=== PATIENT | female | born 1945 | race Caucasian/White ===

== ENCOUNTER 2016-08-20 13:39 | Outpatient (RCR) | payer OTHER, MEDICARE ==
[~2016-08-20 13:39] MED LIST: AMIO200T2 PO; CHOL500049 PO; DIPH1TAB PO; EXEM25TA4; LISI-552 PO; METR500T21 PO
--- OUTSIDE RECORDS SUMMARY | 2016-08-20 13:43 | XMS REPORT | Continuity of Care Document ---
Author Author [facility] Organization [facility] Address Unknown Phone Unavailable Care Team Providers Care Reproduction Machine Loader Name Role Phone Juan DanielTrae edwardsEvangelina PCP [phone] Source Comments Some departments are not documenting in the electronic medical record. If you do not see the information that you expected, contact Release of Information in the Health Information Management department at [phone] for further assistance in locating additional records.[facility] Active Allergies and Adverse Reactions No Known Allergies Current Medications Prescription Sig. Disp. Refills Start End Date Status Date lisinopril (PRINIVIL; Take 20 mg by mouth Active ZESTRIL) 20 mg tablet daily. amiodarone (CORDARONE) Take 200 mg by mouth Active 200 mg tablet daily. potassium chloride SR Take 10 mEq by mouth Active (K-DUR) 10 mEq tablet daily. HYDROcodone/acetaminophen Take 1-2 Tabs by mouth 40 Tab 0 01/12/20 Active (NORCO; VICODIN) 5-325 mg every 4 hours as needed 16 tablet for Pain acetaminophen/codeine Take 1-2 Tabs by mouth 40 Tab 0 01/12/20 Active (TYLENOL #3) 300/30 mg every 4 hours as needed 16 tablet for Pain. meloxicam (MOBIC) 15 mg Take 1 Tab by mouth 90 Tab 3 01/12/20 Active tablet daily. 16 Active Problems Problem Noted Date Malignant neoplasm of upper-outer quadrant of left female breast (HCC) 12/25 Overview: DIAGNOSIS: Left grade 1 IDC (ER60%, PR0%, HER2 0+, Ki-67 10%) at 3:00, dx 11/2015 HISTORY: Ms. Muñoz is a female who presented to [facility] on 12/28/2015 at age 70 for evaluation of left breast cancer. Ms. Muñoz felt a lump in the left breast and tingling at the beginning of November 2015. She saw her PCP who sent her for imaging. Left breast sono-guided biopsy 12/01/15 ([place], [place]) revealed grade 1 invasive ductal carcinoma. PET scan 12/13/15 ([place], [place]) revealed no evidence of metastasis. In the liver there was a 3.2 cm central hepatic hypodense mass with no hypermetabolism that was felt to be a hemangioma. Ms. Muñoz underwent left RSL lumpectomy/SLNB on 01/12/16. Final pathology revealed 1 cm grade 1 IDC; DCIS present; 2mm focus of DCIS was 0.5 mm from posterior margin and 1 mm focus was less than 1 mm from the inferior-posterior margin (took tissue all the way to implant); LVI absent; 2 negative SLNs. She finished radiation with Dr. Jacobs in March 2016. She started on exemestane in April 2016, but started having diarrhea and after extensive work up it was found to be caused by the drug and she stopped it. BREAST IMAGING: Mammogram: -- Bilateral diagnostic mammogram 11/23/15 ([place], [place]) revealed a 6 mm nodule in the left breast upper outer quadrant. The right breast showed no mammographic evidence of malignancy. Bilateral implants appeared symmetrical. -- Left diagnostic mammogram 12/28/15 () revealed a saline subpectoral implant present. A clip was seen on the upper posterior aspect of the known cancer, with the area post biopsy change measuring about 12 mm mammographically. No additional areas of concern were demonstrated. Ultrasound: -- Left breast ultrasound 11/23/15 ([place], [place]) revealed an 8 mm hypoechoic mass at 3:00. -- Left targeted breast ultrasound 12/28/15 () revealed a hematoma measuring 1.6 cm, with the known cancer present on one margin. Though difficult to measure precisely, it was thought to measure approximately 6 mm, similar to that on the outside examination. Nearby, small cyst was seen measuring 3 to 4 mm. Axilla showed no adenopathy. REPRODUCTIVE HEALTH: Age at first Menarche: 15 Age at First Live : 26 Age at Menopause: BRENDA/BSO at 37, was on HRT for many years, on estrace cream now : 3 Para: 3 : PROCEDURE: 1. Bilateral breast reconstruction, 2005 2. Implant exchange, 2009 3. Left RSL lumpectomy/SLNB, 01/12/16 PERTINENT PMH: HTN, atrial fibrillation FAMILY HISTORY: Maternal aunt with breast cancer at 80. Mother and maternal grandmother with colon cancer. No family history of ovarian or pancreatic cancer. PHYSICAL EXAM on PRESENTATION: Right - Subpectoral saline implant. No palpable masses. Left - Subpectoral saline implant. Subcentimeter nodule at 3:00 with bruising. No supraclavicular or axillary adenopathy. MEDICAL ONCOLOGY: Dr. Dodie Hand PRESENT THERAPY: Started exemestane in 04/2016, stopped 05/2016 due to diarrhea REFERRED BY: Dr. Dodie Hand Most Recent Encounters Date Type Specialty Providers Description 07/25/2016 Office Visit Oncology Dioni Ryan DO Malignant neoplasm of Dalia Glasgow PA-C upper-outer quadrant of left female breast (HCC) (Primary Dx) 07/25/2016 [facility] Radiology Dioni Ryan DO Encounter 07/25/2016 [facility] Radiology Dioni Ryan DO Encounter 07/25/2016 [facility] / Breast Dalia Glasgow PA-C Malignant neoplasm of [facility] upper-outer quadrant of left female breast (HCC) (Primary Dx) Social History Tobacco Use Types Packs/Day Years Used Date Never Smoker Smokeless Tobacco: Never Used Alcohol Use Drinks/Week oz/Week Comments No Last Filed Vital Signs Vital Sign Reading Time Taken Blood Pressure 161/82 07/25/2016 3:08 PM CDT Pulse 67 07/25/2016 3:08 PM CDT Temperature 36.8 C (98.3 F) 07/25/2016 3:08 PM CDT Respiratory Rate 17 07/25/2016 3:08 PM CDT Height 1.74 m (5' 8.5") 07/25/2016 3:08 PM CDT Weight 73.029 kg (161 lb) 07/25/2016 3:08 PM CDT Body Mass Index 24.12 07/25/2016 3:08 PM CDT Oxygen Saturation 100% 07/25/2016 3:08 PM CDT Plan of Care Date Type Specialty Providers Description 01/24/2017 Appointment Oncology Adri Montano, LYNN [address] [facility] [address] [place] [address] [phone] (Fax) Health Maintenance Due Date Last Done Comments Hepatitis C Screening 1945 Physical (Comprehensive) 1954 Exam Pertussis Vaccine 1958 Tetanus Vaccine 1964 Colorectal Cancer 1997 Screening Shingles Vaccine 2007 Osteoporosis Screening 2012 Prevnar/Pneumovax (#1) 2012 Influenza Vaccine 06/14/2016 Breast Cancer Screening 07/25/2018 07/25/2016 Results from Last 3 Months US BREAST TARGET LT (07/25/2016 2:22 PM) Impressions ACR BI-RADS Assessments: BIRAD 2-Benign (Overall) DIAG MAMMO BL/T: BIRAD 0-incomplete: need additional imaging evaluation of both breasts. Left breast US TARGET LEFT: BIRAD 2-benign finding in the left breast. RECOMMENDATION: Routine screening mammogram of both breasts in 1 year. Narrative Last mammogram was performed 2 years and 5 months ago. Reason for exam: history of breast cancer, conservation therapy hx of Lt Breast CA 12/2015, Lt Lumpectomy 12/2015 Performed by: Javi Pang [id number] MAMMO DIAGNOSTIC LEELA/MARTHA: JULY 25, 2016 - 2D/3D Procedure 3D Routine views. 2D Routine views. Radiologists: Sudhakar Urbina M.D.; MENG EUBANKS Technologist: Javi Pang Prior study comparison: December 28, 2015, left breast [id number] MAMMO DIAGNOSTIC LT/MARTHA performed at [facility] Breast I.November 23, 2015, left breast mammogram. March 03, 2014, bilateral mammogram. There are scattered areas of fibroglandular density.71-year-old female with history of left breast cancer status post lumpectomy in December 2015. Patient notes left periareolar breast lump, approximately 3:00. There are postsurgical changes in the left breast. Bilateral saline implant are in place. There are no abnormal asymmetries, masses or suspicious microcalcifications present to suggest malignancy.No changes from prior exam. Targeted ultrasound of the left breast will be performed. [id number] US BREAST TARGET LT: LEFT BREAST - JULY 25, 2016 - Radiologist: Sudhakar Urbina M.D. Technologist: Madie Barth, Nut Process Helper Targeted ultrasound of the left breast was performed. There are postsurgical changes at the area of palpable abnormality at 3:00, 1 cm from the nipple. There are normal-appearing left axillary lymph nodes. There are no suspicious findings to suggest malignancy. Approved by Nolberto Eubanks MD on 07/25/2016 2:54 PM By my electronic signature, I attest that I have personally reviewed the images for this examination and formulated the interpretations and opinions expressed in this report Finalized by Sudhakar Urbina M.D. on 07/25/2016 2:58 PM. Dictated by Nolberto Eubanks MD on 07/25/2016 1:53 PM. Electronically signed and approved by: Sudhakar Urbina M.D. [id number] Procedure Note Interface, Radiant Results - SatJul 25, 2016 2:59 PM CDT Last mammogram was performed 2 years and 5 months ago. Reason for exam: history of breast cancer, conservation therapy hx of Lt Breast CA 12/2015, Lt Lumpectomy 12/2015 Performed by: Javi Pang [id number] MAMMO DIAGNOSTIC LEELA/MARTHA: JULY 25, 2016 - 2D/3D Procedure 3D Routine views. 2D Routine views. Radiologists: Sudhakar Urbina M.D.; MENG EUBANKS Technologist: Javi Pang Prior study comparison: December 28, 2015, left breast [id number] MAMMO DIAGNOSTIC LT/MARTHA performed at [facility] Breast I. November 23, 2015, left breast mammogram. March 03, 2014, bilateral mammogram. There are scattered areas of fibroglandular density. 71-year-old female with history of left breast cancer status post lumpectomy in December 2015. Patient notes left periareolar breast lump, approximately 3:00. There are postsurgical changes in the left breast. Bilateral saline implant are in place. There are no abnormal asymmetries, masses or suspicious microcalcifications present to suggest malignancy. No changes from prior exam. Targeted ultrasound of the left breast will be performed. [id number] US BREAST TARGET LT: LEFT BREAST - JULY 25, 2016 - Radiologist: Sudhakar Urbina M.D. Technologist: Madie Barth, Nut Process Helper Targeted ultrasound of the left breast was performed. There are postsurgical changes at the area of palpable abnormality at 3:00, 1 cm from the nipple. There are normal-appearing left axillary lymph nodes. There are no suspicious findings to suggest malignancy. Approved by Nolberto Eubanks MD on 07/25/2016 2:54 PM By my electronic signature, I attest that I have personally reviewed the images for this examination and formulated the interpretations and opinions expressed in this report Finalized by Sudhakar Urbina M.D. on 07/25/2016 2:58 PM. Dictated by Nolberto Eubanks MD on 07/25/2016 1:53 PM. Electronically signed and approved by: Sudhakar Urbina M.D. [id number] IMPRESSION ACR BI-RADS Assessments: BIRAD 2-Benign (Overall) DIAG MAMMO BL/T: BIRAD 0-incomplete: need additional imaging evaluation of both breasts. Left breast US TARGET LEFT: BIRAD 2-benign finding in the left breast. RECOMMENDATION: Routine screening mammogram of both breasts in 1 year. MAMMO DIAGNOSTIC LEELA/MARTHA (07/25/2016 1:51 PM) Impressions ACR BI-RADS Assessments: BIRAD 2-Benign (Overall) DIAG MAMMO BL/T: BIRAD 0-incomplete: need additional imaging evaluation of both breasts. Left breast US TARGET LEFT: BIRAD 2-benign finding in the left breast. RECOMMENDATION: Routine screening mammogram of both breasts in 1 year. Narrative Last mammogram was performed 2 years and 5 months ago. Reason for exam: history of breast cancer, conservation therapy hx of Lt Breast CA 12/2015, Lt Lumpectomy 12/2015 Performed by: Javi Pang [id number] MAMMO DIAGNOSTIC LEELA/MARTHA: JULY 25, 2016 - 2D/3D Procedure 3D Routine views. 2D Routine views. Radiologists: Sudhakar Urbina M.D.; MENG EUBANKS Technologist: Javi Pang Prior study comparison: December 28, 2015, left breast [id number] MAMMO DIAGNOSTIC LT/MARTHA performed at [facility] Breast I.November 23, 2015, left breast mammogram. March 03, 2014, bilateral mammogram. There are scattered areas of fibroglandular density.71-year-old female with history of left breast cancer status post lumpectomy in December 2015. Patient notes left periareolar breast lump, approximately 3:00. There are postsurgical changes in the left breast. Bilateral saline implant are in place. There are no abnormal asymmetries, masses or suspicious microcalcifications present to suggest malignancy.No changes from prior exam. Targeted ultrasound of the left breast will be performed. [id number] US BREAST TARGET LT: LEFT BREAST - JULY 25, 2016 - Radiologist: Sudhakar Urbina M.D. Technologist: Madie Barth, Nut Process Helper Targeted ultrasound of the left breast was performed. There are postsurgical changes at the area of palpable abnormality at 3:00, 1 cm from the nipple. There are normal-appearing left axillary lymph nodes. There are no suspicious findings to suggest malignancy. Approved by Nolberto Eubanks MD on 07/25/2016 2:54 PM By my electronic signature, I attest that I have personally reviewed the images for this examination and formulated the interpretations and opinions expressed in this report Finalized by Sudhakar Urbina M.D. on 07/25/2016 2:58 PM. Dictated by Nolberto Eubanks MD on 07/25/2016 1:53 PM. Electronically signed and approved by: Sudhakar Urbina M.D. [id number] Procedure Note Interface, Radiant Results - SatJul 25, 2016 2:59 PM CDT Last mammogram was performed 2 years and 5 months ago. Reason for exam: history of breast cancer, conservation therapy hx of Lt Breast CA 12/2015, Lt Lumpectomy 12/2015 Performed by: Javi Pang [id number] MAMMO DIAGNOSTIC LEELA/MARTHA: JULY 25, 2016 - 2D/3D Procedure 3D Routine views. 2D Routine views. Radiologists: Sudhakar Urbina M.D.; MENG EUBANKS Technologist: Javi Pang Prior study comparison: December 28, 2015, left breast [id number] MAMMO DIAGNOSTIC LT/MARTHA performed at [facility] Breast I. November 23, 2015, left breast mammogram. March 03, 2014, bilateral mammogram. There are scattered areas of fibroglandular density. 71-year-old female with history of left breast cancer status post lumpectomy in December 2015. Patient notes left periareolar breast lump, approximately 3:00. There are postsurgical changes in the left breast. Bilateral saline implant are in place. There are no abnormal asymmetries, masses or suspicious microcalcifications present to suggest malignancy. No changes from prior exam. Targeted ultrasound of the left breast will be performed. [id number] US BREAST TARGET LT: LEFT BREAST - JULY 25, 2016 - Radiologist: Sudhakar Urbina M.D. Technologist: Madie Barth, Nut Process Helper Targeted ultrasound of the left breast was performed. There are postsurgical changes at the area of palpable abnormality at 3:00, 1 cm from the nipple. There are normal-appearing left axillary lymph nodes. There are no suspicious findings to suggest malignancy. Approved by Nolberto Eubanks MD on 07/25/2016 2:54 PM By my electronic signature, I attest that I have personally reviewed the images for this examination and formulated the interpretations and opinions expressed in this report Finalized by Sudhakar Urbina M.D. on 07/25/2016 2:58 PM. Dictated by Nolberto Eubanks MD on 07/25/2016 1:53 PM. Electronically signed and approved by: Sudhakar Urbina M.D. [id number] IMPRESSION ACR BI-RADS Assessments: BIRAD 2-Benign (Overall) DIAG MAMMO BL/T: BIRAD 0-incomplete: need additional imaging evaluation of both breasts. Left breast US TARGET LEFT: BIRAD 2-benign finding in the left breast. RECOMMENDATION: Routine screening mammogram of both breasts in 1 year.
== END 2016-11-18 | disposition home or self-care (01) ==
LOC: ONC 13:39
PROVIDERS: ATTEND Internal Medicine Hematology & Oncology
DX: C50.412 Malignant neoplasm of upper-outer quadrant of left female breast (principal); I10 Essential (primary) hypertension; I48.91 Unspecified atrial fibrillation; Z90.710 Acquired absence of both cervix and uterus; Z79.899 Other long term (current) drug therapy
CPT/HCPCS: 99213

== ENCOUNTER 2016-12-20 13:42 | Outpatient (RCR) | payer OTHER ==
--- OUTSIDE RECORDS SUMMARY | 2016-12-20 13:46 | XMS REPORT | Continuity of Care Document ---
Author Author [facility] Organization [facility] Address Unknown Phone Unavailable Care Team Providers Care Watch And Clock Repair Clerk Name Role Phone Juan DanielTrae edwardsEvangelina PCP [phone] Source Comments Some departments are not documenting in the electronic medical record. If you do not see the information that you expected, contact Release of Information in the Health Information Management department at [phone] for further assistance in locating additional records.[facility] Active Allergies and Adverse Reactions No Known [...] for imaging. Left breast sono-guided biopsy 12/01/15 ([place], [place]) revealed grade 1 invasive ductal carcinoma. PET scan 12/13/15 ([place], [place]) revealed no evidence of metastasis. In [...] IMAGING: Mammogram: -- Bilateral diagnostic mammogram 11/23/15 ([place], [place]) revealed a 6 mm nodule in [...] demonstrated. Ultrasound: -- Left breast ultrasound 11/23/15 ([place], [place]) revealed an 8 mm hypoechoic mass [...] Recent Encounters Date Type Specialty Providers Description 11/27/2016 Telephone Oncology Dioni Ryan DO Appointment Social History Tobacco Use Types Packs/Day Years [...] 01/24/2017 Appointment Oncology Adri Montano, LYNN [address] [place] [address] [phone] (Fax) Health Maintenance Due Date Last Done Comments Hepatitis C Screening 1945 Physical (Comprehensive) 1954 Exam Pertussis Vaccine 1958 Tetanus Vaccine 1964 Colorectal Cancer 1997 Screening Shingles Vaccine 2007 Osteoporosis Screening 2012 Prevnar/Pneumovax (#1) 2012 Influenza Vaccine 06/14/2016 Breast Cancer Screening 07/25/2017 07/25/2016 Results from Last 3 Months Not on file
== END 2017-03-20 | disposition home or self-care (01) ==
LOC: ONC 13:42
PROVIDERS: ATTEND Internal Medicine Hematology & Oncology
DX: C50.412 Malignant neoplasm of upper-outer quadrant of left female breast (principal); I10 Essential (primary) hypertension; I48.91 Unspecified atrial fibrillation; Z90.710 Acquired absence of both cervix and uterus; Z79.899 Other long term (current) drug therapy
CPT/HCPCS: 99213

== ENCOUNTER 2017-03-21 13:47 | Outpatient (RCR) | payer OTHER ==
[2017-07-30] MEDS ORDERED: METO-395 PO (08:00)
== END 2017-06-19 | disposition home or self-care (01) ==
LOC: ONC 13:47
PROVIDERS: ATTEND Internal Medicine Hematology & Oncology
DX: C50.412 Malignant neoplasm of upper-outer quadrant of left female breast (principal); I10 Essential (primary) hypertension; I48.91 Unspecified atrial fibrillation; Z90.710 Acquired absence of both cervix and uterus; Z79.899 Other long term (current) drug therapy
CPT/HCPCS: 99213

== ENCOUNTER 2017-06-23 02:50 | Emergency (ER) | payer OTHER ==
[~2017-06-23] VITALS: Ht 172.7 cm; Wt 77.1 kg
[2017-06-23] MEDS ORDERED: DILTIAZEM 100 MG/VIAL (CARDIZEM) ADD-VANTAGE IV ONE (02:51)
[2017-06-23] MEDS ORDERED: DILTIAZEM 25 MG/5 ML INJ (CARDIZEM) VIAL ONE (02:52)
[2017-06-23] MEDS ORDERED: SODIUM CHLORIDE (ADD-VANTAGE) 100 ML IV ONE (02:52)
--- OUTSIDE RECORDS SUMMARY | 2017-06-23 02:55 | XMS REPORT | Clinical Summary ---
Author Author [facility] Organization [facility] Address Unknown Phone Unavailable Care Team Providers Care Small Animal Veterinarian Name Role Phone PCP Unavailable Source Comments Some departments are not documenting in the electronic medical record. If you do not see the information that you expected, contact Release of Information in the Health Information Management department at [phone] for further assistance in locating additional records.[facility] Allergies No Known Allergies Current Medications Prescription Sig. [...] Tab 3 01/12/20 Active tablet daily. 16 amLODIPine (NORVASC) 5 mg Take 5 mg by mouth daily. Active tablet letrozole (FEMARA) 2.5 mg Take 2.5 mg by mouth Active tablet daily. CALCIUM CARBONATE/VITAMIN Take by mouth daily. Active D3 (CALCIUM + D PO) cyclosporine (RESTASIS) Place 1 Drop into or Active 0.05 % ophthalmic around eye(s) twice emulsion daily. Active Problems Problem Noted Date Malignant neoplasm [...] for imaging. Left breast sono-guided biopsy 12/01/15 ([place], [place]) revealed grade 1 invasive ductal carcinoma. PET scan 12/13/15 ([place], [place]) revealed no evidence of metastasis. In [...] IMAGING: Mammogram: -- Bilateral diagnostic mammogram 11/23/15 ([place], [place]) revealed a 6 mm nodule in [...] demonstrated. Ultrasound: -- Left breast ultrasound 11/23/15 ([place], [place]) revealed an 8 mm hypoechoic mass [...] to diarrhea REFERRED BY: Dr. Dodie Hand Family History Medical History Relation Name Comments Cancer Father bladder in 70s Cancer-Breast Maternal Aunt Cancer-Colon Maternal 70s Grandmother Cancer-Colon Mother Relation Name Status Comments Father Maternal Aunt Maternal Grandmother Mother Social History Tobacco Use Types Packs/Day Years Used Date Never Smoker Smokeless Tobacco: Never Used Alcohol Use Drinks/Week oz/Week Comments No Sex Assigned at Date Recorded Not on file Last Filed Vital Signs Vital Sign Reading Time Taken Blood Pressure 137/70 02/12/2017 2:21 PM CDT Pulse 66 02/12/2017 2:21 PM CDT Temperature 36.7 C (98.1 F) 02/12/2017 2:21 PM CDT Respiratory Rate 18 02/12/2017 2:21 PM CDT Oxygen Saturation 100% 02/12/2017 2:21 PM CDT Inhaled Oxygen - - Concentration Weight 76.8 kg (169 lb 6.4 oz) 02/12/2017 2:21 PM CDT Height 174 cm (5' 8.5") 02/12/2017 2:21 PM CDT Body Mass Index 25.38 02/12/2017 2:21 PM CDT Plan of Treatment Health Maintenance Due Date Last Done Comments HEPATITIS C SCREENING 1945 PHYSICAL (COMPREHENSIVE) 1954 EXAM PERTUSSIS VACCINE 1958 TETANUS VACCINE 1964 COLORECTAL CANCER 1997 SCREENING SHINGLES VACCINE 2007 OSTEOPOROSIS SCREENING 2012 PREVNAR/PNEUMOVAX (#1) 2012 INFLUENZA VACCINE 06/14/2017 BREAST CANCER SCREENING 07/25/2017 07/25/2016 Implants Implanted Type Area Semiautomatic Stitcher Operator Device Expiration Model / Identifier Date Serial / Lot Breast Implants Results Not on filefrom Last 3 Months
--- OUTSIDE RECORDS SUMMARY | 2017-06-23 02:56 | XMS REPORT | Clinical Summary ---
Author Author Admin, JAK Organization [facility] Address Unknown Phone Unavailable Allergies, Adverse Reactions, Alerts Allergy Name Reaction Description Start Date Severity Status Provider No Known Allergies [place] Conditions or Problems Problem Name Problem Code Onset Date Status Entry Date Provider Comment Standard Description Annotate HEMORRHOIDS, INTERNAL 455.0 Active Darlene Cummins APRN Internal hemorrhoids without mention of complication FH COLON CANCER V16.0 Active Darlene Cummins APRN Family history of malignant neoplasm of gastrointestinal tract URINARY TRACT INFECTION, HX OF V13.00 Resolved Darcie Yepez APRN Personal history of unspecified urinary disorder HYPERTENSION 401.9 Active Yoshi Read MD Unspecified essential hypertension FAMILY HISTORY COLON CANCER-MOTHER V16.0 Active Yoshi Read MD Family history of malignant neoplasm of gastrointestinal tract RECTAL BLEEDING/HEMORRHAGE 569.3 Active Yoshi Read MD Hemorrhage of rectum and anus ANAL OR RECTAL PAIN 569.42 Active Yoshi Read MD Anal or rectal pain VAGINITIS, ATROPHIC, MILD 627.3 Active Dedra Mendiola MD Postmenopausal atrophic vaginitis CANDIDIASIS OF VULVA AND VAGINA 112.1 Resolved Darcie Yepez APRN Candidiasis of vulva and vagina HEALTH SCREENING V70.0 Resolved Darcie Yepez APRN Routine general medical examination at a health care facility FATIGUE 780.79 Resolved Darcie Yepez APRN Other malaise and fatigue SINUSITIS, ACUTE 461.9 Resolved Dilan Bowen MD Acute sinusitis, unspecified PALPITATIONS 785.1 Resolved Darcie Yokum [employer] Palpitations ANXIETY DISORDER 300.00 Resolved Darcie Yokishan [employer] Anxiety state, unspecified URINARY TRACT INFECTION (UTI) 599.0 Resolved Darcie Yokum [employer] Urinary tract infection, site not specified DIARRHEA 787.91 Resolved Dilan Bowen MD Diarrhea 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 Keira Casarez MD Rectocele Sinusitis, acute 461.9 Resolved Darcie Yepez APRN Acute sinusitis, unspecified Routine gynecological examination V72.31 Active Annette Gonzalez APRN Routine gynecological examination Fecal incontinence 787.60 Active Keira Casarez MD Full incontinence of feces Hematochezia 578.1 Active Dilan Bowen MD Blood in stool Anal pruritus 698.0 Active Dilan Bowen MD Pruritus ani Menopause, surgical 627.4 Active Dilan Bowen MD Symptomatic states associated with artificial menopause Chest wall pain 786.52 Active Darciebreezy Cardosoum [employer] Painful respiration Hypertension 401.9 Active Darcie Marleni BAILEY Unspecified essential hypertension Foreign body, nose 932 Inactive Darcie Yokum [employer] Foreign body in nose Pharyngitis 462 Active Darcie Yokum [employer] Acute pharyngitis Pharyngitis 462 Active Darcie Yokum [employer] Acute pharyngitis URINARY TRACT INFECTION, HX OF ICD-V13.00 Inactive Darcie Yokum [employer] CANDIDIASIS OF VULVA AND VAGINA ICD-112.1 Inactive Darcie Yokum [employer] HEALTH SCREENING ICD-V70.0 Inactive Darcie Yokum [employer] FATIGUE ICD-780.79 Inactive Darcie Yokum [employer] 10/25 SINUSITIS, ACUTE ICD-461.9 Inactive Dilan Bowen MD PALPITATIONS ICD-785.1 Inactive Darcie Yokum [employer] ANXIETY DISORDER ICD-300.00 Inactive Darcie Yokum [employer] 10/25 URINARY TRACT INFECTION (UTI) ICD-599.0 Inactive Darcie Yokum [employer] DIARRHEA ICD-787.91 Inactive Dilan Bowen MD Sinusitis, acute ICD-461.9 Inactive Darcie Yokum [employer] Foreign body, nose ICD-932 Inactive Darcie Yokum [employer] Medication List Medication Instructions Start Date Stop Date Generic Name NDC Status Provider Patient Instruction GUAIFENESIN-CODEINE 100-10 MG/5ML SYRP 1 tsp PO q6h PRN cough GUAIFENESIN-CODEINE 74531422241 Active Darcie Yokum [employer] Active AMOXICILLIN 500 MG CAP 1 tab by mouth 3 times daily x 10 days AMOXICILLIN 50588153375 Active Darcie Yokum [employer] Active ZITHROMAX 250 MG TAB 2 po today, then 1 po q days 2-5 AZITHROMYCIN 90357096763 No Longer Active Darcie Yokum [employer] Active VAGIFEM 10 MCG TABS one tab per vagina twice per week ESTRADIOL 36545541317 Active Keira Casarez MD Active PREMARIN 0.3 MG TABS one tab PO weekly ESTROGENS CONJUGATED 50895406501 No Longer Active Keira Casarez MD Active FELODIPINE ER 5 MG [id number] 1 daily for blood pressure FELODIPINE 24461955260 Active Darcie Yepez [employer] Active LISINOPRIL 10 MG TABS 1 tablet by mouth daily LISINOPRIL 87479979160 Active Darcie Yepez [employer] Active PREMARIN 0.3 MG TABS 1 by mouth once a week ESTROGENS CONJUGATED 19957818129 No Longer Active Jilllaz Englishcharbell [employer] Active HYDROCHLOROTHIAZIDE 25 MG TABS 1 tablet by mouth daily for blood pressure and swelling HYDROCHLOROTHIAZIDE 48518535018 Active Darcie Yepez [employer] Active METOPROLOL-HYDROCHLOROTHIAZIDE 50-25 MG TABS 1 daily METOPROLOL-HYDROCHLOROTHIAZIDE 64590150721 No Longer Active Dilan Bowen MD Active METOPROLOL-HYDROCHLOROTHIAZIDE 50-25 MG TABS one tablet daily METOPROLOL-HYDROCHLOROTHIAZIDE 14235468746 No Longer Active Dilan Bowen MD Active DIFLUCAN 150 MG TABS Take 1 tablet X 1 FLUCONAZOLE 69647699812 No Longer Active Dilan Bowen MD Active MACROBID 100 MG CAP 1 cap by mouth twice daily for one week - then qd NITROFURANTOIN MONOHYD MACRO 92538316496 No Longer Active Dilan Bowen MD Active DIBUCAINE 1 % RECTAL OINT apply every 4 hr prn DIBUCAINE 47718910409 No Longer Active Dilan Bowen MD Active DIFLUCAN 150 MG TAB 1 po q 72hrs x 2 FLUCONAZOLE 45388211943 No Longer Active Dilan Bowen MD Active CIPRO 250 MG TABS 1 tab po bid CIPROFLOXACIN HCL 92718591052 No Longer Active Darlene Cummins APRN Active ANUSOL-HC 2.5 % CREAM insert twice daily HYDROCORTISONE (RECTAL) 56280754340 No Longer Active Darlene Cummins APRN Active BACTRIM DS 800-160 MG TAB 1 tab by mouth twice daily TRIMETHOPRIM-SULFAMETHOXAZOLE 43174359474 No Longer Active Sharon Farley LPN Active ESTRACE CREA ESTRADIOL CREA 53316581103 No Longer Active Sharonlinda Farley LPN Active LISINOPRIL-HYDROCHLOROTHIAZIDE 20-12.5 MG TABS one daily LISINOPRIL-HYDROCHLOROTHIAZIDE 67066250580 No Longer Active Darleneantonino Cummins [employer] Active HYDROCHLOROTHIAZIDE 12.5 MG CAPS 1 pill by mouth daily HYDROCHLOROTHIAZIDE 40482890778 No Longer Active Darlene S Cummins [employer] Active FELODIPINE 5 MG [id number] one by mouth daily FELODIPINE 76819722331 No Longer Active Darlene Cummins [employer] Active FELODIPINE 10 MG [id number] FELODIPINE 91974729970 No Longer Active Darlene Cummins [employer] Active DIFLUCAN 150 MG TAB 1 po now and one in 3 days FLUCONAZOLE 52164777122 No Longer Active Darleneantonino Cummins [employer] Active ANUSOL-HC 25 MG SUPP 1 rectally 2-3 times a day for 2 weeks 07/10 HYDROCORTISONE ACETATE 47569984484 No Longer Active Jitendra Melo DO Active DIFLUCAN 100 MG TABS take 1 tablet daily FLUCONAZOLE 15686492333 No Longer Active Jitendra Melo DO Active FELODIPINE 5 MG [id number] Take one by mouth daily FELODIPINE 36934044571 No Longer Active Darleneantonino Cummins APRN Active ANUSOL-HC 25 MG SUPP insert twice daily per rectum HYDROCORTISONE ACETATE 47326519953 No Longer Active Yoshi Read MD Active ANUSOL-HC 25 MG SUPP insert twice daily per rectum ANUSOL-HC 25 MG SUPP 5997544 HYDROCORTISONE ACETATE Inactive FELODIPINE 5 MG [id number] Take one by mouth daily FELODIPINE 5 MG [id number] FELODIPINE Inactive DIFLUCAN 100 MG TABS take 1 tablet daily DIFLUCAN 100 MG TABS 19760621 FLUCONAZOLE Inactive ANUSOL-HC 25 MG SUPP 1 rectally 2-3 times a day for 2 weeks 07/10 ANUSOL-HC 25 MG SUPP 3106683 HYDROCORTISONE ACETATE Inactive FELODIPINE 10 MG [id number] FELODIPINE 10 MG XR24H- TAB FELODIPINE Inactive FELODIPINE 5 MG [id number]-MIC one by mouth daily FELODIPINE 5 MG [id number] FELODIPINE Inactive HYDROCHLOROTHIAZIDE 12.5 MG CAPS 1 pill by mouth daily HYDROCHLOROTHIAZIDE 12.5 MG CAPS HYDROCHLOROTHIAZIDE Inactive LISINOPRIL-HYDROCHLOROTHIAZIDE 20-12.5 MG TABS one daily LISINOPRIL-HYDROCHLOROTHIAZIDE 20-12.5 MG TABS 19780519 LISINOPRIL- HYDROCHLOROTHIAZIDE Inactive ESTRACE CREA ESTRACE CREA ESTRADIOL CREA Inactive BACTRIM DS 800-160 MG TAB 1 tab by mouth twice daily BACTRIM DS 800-160 MG TAB TRIMETHOPRIM-SULFAMETHOXAZOLE Inactive ANUSOL-HC 2.5 % CREAM insert twice daily ANUSOL-HC 2.5 % CREAM 600729 HYDROCORTISONE (RECTAL) Inactive CIPRO 250 MG TABS 1 tab po bid CIPRO 250 MG TABS 848379 CIPROFLOXACIN HCL Inactive DIFLUCAN 150 MG TAB 1 po q 72hrs x 2 DIFLUCAN 150 MG TAB 259430 FLUCONAZOLE Inactive DIBUCAINE 1 % RECTAL OINT apply every 4 hr prn DIBUCAINE 1 % RECTAL OINT 199810 DIBUCAINE Inactive MACROBID 100 MG CAP 1 cap by mouth twice daily for one week - then qd MACROBID 100 MG CAP 437328 NITROFURANTOIN MONOHYD MACRO Inactive DIFLUCAN 150 MG TABS Take 1 tablet X 1 DIFLUCAN 150 MG TABS 771294 FLUCONAZOLE Inactive METOPROLOL-HYDROCHLOROTHIAZIDE 50-25 MG TABS one tablet daily METOPROLOL-HYDROCHLOROTHIAZIDE 50-25 MG TABS 821216 METOPROLOL- HYDROCHLOROTHIAZIDE Inactive PREMARIN 0.3 MG TABS 1 by mouth once a week PREMARIN 0.3 MG TABS ESTROGENS CONJUGATED Inactive DIFLUCAN 150 MG TAB 1 po now and one in 3 days DIFLUCAN 150 MG TAB 638839 FLUCONAZOLE Inactive PREMARIN 0.3 MG TABS one tab PO weekly PREMARIN 0.3 MG TABS ESTROGENS CONJUGATED Inactive ZITHROMAX 250 MG TAB 2 po today, then 1 po q days 2-5 ZITHROMAX 250 MG TAB 2566175 AZITHROMYCIN Inactive Immunizations Vaccine Administration Date Value Standard Description Adacel (Tetanus, reduced Diphtheria, and acellular Pertussis Immunization) Adacel [TLH775] tetanus toxoid, reduced diphtheria toxoid, and acellular pertussis vaccine, adsorbed Seasonal influenza vaccine, injectable, containing preservative, for > 3 years old (Afluria, FluLaval, Fluzone, Fluvirin, Fluarix, Agriflu(>=18 yo)) Fluzone (>3 yrs.) [[id number]] Influenza, seasonal, injectable Seasonal influenza vaccine, injectable, containing preservative, for > 3 years old (Afluria, FluLaval, Fluzone, Fluvirin, Fluarix, Agriflu(>=18 yo)) Fluzone (>3 yrs.) [SSK632] Influenza, seasonal, injectable Vital Signs Date Name Value Unit Range Description blood pressure, diastolic - 8462-4 101 mm[Hg] BP [place] blood pressure, systolic - 8480-6 174 mm[Hg] BP sys pulse rate E&M - 8867-4 68 /min Heart rate temperature E&M 98.5 [degF] Body temperature weight E&M - 3141-9 173.8 [lb_av] Weight Measured blood pressure, diastolic - 8462-4 81 mm[Hg] BP [place] blood pressure, systolic - 8480-6 113 mm[Hg] BP sys pulse rate E&M - 8867-4 77 /min Heart rate temperature E&M 98.4 [degF] Body temperature weight E&M - 3141-9 174 [lb_av] Weight Measured blood pressure, diastolic - 8462-4 80 mm[Hg] BP [place] blood pressure, systolic - 8480-6 136 mm[Hg] BP sys pulse rate E&M - 8867-4 73 /min Heart rate temperature E&M 96.4 [degF] Body temperature weight E&M - 3141-9 174 [lb_av] Weight Measured blood pressure, diastolic - 8462-4 79 mm[Hg] BP [place] blood pressure, systolic - 8480-6 126 mm[Hg] BP sys height E&M - 8302-2 68 [in_us] Bdy height pulse rate E&M - 8867-4 72 /min Heart rate temperature E&M 97.5 [degF] Body temperature weight E&M - 3141-9 174 [lb_av] Weight Measured blood pressure, diastolic - 8462-4 72 mm[Hg] BP [place] blood pressure, systolic - 8480-6 115 mm[Hg] BP sys pulse rate E&M - 8867-4 80 /min Heart rate temperature E&M 98.6 [degF] Body temperature weight E&M - 3141-9 180 [lb_av] Weight Measured Diagnostic Results Date Name Value Unit Range Description Lab Report: CBC W/DIFF, MonoSpot, Myco Pneumo - Hematology leukocyte count, blood 9.1 10^3/MM^3 10*3/mm3 4.6-10.2 neutrophils as percent of blood leukocytes 60.0 % 42.2-75.2 monocytes as percent of blood leukocytes 4.9 % 1.7-9.3 lymphocytes as percent of blood leukocytes 32.8 % 20.5-51.1 erythrocyte (RBC) count 4.29 10^6/MM^3 10*6/mm3 4.04-5.48 hemoglobin, blood 12.9 g/dL 12.0-16.0 hematocrit, blood 38.7 % 36.0-46.0 mean corpuscular volume, RBC 90 fL 80-97 mean corpuscular hemoglobin, RBC 30.1 pg 27.0-31.2 mean corpuscular hemoglobin concentration, RBC 33.4 G/DL % 31.8- 35.4 red blood cell distribution width 14.0 % 11.6-14.8 platelet count 397 10^3/MM^3 10*3/mm3 142-424 Lab Report: CBC, Comp. Metabolic Panel - Chemistry sodium, serum 138 mmol/L 913-709 8945/07/14 potassium, serum 3.6 mmol/L 3.5-5.2 chloride, serum 100 mmol/L 98-107 carbon dioxide, venous blood 30.3 mmol/L 21.0-32.0 blood glucose 93 mg/dL 65-110 urea nitrogen, blood 17 mg/dL 7-18 creatinine, serum 0.80 mg/dL 0.60-1.30 alanine aminotransferase (SGPT), serum 15 U/L 12-78 aspartate aminotransferase (SGOT), serum 13 U/L 15-37 alkaline phosphatase, serum 74 U/L 50-136 calcium, serum 9.3 mg/dL 8.5-10.1 bilirubin, serum, total 0.30 mg/dL 0.00-1.00 Lab Report: CBC, Comp. Metabolic Panel - Hematology leukocyte count, blood 7.7 10^3/MM^3 10*3/mm3 4.6-10.2 erythrocyte (RBC) count 4.06 10^6/MM^3 10*6/mm3 4.04-5.48 hemoglobin, blood 12.3 g/dL 12.0-16.0 hematocrit, blood 37.2 % 36.0-46.0 mean corpuscular volume, RBC 91 fL 80-97 mean corpuscular hemoglobin, RBC 30.3 pg 27.0-31.2 mean corpuscular hemoglobin concentration, RBC 33.1 G/DL % 31.8- 35.4 red blood cell distribution width 14.6 % 11.6-14.8 platelet count 337 10^3/MM^3 10*3/mm3 142-424 Lab Report: RapidStrep Rflx/Cx - Lab Microbial identification kit, rapid strep method Negative-Throat Culture to Follow Negative Encounters Code Encounter Date Provider Facility CPT-30556 Level 3 Est. Patient 09:23:52 DECK MOLDER Darcie Yepez [facility] CPT-74130 Level 2 Est. Patient 16:54:57 [facility] [place] [facility] Level 2 Est. Patient 16:48:18 DECK MOLDER Darcie Yepez [facility] CPT-49652 Level 3 Est. Patient 09:04:42 DECK MOLDER Darcie eYpez [facility] CPT-77842 Level 3 Est. Patient 09:04:02 DECK MOLDER Darcie Yepez [facility] CPT-16410 Level 4 Est. Patient 15:07:09 CDT Dilan Bowen MD [facility] CPT-68229 Level 3 Est. Patient 16:38:49 CDT Dilan Bowen MD [facility] CPT-15360 Level 3 Est. Patient 16:42:54 DECK MOLDER Yudelka Lieberman [facility] CPT-05503 Level 3 Est. Patient 16:25:16 DECK MOLDER Yudelka Lieberman [facility] CPT-86813 Level 3 Est. Patient 16:52:04 CDT Dilan Bowen MD [facility] CPT-40671 Level 3 Est. Patient 16:31:27 CDT Dilan Bowen MD [facility] CPT-04400 Level 3 Est. Patient 11:43:14 CDT Dilan Bowen MD [facility] [place]-14845 Level 3 Est. Patient 17:02:59 CDT Darlene Cummins [facility] CPT-13844 Level 2 Est. Patient 16:05:35 DECK MOLDER Yoshi Read MD [facility] CPT-25008 Level 3 Est. Patient 16:40:06 DECK MOLDER Darlene Cummins [facility] CPT-65537 Level 3 Est. Patient 16:40:35 DECK MOLDER Darlene Cummins [facility] CPT-72544 Level 3 Est. Patient 16:31:20 DECK MOLDER Darlene Cummins [facility] CPT-57803 Level 3 Est. Patient 16:52:24 DECK MOLDER Darlene Cummins [facility] CPT-08629 Level 3 Est. Patient 17:49:08 CDT Darlene Cummins [facility] CPT-40922 Level 3 Est. Patient 22:09:06 CDT Jitendra Melo DO [facility] CPT-29955 Level 3 Est. Patient 17:25:58 CDT Darlene Cummins [facility] CPT-25275 Level 3 New Patient 17:19:41 DECK MOLDER Dedra Mendiola MD [facility] CPT-84486 Level 3 Est. Patient 17:00:56 DECK MOLDER Darlene Cummins [facility] CPT-76951 Level 2 Est. Patient 13:35:27 DECK MOLDER Yoshi Read MD [facility] CPT-44711 Level 3 Est. Patient 16:41:39 CDT Darlene Cummins [facility] Procedures Code Procedure Name Date Entry Date Standard Description CPT-OV Office Visit 17:11:38 CDT CPT-62720 Administration single or combination vaccine inc oral 15 :11:40 CDT CPT-78842 Adacel 15:11:40 CDT CPT-72236 Bone Density 10:16:21 CDT CPT-OV Office Visit 16:26:51 CDT CPT-OV Office Visit 17:58:35 CDT CPT-96938 Administration single or combination vaccine inc oral 17 :05:14 CDT CPT-55050 Influenza High Dose age 65+ 17:05:14 CDT CPT-20240 Venipuncture Draw Fee 16:06:14 CDT CPT-48393 Venipuncture Draw Fee 17:17:44 CDT CPT-83164 Administration single or combination vaccine inc oral 17 :00:42 CDT CPT-87233 Influenza split virus > age 3 17:00:42 CDT CPT-OV Office Visit 11:27:48 DECK MOLDER CPT-93996 Administration single or combination vaccine inc oral 16 :06:40 CDT CPT-72866 Influenza split virus > age 3 16:06:40 CDT
--- OUTSIDE RECORDS SUMMARY | 2017-06-23 02:57 | XMS REPORT | Referral Summary ---
Author Author [facility] Organization [facility] Address Unknown Phone Unavailable Care Team Providers Care Milliner Helper Name Role Phone Renetta Mitchell PCP Encounter VC Date(s): 05/30/15 - 06/01/[address] 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 Final: UNSPECIFIED ESSENTIAL HYPERTENSION Final: Microscopic hematuria Discharge Diagnosis: Renal mass Discharge Disposition: 01-Home or Self Care Attending Physician: Teodoro Keller MD Admitting Physician: Teodoro Keller MD Vital Signs Most recent to 1 oldest [Reference Range]: Temperature Oral 37.1 degC [35.8-37.3 degC] (06/01/15 11:46 AM) Temperature Temporal 36.7 degC Artery [36.3-37.8 (05/30/15 5:16 PM) degC] Peripheral Pulse 70 bpm Rate [60-100 bpm] (06/01/15 11:46 AM) Heart Rate Monitored 64 bpm [60-100 bpm] (05/31/15 4:22 AM) Respiratory Rate 16 br/min [14-20 br/min] (06/01/15 11:46 AM) Blood Pressure 112/58 mmHg [90-140/60-90 mmHg] (06/01/15 11:46 AM) Mean Arterial 77 mmHg Pressure, Cuff (05/30/15 7:25 PM) SpO2 96 % (06/01/15 11:46 AM) Problem List Condition Effective Dates Status Health Status Informant Acute Active pain(Confirmed) Hypertension(Confirm Active patient ed) Impaired skin Active integrity(Confirmed) 1 UTI (lower urinary Active patient tract infection)(Confirmed ) Renal Active patient mass(Confirmed) 1Problem added automatically by system based on initiation of Impaired Skin Integrity Plan of Care Allergies, Adverse Reactions, Alerts Substance Reaction Severity Status Keflex HIVES Active Medications felodipine 5 mg oral tablet, extended release 5 mg 1 tabs, Oral, Daily, 0 Refill(s) Start Date: 05/27/15 Status: Ordered hydrochlorothiazide 25 mg, Oral, Daily, 0 Refill(s) Start Date: 05/27/15 Status: Ordered HYDROcodone-acetaminophen 7.5 mg-325 mg oral tablet 1-2 tabs, Oral, q6hr, Pain Moderate (4-6), # 30 tabs, 0 Refill(s), other reason (Rx) Start Date: 05/30/15 Status: Ordered lisinopril 10 mg oral tablet 10 mg 1 tabs, Oral, Daily, 0 Refill(s) Start Date: 05/27/15 Status: Ordered Senokot S 50 mg-8.6 mg oral tablet 1 tabs, Oral, BID, Constipation, # 30 tabs, 0 Refill(s), other reason (Rx) Start Date: 05/30/15 Status: Ordered Results Hematology Most recent to 1 oldest [Reference Range]: WBC [4.8-10.8 8.8 10*3/uL 10*3/uL] (05/30/15 11:58 AM) RBC [4.00-5.20 4.58 10*6/uL 10*6/uL] (05/30/15 11:58 AM) Hgb [12.0-16.0 10.8 gm/dL gm/dL] *LOW* (05/31/15 4:05 AM) Hct [37.0-47.0 %] 32.1 % *LOW* (05/31/15 4:05 AM) MCV [82.0-99.0 fL] 85.4 fL (05/30/15 11:58 AM) MCH [27.0-32.0 pg] 30.1 pg (05/30/15 11:58 AM) MCHC [32.0-36.0 35.3 gm/dL gm/dL] (05/30/15 11:58 AM) RDW [11.5-14.5 %] 13.6 % (05/30/15 11:58 AM) Platelet [150-400 390 10*3/uL 10*3/uL] (05/30/15 11:58 AM) MPV [9.4-12.4 fL] 9.0 fL *LOW* (05/30/15 11:58 AM) Chemistry Most recent to 1 oldest [Reference Range]: Sodium Lvl [136-144 129 mEq/L mEq/L] *LOW* (05/31/15 4:05 AM) Potassium Lvl 3.4 mEq/L [3.6-5.1 mEq/L] *LOW* (05/31/15 4:05 AM) Chloride [99-109 96 mEq/L mEq/L] *LOW* (05/31/15 4:05 AM) CO2 [22-32 mEq/L] 28 mEq/L (05/31/15 4:05 AM) AGAP [3-20] 5 (05/31/15 4:05 AM) BUN [4-20 mg/dL] 5 mg/dL (05/31/15 4:05 AM) Glucose Lvl [70-100 140 mg/dL mg/dL] *HI* (05/31/15 4:05 AM) Creatinine Lvl 0.75 mg/dL [0.44-1.03 mg/dL] (05/31/15 4:05 AM) eGFR [>60] >60 1 (05/31/15 4:05 AM) Calcium Lvl 8.3 mg/dL [8.6-10.0 mg/dL] *LOW* (05/31/15 4:05 AM) Blood Glucose, 103 mg/dL Capillary [70-100 *HI* mg/dL] (05/30/15 12:05 PM) 1Result Comment: Multiply eGFR results by 1.21 for race. Blood Bank Results Most recent to 1 oldest [Reference Range]: ABO/Rh A POS (05/30/15 11:58 AM) Antibody Screen Tube NEG (05/30/15 11:58 AM) Immunizations No data available for this section Procedures Procedure Date Related Diagnosis Body Site Nephrectomy Robotic (Right, Partial)1 05/30/15 History of tonsillectomy 1977 History of total hysterectomy 1auto-populated from documented surgical case Social History Social History Type Response Smoking Status Never smoker Assessment and Plan No data available for this section
[2017-06-23 03:11] LABS: BASOPHILS # (AUTO) 0.1 10^3/uL (0.0-0.1); BASOPHILS % (AUTO) 1 % (0-10); EOSINOPHILS # (AUTO) 0.2 10^3/uL (0.0-0.3); EOSINOPHILS % (AUTO) 2 % (0-10); LYMPHOCYTES # (AUTO) 3.7 X 10^3 (1.0-4.0); LYMPHOCYTES % (AUTO) 36 % (12-44); MEAN CORPUSCULAR HEMOGLOBIN 29 PG (25-34); MEAN CORPUSCULAR HGB CONC 33 G/DL (32-36); MEAN CORPUSCULAR VOLUME 89 FL (80-99); MEAN PLATELET VOLUME 9.5 FL (7.4-10.4); MONOCYTES # (AUTO) 0.6 X 10^3 (0.0-1.0); MONOCYTES % (AUTO) 6 % (0-12); NEUTROPHILS # (AUTO) 5.9 X 10^3 (1.8-7.8); NEUTROPHILS % (AUTO) 56 % (42-75); PLATELET COUNT 358 10^3/uL (130-400); RED BLOOD COUNT 4.85 10^6/uL (4.35-5.85); WHITE BLOOD COUNT 10.5 10^3/uL (4.3-11.0)
[2017-06-23] MEDS ORDERED: DILTIAZEM 25 MG/5 ML INJ (CARDIZEM) VIAL IVP ONE (03:15)
[2017-06-23] MEDS ORDERED: DILTIAZEM DRIP 100 MG in SODIUM CHLORIDE (ADD-VANTAGE) 100 ML IV SCH (03:15)
[2017-06-23 03:24] LABS: ALANINE AMINOTRANSFERASE 9 U/L (0-55); ALBUMIN 4.6 GM/DL (3.2-4.5); ANION GAP 16 MMOL/L (5-14); ASPARTATE AMINO TRANSFERASE 18 U/L (5-34); BILIRUBIN,TOTAL 0.4 MG/DL (0.1-1.0); BLOOD UREA NITROGEN 18 MG/DL (7-18); BUN/CREATININE RATIO 21; CALCIUM 9.7 MG/DL (8.5-10.1); CARBON DIOXIDE 19 MMOL/L (21-32); CHLORIDE 104 MMOL/L (98-107); CREATININE SERUM 0.86 MG/DL (0.60-1.30); GFR ESTIMATED > 60; GLUCOSE 148 MG/DL (70-105); MAGNESIUM 2.4 MG/DL (1.8-2.4); POTASSIUM 3.7 MMOL/L (3.6-5.0); SODIUM 139 MMOL/L (135-145); TOTAL PROTEIN 7.9 GM/DL (6.4-8.2)
--- NOTE | 2017-06-23 03:39 | ED Cardiac General ---
History of Present Illness General Chief Complaint: Cardiac/General Problems Stated Complaint: HEART PALPITATIONS Nursing Triage Note: PT TO ED 5 W/ C/O PALPITATIONS ONSET 2200 LAST EVENING WHILE AT REST. PT DENIES CP, SOB, N/V, DIAPHORESIS. DOES REPORT A "FUNNY" FEELING IN HER LT SHOULDER BUT DENIES PAIN. NO OTHER C/O VOICED Source: patient Exam Limitations: no limitations History of Present Illness Time seen by provider: 02:54 Initial Comments This 72-year-old woman presents to the emergency room with complaints of palpitations that started around 22:00. She denies any chest pain. She does have a history of atrial fibrillation for which she used to take amiodarone. She discontinued amiodarone about one year ago and has not had any episodes since then. She reports recently seeing Dr. Zee who she states felt it was acceptable to stay off anti-arrhythmics for the time being. On assessment heart rate is running in the 140-160 range. She appears to be alternating between atrial flutter and atrial fibrillation. Allergies and Home Medications Allergies Coded Allergies: No Known Drug Allergies (Verified , 07/13/16) Home Medications Amiodarone HCl 200 Mg Tablet, 200 MG PO DAILY, (Reported) Cholecalciferol (Vitamin D3) 50,000 Unit Capsule, 5,000 UNITS PO We, (Reported) Diltiazem HCl 240 Mg Cap.er.24h, 240 MG PO DAILY, #30 Prescribed by: INDERJIT RUTLEDGE on 06/23/17 0531 Lisinopril 20 Mg Tablet, 20 MG PO DAILY@1500, (Reported) Metronidazole 500 Mg Tablet, 500 MG PO TID, (Reported) FILLED 07/04/16 #30 FOR A 10 DAY THERAPY Review of Systems Constitutional: no symptoms reported EENTM: No Symptoms Reported Respiratory: No Symptoms Reported Cardiovascular: See HPI Gastrointestinal: No Symptoms Reported Genitourinary: No Symptoms Reported Musculoskeletal: no symptoms reported Skin: no symptoms reported Psychiatric/Neurological: No Symptoms Reported Endocrine: No Symptoms Reported Hematologic/Lymphatic: No Symptoms Reported Past Dxyizwg-Xmpmqe-Qtyqaq Hx Patient Social History Alcohol Use: Occasionally Uses Recreational Drug Use: No Smoking Status: Never a Smoker Recent Foreign Travel: No Contact w/Someone Who Travel: No Recent Infectious Disease Expo: No Recent Hopitalizations: No Physical Abuse: No Sexual Abuse: No Mistreated: No Fear: No Immunizations Up To Date Tetanus Booster (TDap): Less than 5yrs Date of Pneumonia Vaccine: Jul 12, 2014 Seasonal Allergies Seasonal Allergies: Yes Surgeries History of Surgeries: Yes (LUMPECTOMY, KIDNEY SURGERY) Surgeries: Breast, Tonsillectomy Respiratory History of Respiratory Disorde: Yes Respiratory Disorders: Chronic Bronchitis Currently Using CPAP: No Currently Using BIPAP: No Cardiovascular History of Cardiac Disorders: Yes Cardiac Disorders: Atrial Fibrillation, Hypertension Neurological History of Neurological Disord: No Reproductive System HIV/AIDS: No Genitourinary History of Genitourinary Disor: No Genitourinary Disorders: UTI-Chronic Gastrointestinal History of Gastrointestinal Di: Yes Gastrointestinal Disorders: Chronic Diarrhea Musculoskeletal History of Musculoskeletal Dis: No Endocrine History of Endocrine Disorders: No HEENT History of HEENT Disorders: No Loss of Vision: Denies Hearing Impairment: Denies Cancer History of Cancer: Yes Cancer: Breast Psychosocial History of Psychiatric Problem: No Suicide Risk Score: 0 Integumentary History of Skin or Integumenta: No Blood Transfusions History of Blood Disorders: No Adverse Reaction to a Blood Tr: No Family Medical History Significant Family History: Hypertension Family Medial History: Colon cancer 19 MOTHER Hypertension 19 FATHER Neoplasm 19 FATHER Physical Exam Vital Signs Vital Sign - Last 12Hours 06/23/17 02:51 Temp 97.2 Pulse 142 Resp 20 B/P (MAP) 201/114 Pulse Ox 97 O2 Delivery Room Air Capillary Refill : Less Than 3 Seconds General Appearance: No Apparent Distress, WD/WN HEENT: PERRL/EOMI, Normal ENT Inspection Neck: Normal Inspection Respiratory: Lungs Clear, Normal Breath Sounds, No Accessory Muscle Use, No Respiratory Distress Cardiovascular: No Edema, No Murmur, Irregularly Irregular, Tachycardia Gastrointestinal: Non Tender, Soft Extremity: Normal Inspection Neurologic/Psychiatric: Alert, Oriented x3, No Motor/Sensory Deficits, Normal Mood/Affect, landscape foreman II-XII Norm as Tested Skin: Normal Color, Warm/Dry Progress/Results/Core Measures Results/Orders Lab Results Laboratory Tests Test 06/23/17 02:55 Range/Units White Blood Count 10.5 4.3-11.0 10^3/uL Red Blood Count 4.85 4.35-5.85 10^6/uL Hemoglobin 14.2 11.5-16.0 G/DL Hematocrit 43 35-52 % Mean Corpuscular Volume 89 80-99 FL Mean Corpuscular Hemoglobin 29 25-34 PG Mean Corpuscular Hemoglobin Concent 33 32-36 G/DL Red Cell Distribution Width 14.0 10.0-14.5 % Platelet Count 358 130-400 10^3/uL Mean Platelet Volume 9.5 7.4-10.4 FL Neutrophils (%) (Auto) 56 42-75 % Lymphocytes (%) (Auto) 36 12-44 % Monocytes (%) (Auto) 6 0-12 % Eosinophils (%) (Auto) 2 0-10 % Basophils (%) (Auto) 1 0-10 % Neutrophils # (Auto) 5.9 1.8-7.8 X 10^3 Lymphocytes # (Auto) 3.7 1.0-4.0 X 10^3 Monocytes # (Auto) 0.6 0.0-1.0 X 10^3 Eosinophils # (Auto) 0.2 0.0-0.3 10^3/uL Basophils # (Auto) 0.1 0.0-0.1 10^3/uL Sodium Level 139 135-145 MMOL/L Potassium Level 3.7 3.6-5.0 MMOL/L Chloride Level 104 98-107 MMOL/L Carbon Dioxide Level 19 L 21-32 MMOL/L Anion Gap 16 H 5-14 MMOL/L Blood Urea Nitrogen 18 7-18 MG/DL Creatinine 0.86 0.60-1.30 MG/DL Estimat Glomerular Filtration Rate > 60 BUN/Creatinine Ratio 21 Glucose Level 148 H 70-105 MG/DL Calcium Level 9.7 8.5-10.1 MG/DL Magnesium Level 2.4 1.8-2.4 MG/DL Total Bilirubin 0.4 0.1-1.0 MG/DL Aspartate Amino Transf (AST/SGOT) 18 5-34 U/L Alanine Aminotransferase (ALT/SGPT) 9 0-55 U/L Alkaline Phosphatase 102 40-136 U/L Troponin I < 0.30 <0.30 NG/ML Total Protein 7.9 6.4-8.2 GM/DL Albumin 4.6 H 3.2-4.5 GM/DL TSH [place] Testing 2.72 0.35-4.94 UIU/ML My Orders Orders - INDERJIT MEADE MD Diltiazem Drip (Cardizem Drip) (06/23/17 02:51) Diltiazem Injection (Cardizem Injection) (06/23/17 02:52) Sodium Chloride (Add-Dunlap) (Ns (Add-V (06/23/17 02:52) Cbc With Automated Diff (06/23/17 03:01) Comprehensive Metabolic Panel (06/23/17 03:01) Magnesium (06/23/17 03:01) Thyroid Analyzer (06/23/17 03:01) Troponin I (06/23/17 03:01) Saline Lock/Iv-Start (06/23/17 03:01) Ekg Tracing (06/23/17 03:01) Monitor-Rhythm Ecg Trace Only (06/23/17 03:01) Sodium Chloride (Ad... W/Diltiazem Drip (06/23/17 03:15) Diltiazem Injection (Cardizem Injection) (06/23/17 03:15) Chest 1 View, Ap/Pa Only (06/23/17 03:06) Ekg Tracing (06/23/17 03:31) Diltiazem Cd 24 Hr Capsule (Cardizem Cd (06/23/17 04:28) Diltiazem Cd 24 Hr Capsule (Cardizem Cd (06/23/17 04:45) Aspirin Tablet (Aspirin Tablet) (06/23/17 05:45) Medications Given in ED Current Medications Medications Dose Ordered Sig/Rickey Route Start Time Stop Time Status Last Admin Dose Admin Aspirin 325 mg ONCE ONCE PO 06/23/17 05:45 06/23/17 05:46 DC 06/23/17 05:45 325 MG Diltiazem HCl 10 mg ONCE ONCE IVP 06/23/17 03:15 06/23/17 03:16 DC 06/23/17 03:01 10 MG Diltiazem HCl 240 mg ONCE ONCE PO 06/23/17 04:45 06/23/17 04:46 DC 06/23/17 05:02 240 MG Vital Signs/I&O Vital Sign - Last 12Hours 06/23/17 06/23/17 06/23/17 02:51 03:01 05:48 Temp 97.2 97.2 Pulse 142 142 52 Resp 20 20 18 B/P (MAP) 201/114 201/114 Pulse Ox 97 97 98 O2 Delivery Room Air Room Air Blood Pressure Mean: 143 Progress Note #1: Time: 03:38 Progress Note Patient was started on a Cardizem drip at 10 mg per hour with a 10 mg bolus. Rate was increased to 15 mg per hour. Conversion to sinus rhythm was confirmed with EKG at 03:32. Patient feels much better. Progress Note #2: Time: 05:28 Progress Note Patient has received long-acting Cardizem 240 mg orally. Cardizem drip will be turned off shortly. We will monitor her for at least 15 minutes after Cardizem drip is discontinued to ensure rhythm stays sinus. I did attempt to discuss the case with Dr. Zee who was not immediately accessible by phone due to a widespread mobile phone outage. Progress Note #3: Progress Note Patient remained in sinus rhythm 15 minutes after Cardizem drip was stopped. She was provided a prescription for oral Cardizem cd 240 mg daily. She was given aspirin 325 mg while in the ER and instructed to take 81 mg daily. Her chads 2 score was one. It was not felt appropriate to start anticoagulation on this patient at this time. She was advised to seek parliamentary counsel from Dr. Zee tomorrow. ECG Initial ECG Impression Date: Jun 23, 2017 Initial ECG Impression Time: 02:54 Initial ECG Rate: 144 Initial ECG Rhythm: A Fib/Flutter Comment EKG appears to be atrial flutter with a 2-1 conduction. Repolarization suggests strain. No overt ST elevation. EKG : EKG Time: 03:32 Rate: 68 Rhythm: Normal Sinus Intervals: Normal ECG Comparisson: Changed ECG Impression: Normal Comment EKG after Cardizem drip now shows normal sinus rhythm with a normal rate. No ST elevation or depression. No abnormal intervals or axis deviation. Diagnostic Imaging Diagonstic Imaging: Xray Plain Films/CT/US/NM/MRI: chest Comments Chest x-ray viewed by me. Report not yet available. Link recorder noted in the left chest. No acute abnormalities appreciated. Departure Impression Impression: Primary Impression: Atrial fibrillation Qualified Codes: I48.0 - Paroxysmal atrial fibrillation Disposition: 01 HOME, SELF-CARE Condition: Improved Departure-Patient Inst. Referrals: STANLEY BARRY DO (PCP/Family) Primary Care Physician Patient Instructions: Atrial Fibrillation (DC) Add. Discharge Instructions: Continue taking Cardizem as prescribed until otherwise instructed. Please follow-up with Dr. Zee as soon as possible. Call his office in the morning for an appointment. Return to the emergency room if symptoms return. All discharge instructions reviewed with patient and/or family. Voiced understanding. Scripts Diltiazem HCl (Cardizem Cd) 240 Mg Cap.er.24h 240 MG PO DAILY, #30 CAP Prov: INDERJIT MEADE MD 06/23/17 Copy Copies To 1: ELIANA ZEE MD Copies To 2: STANLEY BARRY JOSHUA T MD Jun 23, 2017 03:39
[2017-06-23 03:44] LABS: TROPONIN I < 0.30 NG/ML (<0.30)
[2017-06-23] MEDS ORDERED: DILTIAZEM 240 MG (CARDIZEM CD) CAP PO ONE ×2 (04:28→04:45)
[2017-06-23] MEDS ORDERED: DILT240C86 PO (05:31)
[2017-06-23] MEDS ORDERED: ASPIRIN 325 MG (5 GR) TABLET PO ONE (05:45)
[2017-06-23 05:48] VITALS: BP 138/64
--- NOTE | 2017-06-23 07:48 | Diagnostic Imaging Report ---
EXAM: CHEST 1 VIEW, AP/PA ONLY INDICATION: Palpitations. COMPARISON: Chest radiograph 06/12/2016. FINDINGS: Stable 6 mm nodule in the right lower lobe. Cardiac loop recorder. Normal heart size and pulmonary vascularity. Calcified aorta. No new focal pulmonary opacity, pleural effusion or pneumothorax. Postoperative changes in the left breast. No acute osseous findings. IMPRESSION: No acute cardiopulmonary findings. Dictated by: Dictated on workstation # [id number]
== END 2017-06-23 05:48 | disposition home or self-care (01) ==
LOC: EDUNIT# 02:50 → ER 02:51
DX: I48.91 Unspecified atrial fibrillation (principal); I10 Essential (primary) hypertension; K52.9 Noninfective gastroenteritis and colitis, unspecified; J42 Unspecified chronic bronchitis; Z87.11 Personal history of peptic ulcer disease; Z90.89 Acquired absence of other organs; Z91.14 Patient's other noncompliance with medication regimen
CPT/HCPCS: 36415; 71010; 80053; 83735; 84443; 84484; 85025; 93005; 93041

== ENCOUNTER 2017-07-01 13:23 | Outpatient (RCR) | payer OTHER ==
[~2017-07-01 13:23] MED LIST changes: +DILT240C86 PO
== END 2017-07-10 09:09 | disposition home or self-care (01) ==
LOC: ONC 13:23
PROVIDERS: ATTEND Internal Medicine Hematology & Oncology
DX: C50.412 Malignant neoplasm of upper-outer quadrant of left female breast (principal); I10 Essential (primary) hypertension; I48.91 Unspecified atrial fibrillation; Z90.710 Acquired absence of both cervix and uterus; Z79.899 Other long term (current) drug therapy
CPT/HCPCS: 99213

== ENCOUNTER 2017-07-24 18:44 | Inpatient (IN) | payer MEDICARE, OTHER ==
[~2017-07-24] VITALS: Ht 172.7 cm; Wt 74.8 kg
[2017-07-24] VITALS (9 sets, daily range): BP systolic 101–171; BP diastolic 73–114
--- OUTSIDE RECORDS SUMMARY | 2017-07-24 18:49 | XMS REPORT | Clinical Summary ---
Author Author [facility] Organization [facility] Address Unknown Phone Unavailable Care Team Providers Care Electrostatic Paint Operator Name Role Phone PCP Unavailable Source Comments Some departments are not documenting in the electronic medical record. If you do not see the information that you expected, contact Release of Information in the Health Information Management department at [phone] for further assistance in locating additional records.[facility] Allergies No Known Allergies Current Medications Prescription [...] for imaging. Left breast sono-guided biopsy 12/01/15 ([place], [place]) revealed grade 1 invasive ductal carcinoma. PET scan 12/13/15 ([place], [place]) revealed no evidence of metastasis. In [...] IMAGING: Mammogram: -- Bilateral diagnostic mammogram 11/23/15 ([place], [place]) revealed a 6 mm nodule in [...] demonstrated. Ultrasound: -- Left breast ultrasound 11/23/15 ([place], [place]) revealed an 8 mm hypoechoic mass [...] SCREENING 2012 PREVNAR/PNEUMOVAX (#1) 2012 INFLUENZA VACCINE 05/14/2017 BREAST CANCER SCREENING 07/25/2017 07/25/2016 Implants Implanted Type Area Studio Technician Video Operator Device Expiration Model / Identifier Date Serial / Lot Breast Implants Results Not on filefrom Last 3 Months
--- OUTSIDE RECORDS SUMMARY | 2017-07-24 18:49 | XMS REPORT | Continuity of Care Document ---
Author Author [employer] Organization [facility] Address Unknown Phone Unavailable Care Team Providers Care Bezel Cutter Name Role Phone [employer] Unavailable Unavailable Problems Medications Allergies, Adverse Reactions, Alerts Immunizations Results Vital Signs Encounters Location Location Details Encounter Type Encounter Number Reason For Visit Attending Provider ADM Date DC Date Status Source [place] SERIES [id number] JAYLEEN STAFFORD 07/25/2016 07/25/2016 Active [facility] [place] CÁRDENAS 08/21/2017 Active [facility] Procedures Plan of Care Social History Assessment and Plan Family History Value Date Source Advance Directives Order Name Results Value Date Source
[2017-07-24 19:10] LABS: BASOPHILS # (AUTO) 0.1 10^3/uL (0.0-0.1); BASOPHILS % (AUTO) 1 % (0-10); EOSINOPHILS # (AUTO) 0.3 10^3/uL (0.0-0.3); EOSINOPHILS % (AUTO) 3 % (0-10); LYMPHOCYTES # (AUTO) 2.7 X 10^3 (1.0-4.0); LYMPHOCYTES % (AUTO) 29 % (12-44); MEAN CORPUSCULAR HEMOGLOBIN 30 PG (25-34); MEAN CORPUSCULAR HGB CONC 33 G/DL (32-36); MEAN CORPUSCULAR VOLUME 90 FL (80-99); MEAN PLATELET VOLUME 9.4 FL (7.4-10.4); MONOCYTES # (AUTO) 0.7 X 10^3 (0.0-1.0); MONOCYTES % (AUTO) 8 % (0-12); NEUTROPHILS # (AUTO) 5.8 X 10^3 (1.8-7.8); NEUTROPHILS % (AUTO) 61 % (42-75); PLATELET COUNT 353 10^3/uL (130-400); RED BLOOD COUNT 4.72 10^6/uL (4.35-5.85); RED CELL DISTRIBUTION WIDTH 14.1 % (10.0-14.5); WHITE BLOOD COUNT 9.5 10^3/uL (4.3-11.0)
[2017-07-24 19:19] LABS: INR 1.2 (0.8-1.4); PROTHROMBIN TIME PATIENT 15.1 SEC (12.2-14.7)
[2017-07-24 19:28] LABS: ALANINE AMINOTRANSFERASE 8 U/L (0-55); ALBUMIN 4.4 GM/DL (3.2-4.5); ANION GAP 8 MMOL/L (5-14); ASPARTATE AMINO TRANSFERASE 18 U/L (5-34); BILIRUBIN,TOTAL 0.3 MG/DL (0.1-1.0); BLOOD UREA NITROGEN 12 MG/DL (7-18); BUN/CREATININE RATIO 13; CALCIUM 9.7 MG/DL (8.5-10.1); CARBON DIOXIDE 27 MMOL/L (21-32); CHLORIDE 104 MMOL/L (98-107); CREATININE SERUM 0.89 MG/DL (0.60-1.30); GFR ESTIMATED > 60; GLUCOSE 96 MG/DL (70-105); MAGNESIUM 2.4 MG/DL (1.8-2.4); SODIUM 139 MMOL/L (135-145); TOTAL PROTEIN 7.7 GM/DL (6.4-8.2)
--- NOTE | 2017-07-24 19:33 | ED Cardiac General ---
History of Present Illness General Chief Complaint: Cardiac/General Problems Stated Complaint: AFIB Nursing Triage Note: PT HERE WITH C/O AFIB AND FEELING LIKE SHE IS GOING TO PASS OUT. Source: patient, old records Exam Limitations: no limitations History of Present Illness Time seen by provider: 19:00 Initial Comments This 72-year-old woman with known atrial fibrillation presents to the emergency room with A. fib or flutter and rapid ventricular response. She has had episodes of lightheadedness associated with the arrhythmia. Symptoms started around 13:00. She presently takes multicounty schedule and diltiazem as needed for episodes of arrhythmia. She took her diltiazem at 15:00 with no improvement. She has noted on the monitor to have episodes of bradyarrhythmia also as low as 30 bpm.. Allergies and Home Medications Allergies Coded Allergies: No Known Drug Allergies (Verified , 07/13/16) Home Medications Amiodarone HCl 200 Mg Tablet, 200 MG PO DAILY, (Reported) Cholecalciferol (Vitamin D3) 50,000 Unit Capsule, 5,000 UNITS PO We, (Reported) Diltiazem HCl 240 Mg Cap.er.24h, 240 MG PO DAILY, #30 Prescribed by: INDERJIT RUTLEDGE on 06/23/17 0531 Lisinopril 20 Mg Tablet, 20 MG PO DAILY@1500, (Reported) Metronidazole 500 Mg Tablet, 500 MG PO TID, (Reported) FILLED 07/04/16 #30 FOR A 10 DAY THERAPY Review of Systems Constitutional: no symptoms reported EENTM: No Symptoms Reported Respiratory: No Symptoms Reported Cardiovascular: See HPI Gastrointestinal: No Symptoms Reported Genitourinary: No Symptoms Reported Musculoskeletal: no symptoms reported Skin: no symptoms reported Psychiatric/Neurological: No Symptoms Reported Endocrine: No Symptoms Reported Past Bnhfqao-Dzksip-Shamxh Hx Patient Social History Recent Foreign Travel: No Contact w/Someone Who Travel: No Recent Infectious Disease Expo: No Recent Hopitalizations: No Immunizations Up To Date Tetanus Booster (TDap): Less than 5yrs Date of Pneumonia Vaccine: Jul 12, 2014 Seasonal Allergies Seasonal Allergies: Yes Surgeries History of Surgeries: Yes (LUMPECTOMY, KIDNEY SURGERY) Surgeries: Breast, Tonsillectomy Respiratory History of Respiratory Disorde: Yes Respiratory Disorders: Chronic Bronchitis Currently Using CPAP: No Currently Using BIPAP: No Cardiovascular History of Cardiac Disorders: Yes Cardiac Disorders: Atrial Fibrillation, Hypertension Neurological History of Neurological Disord: No Reproductive System HIV/AIDS: No Genitourinary History of Genitourinary Disor: No Genitourinary Disorders: UTI-Chronic Gastrointestinal History of Gastrointestinal Di: Yes Gastrointestinal Disorders: Chronic Diarrhea Musculoskeletal History of Musculoskeletal Dis: No Endocrine History of Endocrine Disorders: No HEENT History of HEENT Disorders: No Loss of Vision: Denies Hearing Impairment: Denies Cancer History of Cancer: Yes Cancer: Breast Psychosocial History of Psychiatric Problem: No Integumentary History of Skin or Integumenta: No Blood Transfusions History of Blood Disorders: No Adverse Reaction to a Blood Tr: No Family Medical History Significant Family History: Hypertension Family Medial History: Colon cancer 19 MOTHER Hypertension 19 FATHER Neoplasm 19 FATHER Physical Exam Vital Signs Vital Sign - Last 12Hours 07/24/17 18:47 Temp 97.6 Pulse 154 Resp 16 B/P (MAP) 122/91 Pulse Ox 96 O2 Delivery Nasal Cannula O2 Flow Rate 2.00 Capillary Refill : Less Than 3 Seconds General Appearance: WD/WN, Mild Distress HEENT: PERRL/EOMI, Normal ENT Inspection Neck: Normal Inspection Respiratory: Lungs Clear, Normal Breath Sounds, No Accessory Muscle Use, No Respiratory Distress Cardiovascular: No Edema, No Murmur, Irregularly Irregular, Tachycardia Gastrointestinal: Normal Bowel Sounds, Non Tender, Soft Extremity: Normal Inspection, No Pedal Edema Neurologic/Psychiatric: Alert, Oriented x3, No Motor/Sensory Deficits, Normal Mood/Affect, obstetrical nurse II-XII Norm as Tested Skin: Normal Color, Warm/Dry Progress/Results/Core Measures Results/Orders Lab Results Laboratory Tests Test 07/24/17 19:00 Range/Units White Blood Count 9.5 4.3-11.0 10^3/uL Red Blood Count 4.72 4.35-5.85 10^6/uL Hemoglobin 14.1 11.5-16.0 G/DL Hematocrit 43 35-52 % Mean Corpuscular Volume 90 80-99 FL Mean Corpuscular Hemoglobin 30 25-34 PG Mean Corpuscular Hemoglobin Concent 33 32-36 G/DL Red Cell Distribution Width 14.1 10.0-14.5 % Platelet Count 353 130-400 10^3/uL Mean Platelet Volume 9.4 7.4-10.4 FL Neutrophils (%) (Auto) 61 42-75 % Lymphocytes (%) (Auto) 29 12-44 % Monocytes (%) (Auto) 8 0-12 % Eosinophils (%) (Auto) 3 0-10 % Basophils (%) (Auto) 1 0-10 % Neutrophils # (Auto) 5.8 1.8-7.8 X 10^3 Lymphocytes # (Auto) 2.7 1.0-4.0 X 10^3 Monocytes # (Auto) 0.7 0.0-1.0 X 10^3 Eosinophils # (Auto) 0.3 0.0-0.3 10^3/uL Basophils # (Auto) 0.1 0.0-0.1 10^3/uL Prothrombin Time 15.1 H 12.2-14.7 SEC INR Comment 1.2 0.8-1.4 Activated Partial Thromboplast Time 28 24-35 SEC Sodium Level 139 135-145 MMOL/L Potassium Level 4.0 3.6-5.0 MMOL/L Chloride Level 104 98-107 MMOL/L Carbon Dioxide Level 27 21-32 MMOL/L Anion Gap 8 5-14 MMOL/L Blood Urea Nitrogen 12 7-18 MG/DL Creatinine 0.89 0.60-1.30 MG/DL Estimat Glomerular Filtration Rate > 60 BUN/Creatinine Ratio 13 Glucose Level 96 70-105 MG/DL Calcium Level 9.7 8.5-10.1 MG/DL Magnesium Level 2.4 1.8-2.4 MG/DL Total Bilirubin 0.3 0.1-1.0 MG/DL Aspartate Amino Transf (AST/SGOT) 18 5-34 U/L Alanine Aminotransferase (ALT/SGPT) 8 0-55 U/L Alkaline Phosphatase 85 40-136 U/L Myoglobin 49.7 10.0-92.0 NG/ML Troponin I < 0.30 <0.30 NG/ML Total Protein 7.7 6.4-8.2 GM/DL Albumin 4.4 3.2-4.5 GM/DL TSH [facility] Testing 1.37 0.35-4.94 UIU/ML My Orders Orders - INDERJIT MEADE MD Cbc With Automated Diff (07/24/17 19:04) Magnesium (07/24/17 19:04) Chest 1 View, Ap/Pa Only (07/24/17 19:04) Ekg Tracing (07/24/17 19:04) Cardiac Profile 1 (07/24/17 19:04) Comprehensive Metabolic Panel (07/24/17:) Myoglobin Serum (07/24/17:) Protime With Inr (07/24/17:) Partial Thromboplastin Time (07/24/17:) O2 (07/24/17:) Monitor-Rhythm Ecg Trace Only (07/24/17:) Saline Lock/Iv-Start (07/24/17:) Thyroid Analyzer (07/24/17:) Vital Signs/I&O Vital Sign - Last 12Hours 07/24/17 07/24/17 18:47 19:00 Temp 97.6 Pulse 154 Resp 16 B/P (MAP) 122/91 Pulse Ox 96 100 O2 Delivery Nasal Cannula Nasal Cannula O2 Flow Rate 2.00 2.00 Blood Pressure Mean: 101 Progress Note : Time: 19:31 Progress Note Patient has had a few intermittent episodes of bradyarrhythmia down to the 30s. She has also had some brief episodes of sinus rhythm. The majority of her rhythm has been atrial fibrillation or atrial flutter in the 140-160 range. Case was reviewed with Dr. Meyers. He requested no medications be given at this time. She should be admitted to the ICU with atropine at the bedside and external pacer pads left on at all times. He recommended strict bedrest as well. He anticipates need for pacemaker in the morning. Patient will be kept nothing by mouth. Since patient had episodes of bradyarrhythmia and took her Cardizem at 15:00, he recommends no further antiarrhythmics at this time. He also recommended no further anticoagulation in anticipation that she may need surgery in the morning. Verbal report was also given to the eICU physician with an eICU consult. ECG Initial ECG Impression Date: Jul 24, 2017 Initial ECG Impression Time: 18:50 Initial ECG Rate: 154 Initial ECG Rhythm: A Fib/Flutter Comment Atrial fibrillation/flutter with rapid ventricular response. No acute ST changes. Diagnostic Imaging Diagonstic Imaging: Xray Plain Films/CT/US/NM/MRI: chest Comments NAME: OZZY GHOTRA [facility] REC#: [id number] PT STATUS: ADM IN : 1945 PHYSICIAN: INDERJIT MEADE MD ADMIT DATE: 07/24/17/ICU Signed Date of Exam: 07/24/17 CHEST 1 VIEW, AP/PA ONLY INDICATION: Atrial fibrillation. COMPARISON STUDY: Chest from June 23, 2017. FINDINGS: ear pull machine operator is in place. Heart size and vascularity are normal. Mild calcifications are seen within the aorta. Calcified granuloma is present. Lungs are otherwise clear. There are no pleural effusions. IMPRESSION: There are no acute findings. Dictated by: Dictated on workstation # [id number] Dict: 07/24/171937 Trans: 07/24/171947 Interpreted by: MARIO CASTRO MD Electronically signed by: MARIO CASTRO MD 07/24/171947 Departure Communication (Admissions) Time/Spoke to Admitting Phy: 19:[address] Elmore Time/Spoke to Consulting Phy: 19:10 Communication/Consulting Dr. Meyers Impression Impression: Primary Impression: Atrial flutter with rapid ventricular response Additional Impression: Bradyarrhythmia Disposition: ADMITTED INPATIENT Condition: Improved Admissions Decision to Admit Reason: Admit from ER (General) Decision to Admit/Date: Jul 24, 2017 Time/Decision to Admit Time: 19:00 Departure-Patient Inst. Referrals: STANLEY ELMORE DO (PCP/Family) Primary Care Physician INDERJIT MEADE MD Jul 24, 2017 19:33
--- OUTSIDE RECORDS SUMMARY | 2017-07-24 19:37 | XMS REPORT | Clinical Summary ---
Author Author [facility] Organization [facility] Address Unknown Phone Unavailable Care Team Providers Care High School English Teacher Name Role Phone PCP Unavailable Source Comments Some departments are not documenting in the electronic medical record. If you do not see the information that you expected, contact Release of Information in the Health Information Management department at [phone] for further assistance in locating additional records.[facility] Allergies No Known Allergies Current Medications [...] for imaging. Left breast sono-guided biopsy 12/01/15 ([place], [place]) revealed grade 1 invasive ductal carcinoma. PET scan 12/13/15 ([place], [place]) revealed no evidence of metastasis. In [...] IMAGING: Mammogram: -- Bilateral diagnostic mammogram 11/23/15 ([place], [place]) revealed a 6 mm nodule in [...] demonstrated. Ultrasound: -- Left breast ultrasound 11/23/15 ([place], [place]) revealed an 8 mm hypoechoic mass [...] SCREENING 07/25/2017 07/25/2016 Implants Implanted Type Area Tank Stave Assembler Device Expiration Model / Identifier Date Serial / Lot Breast Implants Results Not on filefrom Last 3 Months
--- OUTSIDE RECORDS SUMMARY | 2017-07-24 19:37 | XMS REPORT | Continuity of Care Document ---
Author Author [employer] Organization [facility] Address Unknown Phone Unavailable Care Team Providers Care Acid Loader Name Role Phone [employer] Unavailable Unavailable Problems Medications Allergies, Adverse Reactions, Alerts Immunizations Results Vital Signs Encounters Location Location Details Encounter Type Encounter Number Reason For Visit Attending Provider ADM Date DC Date Status Source [place] SERIES [id number] JAYLEEN STAFFORD 07/25/2016 07/25/2016 Active [facility] [place] CÁRDENAS 08/21/2017 Active [facility] Procedures Plan of Care Social History Assessment and Plan Family History Value Date Source Advance Directives Order Name Results Value Date Source
[2017-07-24 19:38] LABS: MYOGLOBIN SERUM 49.7 NG/ML (10.0-92.0)
--- NOTE | 2017-07-24 19:43 | Diagnostic Imaging Report ---
INDICATION: Atrial fibrillation. COMPARISON STUDY: Chest from June 23, 2017. FINDINGS: lunchroom monitor is in place. Heart size and vascularity are normal. Mild calcifications are seen within the aorta. Calcified granuloma is present. Lungs are otherwise clear. There are no pleural effusions. IMPRESSION: There are no acute findings. Dictated by: Dictated on workstation # [id number]
[2017-07-24] MEDS: NS IV 1000 ML 1,000 ML IV SCH (21:13)
[2017-07-24] MEDS: ATROPINE INJ 0.4 MG/ML SDV IV PRN (21:25)
[2017-07-24] MEDS ORDERED: ATROPINE INJ 0.4 MG/ML SDV IV PRN (21:45)
[2017-07-24] MEDS ORDERED: NS IV 1000 ML 1,000 ML IV SCH (22:00)
[2017-07-24] MEDS ORDERED: ONDANSETRON 4 MG/2 ML (SDV) Z0FRAN IV PRN (22:00)
[2017-07-25] VITALS (24 sets, daily range): BP systolic 112–162; BP diastolic 63–94
[2017-07-25] MEDS: NS IV 1000 ML 1,000 ML IV SCH ×3 (05:08→16:18)
[2017-07-25 05:15] LABS: BASOPHILS # (AUTO) 0.1 10^3/uL (0.0-0.1); BASOPHILS % (AUTO) 1 % (0-10); EOSINOPHILS # (AUTO) 0.3 10^3/uL (0.0-0.3); EOSINOPHILS % (AUTO) 4 % (0-10); LYMPHOCYTES # (AUTO) 1.9 X 10^3 (1.0-4.0); LYMPHOCYTES % (AUTO) 28 % (12-44); MEAN CORPUSCULAR HEMOGLOBIN 30 PG (25-34); MEAN CORPUSCULAR HGB CONC 33 G/DL (32-36); MEAN CORPUSCULAR VOLUME 91 FL (80-99); MEAN PLATELET VOLUME 9.5 FL (7.4-10.4); MONOCYTES # (AUTO) 0.7 X 10^3 (0.0-1.0); MONOCYTES % (AUTO) 11 % (0-12); NEUTROPHILS # (AUTO) 3.8 X 10^3 (1.8-7.8); NEUTROPHILS % (AUTO) 57 % (42-75); PLATELET COUNT 335 10^3/uL (130-400); RED BLOOD COUNT 4.26 10^6/uL (4.35-5.85); RED CELL DISTRIBUTION WIDTH 14.3 % (10.0-14.5); WHITE BLOOD COUNT 6.8 10^3/uL (4.3-11.0)
[2017-07-25 05:34] LABS: ANION GAP 9 MMOL/L (5-14); BLOOD UREA NITROGEN 10 MG/DL (7-18); BUN/CREATININE RATIO 14; CARBON DIOXIDE 24 MMOL/L (21-32); CHLORIDE 109 MMOL/L (98-107); CHOLESTEROL 168 MG/DL (< 200); CREATININE SERUM 0.74 MG/DL (0.60-1.30); DIRECT LDL 97 MG/DL (1-129); GFR ESTIMATED > 60; GLUCOSE 93 MG/DL (70-105); MAGNESIUM 2.3 MG/DL (1.8-2.4); PHOSPHORUS 3.4 MG/DL (2.3-4.7); SODIUM 142 MMOL/L (135-145); TRIGLYCERIDES 71 MG/DL (<150); VLDL CHOLESTEROL 14 MG/DL (5-40)
[2017-07-25] MEDS ORDERED: APIX5TAB PO (08:03)
[2017-07-25] MEDS ORDERED: AMLO5TAB2 PO (08:03)
[2017-07-25] MEDS ORDERED: ALPR0.254 PO (08:03)
[2017-07-25] MEDS ORDERED: DRON400T2 PO (08:03)
[2017-07-25] MEDS ORDERED: LETR2.5T5 PO (08:11)
[2017-07-25] MEDS ORDERED: DILT120C53 PO (08:11)
[2017-07-25] MEDS ORDERED: CALC1TAB94 PO (08:11)
[2017-07-25] MEDS ORDERED: CHOL20003 PO (08:11)
--- NOTE | 2017-07-25 08:44 | Consultation-Cardiology ---
HPI-Cardiology Cardiology Consultation Date of Consultation 07/25/17 Date of Admission Time Seen by Provider: 08:36 Indication: palpitation, near syncope HPI 72 years old lady known to my practice with history of paroxysmal atrial fibrillation, sick sinus syndrome, was struggling with controlling her atrial fibrillation, was on amiodarone and she was very concerned about the side effects of the medication, I started her last visit on Mutaq and she was feeling better but yesterday started having palpitation and episode of dizziness every time she return to sinus rhythm, she took additional low dose Cardizem and came to the emergency room and she was in atrial fibrillation with rapid ventricular response, while she is in the emergency room she converted to sinus rhythm and she had few pauses prior to the conversion to sinus rhythm, had near syncope and lightheadedness. Denied any chest pain. Home Medications & Allergies Allergies: Coded Allergies: No Known Drug Allergies (Verified , 07/13/16) Home Medication List Reviewed: Yes EGU-[id number]-Fgmame Hx Patient Social History Marital Status: Alcohol Use: Denies Use Recreational Drug Use: No Smoking Status: Never a Smoker 2nd Hand Smoke Exposure: No Recent Foreign Travel: No Recent Infectious Disease Expo: No Recent Hopitalizations: No Physical Abuse Screen: No Sexual Abuse: No Immunizations Up To Date Tetanus Booster (TDap): Less than 5yrs Date of Pneumonia Vaccine: Jul 12, 2014 Date of Influenza Vaccine: Jul 17, 2017 Past Medical History past medical history as discussed below Family Medical History Significant Family History: Hypertension Family History: Colon cancer 19 MOTHER Hypertension 19 FATHER Neoplasm 19 FATHER Constitutional: see HPI, dizziness, malaise, weakness EENTM: see HPI Respiratory: see HPI, No cough, No dyspnea on exertion, No hemoptysis, No orthopnea, No phlegm, No short of breath, No stridor, No wheezing, No other Cardiovascular: see HPI, No chest pain, No edema, No Hx of Intervention, palpitations, No syncope, No vascular heart diseas, other (dizziness and near- syncope) Gastrointestinal: no symptoms reported, see HPI Genitourinary: no symptoms reported, see HPI Musculoskeletal: no symptoms reported, see HPI Skin: no symptoms reported, see HPI Psychiatric/Neurological: No Symptoms Reported, See HPI Reviewed Test Results Reviewed Test Results Lab Laboratory Tests Test 07/24/17 19:00 07/25/17 05:00 Range/Units White Blood Count 9.5 6.8 4.3-11.0 10^3/uL Red Blood Count 4.72 4.26 L 4.35-5.85 10^6/uL Hemoglobin 14.1 12.9 11.5-16.0 G/DL Hematocrit 43 39 35-52 % Mean Corpuscular Volume 90 91 80-99 FL Mean Corpuscular Hemoglobin 30 30 25-34 PG Mean Corpuscular Hemoglobin Concent 33 33 32-36 G/DL Red Cell Distribution Width 14.1 14.3 10.0-14.5 % Platelet Count 353 335 130-400 10^3/uL Mean Platelet Volume 9.4 9.5 7.4-10.4 FL Neutrophils (%) (Auto) 61 57 42-75 % Lymphocytes (%) (Auto) 29 28 12-44 % Monocytes (%) (Auto) 8 11 0-12 % Eosinophils (%) (Auto) 3 4 0-10 % Basophils (%) (Auto) 1 1 0-10 % Neutrophils # (Auto) 5.8 3.8 1.8-7.8 X 10^3 Lymphocytes # (Auto) 2.7 1.9 1.0-4.0 X 10^3 Monocytes # (Auto) 0.7 0.7 0.0-1.0 X 10^3 Eosinophils # (Auto) 0.3 0.3 0.0-0.3 10^3/uL Basophils # (Auto) 0.1 0.1 0.0-0.1 10^3/uL Prothrombin Time 15.1 H 12.2-14.7 SEC INR Comment 1.2 0.8-1.4 Activated Partial Thromboplast Time 28 24-35 SEC Sodium Level 139 142 135-145 MMOL/L Potassium Level 4.0 4.0 3.6-5.0 MMOL/L Chloride Level 104 109 H 98-107 MMOL/L Carbon Dioxide Level 27 24 21-32 MMOL/L Anion Gap 8 9 5-14 MMOL/L Blood Urea Nitrogen 12 10 7-18 MG/DL Creatinine 0.89 0.74 0.60-1.30 MG/DL Estimat Glomerular Filtration Rate > 60 > 60 BUN/Creatinine Ratio 13 14 Glucose Level 96 93 70-105 MG/DL Calcium Level 9.7 9.0 8.5-10.1 MG/DL Magnesium Level 2.4 2.3 1.8-2.4 MG/DL Total Bilirubin 0.3 0.1-1.0 MG/DL Aspartate Amino Transf (AST/SGOT) 18 5-34 U/L Alanine Aminotransferase (ALT/SGPT) 8 0-55 U/L Alkaline Phosphatase 85 40-136 U/L Myoglobin 49.7 10.0-92.0 NG/ML Troponin I < 0.30 <0.30 NG/ML Total Protein 7.7 6.4-8.2 GM/DL Albumin 4.4 3.2-4.5 GM/DL TSH [place] Testing 1.37 0.35-4.94 UIU/ML Phosphorus Level 3.4 2.3-4.7 MG/DL Triglycerides Level 71 <150 MG/DL Cholesterol Level 168 < 200 MG/DL LDL Cholesterol Direct 97 1-129 MG/DL VLDL Cholesterol 14 5-40 MG/DL HDL Cholesterol 54 40-60 MG/DL Physical Exam Vital Signs Vital Sign - Last 12Hours 07/24/17 18:47 Temp 97.6 Pulse 154 Resp 16 B/P (MAP) 122/91 Pulse Ox 96 O2 Delivery Nasal Cannula O2 Flow Rate 2.00 Capillary Refill : Less Than 3 Seconds General Appearance: No Apparent Distress, WD/WN Eyes: Bilateral Eye Normal Inspection, Bilateral Eye PERRL, Bilateral Eye EOMI HEENT: PERRL/EOMI, TMs Normal, Normal ENT Inspection, Pharynx Normal Neck: Full Range of Motion, Normal Inspection, Non Tender, Supple, Carotid Bruit Respiratory: Chest Non Tender, Lungs Clear, Normal Breath Sounds, No Accessory Muscle Use, No Respiratory Distress Cardiovascular: Regular Rate, Rhythm, No Edema, No Gallop, No JVD, No Murmur, Normal Peripheral Pulses Gastrointestinal: Normal Bowel Sounds, No Organomegaly, No Pulsatile Mass, Non Tender, Soft Back: Normal Inspection, No CVA Tenderness, No Vertebral Tenderness Extremity: Normal Capillary Refill, Normal Inspection, Normal Range of Motion, Non Tender, No Calf Tenderness, No Pedal Edema Neurologic/Psychiatric: Alert, Oriented x3, No Motor/Sensory Deficits, Normal Mood/Affect Skin: Normal Color, Warm/Dry Lymphatic: No Adenopathy A/P-Cardiology Admission Diagnosis Near syncope Sick sinus syndrome Paroxysmal atrial fibrillation Hypertension Palpitation Assessment/Plan Near syncope. Sick sinus syndrome with tachybradycardia, paroxysmal atrial fibrillation with pauses prior to conversion to sinus rhythm with lightheadedness and near syncope. No full syncope was reported. Recurrent palpitation, secondary to paroxysmal atrial fibrillation,had a reveal device implanted on August 15, 2016 with no complication. Linq interrogation revealed several episodes of atrial fibrillation, atrial tachycardia, multiple episodes today. Has been maintained on diltiazem. Unable to tolerate higher dose of diltiazem secondary to underlying sick sinus syndrome, bradycardia. Has been on amiodarone in the past, reports it controlled her atrial fibrillation well, however she was concerned over the potential side effects, on the last visit she was started on Multaq and I instructed her to use the Cardizem only as needed. Came in today with atrial fibrillation with rapid ventricular response and had a long as prior to conversion to sinus rhythm. She was symptomatic and she had multiple episodes. We discussed again the management plan discussed the possibility of ablation. I am planning to start class IC antiarrhythmic medication, last echo and stress test were done in 2014. I will reevaluate 2-D echo and Lexiscan stress test prior to initiating the medication. Paroxysmal atrial fibrillation, management as discussed above. [id number] score is 3, yearly risk of stroke without oral anticoagulation is 3.2 percent. Had refused oral anticoagulation the past. I will continue on Eliquis for now and continue to monitor Sick sinus syndrome, bradycardia, asymptomatic, exacerbated by amiodarone, higher doses of diltiazem, management as described above, if patient continued to be significantly symptomatic I will consider pacemaker implantation Hypertension, controlled. Continue to monitor blood pressure/heart rate. Hyperlipidemia, last lipid profile was done in January 2017 showing total cholesterol 219, HDL 62, triglyceride 97, LDL 138. Does not want to start statin, started on fish oil on the last office visit. 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 Doing well. Patient reporting to me that no further active malignancy. Clinical Quality Measures DVT/VTE Risk/Contraindication: Risk Factor Score Per Nursin RFS Level Per Nursing on Admit: 3=High ELIANA VALENZUELA MD Jul 25, 2017 08:44
[2017-07-25] MEDS: APIXABAN 5 MG (ELIQUIS) TABLET PO SCH ×2 (09:59→20:50)
[2017-07-25] MEDS ORDERED: CATHETER FLUSH 10 ML SYR IV PRN (11:45)
[2017-07-25] MEDS ORDERED: REGADENOSON 0.4 MG/5 ML SYR (LEXISCAN) IV ONE ×2 (11:49→12:15)
[2017-07-25] MEDS: lisINopril 20 MG (ZESTRIL) TAB PO SCH (16:56)
--- NOTE | 2017-07-25 17:43 | History & Physicial ---
History of Present Illness History of Present Illness Reason for visit/HPI This is a 72 year old female who has been following with cardiology for atrial fibrillation and having her medications adjusted. She presented to the emergency room with complaints of palpitations and light-headedness. She was found to be in atrial flutter/atrial fibrillation with a rate in the 140s to 160s. Cardiology wanted her admitted to monitor her and adjust medications. Date of Admission Jul 24, 2017 at 7:33 pm Date Seen by Provider: Jul 25, 2017 Time Seen by Provider: 12:30 I consulted on this patient on 07/25/17 17:37 Attending Physician Evangelina Elmore DO Admitting Physician Evangelina Elmore DO Consult Allergies and Home Medications Allergies Coded Allergies: No Known Drug Allergies (Verified , 07/13/16) Home Medications Alprazolam 0.25 Mg Tablet, 0.25 MG PO DAILY PRN for ANXIETY, (Reported) Apixaban 5 Mg Tablet, 5 MG PO BID, (Reported) Calcium Carbonate/Vitamin D3 1 Each Tablet, 1 TAB PO DAILY, (Reported) Cholecalciferol (Vitamin D3) 2,000 Unit Capsule, 2,000 UNIT PO DAILY, (Reported) Diltiazem HCl 120 Mg Cap.er.24h, 120 MG PO DAILY PRN for INCREASED HEART RATE, ( Reported) Letrozole 2.5 Mg Tablet, 2.5 MG PO DAILY, (Reported) Lisinopril 20 Mg Tablet, 20 MG PO 1700, (Reported) Past Bnuwbto-Fjqwkh-Cyrwkw Hx Patient Social History Marrital Status: Alcohol Use: Denies Use Recreational Drug Use: No Smoking Status: Never a Smoker 2nd Hand Smoke Exposure: No Physical Abuse Screen: No Sexual Abuse: No Recent Foreign Travel: No Contact w/other who traveled: No Recent Hopitalizations: No Recent Infectious Disease Expo: No Immunizations Up To Date Tetanus Booster (TDap): Less than 5yrs Date of Pneumonia Vaccine: Jul 12, 2014 Date of Influenza Vaccine: Jul 17, 2017 Seasonal Allergies Seasonal Allergies: Yes Surgeries Yes (LUMPECTOMY, KIDNEY SURGERY) Breast, Tonsillectomy Respiratory Yes Currently Using CPAP: No Currently Using BIPAP: No Cardiovascular Yes Atrial Fibrillation, Hypertension Neurological No Reproductive System : No HIV/AIDS: No Genitourinary No UTI-Chronic Gastrointestinal Yes Chronic Diarrhea Musculoskeletal No Endocrine History of Endocrine Disorders: No HEENT History of HEENT Disorders: No Loss of Vision: Denies Hearing Impairment: Denies Cancer Yes Breast Psychosocial History of Psychiatric Problem: No Integumentary History of Skin or Integumenta: No Blood Transfusions History of Blood Disorders: No Adverse Reaction to a Blood Tr: No Family Medical History Significant Family History: Hypertension Family Hx: Colon cancer 19 MOTHER Hypertension 19 FATHER Neoplasm 19 FATHER Constitutional: No no symptoms reported, No see HPI, No chills, No diaphoresis , No dizziness, No fever, No malaise, No weakness, No weight gain, No weight loss, No other EENTM: No see HPI, No no symptoms reported, No ear discharge, No hearing loss, No ear pain, No blurred vision, No double vision, No eye pain, No tearing, No vision loss, No dental problems, No hoarseness, No mouth pain, No mouth swelling , No epistaxis, No nose congestion, No nose pain, No throat pain, No throat swelling, No other Respiratory: No no symptoms reported, No see HPI, No cough, No dyspnea on exertion, No hemoptysis, No orthopnea, No phlegm, No short of breath, No stridor , No wheezing, No other Cardiovascular: palpitations Gastrointestinal: No RUQ, No LUQ, No RLQ, No LLQ, No no symptoms reported, No see HPI, No abdominal pain, No constipation, No diarrhea, No dysphagia, No hematemesis, No heartburn, No jaundice, No loss of appetite, No melena, No nausea, No vomiting, No other Genitourinary: No no symptoms reported, No see HPI, No decreased output, No discharge, No dysuria, No frequency, No hematuria, No hesitancy, No incontinence , No nocturia, No pain, No other Musculoskeletal: No no symptoms reported, No see HPI, No back pain, No gout, No joint pain, No joint swelling, No muscle pain, No muscle stiffness, No muscle cramps, No muscle twitching, No muscle weakness, No neck pain, No other Skin: No no symptoms reported, No see HPI, No change in color, No change in hair/nails, No dryness, No hx of skin cancer, No lesions, No lumps, No pruritus , No rash, No other Psychiatric/Neurological: Weakness (light headed) Physical Exam Vital Signs Vital Sign - Last 12Hours 07/24/17 18:47 Temp 97.6 Pulse 154 Resp 16 B/P (MAP) 122/91 Pulse Ox 96 O2 Delivery Nasal Cannula O2 Flow Rate 2.00 Capillary Refill : Less Than 3 Seconds General Appearance: No Apparent Distress HEENT: Pharynx Normal Neck: Supple Respiratory: Lungs Clear Cardiovascular: Regular Rate, Rhythm, No Edema, No Gallop, Normal Peripheral Pulses, Other (occasional skipped beat) Gastrointestinal: Soft Rectal: Deferred Back: No CVA Tenderness Extremity: Non Tender, No Calf Tenderness, No Pedal Edema Neurologic/Psychiatric: Alert, Oriented x3 Skin: Normal Color Comments Laboratory Tests 07/24/17 19:00: White Blood Count 9.5, Red Blood Count 4.72, Hemoglobin 14.1, Hematocrit 43, Mean Corpuscular Volume 90, Mean Corpuscular Hemoglobin 30, Mean Corpuscular Hemoglobin Concent 33, Red Cell Distribution Width 14.1, Platelet Count 353, Mean Platelet Volume 9.4, Neutrophils (%) (Auto) 61, Lymphocytes (%) (Auto) 29, Monocytes (%) (Auto) 8, Eosinophils (%) (Auto) 3, Basophils (%) (Auto) 1, Neutrophils # (Auto) 5.8, Lymphocytes # (Auto) 2.7, Monocytes # (Auto) 0.7, Eosinophils # (Auto) 0.3, Basophils # (Auto) 0.1, Prothrombin Time 15.1H, INR Comment 1.2, Activated Partial Thromboplast Time 28, Sodium Level 139, Potassium Level 4.0, Chloride Level 104, Carbon Dioxide Level 27, Anion Gap 8, Blood Urea Nitrogen 12, Creatinine 0.89, Estimat Glomerular Filtration Rate > 60 , BUN/Creatinine Ratio 13, Glucose Level 96, Calcium Level 9.7, Magnesium Level 2.4, Total Bilirubin 0.3, Aspartate Amino Transf (AST/SGOT) 18, Alanine Aminotransferase (ALT/SGPT) 8, Alkaline Phosphatase 85, Myoglobin 49.7, Troponin I < 0.30, Total Protein 7.7, Albumin 4.4, TSH [facility] Testing 1.37 07/25/17 05:00: White Blood Count 6.8, Red Blood Count 4.26L, Hemoglobin 12.9, Hematocrit 39, Mean Corpuscular Volume 91, Mean Corpuscular Hemoglobin 30, Mean Corpuscular Hemoglobin Concent 33, Red Cell Distribution Width 14.3, Platelet Count 335, Mean Platelet Volume 9.5, Neutrophils (%) (Auto) 57, Lymphocytes (%) (Auto) 28, Monocytes (%) (Auto) 11, Eosinophils (%) (Auto) 4, Basophils (%) (Auto) 1, Neutrophils # (Auto) 3.8, Lymphocytes # (Auto) 1.9, Monocytes # (Auto) 0.7, Eosinophils # (Auto) 0.3, Basophils # (Auto) 0.1, Sodium Level 142, Potassium Level 4.0, Chloride Level 109H, Carbon Dioxide Level 24, Anion Gap 9, Blood Urea Nitrogen 10, Creatinine 0.74, Estimat Glomerular Filtration Rate > 60, BUN/ Creatinine Ratio 14, Glucose Level 93, Calcium Level 9.0, Magnesium Level 2.3, Phosphorus Level 3.4, Triglycerides Level 71, Cholesterol Level 168, LDL Cholesterol Direct 97, VLDL Cholesterol 14, HDL Cholesterol 54 Assessment/Plan Assessment and Plan 1. Atrial Flutter/Fibrillation with RVR--admit to ICU and cardiology to adjust medications, patient has pending EP evaluation next month at 2. Sick Sinus Syndrome--holding on pacemaker per cardiology Problems: Clinical Quality Measures DVT/VTE Risk/Contraindication: Risk Factor Score Per Nursin RFS Level Per Nursing on Admit: 3=High EVANGELINA ELMORE DO Jul 25, 2017 5:43 pm
[2017-07-25] MEDS: FLECAINIDE 100 MG (TAMBOCOR) TAB PO SCH (20:50)
[2017-07-26] VITALS (13 sets, daily range): BP systolic 128–177; BP diastolic 77–114
[2017-07-26] MEDS: NS IV 1000 ML 1,000 ML IV SCH ×3 (00:17→09:56)
--- NOTE | 2017-07-26 01:25 | STRESS TEST ---
DATE OF SERVICE: 07/25/2017 LEXISCAN MYOVIEW STRESS TEST REPORT Baseline heart rate is 59, baseline blood pressure is 149/91. Baseline EKG is sinus rhythm with no ischemic changes. SUMMARY: The patient was injected with 10.95 mCi of technetium-99 Myoview and the resting images were obtained. Then, the patient received 0.4 mg of Lexiscan followed by 33.0 mCi of technetium-99 Myoview. Throughout the test, there were no EKG changes. The resting and stress images were reviewed and compared in the short axis, horizontal long axis, and vertical long axis views. Review of the images showed good radiotracer uptake with no significant ischemia or infarction. SSS is 0. TID value 1.01. On the gated images, the left ventricle appeared to be in normal size with normal contractility. Calculated ejection fraction is 79%. CONCLUSION: 1. The patient tolerated Lexiscan well. 2. No ischemia or infarction on SPECT images. 3. Normal left ventricular size with normal contractility. Calculated ejection fraction 79%. Job ID: [id number] DocumentID: [id number] Dictated Date: 07/25/2017 14:54:27 Assistant Teaching Professor Date: 07/25/2017 22:34:38 Dictated By: ELIANA VALENZUELA MD
[2017-07-26 05:15] LABS: ANION GAP 9 MMOL/L (5-14); BLOOD UREA NITROGEN 9 MG/DL (7-18); BUN/CREATININE RATIO 13; CALCIUM 8.5 MG/DL (8.5-10.1); CARBON DIOXIDE 21 MMOL/L (21-32); CHLORIDE 111 MMOL/L (98-107); CREATININE SERUM 0.69 MG/DL (0.60-1.30); GFR ESTIMATED > 60; GLUCOSE 86 MG/DL (70-105); MAGNESIUM 2.1 MG/DL (1.8-2.4); PHOSPHORUS 3.2 MG/DL (2.3-4.7); POTASSIUM 4.1 MMOL/L (3.6-5.0); SODIUM 141 MMOL/L (135-145)
[2017-07-26 05:19] LABS: BASOPHILS # (AUTO) 0.1 10^3/uL (0.0-0.1); BASOPHILS % (AUTO) 1 % (0-10); EOSINOPHILS # (AUTO) 0.4 10^3/uL (0.0-0.3); EOSINOPHILS % (AUTO) 6 % (0-10); LYMPHOCYTES % (AUTO) 31 % (12-44); MEAN CORPUSCULAR HEMOGLOBIN 30 PG (25-34); MEAN CORPUSCULAR HGB CONC 32 G/DL (32-36); MEAN CORPUSCULAR VOLUME 92 FL (80-99); MONOCYTES # (AUTO) 0.6 X 10^3 (0.0-1.0); MONOCYTES % (AUTO) 10 % (0-12); NEUTROPHILS # (AUTO) 3.4 X 10^3 (1.8-7.8); NEUTROPHILS % (AUTO) 52 % (42-75); PLATELET COUNT 296 10^3/uL (130-400); RED BLOOD COUNT 4.01 10^6/uL (4.35-5.85); RED CELL DISTRIBUTION WIDTH 14.2 % (10.0-14.5); WHITE BLOOD COUNT 6.5 10^3/uL (4.3-11.0)
--- NOTE | 2017-07-26 06:16 | Diagnostic Imaging Report ---
EXAM: CHEST 1 VIEW, AP/PA ONLY INDICATION: Bradycardia. COMPARISON: Chest radiograph 07/24/2017. FINDINGS: Normal heart size and pulmonary vascularity. Calcified aorta. electronic device monitor. Calcified granuloma in the right lung base. No new focal pulmonary opacity, pleural effusion or pneumothorax. Postoperative changes in the left breast. No acute osseous findings. No significant change. IMPRESSION: No acute cardiopulmonary findings. Dictated by: Dictated on workstation # [id number]
--- NOTE | 2017-07-26 08:14 | Cardiology Progress Note ---
Subjective Date Seen by Provider: Jul 26, 2017 Time Seen by Provider: 08:11 Subjective/Events-last exam patient is feeling better, asking to go home, denied any chest pain or shortness of breath. No palpitation. Has been in sinus rhythm. Review of Systems General: No Chills, No Night Sweats, No Fatigue, No Malaise, No Appetite, No Other HEENT: No Head Aches, No Visual Changes, No Eye Pain, No Ear Pain, No Dysphasia , No Sinus Congestion, No Post Nasal Drip, No Sore Throat, No Other Pulmonary: No Dyspnea, No Cough, No Pleuritic Chest Pain, No Other Cardiovascular: No: Chest Pain, Palpitations, Orthopnea, Paroxysmal Noc. Dyspnea, Edema, Lt Headedness, Other Objective-Cardiology Exam Last Set of Vital Signs Vital Signs 07/25/17 07/26/17 11:00 06:00 Pulse 54 Resp 13 B/P (MAP) 157/88 Pulse Ox 93 O2 Delivery Room Air O2 Flow Rate 2.00 Capillary Refill : Less Than 3 Seconds I&O Intake and Output 07/26/17 23:59 Intake Total 100 ml Output Total 2400 ml Balance -2300 ml Intake Oral 100 ml Output Urine Total 2400 ml General: Alert, Oriented X3, Cooperative HEENT: Atraumatic, PERRLA Neck: Supple, No JVD, No Thyromegaly Lungs: Clear to Auscultation, Normal Air Movement Heart: Regular Rate, Normal S1, Normal S2, No Murmurs Abdomen: Normal Bowel Sounds, Soft, No Tenderness, No Hepatosplenomegaly, No Masses Extremities: No Clubbing, No Cyanosis, No Edema, Normal Pulses, No Tenderness/ Swelling Skin: No Rashes, No Breakdown, No Significant Lesion Neuro: Normal Gait, Normal Speech, Strength at 5/5 X4 Ext, Normal Tone, Sensation Intact Psych/Mental Status: Mental Status NL, Mood NL Results Lab Laboratory Tests 07/26/17 04:25 A/P-Cardiology Admission Diagnosis Near syncope Sick sinus syndrome Paroxysmal atrial fibrillation Hypertension Palpitation Assessment/Plan Near syncope. Sick sinus syndrome with tachybradycardia, paroxysmal atrial fibrillation with pauses prior to conversion back to sinus rhythm with lightheadedness and near syncope. No full syncope was reported. Better at this time, started on flecainide last night and tolerating it well. I will discharge home and arrange for follow-up next week. Recurrent palpitation, secondary to paroxysmal atrial fibrillation,had a reveal device implanted on August 15, 2016 with no complication. Linq interrogation revealed several episodes of atrial fibrillation, atrial tachycardia, multiple episodes today. Has been maintained on diltiazem. Unable to tolerate higher dose of diltiazem secondary to underlying sick sinus syndrome, bradycardia. Has been on amiodarone in the past, reports it controlled her atrial fibrillation well, however she was concerned over the potential side effects, on the last visit she was started on Multaq and I instructed her to use the Cardizem only as needed. Came in today with atrial fibrillation with rapid ventricular response and had a long as prior to conversion to sinus rhythm. She was symptomatic and she had multiple episodes. We discussed again the management plan discussed the possibility of ablation. I started her on flecainide 50 mg twice daily. I will evaluate her tolerance and response, possibly increasing the dose if needed. Scheduled for EP evaluation and possible ablation at on August [address] Parker Paroxysmal atrial fibrillation, management as discussed above. [id number] score is 3, yearly risk of stroke without oral anticoagulation is 3.2 percent. Had refused oral anticoagulation the past. I will continue on Eliquis for now and continue to monitor Sick sinus syndrome, bradycardia, asymptomatic, exacerbated by amiodarone, higher doses of diltiazem, management as described above, if patient continued to be significantly symptomatic I will consider pacemaker implantation Hypertension, controlled. Continue to monitor blood pressure/heart rate. Hyperlipidemia, last lipid profile was done in January 2017 showing total cholesterol 219, HDL 62, triglyceride 97, LDL 138. Does not want to start statin, started on fish oil on the last office visit. 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 Doing well. Patient reporting to me that no further active malignancy. Clinical Quality Measures DVT/VTE Risk/Contraindication: Risk Factor Score Per Nursin RFS Level Per Nursing on Admit: 3=High ELIANA VALENZUELA MD Jul 26, 2017 08:14
[2017-07-26] MEDS ORDERED: FLEC100T PO (08:17)
[2017-07-26] MEDS: APIXABAN 5 MG (ELIQUIS) TABLET PO SCH ×2 (08:21→20:38)
[2017-07-26] MEDS: FLECAINIDE 100 MG (TAMBOCOR) TAB PO SCH ×2 (08:21→20:38)
--- NOTE | 2017-07-26 09:54 | Progress Note (SOAP) ---
Subjective Date Seen by Provider: Jul 26, 2017 Time Seen by Provider: 09:50 Subjective/Events-last exam Fwup Atrial fibrillation with RVR, sick sinus syndrome. Stress ECHO was normal and was back in NSR and going to be discharged but then went back into atrial fibrillation with RVR followed by an episode of bradycardia with near-syncope. Objective Exam Vital Signs Date Time Temp Pulse Resp B/P (MAP) Pulse Ox O2 Delivery O2 Flow Rate FiO2 07/26/17 08:20 97.8 07/26/17 07:00 53 07/26/17 06:00 54 13 157/88 93 Room Air 07/26/17 05:00 55 14 177/94 98 Room Air 07/26/17 04:00 52 15 149/82 94 Room Air 07/26/17 04:00 97.9 07/26/17 04:00 Room Air 07/26/17 03:00 53 13 138/77 93 Room Air 07/26/17 02:00 64 16 144/95 95 Room Air 07/26/17 01:00 55 12 137/80 92 Room Air 07/26/17 01:00 55 07/26/17 00:00 Room Air 07/26/17 00:00 55 13 145/79 94 Room Air 07/26/17 00:00 97.3 07/25/17 23:00 55 16 148/74 94 Room Air 07/25/17 22:00 59 22 120/69 95 Room Air 07/25/17 21:00 58 24 162/82 97 Room Air 07/25/17 20:00 Room Air 07/25/17 20:00 62 19 124/72 99 Room Air 07/25/17 20:00 97.8 Room Air 07/25/17 19:00 65 25 115/64 97 Room Air 07/25/17 19:00 65 07/25/17 18:00 60 14 113/67 99 Room Air 07/25/17 17:00 61 14 117/67 99 Room Air 07/25/17 16:00 98.2 Room Air 07/25/17 16:00 Room Air 07/25/17 16:00 60 17 119/63 98 Room Air 07/25/17 16:00 60 17 119/63 98 Room Air 07/25/17 15:00 68 15 112/74 99 Room Air 07/25/17 14:00 63 10 119/76 98 Room Air 07/25/17 13:00 66 18 144/82 99 Room Air 07/25/17 13:00 70 07/25/17 12:00 54 16 149/91 99 Room Air 07/25/17 11:00 54 14 121/94 100 Nasal Cannula 2.00 07/25/17 10:00 55 14 142/85 100 Nasal Cannula 2.00 I & O 07/27/17 07:00 Intake Total 1000 ml Balance 1000 ml Capillary Refill : Less Than 3 Seconds General Appearance: No Apparent Distress Neck: Supple Respiratory: Lungs Clear Cardiovascular: Irregularly Irregular Gastrointestinal: normal bowel sounds, non tender, soft Extremity: Non Tender, No Calf Tenderness, No Pedal Edema Neurologic/Psychiatric: Alert, Oriented x3 Results Lab Laboratory Tests 07/26/17 04:25: White Blood Count 6.5, Red Blood Count 4.01L, Hemoglobin 11.9, Hematocrit 37, Mean Corpuscular Volume 92, Mean Corpuscular Hemoglobin 30, Mean Corpuscular Hemoglobin Concent 32, Red Cell Distribution Width 14.2, Platelet Count 296, Mean Platelet Volume 10.0, Neutrophils (%) (Auto) 52, Lymphocytes (%) (Auto) 31 , Monocytes (%) (Auto) 10, Eosinophils (%) (Auto) 6, Basophils (%) (Auto) 1, Neutrophils # (Auto) 3.4, Lymphocytes # (Auto) 2.0, Monocytes # (Auto) 0.6, Eosinophils # (Auto) 0.4H, Basophils # (Auto) 0.1, Sodium Level 141, Potassium Level 4.1, Chloride Level 111H, Carbon Dioxide Level 21, Anion Gap 9, Blood Urea Nitrogen 9, Creatinine 0.69, Estimat Glomerular Filtration Rate > 60, BUN/ Creatinine Ratio 13, Glucose Level 86, Calcium Level 8.5, Phosphorus Level 3.2, Magnesium Level 2.1 Microbiology 07/24/17 MRSA Screen - Final, Complete MRSA not isolated Assessment/Plan Assessment/Plan Assess & Plan/Chief Complaint 1. Atrial Fibrillation with RVR--switched to flecainide, DC cancelled and will need to stay through weekend while medications are adjusted 2. Sick Sinus Syndrome--Dr. Zee recommending pacemaker which will allow more aggressive medication management as well, Dr. Meyers will discuss with patient as well Clinical Quality Measures DVT/VTE Risk/Contraindication: Risk Factor Score Per Nursin RFS Level Per Nursing on Admit: 3=High STANLEY BARRY DO Jul 26, 2017 9:54 am
[2017-07-26] MEDS: lisINopril 20 MG (ZESTRIL) TAB PO SCH (16:00)
[2017-07-26] MEDS: LETROZOLE 2.5 MG (FEMARA) TAB PO SCH (21:16)
--- NOTE | 2017-07-26 22:28 | Electrophysiology Consultation ---
HPI-Cardiology Cardiology Consultation: Date of Consultation 07/26/17 Date of Admission Attending Physician Evangelina Elmore DO Admitting Physician Evangelina Elmore DO Consulting Physician Tyler MEYERS MD HPI: Time Seen by Provider: 13:00 Chief Complaint: near syncope This is a 72-year-old lady with history of paroxysmal atrial fibrillation. She is a patient of Dr. 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 I've been requested for an EP consultation. She presents with near syncope and was found to be in atrial fibrillation and significant bradycardia with heart rate in the 20s and significant pauses. She was previously on amiodarone but did not tolerate, therefore was changed to multaq. She continues to be on Cardizem. Dr. Zee discontinued multaq and started her on flecainide. Nuclear stress test was negative for ischemia. Review of Systems-Cardiology Review of Systems Constitutional: No As described under HPI, No no symptoms reported, No chills, No fever, No lightheadedness, No malaise, No tiredness, No weight loss, No weight gain, No other Eyes: No As described under HPI, No no symptoms reported, No blindness, No blurred vision, No contact lenses, No drainage, No decreased acuity, No foreign body sensation, No glasses, No inflammation, No pain, No photophobia, No previous injury, No shadows, No tunnel vision, No other, No vision change Ears/Nose/Throat: No As described under HPI, No no symptoms reported, No chronic hearing loss, No epistaxis, No ear discharge, No ear pain, No loose teeth, No mouth pain, No mouth swelling, No nasal drainage, No nose pain, No recent hearing loss, No throat pain, No throat swelling, No ulcerations, No other Respiratory: No no symptoms reported, No As described under HPI, No cough, No orthopnea, No shortness of breath, No SOB with excertion, No SOB at rest, No stridor, No wheezing, No other Cardiovascular: irregular heart rate, palpitations, syncope Gastrointestinal: No no symptoms reported, No As described under HPI, No abdomen distended, No abdominal pain, No blood streaked bowels, No constipation , No diarrhea, No difficulty swallowing, No nausea, No poor appetite, No poor fluid intake, No rectal bleeding, No vomiting, No other, No nausea/vomiting/ diarrhea, No stool coloration changes Genitourinary: No no symptoms reported, No As described under HPI, No burning, No dysuria, No discharge, No frequency, No flank pain, No hematuria, No incontinence, No pain, No urgency, No other, No urine frequency changes, No urine coloration changes Musculoskeletal: No no symptoms reported, No As describe under HPI, No back pain, No gout, No joint pain, No joint swelling, No muscle pain, No muscle stiffness, No neck pain, No other Skin: No no symptoms reported, No As described under HPI, No change in color, No change in hair/nails, No dryness, No lesions, No lumps, No rash, No other, No skin related problems, No ulcerations, No rash on exposed areas, No ulcerations on exposed areas Psychiatric/Neurological: As described under HPI [id number] Hx Patient Social History Marrital Status: Alcohol Use: Denies Use Recreational Drug Use: No Smoking Status: Never a Smoker 2nd Hand Smoke Exposure: No Recent Foreign Travel: No Recent Infectious Disease Expo: No Hospitalization with Isolation: Denies Physical Abuse Screen: No Sexual Abuse: No Immunizations Up To Date Tetanus Booster (TDap): Less than 5yrs Date of Pneumonia Vaccine: Jul 12, 2014 Date of Influenza Vaccine: Jul 17, 2017 Past Medical History PMH As described under Assessment. Family Medical History Family History: Colon cancer 19 MOTHER Hypertension 19 FATHER Neoplasm 19 FATHER Allergies and Home Medications Allergies Coded Allergies: No Known Drug Allergies (Verified , 07/13/16) Home Medications Alprazolam 0.25 Mg Tablet, 0.25 MG PO DAILY PRN for ANXIETY, (Reported) Apixaban 5 Mg Tablet, 5 MG PO BID, (Reported) Calcium Carbonate/Vitamin D3 1 Each Tablet, 1 TAB PO DAILY, (Reported) Cholecalciferol (Vitamin D3) 2,000 Unit Capsule, 2,000 UNIT PO DAILY, (Reported) Diltiazem HCl 120 Mg Cap.er.24h, 120 MG PO DAILY PRN for INCREASED HEART RATE, ( Reported) Flecainide Acetate 100 Mg Tablet, 50 MG PO BID, #60 Ref 3 Prescribed by: ELIANA ZEE on 07/26/17 0817 Letrozole 2.5 Mg Tablet, 2.5 MG PO DAILY, (Reported) Lisinopril 20 Mg Tablet, 20 MG PO 1700, (Reported) Physical Exam-Cardiology Physical Exam Vital Signs/I&O Vital Sign - Last 12Hours 07/26/17 07/26/17 07/26/17 07/26/17 11:00 11:31 12:15 13:00 Temp 97.5 Pulse 70 67 53 Resp 14 B/P (MAP) 164/91 Pulse Ox 99 O2 Delivery Room Air Room Air 07/26/17 07/26/17 07/26/17 07/26/17 13:00 15:00 16:05 16:15 Temp 97.3 Pulse 66 78 62 Resp 16 B/P (MAP) 163/95 Pulse Ox 98 O2 Delivery Room Air Room Air 07/26/17 07/26/17 20:00 20:00 Temp 98.3 Pulse 63 Resp 16 B/P (MAP) 146/93 Pulse Ox 98 O2 Delivery Room Air Room Air Intake and Output 07/27/17 00:00 Intake Total 750 ml Balance 750 ml Capillary Refill : Less Than 3 Seconds Constitutional: No appears stated age, No AAO x 3, No apparent distress, No PERRL, No well-developed, No well-nourished, No other HEENT: No PERRL, No normal ENT inspection, No TMs normal, No pharynx normal, No scleral icterus (R), No scleral icterus (L), No pale conjunctivae (R), No pale conjunctivae (L), No photophobia, No TM abnormal (R), No TM abnormal (L), No pharyngeal erythema, No tonsillar exudate, No other, No discharge, No EOMI, No hearing is well preserved, No hard of hearing, No oral hygience is good, No ulceration, No xanthelasmas are seen Neck: No non-tender, No full range of motion, No supple, No normal inspection, No carotid bruit, No limited range of motion, No lymphadenopathy (R), No lymphadenopathy (L), No tender lateral, No tender midline, No thyromegaly, No other, No carotid pulses are 2 + bilaterally, No with good upstrokes Respiratory: No accessory muscle use, No respiratory distress, No chest tender , No chest expansion is symmetric, No chest is bilaterally symmetric, No lungs clear to percussion, No lungs clear to auscultation, No crackles, No rhonchi, No rales, No stridor, No wheezing, No pleural rub, No other Cardiovascular: irregularly irregular, S1 and S2 Gastrointestinal: No tender, No soft, No round, No distended, No pulsatile mass , No organomegaly, No guarding, No rebound, No tenderness, No hernia, No mass, No audible bowel sounds, No abnormal bowel sounds, No abdominal bruits, No spleenomegaly, No other Rectal: deferred Extremities: No normal range of motion, No non-tender, No normal inspection, No pedal edema, No calf tenderness, No normal capillary refill, No pelvis stable , No calf tenderness, No inflammation, No pedal edema, No slow capillary refill , No swelling, No other, No abrasion, No clubbing, No cyanosis, No ecchymosis, No laceration, No no lower extremity edema bilateral, No significant edema, No tenderness, No wound Neurologic/Psychiatric: No sales analyst II-XII nml as tested, No no motor/sensory deficits, No alert, No normal mood/affect, No oriented x 3, No abnormal cerebellar tests, No abnormal sales analyst II-XII, No abnormal gait, No aphasia, No EOM palsy, No facial droop, No motor weakness, No sensory deficit, No depressed affect, No disoriented x 3, No other, No grossly intact, No power is 5/5 both on sides Skin: No normal color, No warm/dry, No cyanosis, No cool, No diaphoresis, No damp, No ecchymosis, No jaundice, No mottled, No pallor, No rash, No tattoos/ piercings, No ulcerations, No rash on exposed areas, No ulcerations on exposed areas, No other Data Review Labs Laboratory Tests 07/26/17 04:25: White Blood Count 6.5, Red Blood Count 4.01L, Hemoglobin 11.9, Hematocrit 37, Mean Corpuscular Volume 92, Mean Corpuscular Hemoglobin 30, Mean Corpuscular Hemoglobin Concent 32, Red Cell Distribution Width 14.2, Platelet Count 296, Mean Platelet Volume 10.0, Neutrophils (%) (Auto) 52, Lymphocytes (%) (Auto) 31 , Monocytes (%) (Auto) 10, Eosinophils (%) (Auto) 6, Basophils (%) (Auto) 1, Neutrophils # (Auto) 3.4, Lymphocytes # (Auto) 2.0, Monocytes # (Auto) 0.6, Eosinophils # (Auto) 0.4H, Basophils # (Auto) 0.1, Sodium Level 141, Potassium Level 4.1, Chloride Level 111H, Carbon Dioxide Level 21, Anion Gap 9, Blood Urea Nitrogen 9, Creatinine 0.69, Estimat Glomerular Filtration Rate > 60, BUN/ Creatinine Ratio 13, Glucose Level 86, Calcium Level 8.5, Phosphorus Level 3.2, Magnesium Level 2.1 Microbiology 07/24/17 MRSA Screen - Final, Complete MRSA not isolated ECG Impression ECG Initial ECG Impression: Atrial Fibrillation w/RVR A/P-Cardiology Assessment/Admission Diagnosis 1. Atrial fibrillation with rapid ventricular rate, 2. Severe sinus node dysfunction Plan Continue flecainide and Cardizem for rhythm control of atrial fibrillation. However the patient has severe symptomatic sinus node dysfunction with bradycardic episodes into the 20s with near syncope and requiring IV atropine. She also develops significant tachycardia which is atrial fibrillation with rapid ventricular response, however we are limited by how much rate controlling agents we can give due to profound bradycardia. Therefore, I have discussed at length with the patient and her and recommended that we place a dual- chamber permanent pacemaker and then continue flecainide and Cardizem. She continues to be on Eliquis. We will hold Eliquis and perform dual-chamber permanent pacemaker on Saturday. Thank you for your consultation. Please call me if you have any questions. Kg Meyers MD, RS, CCDS Cardiac Electrophysiology Clinical Quality Measures DVT/VTE Risk/Contraindication: Risk Factor Score Per Nursin RFS Level Per Nursing on Admit: 3=High Tyler MEYERS MD Jul 26, 2017 10:28 pm
[2017-07-27] VITALS (10 sets, daily range): BP systolic 145–187; BP diastolic 79–98
[2017-07-27] MEDS: NS IV 1000 ML 1,000 ML IV SCH ×2 (01:02→16:07)
[2017-07-27 04:26] LABS: BASOPHILS # (AUTO) 0.1 10^3/uL (0.0-0.1); BASOPHILS % (AUTO) 1 % (0-10); EOSINOPHILS # (AUTO) 0.5 10^3/uL (0.0-0.3); EOSINOPHILS % (AUTO) 8 % (0-10); LYMPHOCYTES # (AUTO) 1.6 X 10^3 (1.0-4.0); LYMPHOCYTES % (AUTO) 27 % (12-44); MEAN CORPUSCULAR HEMOGLOBIN 30 PG (25-34); MEAN CORPUSCULAR HGB CONC 33 G/DL (32-36); MEAN CORPUSCULAR VOLUME 91 FL (80-99); MEAN PLATELET VOLUME 9.5 FL (7.4-10.4); MONOCYTES # (AUTO) 0.5 X 10^3 (0.0-1.0); MONOCYTES % (AUTO) 9 % (0-12); NEUTROPHILS # (AUTO) 3.3 X 10^3 (1.8-7.8); NEUTROPHILS % (AUTO) 55 % (42-75); PLATELET COUNT 293 10^3/uL (130-400); RED BLOOD COUNT 3.92 10^6/uL (4.35-5.85); RED CELL DISTRIBUTION WIDTH 13.9 % (10.0-14.5)
[2017-07-27 04:47] LABS: ANION GAP 9 MMOL/L (5-14); BLOOD UREA NITROGEN 8 MG/DL (7-18); BUN/CREATININE RATIO 12; CALCIUM 8.8 MG/DL (8.5-10.1); CARBON DIOXIDE 24 MMOL/L (21-32); CHLORIDE 108 MMOL/L (98-107); CREATININE SERUM 0.65 MG/DL (0.60-1.30); GFR ESTIMATED > 60; GLUCOSE 97 MG/DL (70-105); PHOSPHORUS 3.4 MG/DL (2.3-4.7); POTASSIUM 3.6 MMOL/L (3.6-5.0); SODIUM 141 MMOL/L (135-145)
--- NOTE | 2017-07-27 08:20 | Progress Note-Hospitalist ---
Progress Note Progress Notes/Assess & Plan Date Seen 07/27/17 Time Seen by Provider: 08:00 Diagonsis/Assessment & Plan Patient will have pacemaker placed tomorrow Atrial fibrillation with rapid ventricular response has not recurred last night or today yet Denies any pain Bowels are moving No urination problems Checked meds and labs Afebrile, vital signs stable, pleasant, flat affect, lying on right side in bed Irregular irregular rhythm Clear to auscultation bilaterally No edema Assessment: Atrial fibrillation with rapid ventricular response with sick sinus syndrome requiring pacemaker placement tomorrow Plan: Monitor vitals Pacemaker tomorrow JESSICA GIL DO Jul 27, 2017 08:20
[2017-07-27] MEDS: FLECAINIDE 100 MG (TAMBOCOR) TAB PO SCH ×2 (09:04→20:01)
[2017-07-27] MEDS: LETROZOLE 2.5 MG (FEMARA) TAB PO SCH (09:04)
[2017-07-27] MEDS ORDERED: lisINopril 20 MG (ZESTRIL) TAB PO ONE ×2 (10:00→12:00)
[2017-07-27] MEDS: ALPRAZolam 0.25 MG (XANAX) TAB PO PRN (12:07)
--- NOTE | 2017-07-27 13:06 | Cardiology Progress Note ---
Cardiology SOAP Progress Note Subjective: No Significant cardiac symptoms Objective: I&O/Vital Signs Vital Sign - Last 12Hours 07/27/17 07/27/17 07/27/17 04:00 04:00 07:00 Temp 98.0 Pulse 59 53 Resp 16 B/P (MAP) 171/87 Pulse Ox 98 O2 Delivery Room Air Room Air Weight (Pounds): 166 Weight (Ounces): 0.0 Weight (Calculated Kilograms): 75.968493 Constitutional: No appears stated age, No AAO x 3, No apparent distress, No PERRL, No well-developed, No well-nourished, No other Respiratory: No accessory muscle use, No respiratory distress, No chest tender , No chest expansion is symmetric, No chest is bilaterally symmetric, No lungs clear to percussion, No lungs clear to auscultation, No crackles, No rhonchi, No rales, No stridor, No wheezing, No pleural rub, No other Cardiovascular: irregularly irregular, S1 and S2 Gastrointestional: No tender, No soft, No round, No distended, No pulsatile mass, No organomegaly, No guarding, No rebound, No tenderness, No hernia, No mass, No audible bowel sounds, No abnormal bowel sounds, No abdominal bruits, No spleenomegaly, No other Extremities: No normal range of motion, No non-tender, No normal inspection, No pedal edema, No calf tenderness, No normal capillary refill, No pelvis stable , No calf tenderness, No inflammation, No pedal edema, No slow capillary refill , No swelling, No other, No abrasion, No clubbing, No cyanosis, No ecchymosis, No laceration, No no lower extremity edema bilateral, No significant edema, No tenderness, No wound Neurologic/Psychiatric: No alarm operator II-XII nml as tested, No no motor/sensory deficits, No alert, No normal mood/affect, No oriented x 3, No abnormal cerebellar tests, No abnormal alarm operator II-XII, No abnormal gait, No aphasia, No EOM palsy, No facial droop, No motor weakness, No sensory deficit, No depressed affect, No disoriented x 3, No other, No grossly intact, No power is 5/5 both on sides Skin: No normal color, No warm/dry, No cyanosis, No cool, No diaphoresis, No damp, No ecchymosis, No jaundice, No mottled, No pallor, No rash, No tattoos/ piercings, No ulcerations, No rash on exposed areas, No ulcerations on exposed areas, No other Results/Procedures: Labs Laboratory Tests 07/27/17 04:17: White Blood Count 6.0, Red Blood Count 3.92L, Hemoglobin 11.7, Hematocrit 36, Mean Corpuscular Volume 91, Mean Corpuscular Hemoglobin 30, Mean Corpuscular Hemoglobin Concent 33, Red Cell Distribution Width 13.9, Platelet Count 293, Mean Platelet Volume 9.5, Neutrophils (%) (Auto) 55, Lymphocytes (%) (Auto) 27, Monocytes (%) (Auto) 9, Eosinophils (%) (Auto) 8, Basophils (%) (Auto) 1, Neutrophils # (Auto) 3.3, Lymphocytes # (Auto) 1.6, Monocytes # (Auto) 0.5, Eosinophils # (Auto) 0.5H, Basophils # (Auto) 0.1, Sodium Level 141, Potassium Level 3.6, Chloride Level 108H, Carbon Dioxide Level 24, Anion Gap 9, Blood Urea Nitrogen 8, Creatinine 0.65, Estimat Glomerular Filtration Rate > 60, BUN/ Creatinine Ratio 12, Glucose Level 97, Calcium Level 8.8, Phosphorus Level 3.4, Magnesium Level 2.0 Microbiology 07/24/17 MRSA Screen - Final, Complete MRSA not isolated A/P: Assessment/Dx: 1. Atrial fibrillation with rapid ventricular rate, 2. Severe sinus node dysfunction 3. Hypertension Plan: Continue flecainide and Cardizem for rhythm control of atrial fibrillation, dual -chamber permanent pacemaker is recommended tomorrow. Eliquis is held for now. All the risks and complications of a dual-chamber permanent pacemaker were discussed with the patient. She gave informed consent. Risks that were discussed including bleeding, vascular damage, cardiac perforation, pneumothorax and even . Hypertension: Give lisinopril 40 mg. Anxiety: There is an element of anxiety. I've recommended anxiolytic therapy with Xanax. Thank you for your consultation. Please call me if you have any questions. Kg Meyers MD, FACP, FACC, FSCAI, FHRS, CCDS Interventional Cardiology Cardiac Electrophysiology Vascular Medicine and Endovascular Interventions Tyler MEYERS MD Jul 27, 2017 1:06 pm
[2017-07-27] MEDS ORDERED: amLODIPine 5 MG (NORVASC) TAB PO ONE ×3 (14:15→20:30)
[2017-07-27] MEDS ORDERED: ENALAPRIL 5 MG (VASOTEC) TAB ONE (17:17)
[2017-07-28] VITALS (33 sets, daily range): BP systolic 100–180; BP diastolic 56–117
[2017-07-28] MEDS: NITROGLYCERIN DRIP 25 MG/D5W 250 ML IV SCH (00:05)
[2017-07-28] MEDS: ATROPINE INJ 0.4 MG/ML SDV IV PRN (03:41)
[2017-07-28 05:30] LABS: BASOPHILS # (AUTO) 0.1 10^3/uL (0.0-0.1); BASOPHILS % (AUTO) 1 % (0-10); EOSINOPHILS # (AUTO) 0.3 10^3/uL (0.0-0.3); EOSINOPHILS % (AUTO) 4 % (0-10); LYMPHOCYTES # (AUTO) 1.9 X 10^3 (1.0-4.0); LYMPHOCYTES % (AUTO) 27 % (12-44); MEAN CORPUSCULAR HEMOGLOBIN 30 PG (25-34); MEAN CORPUSCULAR HGB CONC 33 G/DL (32-36); MEAN CORPUSCULAR VOLUME 91 FL (80-99); MEAN PLATELET VOLUME 9.8 FL (7.4-10.4); MONOCYTES # (AUTO) 0.5 X 10^3 (0.0-1.0); MONOCYTES % (AUTO) 7 % (0-12); NEUTROPHILS # (AUTO) 4.4 X 10^3 (1.8-7.8); NEUTROPHILS % (AUTO) 61 % (42-75); PLATELET COUNT 330 10^3/uL (130-400); RED BLOOD COUNT 4.41 10^6/uL (4.35-5.85); RED CELL DISTRIBUTION WIDTH 13.9 % (10.0-14.5); WHITE BLOOD COUNT 7.3 10^3/uL (4.3-11.0)
[2017-07-28 05:43] LABS: ANION GAP 12 MMOL/L (5-14); BLOOD UREA NITROGEN 12 MG/DL (7-18); BUN/CREATININE RATIO 17; CALCIUM 9.3 MG/DL (8.5-10.1); CARBON DIOXIDE 21 MMOL/L (21-32); CHLORIDE 108 MMOL/L (98-107); CREATININE SERUM 0.72 MG/DL (0.60-1.30); GFR ESTIMATED > 60; GLUCOSE 95 MG/DL (70-105); MAGNESIUM 2.2 MG/DL (1.8-2.4); PHOSPHORUS 3.7 MG/DL (2.3-4.7); POTASSIUM 3.9 MMOL/L (3.6-5.0); SODIUM 141 MMOL/L (135-145)
[2017-07-28] MEDS ORDERED: BACITRACIN 50000 UNITS/500 ML NS IR ONE ×2 (08:00)
[2017-07-28] MEDS ORDERED: BACITRACIN INJECTION 50,000 UNIT, SODIUM CHLORIDE 0.9% IRRIGATIO 500 ML IR ONE ×2 (08:00)
[2017-07-28] MEDS ORDERED: HEParin (CATH LAB) 1,000 ML IV ONE (08:11)
[2017-07-28] MEDS ORDERED: MIDAZOLAM 5 MG/5 ML (VERSED) VIAL ONE (08:14)
[2017-07-28] MEDS ORDERED: diphenhydrAMINE 50 MG/ML INJ (BENADRYL) ONE (08:14)
[2017-07-28] MEDS ORDERED: fentaNYL INJECTION 100 MCG/2 ML AMP ONE ×2 (08:14→10:16)
[2017-07-28] MEDS ORDERED: ATROPINE INJECTION 1 MG/10 ML SYR (ABBOTT) ONE (08:17)
--- NOTE | 2017-07-28 08:17 | Cardiology Progress Note ---
Cardiology SOAP Progress Note Subjective: palpitations Objective: I&O/Vital Signs Vital Sign - Last 12Hours 07/27/17 07/28/17 07/28/17 07/28/17 21:00 00:00 00:00 00:05 Pulse 95 Resp 18 B/P (MAP) 180/98 180/98 Pulse Ox 99 O2 Delivery Room Air Room Air Room Air 07/28/17 07/28/17 07/28/17 07/28/17 00:15 00:30 00:45 01:00 Pulse 70 131 146 72 B/P (MAP) 156/76 157/101 144/117 132/86 O2 Delivery Room Air Room Air Room Air Room Air 07/28/17 07/28/17 07/28/17 07/28/17 01:00 01:15 01:30 01:45 Pulse 71 71 63 75 B/P (MAP) 130/78 136/82 127/86 O2 Delivery Room Air Room Air Room Air 07/28/17 07/28/17 07/28/17 07/28/17 02:00 02:30 03:00 03:30 Pulse 59 61 55 124 B/P (MAP) 115/72 108/66 100/56 101/80 O2 Delivery Room Air Room Air Room Air Room Air 07/28/17 07/28/17 07/28/17 07/28/17 04:00 04:00 04:30 05:00 Pulse 69 68 117 B/P (MAP) 111/67 119/81 115/99 O2 Delivery Room Air Room Air Room Air Room Air 07/28/17 07/28/17 07/28/17 05:30 06:00 06:30 Pulse 63 61 120 B/P (MAP) 125/78 122/75 119/96 O2 Delivery Room Air Room Air Room Air Weight (Pounds): 165 Weight (Ounces): 0.0 Weight (Calculated Kilograms): 74.617827 Constitutional: No appears stated age, No AAO x 3, No apparent distress, No PERRL, No well-developed, No well-nourished, No other Respiratory: No accessory muscle use, No respiratory distress, No chest tender , No chest expansion is symmetric, No chest is bilaterally symmetric, No lungs clear to percussion, No lungs clear to auscultation, No crackles, No rhonchi, No rales, No stridor, No wheezing, No pleural rub, No other Cardiovascular: irregularly irregular, S1 and S2 Gastrointestional: No tender, No soft, No round, No distended, No pulsatile mass, No organomegaly, No guarding, No rebound, No tenderness, No hernia, No mass, No audible bowel sounds, No abnormal bowel sounds, No abdominal bruits, No spleenomegaly, No other Extremities: No normal range of motion, No non-tender, No normal inspection, No pedal edema, No calf tenderness, No normal capillary refill, No pelvis stable , No calf tenderness, No inflammation, No pedal edema, No slow capillary refill , No swelling, No other, No abrasion, No clubbing, No cyanosis, No ecchymosis, No laceration, No no lower extremity edema bilateral, No significant edema, No tenderness, No wound Neurologic/Psychiatric: No prosthetics lab technician II-XII nml as tested, No no motor/sensory deficits, No alert, No normal mood/affect, No oriented x 3, No abnormal cerebellar tests, No abnormal prosthetics lab technician II-XII, No abnormal gait, No aphasia, No EOM palsy, No facial droop, No motor weakness, No sensory deficit, No depressed affect, No disoriented x 3, No other, No grossly intact, No power is 5/5 both on sides Skin: No normal color, No warm/dry, No cyanosis, No cool, No diaphoresis, No damp, No ecchymosis, No jaundice, No mottled, No pallor, No rash, No tattoos/ piercings, No ulcerations, No rash on exposed areas, No ulcerations on exposed areas, No other Results/Procedures: Labs Laboratory Tests 07/28/17 04:50: White Blood Count 7.3, Red Blood Count 4.41, Hemoglobin 13.1, Hematocrit 40, Mean Corpuscular Volume 91, Mean Corpuscular Hemoglobin 30, Mean Corpuscular Hemoglobin Concent 33, Red Cell Distribution Width 13.9, Platelet Count 330, Mean Platelet Volume 9.8, Neutrophils (%) (Auto) 61, Lymphocytes (%) (Auto) 27, Monocytes (%) (Auto) 7, Eosinophils (%) (Auto) 4, Basophils (%) (Auto) 1, Neutrophils # (Auto) 4.4, Lymphocytes # (Auto) 1.9, Monocytes # (Auto) 0.5, Eosinophils # (Auto) 0.3, Basophils # (Auto) 0.1, Sodium Level 141, Potassium Level 3.9, Chloride Level 108H, Carbon Dioxide Level 21, Anion Gap 12, Blood Urea Nitrogen 12, Creatinine 0.72, Estimat Glomerular Filtration Rate > 60, BUN/ Creatinine Ratio 17, Glucose Level 95, Calcium Level 9.3, Phosphorus Level 3.7, Magnesium Level 2.2 Microbiology 07/24/17 MRSA Screen - Final, Complete MRSA not isolated A/P: Assessment/Dx: 1. Atrial fibrillation with rapid ventricular rate, 2. Severe sinus node dysfunction 3. Hypertension Plan: Continue flecainide and Cardizem for rhythm control of atrial fibrillation, dual -chamber permanent pacemaker today. Eliquis is held for now. All the risks and complications of a dual-chamber permanent pacemaker were discussed with the patient. She gave informed consent. Risks that were discussed including bleeding, vascular damage, cardiac perforation, pneumothorax and even . Hypertension: Give lisinopril 40 mg. amlodipine added yesterday. Anxiety: There is an element of anxiety. I've recommended anxiolytic therapy with Xanax. Thank you for your consultation. Please call me if you have any questions. Kg Meyers MD, FACP, FACC, FSCAI, FHRS, CCDS Interventional Cardiology Cardiac Electrophysiology Vascular Medicine and Endovascular Interventions Tyler MEYERS MD Jul 28, 2017 8:17 am
--- NOTE | 2017-07-28 08:17 | Cardiac Procedure Note-CS/ASA ---
Pre-Procedure Note Pre-Op Procedure Note H&P Reviewed The H&P was reviewed, patient examined and no changes noted. Date H&P Reviewed: Jul 28, 2017 Time H&P Reviewed: 08:17 Conscious Sedation Pre-Proced Time Reviewed: 08:17 ASA Class: 3 Airway Mallampati Classification: (ely shoshone appropriate class) I. II. III, IV Lungs Heart ASA score ASA 1: a normal healthy patient ASA 2: a patient with a mild systemic disease (mid diabetes, controlled hypertension, obesity ASA 3: a patient with a severe systemic disease that limits activity (angina , COPD, prior Myocardial infarction) ASA 4: a patient with an incapacitating disease that is a constant threat to life (CHF, renal failure) ASA 5: a moribund patient not expected to survive 24 hrs. (ruptured aneurysm) ASA 6: a declared brain patient whose organs are being harvested. For emergent operations, add the letter E after the classification Grade 1 Sedation Plan: Analgesia, Amnesia, Plan communicated to team members, Discussed options with patient/fam, Discussed risks with patient/fam Note The patient is an appropriate candidate to undergo the planned procedure, sedation, and anesthesia. The patient immediately re-assessed prior to indication. Tyler GOODE MD Jul 28, 2017 8:17 am
[2017-07-28] MEDS ORDERED: ceFAZolin INJECTION 1,000 MG in NS (IVPB) 50 ML IV ONE (09:00)
[2017-07-28] MEDS ORDERED: MIDAZOLAM 2 MG/2 ML (VERSED) VIAL ONE (10:04)
[2017-07-28] MEDS: NS IV 1000 ML 1,000 ML IV SCH ×2 (10:20→20:05)
[2017-07-28] MEDS ORDERED: NEO/POLY/BAC (NEOSPORIN) OINT 15 GM TUBE ONE (10:22)
--- NOTE | 2017-07-28 10:55 | Cardiology Post Procedure Note ---
Post-Procedure Note Physician (s)/Rock Worker (s) Physician Tyler GOODE MD Pre-Procedure Diagnosis Pre-Procedure Diagnosis: Severe symptomatic sinus node dysfunction, AF Post-Procedure Note Procedure Start Date: Jul 28, 2017 Procedure Start Time: 09:00 Name of Procedure: Dual chamber permanent pacemaker implantation, Loop recorder explantation. Findings/Procedure Note severe symptomatic sinus node dysfunction, Atrial Fibrillation. severe pauses > 7 seconds requiring atropine. ILR explantation. Anesthesia Type: Conscious Sedation Estimated blood loss (mL): 20 Contrast Amount: 0 Post-Procedure Diagnosis Post-operative diagnosis: Successful dual chamber PPM, ILR explantation Tyler GOODE MD Jul 28, 2017 10:55 am
[2017-07-28] MEDS ORDERED: NS IV 1000 ML 1,000 ML IV SCH (11:05)
[2017-07-28] MEDS ORDERED: PATIENT MAY USE OWN MEDS, ALL PO SCH (11:15)
--- NOTE | 2017-07-28 11:49 | Diagnostic Imaging Report ---
INDICATION: Post pacemaker placement. COMPARISON: 07/26/17. FINDINGS: Status post left pectoral transvenous dual-chamber pacemaker placement with leads overlying the right atrium and right ventricle. No pneumothorax. Left basilar subsegmental atelectasis and/or trace pleural effusion. Stable cardiomegaly. IMPRESSION: 1. Status post left pectoral pacemaker placement without pneumothorax. Dictated by: Dictated on workstation # [id number]
--- NOTE | 2017-07-28 13:26 | Progress Note-Hospitalist ---
Progress Note Progress Notes/Assess & Plan Date Seen 07/28/17 Time Seen by Provider: 13:00 Diagonsis/Assessment & Plan Patient had pacemaker placement today by Dr Dooley and it was uneventful and she has no pain currently Afebrile, vital signs stable, pleasant, flat affect, lying on back RRR 57 bpm Clear to auscultation bilaterally No edema Assessment: Atrial fibrillation with rapid ventricular response with sick sinus syndrome requiring pacemaker placement today POD # 0 Plan: Monitor vitals DC tomorrow JESSICA GIL DO Jul 28, 2017 13:26
[2017-07-28] MEDS: lisINopril 20 MG (ZESTRIL) TAB PO SCH (13:41)
[2017-07-28] MEDS: FLECAINIDE 100 MG (TAMBOCOR) TAB PO SCH ×2 (13:41→21:17)
[2017-07-28] MEDS: ceFAZolin INJECTION 1,000 MG in NS (IVPB) 50 ML IV SCH ×2 (13:42→21:59)
[2017-07-28] MEDS: LETROZOLE 2.5 MG (FEMARA) TAB PO SCH (13:51)
[2017-07-28] MEDS ORDERED: HYDROcodone/APAP 5 MG/325 MG (LORTAB) TAB PO PRN (14:30)
[2017-07-29] VITALS (30 sets, daily range): BP systolic 90–172; BP diastolic 53–143
[2017-07-29] MEDS: NITROGLYCERIN DRIP 25 MG/D5W 250 ML IV SCH
[2017-07-29 04:54] LABS: BASOPHILS # (AUTO) 0.1 10^3/uL (0.0-0.1); BASOPHILS % (AUTO) 1 % (0-10); EOSINOPHILS # (AUTO) 0.4 10^3/uL (0.0-0.3); EOSINOPHILS % (AUTO) 5 % (0-10); LYMPHOCYTES # (AUTO) 2.2 X 10^3 (1.0-4.0); LYMPHOCYTES % (AUTO) 29 % (12-44); MEAN CORPUSCULAR HEMOGLOBIN 30 PG (25-34); MEAN CORPUSCULAR HGB CONC 33 G/DL (32-36); MEAN CORPUSCULAR VOLUME 92 FL (80-99); MEAN PLATELET VOLUME 9.6 FL (7.4-10.4); MONOCYTES # (AUTO) 0.6 X 10^3 (0.0-1.0); MONOCYTES % (AUTO) 8 % (0-12); NEUTROPHILS # (AUTO) 4.4 X 10^3 (1.8-7.8); NEUTROPHILS % (AUTO) 57 % (42-75); PLATELET COUNT 262 10^3/uL (130-400); RED BLOOD COUNT 4.37 10^6/uL (4.35-5.85); RED CELL DISTRIBUTION WIDTH 14.2 % (10.0-14.5); WHITE BLOOD COUNT 7.6 10^3/uL (4.3-11.0)
[2017-07-29] MEDS ORDERED: DILTIAZEM 100 MG/VIAL (CARDIZEM) ADD-VANTAGE IV ONE (05:18)
[2017-07-29] MEDS ORDERED: SODIUM CHLORIDE (ADD-VANTAGE) 100 ML IV ONE (05:19)
[2017-07-29 05:25] LABS: ALANINE AMINOTRANSFERASE < 6 U/L (0-55); ALBUMIN 3.4 GM/DL (3.2-4.5); ANION GAP 9 MMOL/L (5-14); ASPARTATE AMINO TRANSFERASE 11 U/L (5-34); BILIRUBIN,TOTAL 0.4 MG/DL (0.1-1.0); BLOOD UREA NITROGEN 17 MG/DL (7-18); BUN/CREATININE RATIO 23; CALCIUM 8.9 MG/DL (8.5-10.1); CARBON DIOXIDE 23 MMOL/L (21-32); CHLORIDE 107 MMOL/L (98-107); CREATININE SERUM 0.75 MG/DL (0.60-1.30); GFR ESTIMATED > 60; GLUCOSE 89 MG/DL (70-105); PHOSPHORUS 3.7 MG/DL (2.3-4.7); POTASSIUM 3.8 MMOL/L (3.6-5.0); SODIUM 139 MMOL/L (135-145)
[2017-07-29] MEDS ORDERED: DILTIAZEM 25 MG/5 ML INJ (CARDIZEM) VIAL IVP ONE (05:30)
[2017-07-29] MEDS: DILTIAZEM DRIP 100 MG in SODIUM CHLORIDE (ADD-VANTAGE) 100 ML IV SCH ×2 (05:39→11:12)
[2017-07-29] MEDS: ceFAZolin INJECTION 1,000 MG in NS (IVPB) 50 ML IV SCH (06:02)
[2017-07-29] MEDS: FLECAINIDE 100 MG (TAMBOCOR) TAB PO SCH ×2 (08:44→21:12)
[2017-07-29] MEDS: lisINopril 20 MG (ZESTRIL) TAB PO SCH (08:45)
[2017-07-29] MEDS: ALPRAZolam 0.25 MG (XANAX) TAB PO PRN (08:45)
[2017-07-29] MEDS: LETROZOLE 2.5 MG (FEMARA) TAB PO SCH (08:45)
[2017-07-29] MEDS ORDERED: FLECAINIDE 100 MG (TAMBOCOR) TAB PO ONE (09:30)
[2017-07-29] MEDS: meTOprolol SUCCINATE 100 MG (TOPROL XL) TAB PO SCH ×2 (09:41→21:12)
[2017-07-29] MEDS ORDERED: FLECAINIDE 100 MG (TAMBOCOR) TAB PO SCH (09:45)
[2017-07-29] MEDS: NS IV 1000 ML 1,000 ML IV SCH ×2 (10:02→11:12)
--- NOTE | 2017-07-29 10:10 | Cardiology Progress Note ---
Subjective Date Seen by Provider: Jul 29, 2017 Time Seen by Provider: 08:50 Subjective/Events-last exam Patient is sitting up in bed. Complaining of palpitation. Noted to be in AFib with RVR with HR in the 140s Objective-Cardiology Exam Last Set of Vital Signs Vital Signs 07/29/17 07/29/17 06:45 07:00 Pulse 122 Resp 16 B/P (MAP) 117/77 Pulse Ox 98 O2 Delivery Nasal Cannula O2 Flow Rate 2.00 Capillary Refill : Less Than 3 Seconds I&O Intake and Output 07/30/17 00:00 Intake Total 145 ml Output Total 1000 ml Balance -855 ml Intake Oral 100 ml IV Total 45 ml Output Urine Total 1000 ml General: Alert, Oriented X3, Cooperative HEENT: Atraumatic, PERRLA Neck: Supple, No JVD, No Thyromegaly Lungs: Clear to Auscultation, Normal Air Movement Heart: Normal S1, Normal S2, No Murmurs, Other (irregularly irregular, tachycardic) Abdomen: Normal Bowel Sounds, Soft, No Tenderness, No Hepatosplenomegaly, No Masses Extremities: No Clubbing, No Cyanosis, No Edema, Normal Pulses, No Tenderness/ Swelling Skin: No Rashes, No Breakdown, No Significant Lesion Neuro: Normal Gait, Normal Speech, Strength at 5/5 X4 Ext, Normal Tone, Sensation Intact Psych/Mental Status: Mental Status NL, Mood NL Results Lab Laboratory Tests 07/29/17 04:45 A/P-Cardiology Admission Diagnosis Near syncope Sick sinus syndrome Paroxysmal atrial fibrillation Hypertension Palpitation Assessment/Plan Near syncope. Sick sinus syndrome with tachybradycardia, paroxysmal atrial fibrillation with pauses prior to conversion back to sinus rhythm with lightheadedness and near syncope. No full syncope was reported. s/p dual chamber PPM implantation done yesterday, [employer]. Continue to monitor. Paroxysmal atrial fibrillation- Has been on amiodarone in the past, reports it controlled her atrial fibrillation well, however she was concerned over the potential side effects. Was on Multaq without any improvement. Currently on Flecainide 50mg BID, Cardizem. Currently in Afib with RVR. Will increase Flecainide, increase Cardizem, start on Toprol XL. Continue to monitor. . [id number] score is 3, yearly risk of stroke without oral anticoagulation is 3.2 percent. Had refused oral anticoagulation the past. I will continue on Eliquis for now and continue to monitor Sick sinus syndrome, bradycardia, asymptomatic, exacerbated by amiodarone, higher doses of diltiazem, management as described above Hypertension, controlled. Currently borderline hypotensive. Continue to monitor blood pressure/heart rate. Hyperlipidemia, last lipid profile was done in January 2017 showing total cholesterol 219, HDL 62, triglyceride 97, LDL 138. Does not want to start statin, started on fish oil on the last office visit. 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 Doing well. Patient reporting to me that no further active malignancy. Clinical Quality Measures DVT/VTE Risk/Contraindication: Risk Factor Score Per Nursin RFS Level Per Nursing on Admit: 3=High ANTONI SAMUEL Jul 29, 2017 10:10
[2017-07-29] MEDS: APIXABAN 5 MG (ELIQUIS) TABLET PO SCH ×2 (10:12→21:12)
[2017-07-29] MEDS ORDERED: FLECAINIDE 100 MG (TAMBOCOR) TAB PO NR (10:15)
--- NOTE | 2017-07-29 12:06 | Cardiology Progress Note ---
Subjective Date Seen by Provider: Jul 29, 2017 Time Seen by Provider: 08:00 Subjective/Events-last exam Patient is laying down in bed, fairly upset, back to atrial flutter ablation with rapid ventricular response, had a dual-chamber pacemaker implanted without any complications. Review of Systems General: No Chills, No Night Sweats, No Fatigue, No Malaise, No Appetite, No Other HEENT: No Head Aches, No Visual Changes, No Eye Pain, No Ear Pain, No Dysphasia , No Sinus Congestion, No Post Nasal Drip, No Sore Throat, No Other Pulmonary: No Dyspnea, No Cough, No Pleuritic Chest Pain, No Other Cardiovascular: No: Chest Pain, Palpitations, Orthopnea, Paroxysmal Noc. Dyspnea, Edema, Lt Headedness, Other Objective-Cardiology Exam Last Set of Vital Signs Vital Signs 07/29/17 11:12 Temp 97.4 Pulse 122 Resp 16 B/P (MAP) 117/77 Pulse Ox 98 O2 Flow Rate 2.00 Capillary Refill : Less Than 3 Seconds I&O Intake and Output 07/30/17 00:00 Intake Total 145 ml Output Total 1000 ml Balance -855 ml Intake Oral 100 ml IV Total 45 ml Output Urine Total 1000 ml General: Alert, Oriented X3, Cooperative HEENT: Atraumatic, PERRLA Neck: Supple, No JVD, No Thyromegaly Lungs: Clear to Auscultation, Normal Air Movement Heart: Regular Rate, Normal S1, Normal S2, No Murmurs Abdomen: Normal Bowel Sounds, Soft, No Tenderness, No Hepatosplenomegaly, No Masses Extremities: No Clubbing, No Cyanosis, No Edema, Normal Pulses, No Tenderness/ Swelling Skin: No Rashes, No Breakdown, No Significant Lesion Neuro: Normal Gait, Normal Speech, Strength at 5/5 X4 Ext, Normal Tone, Sensation Intact Psych/Mental Status: Mental Status NL, Mood NL Results Lab Laboratory Tests 07/29/17 04:45 A/P-Cardiology Admission Diagnosis Near syncope Sick sinus syndrome Paroxysmal atrial fibrillation Hypertension Palpitation Assessment/Plan Near syncope. Sick sinus syndrome with tachybradycardia, paroxysmal atrial fibrillation with pauses prior to conversion back to sinus rhythm with lightheadedness and near syncope. No full syncope was reported. s/p dual chamber PPM implantation done yesterday, [employer]. Continue to monitor. Paroxysmal atrial fibrillation- Has been on amiodarone in the past, reports it controlled her atrial fibrillation well, however she was concerned over the potential side effects. Was on Multaq without any improvement. Currently on Flecainide 50mg BID, Cardizem. Currently in Afib with RVR. Will increase Flecainide, increase Cardizem, start on Toprol XL. Continue to monitor. . [id number] score is 3, yearly risk of stroke without oral anticoagulation is 3.2 percent. Had refused oral anticoagulation the past. I will continue on Eliquis for now and continue to monitor Sick sinus syndrome, bradycardia, asymptomatic, exacerbated by amiodarone, higher doses of diltiazem, management as described above Hypertension, controlled. Currently borderline hypotensive. Continue to monitor blood pressure/heart rate. Hyperlipidemia, last lipid profile was done in January 2017 showing total cholesterol 219, HDL 62, triglyceride 97, LDL 138. Does not want to start statin, started on fish oil on the last office visit. 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 Doing well. Patient reporting to me that no further active malignancy. Clinical Quality Measures DVT/VTE Risk/Contraindication: Risk Factor Score Per Nursin RFS Level Per Nursing on Admit: 3=High ELIANA VALENZUELA MD Jul 29, 2017 12:06
[2017-07-29] MEDS: DILTIAZEM 120 MG (CARDIZEM CD) CAP PO SCH (13:10)
--- NOTE | 2017-07-29 13:28 | Cardiology Progress Note ---
Cardiology SOAP Progress Note Subjective: Atrial fibrillation with rapid ventricular rate overnight Objective: I&O/Vital Signs Vital Sign - Last 12Hours 07/29/17 07/29/17 07/29/17 07/29/17 02:00 03:00 04:00 04:00 Temp 97.4 Pulse 78 70 116 Resp 12 21 8 B/P (MAP) 123/76 132/86 146/95 Pulse Ox 97 O2 Delivery Room Air Room Air Room Air Room Air 07/29/17 07/29/17 07/29/17 07/29/17 05:00 05:16 05:25 05:35 Pulse 71 134 130 102 Resp 15 11 15 15 B/P (MAP) 155/121 172/116 168/98 142/87 O2 Delivery Room Air Room Air Room Air Room Air 07/29/17 07/29/17 07/29/17 07/29/17 05:39 05:45 06:00 06:15 Pulse 110 71 69 90 Resp 14 11 13 15 B/P (MAP) 142/87 145/85 146/89 145/90 Pulse Ox 99 99 O2 Delivery Room Air Nasal Cannula Nasal Cannula O2 Flow Rate 2.00 2.00 07/29/17 07/29/17 07/29/17 07/29/17 06:30 06:45 07:00 08:00 Pulse 98 61 122 Resp 15 16 B/P (MAP) 139/86 117/77 Pulse Ox 99 98 O2 Delivery Nasal Cannula Nasal Cannula Room Air O2 Flow Rate 2.00 2.00 07/29/17 07/29/17 08:00 11:12 Temp 98.2 97.4 Pulse 122 Resp 16 B/P (MAP) 117/77 Pulse Ox 98 O2 Delivery Room Air O2 Flow Rate 2.00 Weight (Pounds): 167 Weight (Ounces): 3.2 Weight (Calculated Kilograms): [id number] Constitutional: No appears stated age, No AAO x 3, No apparent distress, No PERRL, No well-developed, No well-nourished, No other Respiratory: No accessory muscle use, No respiratory distress, No chest tender , No chest expansion is symmetric, No chest is bilaterally symmetric, No lungs clear to percussion, No lungs clear to auscultation, No crackles, No rhonchi, No rales, No stridor, No wheezing, No pleural rub, No other Cardiovascular: irregularly irregular, tachycardia, S1 and S2 Gastrointestional: No tender, No soft, No round, No distended, No pulsatile mass, No organomegaly, No guarding, No rebound, No tenderness, No hernia, No mass, No audible bowel sounds, No abnormal bowel sounds, No abdominal bruits, No spleenomegaly, No other Extremities: No normal range of motion, No non-tender, No normal inspection, No pedal edema, No calf tenderness, No normal capillary refill, No pelvis stable , No calf tenderness, No inflammation, No pedal edema, No slow capillary refill , No swelling, No other, No abrasion, No clubbing, No cyanosis, No ecchymosis, No laceration, No no lower extremity edema bilateral, No significant edema, No tenderness, No wound Neurologic/Psychiatric: No timber inspector II-XII nml as tested, No no motor/sensory deficits, No alert, No normal mood/affect, No oriented x 3, No abnormal cerebellar tests, No abnormal timber inspector II-XII, No abnormal gait, No aphasia, No EOM palsy, No facial droop, No motor weakness, No sensory deficit, No depressed affect, No disoriented x 3, No other, No grossly intact, No power is 5/5 both on sides Skin: No normal color, No warm/dry, No cyanosis, No cool, No diaphoresis, No damp, No ecchymosis, No jaundice, No mottled, No pallor, No rash, No tattoos/ piercings, No ulcerations, No rash on exposed areas, No ulcerations on exposed areas, No other Results/Procedures: Labs Laboratory Tests 07/29/17 04:45: White Blood Count 7.6, Red Blood Count 4.37, Hemoglobin 13.1, Hematocrit 40, Mean Corpuscular Volume 92, Mean Corpuscular Hemoglobin 30, Mean Corpuscular Hemoglobin Concent 33, Red Cell Distribution Width 14.2, Platelet Count 262, Mean Platelet Volume 9.6, Neutrophils (%) (Auto) 57, Lymphocytes (%) (Auto) 29, Monocytes (%) (Auto) 8, Eosinophils (%) (Auto) 5, Basophils (%) (Auto) 1, Neutrophils # (Auto) 4.4, Lymphocytes # (Auto) 2.2, Monocytes # (Auto) 0.6, Eosinophils # (Auto) 0.4H, Basophils # (Auto) 0.1, Sodium Level 139, Potassium Level 3.8, Chloride Level 107, Carbon Dioxide Level 23, Anion Gap 9, Blood Urea Nitrogen 17, Creatinine 0.75, Estimat Glomerular Filtration Rate > 60, BUN/ Creatinine Ratio 23, Glucose Level 89, Calcium Level 8.9, Phosphorus Level 3.7, Magnesium Level 2.0, Total Bilirubin 0.4, Aspartate Amino Transf (AST/SGOT) 11, Alanine Aminotransferase (ALT/SGPT) < 6, Alkaline Phosphatase 78, Total Protein 6.0L, Albumin 3.4 Microbiology 07/24/17 MRSA Screen - Final, Complete MRSA not isolated A/P: Assessment/Dx: 1. Atrial fibrillation with rapid ventricular rate, 2. Severe sinus node dysfunction status post dual-chamber permanent pacemaker implantation 3. Hypertension Plan: Continue flecainide and Cardizem for rhythm control of atrial fibrillation, dual -chamber permanent pacemaker yesterday. Eliquis started today Left upper chest examination normal. Post-device chest x-ray was normal. Device interrogation this morning was normal. EKG shows atrial fibrillation. For atrial fibrillation: Metoprolol 100 mg twice a day. Increase dose of flecainide 100 mg twice a day. Hypertension: Give lisinopril 40 mg. Anxiety: There is an element of anxiety. I've recommended anxiolytic therapy with Xanax. Dr. Zee to take over cardiology care. I will continue EP follow-up. Thank you for your consultation. Please call me if you have any questions. Kg Meyers MD, FACP, FACC, FSCAI, FHRS, CCDS Interventional Cardiology Cardiac Electrophysiology Vascular Medicine and Endovascular Interventions Tyler MEYERS MD Jul 29, 2017 13:28
--- NOTE | 2017-07-29 23:24 | Progress Note (SOAP) ---
Subjective Date Seen by Provider: Jul 29, 2017 Time Seen by Provider: 12:20 Subjective/Events-last exam Fwup Atrial fibrillation with RVR, sick sinus syndrome. Had pacemaker placed yesterday. Still having runs of atrial fibrillation with RVR. Objective Exam Vital Signs Date Time Temp Pulse Resp B/P (MAP) Pulse Ox O2 Delivery O2 Flow Rate FiO2 07/29/17 22:00 60 28 127/60 95 Room Air 07/29/17 21:00 60 18 137/73 96 Room Air 07/29/17 20:00 Room Air 07/29/17 20:00 98.8 60 17 131/69 95 Room Air 07/29/17 19:00 60 18 146/75 96 Room Air 07/29/17 19:00 60 07/29/17 18:00 157/143 07/29/17 17:00 60 13 115/62 97 Nasal Cannula 2.00 07/29/17 16:00 60 21 107/56 97 Nasal Cannula 2.00 07/29/17 14:00 60 15 118/65 96 Nasal Cannula 2.00 07/29/17 13:00 60 07/29/17 13:00 60 15 105/60 96 Nasal Cannula 2.00 07/29/17 12:00 60 15 90/77 98 Nasal Cannula 2.00 07/29/17 11:12 97.4 122 16 117/77 98 2.00 07/29/17 11:00 60 11 115/58 96 Nasal Cannula 2.00 07/29/17 10:00 90 8 117/53 95 Nasal Cannula 2.00 07/29/17 09:00 125 14 136/82 100 Nasal Cannula 2.00 07/29/17 08:00 98.2 Room Air 07/29/17 08:00 60 12 109/89 99 Nasal Cannula 2.00 07/29/17 08:00 Room Air 07/29/17 07:00 112 16 144/119 98 Nasal Cannula 2.00 07/29/17 07:00 122 07/29/17 06:45 61 16 117/77 98 Nasal Cannula 2.00 07/29/17 06:30 98 15 139/86 99 Nasal Cannula 2.00 07/29/17 06:15 90 15 145/90 99 Nasal Cannula 2.00 07/29/17 06:00 69 13 146/89 99 Nasal Cannula 2.00 07/29/17 05:45 71 11 145/85 Room Air 07/29/17 05:39 110 14 142/87 07/29/17 05:35 102 15 142/87 Room Air 07/29/17 05:25 130 15 168/98 Room Air 07/29/17 05:16 134 11 172/116 Room Air 07/29/17 05:00 71 15 155/121 Room Air 07/29/17 04:00 97.4 116 8 146/95 97 Room Air 07/29/17 04:00 Room Air 07/29/17 03:00 70 21 132/86 Room Air 07/29/17 02:00 78 12 123/76 Room Air 07/29/17 01:00 120 16 137/103 Room Air 07/29/17 01:00 120 07/29/17 00:00 Room Air 07/29/17 00:00 97.6 78 12 131/79 94 Room Air I & O 07/30/17 07:00 Intake Total 1500 ml Output Total 1400 ml Balance 100 ml Capillary Refill : Less Than 3 Seconds General Appearance: No Apparent Distress Neck: Supple Respiratory: Lungs Clear Cardiovascular: Regular Rate, Rhythm Gastrointestinal: normal bowel sounds, non tender, soft Neurologic/Psychiatric: Alert, Oriented x3 Skin: Warm/Dry Lymphatic: No Adenopathy Results Lab Laboratory Tests 07/29/17 04:45: White Blood Count 7.6, Red Blood Count 4.37, Hemoglobin 13.1, Hematocrit 40, Mean Corpuscular Volume 92, Mean Corpuscular Hemoglobin 30, Mean Corpuscular Hemoglobin Concent 33, Red Cell Distribution Width 14.2, Platelet Count 262, Mean Platelet Volume 9.6, Neutrophils (%) (Auto) 57, Lymphocytes (%) (Auto) 29, Monocytes (%) (Auto) 8, Eosinophils (%) (Auto) 5, Basophils (%) (Auto) 1, Neutrophils # (Auto) 4.4, Lymphocytes # (Auto) 2.2, Monocytes # (Auto) 0.6, Eosinophils # (Auto) 0.4H, Basophils # (Auto) 0.1, Sodium Level 139, Potassium Level 3.8, Chloride Level 107, Carbon Dioxide Level 23, Anion Gap 9, Blood Urea Nitrogen 17, Creatinine 0.75, Estimat Glomerular Filtration Rate > 60, BUN/ Creatinine Ratio 23, Glucose Level 89, Calcium Level 8.9, Phosphorus Level 3.7, Magnesium Level 2.0, Total Bilirubin 0.4, Aspartate Amino Transf (AST/SGOT) 11, Alanine Aminotransferase (ALT/SGPT) < 6, Alkaline Phosphatase 78, Total Protein 6.0L, Albumin 3.4 Microbiology 07/24/17 MRSA Screen - Final, Complete MRSA not isolated Assessment/Plan Assessment/Plan Assess & Plan/Chief Complaint 1. Atrial Fibrillation with RVR--cardiology adjusting medications and now able to push doses higher since has had pacemaker placed 2. Sick Sinus Syndrome--S/P pacemaker Clinical Quality Measures DVT/VTE Risk/Contraindication: Risk Factor Score Per Nursin RFS Level Per Nursing on Admit: 3=High STANLEY BARRY DO Jul 29, 2017 11:24 pm
[2017-07-30] VITALS (12 sets, daily range): BP systolic 118–153; BP diastolic 53–97
[2017-07-30] MEDS: NITROGLYCERIN DRIP 25 MG/D5W 250 ML IV SCH
[2017-07-30 05:57] LABS: BASOPHILS # (AUTO) 0.1 10^3/uL (0.0-0.1); BASOPHILS % (AUTO) 1 % (0-10); EOSINOPHILS # (AUTO) 0.4 10^3/uL (0.0-0.3); EOSINOPHILS % (AUTO) 5 % (0-10); LYMPHOCYTES # (AUTO) 1.7 X 10^3 (1.0-4.0); LYMPHOCYTES % (AUTO) 23 % (12-44); MEAN CORPUSCULAR HEMOGLOBIN 30 PG (25-34); MEAN CORPUSCULAR HGB CONC 32 G/DL (32-36); MEAN CORPUSCULAR VOLUME 92 FL (80-99); MEAN PLATELET VOLUME 9.3 FL (7.4-10.4); MONOCYTES # (AUTO) 0.6 X 10^3 (0.0-1.0); MONOCYTES % (AUTO) 7 % (0-12); NEUTROPHILS # (AUTO) 4.8 X 10^3 (1.8-7.8); NEUTROPHILS % (AUTO) 64 % (42-75); PLATELET COUNT 288 10^3/uL (130-400); RED BLOOD COUNT 3.88 10^6/uL (4.35-5.85); RED CELL DISTRIBUTION WIDTH 14.1 % (10.0-14.5); WHITE BLOOD COUNT 7.5 10^3/uL (4.3-11.0)
[2017-07-30 06:18] LABS: ANION GAP 9 MMOL/L (5-14); BLOOD UREA NITROGEN 11 MG/DL (7-18); BUN/CREATININE RATIO 17; CALCIUM 8.8 MG/DL (8.5-10.1); CARBON DIOXIDE 23 MMOL/L (21-32); CHLORIDE 107 MMOL/L (98-107); CREATININE SERUM 0.65 MG/DL (0.60-1.30); GFR ESTIMATED > 60; GLUCOSE 99 MG/DL (70-105); MAGNESIUM 1.9 MG/DL (1.8-2.4); PHOSPHORUS 2.8 MG/DL (2.3-4.7); SODIUM 139 MMOL/L (135-145)
[2017-07-30] MEDS ORDERED: FLEC100T PO (08:00)
[2017-07-30] MEDS ORDERED: METO-274 PO (08:00)
--- NOTE | 2017-07-30 08:02 | Cardiology Progress Note ---
Subjective Date Seen by Provider: Jul 30, 2017 Time Seen by Provider: 08:01 Subjective/Events-last exam patient is laying down in bed, feeling better this morning, back to sinus rhythm with ventricular paced rhythm. Review of Systems General: No Chills, No Night Sweats, No Fatigue, No Malaise, No Appetite, No Other HEENT: No Head Aches, No Visual Changes, No Eye Pain, No Ear Pain, No Dysphasia , No Sinus Congestion, No Post Nasal Drip, No Sore Throat, No Other Pulmonary: No Dyspnea, No Cough, No Pleuritic Chest Pain, No Other Cardiovascular: No: Chest Pain, Palpitations, Orthopnea, Paroxysmal Noc. Dyspnea, Edema, Lt Headedness, Other Objective-Cardiology Exam Last Set of Vital Signs Vital Signs 07/29/17 07/30/17 17:00 06:00 Pulse 60 Resp 20 B/P (MAP) 141/72 Pulse Ox 93 O2 Delivery Room Air O2 Flow Rate 2.00 Capillary Refill : Less Than 3 Seconds General: Alert, Oriented X3, Cooperative HEENT: Atraumatic, PERRLA Neck: Supple, No JVD, No Thyromegaly Lungs: Clear to Auscultation, Normal Air Movement Heart: Regular Rate, Normal S1, Normal S2, No Murmurs Abdomen: Normal Bowel Sounds, Soft, No Tenderness, No Hepatosplenomegaly, No Masses Extremities: No Clubbing, No Cyanosis, No Edema, Normal Pulses, No Tenderness/ Swelling Skin: No Rashes, No Breakdown, No Significant Lesion Neuro: Normal Gait, Normal Speech, Strength at 5/5 X4 Ext, Normal Tone, Sensation Intact Psych/Mental Status: Mental Status NL, Mood NL Results Lab Laboratory Tests 07/30/17 05:45 A/P-Cardiology Admission Diagnosis Near syncope Sick sinus syndrome Paroxysmal atrial fibrillation Hypertension Palpitation Assessment/Plan Near syncope. Sick sinus syndrome with tachybradycardia, paroxysmal atrial fibrillation with pauses prior to conversion back to sinus rhythm with lightheadedness and near syncope. No full syncope was reported. s/p dual chamber PPM implantation, [employer]. interrogated yesterday and showing good sensing and capture activity. Paroxysmal atrial fibrillation- Has been on amiodarone in the past, reports it controlled her atrial fibrillation well, however she was concerned over the potential side effects. Was on Multaq without any improvement. Currently on Flecainide 50mg BID, Cardizem. Currently in Afib with RVR. Will discharge home on flecainide 100 mg twice daily, Cardizem CD 120 mg daily, metoprolol 100 mg twice daily. [id number] score is 3, yearly risk of stroke without oral anticoagulation is 3.2 percent. Had refused oral anticoagulation the past. continue on Eliquis Sick sinus syndrome, bradycardia, asymptomatic, exacerbated by amiodarone, higher doses of diltiazem, management as described above Hypertension, controlled. Currently borderline hypotensive. Continue to monitor blood pressure/heart rate. Hyperlipidemia, last lipid profile was done in January 2017 showing total cholesterol 219, HDL 62, triglyceride 97, LDL 138. Does not want to start statin, started on fish oil on the last office visit. 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 Doing well. Patient reporting to me that no further active malignancy. Clinical Quality Measures DVT/VTE Risk/Contraindication: Risk Factor Score Per Nursin RFS Level Per Nursing on Admit: 3=High ELIANA VALENZUELA MD Jul 30, 2017 08:02
--- NOTE | 2017-07-30 08:08 | OPERATIVE REPORT ---
DATE OF SERVICE: 07/28/2017 REPORT TITLE: DUAL CHAMBER PERMANENT PACEMAKER IMPLANTATION. PRIMARY HAND WORKER: Valentin Zee MD. PERFORMING HAND WORKER: Adrianna Meyers MD. INDICATION: 1. Severe symptomatic sinus node dysfunction with pauses over 7 seconds. 2. The patient requires antiarrhythmic therapy and rate-controlling agents for atrial fibrillation with rapid ventricular rate. PREOPERATIVE DIAGNOSES: 1. Severe symptomatic sinus node dysfunction with pauses of over 7 seconds. 2. The patient requires antiarrhythmic therapy and rate-controlling agents since the patient has atrial fibrillation and rapid ventricular rate. POSTOPERATIVE DIAGNOSES: 1. Successful implantation of a dual-chamber permanent pacemaker. 2. LINQ (implantable loop recorder) explantation. HISTORY: This is a 72-year-old female patient who has history of atrial fibrillation with rapid ventricular rate. She was initially started on amiodarone, but did not tolerate. She was then converted to Multaq and presented with atrial fibrillation with rapid ventricular rate on Multaq and Cardizem. The patient was, therefore, changed to flecainide 50 mg twice a day and Cardizem. However, before the patient was changed to flecainide, the patient presented with near syncope and was found to be bradycardic with heart rate in the 20s. Atropine was given. She had numerous episodes of pauses which were as long as 7 seconds. The patient would continue to have episodes of atrial fibrillation with rapid ventricular rate in the 140s and 150s. Therefore, the patient requires a dual chamber permanent pacemaker to protect from symptomatic bradycardia and sinus node dysfunction and to continue treatment for atrial fibrillation and rapid ventricular rate with antiarrhythmic therapy and rate controlling agents. Informed consent was taken. PROCEDURES PERFORMED: 1. Dual chamber permanent pacemaker. 2. LINQ (implantable loop recorder) explantation. 3. Fluoroscopy. 4. Central venous access. SPECIMENS: None. COMPLICATIONS: None. ESTIMATED BLOOD LOSS: 20 mL. ANESTHESIA: Local anesthesia, conscious sedation. ANTICOAGULATION: None. CONTRAST: None. PROCEDURE IN DETAIL: After all her questions were answered, the patient was brought to the EP lab. Informed consent included pneumothorax, vascular damage, bleeding, cardiac perforation, even . Once the patient accepted all the risks and complications, she was brought to the EP lab. The patient's left chest was prepped and draped in a sterile fashion. A 2-inch horizontal incision was made 1 cm below the clavicle and dissection was carried down to the pectoralis fascia. Using the modified Seldinger technique and under fluoroscopy guidance, the anterior aspect of the left axillary vein was accessed 2 times. The J wire was secured to the drapes with a mosquito clamp. A 6-Sudanese sheath was introduced over one of the J wires. The RV lead was then inserted. The RV lead was directed across the tricuspid valve to the apical septal portion of the right ventricle. The position was checked in OCCITAN and LUCIA views. The screw was deployed and the lead connected to the engineering and scientific programmer. Excellent sensing and pacing thresholds were obtained. Diaphragmatic pacing was ruled out. The lead was secured with 2-0 silk ties to the underlying muscle and fascia. Next, a 7-Sudanese sheath was introduced through the remaining J wire. An atrial lead was then introduced and guided to the level of the right appendage. The screw was deployed and the lead was connected to the interrogator. Good sensing and pacing thresholds were obtained. Diaphragmatic pacing was ruled out. The leads were secured with 2-0 silk ties to the underlying muscle and fascia. The leads were connected to the device in a hermetic fashion. The device and leads were placed in the pocket. Aggressive irrigation with saline solution was done. The device was secured to the underlying muscle and fascia with a 2-0 silk tie. Interrogation of the device revealed good integrity of all the leads and good connections. The wound was then closed using 3 layers. The first layer was interrupted 2-0 absorbable Vicryl suture followed by uninterrupted 3-0 Vicryl suture. The last layer was a single subcuticular layer with a 4-0 Vicryl suture. Half-inch Steri-Strips and a small dressing were then applied to the wound. We then draped and prepped the site of implantable loop recorder. Local anesthesia was given. A small incision was made and the LINQ implantable loop recorder was explanted. Steri-Strips were placed on top of the small incision. The patient tolerated the procedure well and was returned to the recovery room in stable condition with stable vital signs. DEVICE INFORMATION: Device is Eluna 8 DR-T Biotronik; reference number [id number], serial number [id number]. RA LEAD: Solia S 53 Biotronik; reference number [id number], serial number [id number]. RV LEAD: Solia S 60 Biotronik; reference number [id number], serial number [id number]. PERIOPERATIVE DEVICE INTERROGATION: Showed an RA P-wave sensing of 3.0 millivolts. An impedance of 489 ohms. Threshold was 2 volts at 0.5 milliseconds. RV lead sensing was 6 millivolts with impedance of 844 ohms. Threshold was 0.5 volt at 0.5 milliseconds. IMMEDIATE POSTOPERATIVE DEVICE MEASUREMENT: Showed a P-wave of 1.8 millivolts. Impedance was 390 ohms. Threshold was 1.8 volts at 1 millisecond. RV sensing 15.6 millivolts. Impedance was 741 ohms. Threshold was 0.8 volts at 0.4 milliseconds. Device was programmed at DDD-CLS 50 bpm. PLAN: The patient will be transferred to the ICU. We will continue with 3 more doses of IV antibiotics. We will check a chest x-ray to rule out pneumothorax. The device will be interrogated in the morning. The patient will continue oral antibiotics for 5 days. The patient will continue antiarrhythmic therapy and rate-controlling agents for atrial fibrillation. Eliquis will be started tomorrow morning. Job ID: [id number] DocumentID: [id number] Dictated Date: 07/28/2017 17:46:15 Lead Miner Blasting Date: 07/29/2017 02:01:22 Dictated By: ADRIANNA MEYERS MD
[2017-07-30] MEDS: LETROZOLE 2.5 MG (FEMARA) TAB PO SCH (09:04)
[2017-07-30] MEDS: meTOprolol SUCCINATE 100 MG (TOPROL XL) TAB PO SCH (09:04)
[2017-07-30] MEDS: DILTIAZEM 120 MG (CARDIZEM CD) CAP PO SCH (09:04)
[2017-07-30] MEDS: APIXABAN 5 MG (ELIQUIS) TABLET PO SCH (09:04)
[2017-07-30] MEDS: FLECAINIDE 100 MG (TAMBOCOR) TAB PO SCH (09:05)
[2017-07-30] MEDS: lisINopril 20 MG (ZESTRIL) TAB PO SCH (09:05)
== END 2017-07-30 13:32 | disposition home or self-care (01) | DRG 243 ==
LOC: EDUNIT# 18:44 → ER 18:45 → ICU 19:33
PROVIDERS: ADMIT Family Medicine; ATTEND Family Medicine
PROC: 0JH606Z Insertion of Pacemaker, Dual Chamber into Chest Subcutaneous Tissue and Fascia, Open Approach (ICD-10-PCS; principal; 2017-07-28)
PROC: 02H63JZ Insertion of Pacemaker Lead into Right Atrium, Percutaneous Approach (ICD-10-PCS; 2017-07-28)
PROC: 02HK3JZ Insertion of Pacemaker Lead into Right Ventricle, Percutaneous Approach (ICD-10-PCS; 2017-07-28)
PROC: 0JPT32Z Removal of Monitoring Device from Trunk Subcutaneous Tissue and Fascia, Percutaneous Approach (ICD-10-PCS; 2017-07-28)
DX: I49.5 Sick sinus syndrome (principal); I48.0 Paroxysmal atrial fibrillation; I48.92 Unspecified atrial flutter; I47.1 Supraventricular tachycardia; R00.1 Bradycardia, unspecified; I10 Essential (primary) hypertension; E78.5 Hyperlipidemia, unspecified; I65.23 Occlusion and stenosis of bilateral carotid arteries; C50.912 Malignant neoplasm of unspecified site of left female breast; F41.9 Anxiety disorder, unspecified; J30.2 Other seasonal allergic rhinitis; Z90.5 Acquired absence of kidney; Z79.01 Long term (current) use of anticoagulants
CPT/HCPCS: 33208; 33284; 36415; 71010; 78452; 80048; 80053; 80061; 83735; 83874; 84100; 84443; 84484; 85025; 85610; 85730; 87081; 93005; 93017; 93041; 93306

== ENCOUNTER 2017-10-02 12:38 | Outpatient (RCR) | payer OTHER ==
[~2017-10-02 12:38] MED LIST changes: +ALPR0.254 PO; +AMLO5TAB2 PO; +APIX5TAB PO; +CALC1TAB94 PO; +CHOL20003 PO; +DILT120C53 PO; +DRON400T2 PO; +FLEC100T PO; +LETR2.5T5 PO; +METO-395 PO
== END 2017-12-31 | disposition home or self-care (01) ==
LOC: ONC 12:38
PROVIDERS: ATTEND Internal Medicine Hematology & Oncology
DX: C50.412 Malignant neoplasm of upper-outer quadrant of left female breast (principal); I10 Essential (primary) hypertension; I48.91 Unspecified atrial fibrillation; Z90.710 Acquired absence of both cervix and uterus; Z79.899 Other long term (current) drug therapy
CPT/HCPCS: 99213

== ENCOUNTER 2018-03-25 22:18 | Observation (INO) | payer MEDICARE, OTHER ==
[~2018-03-25] VITALS: Ht 172.7 cm; Wt 76.9 kg
--- OUTSIDE RECORDS SUMMARY | 2018-03-25 22:23 | XMS REPORT | Clinical Summary ---
Author Author [facility] Organization [facility] Address Unknown Phone Unavailable Care Team Providers Care Jute Bag Clipper Name Role Phone Dioni Ryan DO Unavailable Evangelina Elmore MD PCP Dalia Glasgow PA-C Unavailable Eden Manzano RN Unavailable Unavailable Vinita Power Unavailable Unavailable Terri Aj APRN Unavailable Declan Sharif MD Unavailable Delicia Cisneros RN Unavailable Unavailable Source Comments Some departments are not documenting in the electronic medical record. If you do not see the information that you expected, contact Release of Information in the Health Information Management department at [phone] for further assistance in locating additional records.[facility] Allergies No Known Allergies Current Medications Prescription Sig. Disp. Refills Start End Date Status Date lisinopril (PRINIVIL; Take 20 mg by mouth Active ZESTRIL) 20 mg tablet daily. letrozole (FEMARA) 2.5 mg Take 2.5 mg by mouth Active tablet daily. CALCIUM CARBONATE/VITAMIN Take by mouth daily. Active D3 (CALCIUM + D PO) diltiazem CD (CARDIZEM Take 120 mg by mouth Active CD) 120 mg capsule daily. And as needed for fast heart rate apixaban (ELIQUIS) 5 mg Take 5 mg by mouth twice Active tablet daily. flecainide (TAMBOCOR) 100 Take 100 mg by mouth Active mg tablet twice daily. metoprolol XL (TOPROL XL) Take 100 mg by mouth Active 100 mg extended release twice daily. tablet Cholecalciferol (Vitamin Take 5,000 Units by mouth Active D3) (VITAMIN D-3) 5,000 daily. unit tab DOCOSAHEXANOIC ACID/EPA Take by mouth. Active (FISH OIL PO) Active Problems Problem Noted Date Cardiac pacemaker in situ 10/20/2017 PAF (paroxysmal atrial fibrillation) (HCC) 08/21/2017 Overview: 05/2015 first onset of AF 08/2016 Insertion of [employer] LinQ Implantable Monitor Device 07/26/17 Echo - normal LV function, mild - moderate LA dilatation by Dr Zee 07/29/17 Stress Imaging Negative by Dr Zee Sinus node dysfunction (HCC) 08/21/2017 History of permanent cardiac pacemaker placement 08/21/2017 Overview: 07/28/17 Implantation of Biotronik DDDR Permanent Pacemaker Essential hypertension 08/21/2017 Hyperlipidemia 08/21/2017 Malignant neoplasm of upper-outer quadrant of left [...] for imaging. Left breast sono-guided biopsy 12/01/15 ([place], [place]) revealed grade 1 invasive ductal carcinoma. PET scan 12/13/15 ([place], [place]) revealed no evidence of metastasis. In [...] radiation with Dr. Jacobs in March 2016. BREAST IMAGING: Mammogram: -- Bilateral diagnostic mammogram 11/23/15 ([place], [place]) revealed a 6 mm nodule in the left breast upper outer quadrant. The right breast showed no mammographic evidence of malignancy. Bilateral implants appeared symmetrical. -- Left diagnostic mammogram 12/28/15 ([facility]) revealed a saline subpectoral implant present. A clip was seen on the upper posterior aspect of the known cancer, with the area post biopsy change measuring about 12 mm mammographically. No additional areas of concern were demonstrated. Ultrasound: -- Left breast ultrasound 11/23/15 ([place], [place]) revealed an 8 mm hypoechoic mass [...] MEDICAL ONCOLOGY: Dr. Dodie Hand PRESENT THERAPY: Femara, switched from exemestane due to diarrhea REFERRED BY: Dr. Dodie [...] Vital Sign Reading Time Taken Blood Pressure 144/68 09/17/2017 2:22 PM LINING STUFFER Pulse 79 09/17/2017 2:22 PM LINING STUFFER Temperature 36.8 C (98.2 F) 09/17/2017 2:22 PM LINING STUFFER Respiratory Rate 18 02/12/2017 2:21 PM CDT Oxygen Saturation 97% 09/17/2017 2:22 PM LINING STUFFER Inhaled Oxygen - - Concentration Weight 76.7 kg (169 lb) 09/17/2017 2:22 PM LINING STUFFER Height 172.7 cm (5' 8") 09/17/2017 2:22 PM LINING STUFFER Body Mass Index 25.7 09/17/2017 2:22 PM LINING STUFFER Plan of Treatment Health Maintenance Due Date Last Done Comments HEPATITIS C SCREENING 1947 PHYSICAL (COMPREHENSIVE) 1954 EXAM PERTUSSIS VACCINE 1958 TETANUS VACCINE 1964 COLORECTAL CANCER 1997 SCREENING SHINGLES VACCINE 2007 OSTEOPOROSIS SCREENING 2012 PNEUMONIA (PCV13/PPSV23) 2012 VACCINES (1 of 2 - PCV13) INFLUENZA VACCINE 07/14/2018 BREAST CANCER SCREENING 09/17/2018 09/17/2017, 07/25/2016 Implants Implanted Type Area Insurance Biller Device Expiration Model / Identifier Date Serial / Lot Breast Implants Results Not on filefrom Last 3 Months
--- OUTSIDE RECORDS SUMMARY | 2018-03-25 22:27 | XMS REPORT | Continuity of Care Document ---
Demographics x Preferred Language Unknown Marital Status Unknown Zoroastrian Affiliation Unknown Race Unknown Ethnic Group Unknown Author Author [facility] Organization [facility] Address Unknown Phone Unavailable Allergies Active Description Code Type Severity Reaction Onset Reported/Identified Relationship to Patient Clinical Status Yes No known allergies [id number] NK N/A N/A Yes Keflex NKMA N/A HIVES 05/30/2015 Yes No Known Drug Allergies [id number] Drug Allergy Unknown N/A 07/13/2016 Medications There is no data. Problems Date Dx Coded Attending Type Code Diagnosis Diagnosed By 03/16/2014 F 564.89 OTHER FUNCTIONAL DISORDERS OF INTESTINE 03/16/2014 F 788.1 Dysuria 04/12/2015 MARAL YING 599.0 Urinary tract infection, unspec./pyuria 04/12/2015 MARAL YING 788.69 OTHER ABNORMALITY OF URINATION 04/12/2015 MARAL YING 791.7 OTHER CELLS AND CASTS IN URINE 04/25/2015 MARAL YING 599.0 Urinary tract infection, unspec./pyuria 04/25/2015 MARAL YING 623.9 UNSPECIFIED NONINFLAMMATORY DISORDER OF VAGINA 04/25/2015 MARAL YING 709.9 Other skin disease, unspec. 04/26/2015 MARAL YING 272.8 OTHER DISORDERS OF LIPOID METABOLISM 04/26/2015 MARAL YING 401.9 Hypertension, unspec. 05/03/2015 MARAL YING 112.9 CANDIDIASIS OF UNSPECIFIED SITE 05/03/2015 MARAL YING 623.9 UNSPECIFIED NONINFLAMMATORY DISORDER OF VAGINA 05/03/2015 MARAL YING 723.1 CERVICALGIA 05/03/2015 MARAL YING 780.79 Fatigue and malaise, other 05/03/2015 MARAL YING 780.79 Fatigue and malaise, other 05/03/2015 MARAL YING 788.1 Dysuria 05/10/2015 MARAL YING 788.1 Dysuria 05/10/2015 MARAL YING 788.41 Urinary frequency 05/10/2015 MARAL YING 788.41 Urinary frequency 05/10/2015 MARAL YING 788.69 OTHER ABNORMALITY OF URINATION 05/23/2015 MARAL YING 112.1 CANDIDIASIS OF VULVA AND VAGINA 05/23/2015 MARAL YING 627.3 POSTMENOPAUSAL ATROPHIC VAGINITIS 05/23/2015 MARAL YING 788.1 Dysuria 05/23/2015 MARAL YING 791.9 ABN URINE FINDINGS NEC 06/03/2015 MARAL YING 427.61 SUPRAVENTRICULAR PREMATURE BEATS 06/03/2015 MARAL YING 785.1 Palpitations 06/03/2015 MARAL YING 789.09 ABDOMINAL PAIN, OTHER SPECIFIED SITE 06/03/2015 MARAL YING 793.19 OTHER NONSPECIFIC ABNORMAL FINDING OF LUNG FIELD 06/04/2015 ARLETTE NOBLE 276.8 HYPOPOTASSEMIA 06/04/2015 ARLETTE NOBLE 401.9 Hypertension, unspec. 06/04/2015 ARLETTE NOBLE 427.31 Atrial fibrillation 06/04/2015 ARLETTE NOBLE 427.32 ATRIAL FLUTTER 06/05/2015 ARLETTE NOBLE 276.8 HYPOPOTASSEMIA 06/05/2015 ARLETTE NOBLE 401.9 Hypertension, unspec. 06/05/2015 ARLETTE NOBLE F 427.31 Atrial fibrillation 06/05/2015 ARLETTE NOBLE 427.32 ATRIAL FLUTTER 06/06/2015 MARAL YING I48.91 Unspecified atrial fibrillation 06/06/2015 MARAL YING Z72.0 Tobacco use 06/06/2015 MARAL YING 276.8 HYPOPOTASSEMIA 06/06/2015 MARAL YING 401.9 Hypertension, unspec. 06/06/2015 MARAL YING 427.31 Atrial fibrillation 06/06/2015 MARAL YING 427.32 ATRIAL FLUTTER 06/06/2015 MARAL YING 427.61 SUPRAVENTRICULAR PREMATURE BEATS 06/06/2015 MARAL YING 789.09 ABDOMINAL PAIN, OTHER SPECIFIED SITE 06/06/2015 MARAL YING 793.19 OTHER NONSPECIFIC ABNORMAL FINDING OF LUNG FIELD 06/06/2015 MARAL YING I48.91 Unspecified atrial fibrillation 06/06/2015 MARAL YING V13.02 PERSONAL HISTORY, URINARY (TRACT) INFECTION 06/06/2015 MARAL YING V45.89 OTHER POSTSURGICAL STATUS 06/06/2015 MARAL YING V88.01 ACQUIRED ABSENCE OF BOTH CERVIX AND UTERUS 06/06/2015 MARAL YING Z72.0 Tobacco use 06/06/2015 ARLETTE NOBLE 276.8 HYPOPOTASSEMIA 06/06/2015 ARLETTE NOBLE 401.9 Hypertension, unspec. 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 06/14/2015 Arianna RUDOLPH, Teodoro J Final 401.9 UNSPECIFIED ESSENTIAL HYPERTENSION 06/14/2015 Arianna RUDOLPH, Teodoro J Final 599.72 Microscopic hematuria 07/07/2015 MARAL YING 214.8 LIPOMA OF OTHER SPECIFIED SITES 07/07/2015 MARAL YING 702.0 ACTINIC KERATOSIS 07/07/2015 MARAL YING V12.59 HX-CIRCULATORY DIS NEC 07/09/2015 MARAL YING 427.31 Atrial fibrillation 07/09/2015 MECHELLE HUNTER 427.31 Atrial fibrillation 07/09/2015 MECHELLE HUNTER 427.31 Atrial fibrillation 07/11/2015 MARAL YING 427.31 Atrial fibrillation 07/11/2015 MARAL YING 702.0 ACTINIC KERATOSIS 07/28/2015 MARAL YING I10 Essential (primary) hypertension 07/28/2015 MARAL YING Z23 Encounter for immunization 07/28/2015 MARAL YING Z76.0 Encounter for issue of repeat prescription 07/28/2015 MARAL YING Z86.79 Personal history of other diseases of the circulatory system 08/21/2015 AMARI MORALES E87.6 Hypokalemia 08/21/2015 AMARI MORALES I10 Essential (primary) hypertension 08/21/2015 AMARI MORALES I47.1 Supraventricular tachycardia 08/21/2015 AMARI MORALES Z86.79 Personal history of other diseases of the circulatory system 08/21/2015 AMARI MORALES E87.6 Hypokalemia 08/21/2015 AMARI MORALES I10 Essential (primary) hypertension 08/21/2015 AMARI MORALES I47.1 Supraventricular tachycardia 08/21/2015 AMARI MORALES Z86.79 Personal history of other diseases of the circulatory system 08/24/2015 MARAL YING E87.6 Hypokalemia 08/24/2015 MARAL YING I10 Essential (primary) hypertension 08/24/2015 MARAL YING I48.0 Paroxysmal atrial fibrillation 08/24/2015 MARAL YING Z90.710 Acquired absence of both cervix and uterus 08/24/2015 MARAL YING Z98.89 Other specified postprocedural states 08/24/2015 MICKY LORENZO E87.6 Hypokalemia 08/24/2015 MICKY LORNEZO I10 Essential (primary) hypertension 08/24/2015 MICKY LORENZO I48.0 Paroxysmal atrial fibrillation 08/24/2015 MICKY LORENZO Z90.710 Acquired absence of both cervix and uterus 09/07/2015 MARAL YING E87.6 Hypokalemia 09/07/2015 MARAL YING E87.6 Hypokalemia 09/07/2015 MARAL YING I48.91 Unspecified atrial fibrillation 09/07/2015 MARAL YING Z76.0 Encounter for issue of repeat prescription 09/29/2015 ELIANA VALENZUELA MD Ot I49.9 CARDIAC ARRHYTHMIA, UNSPECIFIED 09/29/2015 ELIANA VALENZUELA MD Ot R06.83 SNORING 10/05/2015 ELIANA VALENZUELA MD Ot I10 10/05/2015 ELIANA VALENZUELA MD Ot I48.0 10/05/2015 ELIANA VALENZUELA MD Ot I10 10/05/2015 BIANCA RUDOLPH, ELIANA J Ot I48.0 10/24/2015 BIANCA RUDOLPH, ELIANA J Ot I10 10/24/2015 BIANCA RUDOLPH, ELIANA Colmenares Ot I48.0 10/24/2015 BIANCA RUDOLPH, ELIANA Colmenares Ot R00.2 10/28/2015 BIANCA RUDOLPH, ELIANA J Ot I10 10/28/2015 BIANCA RUDOLPH, ELIANA Colmenares Ot I48.0 11/09/2015 BIANCA RUDOLPH, ELIANA Colmenares Ot I10 11/09/2015 BIANCA RUDOLPH, ELIANA Colmenares Ot I48.0 11/16/2015 LIZZIE PA, ANTONI K Ot E78.2 11/16/2015 LIZZIE PA, ANTONI K Ot I10 11/16/2015 LIZZIE PA, ANTONI K Ot I48.0 11/16/2015 LIZZIE PA, ANTONI K Ot R00.2 11/24/2015 LIZZIE PA, ANTONI K Ot E78.2 11/24/2015 LIZZIE PA, ANTONI K Ot I10 11/24/2015 LIZZIE PA, ANTONI K Ot I48.0 11/24/2015 LIZZIE PA, ANTONI K Ot R00.2 12/07/2015 JAVY ZHONGP Ot N63 12/08/2015 BIANCA RUDOLPH, ELIANA J Ot I10 12/08/2015 BIANCA RUDOLPH, ELIANA Colmenares Ot I48.0 12/08/2015 BIANCA RUDOLPH, ELIANA Colmenares Ot R00.2 12/08/2015 JAVY ZHONG Ot N63 12/20/2015 STANLEY BARRY DO Ot N63 12/26/2015 YAIMA CONNORS Ot C50.412 12/26/2015 YAIMA CONNORS Ot I10 12/26/2015 YAIMA CONNORS Ot I48.91 12/26/2015 DORYYAIMA ANDRADE Ot Z79.899 12/26/2015 YAIMA CONNORS Ot Z90.710 12/26/2015 BIANCA RUDOLPH, ELIANA Colmenares Ot E78.2 12/26/2015 BIANCA RUDOLPH, ELIANA Colmenares Ot I10 12/26/2015 BIANCA RUDOLPH, ELIANA Colmenares Ot I48.0 12/26/2015 BIANCA RUDOLPH, ELIANA Colmenares Ot I49.5 12/26/2015 BIANCA RUDOLPH, ELIANA Colmenares Ot R00.2 01/01/2016 BIANCA RUDOLPH, ELIANA Colmenares Ot I10 ESSENTIAL (PRIMARY) HYPERTENSION 01/01/2016 BIANCA RUDOLPH, ELIANA Colmenares Ot I48.0 PAROXYSMAL ATRIAL FIBRILLATION 01/02/2016 YAIMA CONNORS Ot C50.412 01/02/2016 DORYYAIMA ANDRADE Ot I10 01/02/2016 DORYYAIMA ANDRADE Ot I48.91 01/02/2016 DORYYAIMA ANDRADE Ot Z79.899 01/02/2016 YAIMA CONNORS Ot Z90.710 01/04/2016 BIANCA RUDOLPH, ELIANA Colmenares Ot I10 01/04/2016 BIANCA RUDOLPH, ELIANA Colmenares Ot I48.0 01/04/2016 STANLEY BARRY DO S Ot C50.912 01/09/2016 YAIMA CONNORS Ot C50.412 01/09/2016 YAIMA CONNORS Ot R16.0 01/10/2016 BIANCA RUDOLPH, ELIANA Colmenares Ot I10 01/10/2016 BIANCA RUDOLPH, ELIANA Colmenares Ot I48.0 01/10/2016 BIANCA RUDOLPH, ELIANA Colmenares Ot R00.2 01/10/2016 ANTONI GONZALEZ Ot E78.2 01/10/2016 ANTONI GONZALEZ Ot I10 01/10/2016 ANTONI GONZALEZ Ot I48.0 01/10/2016 ANTONI GONZALEZ Ot R00.2 01/10/2016 JAVY ZHONG Ot N63 01/10/2016 STANLEY BARRY DO S Ot N63 01/10/2016 STANLEY BARRY DO S Ot C50.912 01/10/2016 YAIMA CONNORS N Ot C50.412 01/10/2016 DORYYAIMA ANDRADE N Ot I10 01/10/2016 YAIMA CONNORS Ot I48.91 01/10/2016 YAIMA CONNORS Ot Z79.899 01/10/2016 YAIMA CONNORS Ot Z90.710 01/10/2016 BIANCA RUDOLPH, ELIANA Colmenares Ot E78.2 01/10/2016 BAINCA RUDOLPH, ELIANA Colmenares Ot I10 01/10/2016 BIANCA RUDOLPH, ELIANA Colmenares Ot I48.0 01/10/2016 BIANCA RUDOLPH, ELIANA Colmenares Ot I49.5 01/10/2016 BAINCA RUDOLPH, ELIANA Colmenares Ot R00.2 01/10/2016 YAIMA CONNORS Ot C50.412 01/10/2016 DORYYAIMA Ot R16.0 01/10/2016 BIANCA RUDOLPH, ELIANA Colmenares Ot I10 01/10/2016 ELIANA VALENZUELA MD Ot I48.0 02/03/2016 YAIMA CONNORS Ot 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 02/03/2016 YAIMA CONNORS Ot I10 ESSENTIAL (PRIMARY) HYPERTENSION 02/03/2016 YAIMA CONNORS Ot I48.91 UNSPECIFIED ATRIAL FIBRILLATION 02/03/2016 YAIMA CONNORS Ot Z79.899 OTHER FPC (CURRENT) DRUG THERAPY 02/03/2016 DORYYAIMA Ot Z90.710 ACQUIRED ABSENCE OF BOTH CERVIX AND UTER 03/07/2016 YAIMA CONNORS Ot 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 03/07/2016 DORYYAIMA N Ot I10 ESSENTIAL (PRIMARY) HYPERTENSION 03/07/2016 DORYYAIMA Ot I48.91 UNSPECIFIED ATRIAL FIBRILLATION 03/07/2016 YAIMA CONNORS Ot Z51.0 ENCOUNTER FOR ANTINEOPLASTIC RADIATION T 03/07/2016 DORYYAIMA Ot Z79.899 OTHER FPC (CURRENT) DRUG THERAPY 03/07/2016 DORYYAIMA N Ot Z90.710 ACQUIRED ABSENCE OF BOTH CERVIX AND UTER 03/09/2016 YAIMA CONNORS Ot 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 03/09/2016 DORYYAIMA N Ot I10 ESSENTIAL (PRIMARY) HYPERTENSION 03/09/2016 YAIMA CONNORS N Ot I48.91 UNSPECIFIED ATRIAL FIBRILLATION 03/09/2016 YAIMA CONNORS Ot Z51.0 ENCOUNTER FOR ANTINEOPLASTIC RADIATION T 03/09/2016 YAIMA CONNORS Ot Z79.899 OTHER FPC (CURRENT) DRUG THERAPY 03/09/2016 YAIMA CONNORS N Ot Z90.710 ACQUIRED ABSENCE OF BOTH CERVIX AND UTER 04/04/2016 YAIMA CONNORS N Ot 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 04/04/2016 YAIMA CONNORS N Ot I10 ESSENTIAL (PRIMARY) HYPERTENSION 04/04/2016 YAIMA CONNORS N Ot I48.91 UNSPECIFIED ATRIAL FIBRILLATION 04/04/2016 YAIMA CONNORS N Ot Z51.0 ENCOUNTER FOR ANTINEOPLASTIC RADIATION T 04/04/2016 YAIMA CONNORS N Ot Z79.899 OTHER FPC (CURRENT) DRUG THERAPY 04/04/2016 YAIMA CONNORS N Ot Z90.710 ACQUIRED ABSENCE OF BOTH CERVIX AND UTER 05/14/2016 YAIMA CONNORS N Ot 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 05/14/2016 YAIMA CONNORS N Ot I10 ESSENTIAL (PRIMARY) HYPERTENSION 05/14/2016 YAIMA CONNORS N Ot I48.91 UNSPECIFIED ATRIAL FIBRILLATION 05/14/2016 YAIMA CONNORS N Ot Z51.0 ENCOUNTER FOR ANTINEOPLASTIC RADIATION T 05/14/2016 YAIMA CONNORS N Ot Z79.899 OTHER SALES COMMISSIONS ANALYST (CURRENT) DRUG THERAPY 05/14/2016 YAIMA CONNORS N Ot Z90.710 ACQUIRED ABSENCE OF BOTH CERVIX AND UTER 05/24/2016 LUZ CHEN SUPERVISOR ANODIZING Ot 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 05/24/2016 LUZ CHEN SUPERVISOR ANODIZING Ot I10 ESSENTIAL (PRIMARY) HYPERTENSION 05/24/2016 LUZ CHEN SUPERVISOR ANODIZING Ot I48.91 UNSPECIFIED ATRIAL FIBRILLATION 05/24/2016 LUZ HCEN SUPERVISOR ANODIZING Ot Z79.899 OTHER FPC (CURRENT) DRUG THERAPY 05/24/2016 LUZ CHEN SUPERVISOR ANODIZING Ot Z90.710 ACQUIRED ABSENCE OF BOTH CERVIX AND UTER 05/28/2016 DORYYAIMA ANDRADE N Ot 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 05/28/2016 DORYYAIMA ANDRADE N Ot I10 ESSENTIAL (PRIMARY) HYPERTENSION 05/28/2016 DORYYAIMA ANDRADE N Ot I48.91 UNSPECIFIED ATRIAL FIBRILLATION 05/28/2016 YAIMA CONNORS N Ot Z51.0 ENCOUNTER FOR ANTINEOPLASTIC RADIATION T 05/28/2016 DORYYAIMA N Ot Z79.899 OTHER SALES COMMISSIONS ANALYST (CURRENT) DRUG THERAPY 05/28/2016 DORYYAIMA N Ot Z90.710 ACQUIRED ABSENCE OF BOTH CERVIX AND UTER 06/04/2016 LUZ CHEN SUPERVISOR ANODIZING Ot 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 06/04/2016 LUZ CHEN SUPERVISOR ANODIZING Ot I10 ESSENTIAL (PRIMARY) HYPERTENSION 06/04/2016 CEHNLUZ Ricks S SUPERVISOR ANODIZING Ot I48.91 UNSPECIFIED ATRIAL FIBRILLATION 06/04/2016 CHENLUZ S SUPERVISOR ANODIZING Ot Z79.899 OTHER FPC (CURRENT) DRUG THERAPY 06/04/2016 CHENLUZ Ricks S SUPERVISOR ANODIZING Ot Z90.710 ACQUIRED ABSENCE OF BOTH CERVIX AND UTER 06/06/2016 DORY, JESUS MANUELDIVINA N Ot 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 06/06/2016 DORY JESUS MANUELDIVINA N Ot I10 ESSENTIAL (PRIMARY) HYPERTENSION 06/06/2016 DORYYAIMA N Ot I48.91 UNSPECIFIED ATRIAL FIBRILLATION 06/06/2016 DORYYAIMA ANDRADE N Ot Z51.0 ENCOUNTER FOR ANTINEOPLASTIC RADIATION T 06/06/2016 DORYYAIMA ANDRADE N Ot Z79.899 OTHER SALES COMMISSIONS ANALYST (CURRENT) DRUG THERAPY 06/06/2016 DORYYAIMA ANDRADE N Ot Z90.710 ACQUIRED ABSENCE OF BOTH CERVIX AND UTER 06/07/2016 YAIMA CONNORS N Ot 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 06/07/2016 DORY BOBDIVINA N Ot I10 ESSENTIAL (PRIMARY) HYPERTENSION 06/07/2016 DORY BOBAN N Ot I48.91 UNSPECIFIED ATRIAL FIBRILLATION 06/07/2016 DORYYAIMA N Ot Z51.0 ENCOUNTER FOR ANTINEOPLASTIC RADIATION T 06/07/2016 DORYJESUS MANUELAN N Ot Z79.899 OTHER FPC (CURRENT) DRUG THERAPY 06/07/2016 DORYJESUS MANUELAN N Ot Z90.710 ACQUIRED ABSENCE OF BOTH CERVIX AND UTER 06/11/2016 LUZ CHEN S SUPERVISOR ANODIZING Ot 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 06/11/2016 LUZ CHEN SUPERVISOR ANODIZING Ot 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 06/13/2016 ELIANA VALENZUELA MD Ot 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 06/13/2016 ELIANA VALENZUELA MD Ot E78.2 MIXED HYPERLIPIDEMIA 06/13/2016 ELIANA VALENZUELA MD Ot I48.0 PAROXYSMAL ATRIAL FIBRILLATION 06/13/2016 ELIANA VALENZUELA MD Ot R00.2 PALPITATIONS 06/19/2016 LUZ CHEN SUPERVISOR ANODIZING Ot 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 06/19/2016 LUZ CHENP Ot 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 06/25/2016 ELIANA VALENZUELA MD Ot 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 06/25/2016 ELIANA VALENZUELA MD Ot E78.2 MIXED HYPERLIPIDEMIA 06/25/2016 ELIANA VALENZUELA MD Ot I48.0 PAROXYSMAL ATRIAL FIBRILLATION 06/25/2016 ELIANA VALENZUELA MD Ot R00.2 PALPITATIONS 06/30/2016 DONNY RUDOLPH, LEMUEL Ricks Ot D18.00 HEMANGIOMA UNSPECIFIED SITE 06/30/2016 LEMUEL HINES MD Ot I48.2 CHRONIC ATRIAL FIBRILLATION 06/30/2016 LEMUEL HINES MD Ot R19.7 DIARRHEA, UNSPECIFIED 06/30/2016 LEMUEL HINES MD Ot Z79.899 OTHER SALES COMMISSIONS ANALYST (CURRENT) DRUG THERAPY 06/30/2016 ELIANA VALENZUELA MD Ot I10 ESSENTIAL (PRIMARY) HYPERTENSION 06/30/2016 ELIANA VALENZUELA MD Ot I48.0 PAROXYSMAL ATRIAL FIBRILLATION 06/30/2016 ELIANA VALENZUELA MD Ot R00.2 PALPITATIONS 06/30/2016 ANTONI GONZALEZ Ot E78.2 MIXED HYPERLIPIDEMIA 06/30/2016 ANTONI GONZALEZ Ot I10 ESSENTIAL (PRIMARY) HYPERTENSION 06/30/2016 ANTONI GONZALEZ Ot I48.0 PAROXYSMAL ATRIAL FIBRILLATION 06/30/2016 ANTONI GONZALEZ Ot R00.2 PALPITATIONS 06/30/2016 JAVY ZHONGP Ot N63 UNSPECIFIED LUMP IN BREAST 06/30/2016 ORENDER DO, STANLEY S Ot N63 UNSPECIFIED LUMP IN BREAST 06/30/2016 STANLEY BARRY DO S Ot C50.912 MALIGNANT NEOPLASM OF UNSPECIFIED SITE O 06/30/2016 ELIANA VALENZUELA MD Ot E78.2 MIXED HYPERLIPIDEMIA 06/30/2016 ELIANA VALENZUELA MD Ot I10 ESSENTIAL (PRIMARY) HYPERTENSION 06/30/2016 ELIANA VALENZUELA MD Ot I48.0 PAROXYSMAL ATRIAL FIBRILLATION 06/30/2016 ELIANA VALENZUELA MD Ot I49.5 SICK SINUS SYNDROME 06/30/2016 ELIANA VALENZUELA MD Ot R00.2 PALPITATIONS 06/30/2016 YAIMA CONNORS Ot 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 06/30/2016 YAIMA CONNORS Ot R16.0 HEPATOMEGALY, NOT ELSEWHERE CLASSIFIED 06/30/2016 ELIANA VALENZUELA MD Ot I10 ESSENTIAL (PRIMARY) HYPERTENSION 06/30/2016 ELIANA VALENZUELA MD Ot I48.0 PAROXYSMAL ATRIAL FIBRILLATION 06/30/2016 LUZ CHENP Ot 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 06/30/2016 LUZ CHEN SUPERVISOR ANODIZING Ot I10 ESSENTIAL (PRIMARY) HYPERTENSION 06/30/2016 LUZ CHENP Ot I48.91 UNSPECIFIED ATRIAL FIBRILLATION 06/30/2016 LUZ CHEN SUPERVISOR ANODIZING Ot Z79.899 OTHER SALES COMMISSIONS ANALYST (CURRENT) DRUG THERAPY 06/30/2016 LUZ CHEN SUPERVISOR ANODIZING Ot Z90.710 ACQUIRED ABSENCE OF BOTH CERVIX AND UTER 06/30/2016 LUZ CHENP Ot 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 06/30/2016 LUZ CHEN SUPERVISOR ANODIZING Ot 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 06/30/2016 YAIMA CONNORS Ot 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 06/30/2016 YAIMA CONNORS Ot I10 ESSENTIAL (PRIMARY) HYPERTENSION 06/30/2016 YAIMA CONNORS Ot I48.91 UNSPECIFIED ATRIAL FIBRILLATION 06/30/2016 YAIMA CONNORS Ot Z51.0 ENCOUNTER FOR ANTINEOPLASTIC RADIATION T 06/30/2016 YAIMA CONNORS Ot Z79.899 OTHER FPC (CURRENT) DRUG THERAPY 06/30/2016 YAIMA CONNORS Ot Z90.710 ACQUIRED ABSENCE OF BOTH CERVIX AND UTER 06/30/2016 ELIANA VALENZUELA MD Ot 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 06/30/2016 ELIANA VALENZUELA MD Ot E78.2 MIXED HYPERLIPIDEMIA 06/30/2016 ELIANA VALENZUELA MD Ot I48.0 PAROXYSMAL ATRIAL FIBRILLATION 06/30/2016 ELIANA VALENZUELA MD Ot R00.2 PALPITATIONS 07/02/2016 ELIANA VALENZUELA MD Ot I10 ESSENTIAL (PRIMARY) HYPERTENSION 07/02/2016 ELIANA VALENZUELA MD Ot I48.0 PAROXYSMAL ATRIAL FIBRILLATION 07/02/2016 ELIANA VALENZUELA MD Ot R00.2 PALPITATIONS 07/02/2016 ANTONI GONZALEZ Ot E78.2 MIXED HYPERLIPIDEMIA 07/02/2016 ANTONI GONZALEZ Ot I10 ESSENTIAL (PRIMARY) HYPERTENSION 07/02/2016 ANTONI GONZALEZ Ot I48.0 PAROXYSMAL ATRIAL FIBRILLATION 07/02/2016 ANTONI GONZALEZ Ot R00.2 PALPITATIONS 07/02/2016 JAVY ZHONG SUPERVISOR ANODIZING Ot N63 UNSPECIFIED LUMP IN BREAST 07/02/2016 STANLEY BARRY DO S Ot N63 UNSPECIFIED LUMP IN BREAST 07/02/2016 STANLEY BARRY DO Ot C50.912 MALIGNANT NEOPLASM OF UNSPECIFIED SITE O 07/02/2016 ELIANA VALENZUELA MD Ot E78.2 MIXED HYPERLIPIDEMIA 07/02/2016 ELIANA VALENZUELA MD Ot I10 ESSENTIAL (PRIMARY) HYPERTENSION 07/02/2016 ELIANA VALENZUELA MD Ot I48.0 PAROXYSMAL ATRIAL FIBRILLATION 07/02/2016 ELIANA VALENZUELA MD Ot I49.5 SICK SINUS SYNDROME 07/02/2016 ELIANA VALENZUELA MD Ot R00.2 PALPITATIONS 07/02/2016 YAIMA CONNORS Ot 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 07/02/2016 YAIMA CONNORS Ot R16.0 HEPATOMEGALY, NOT ELSEWHERE CLASSIFIED 07/02/2016 BIANCA MD, BASHAR J Ot I10 ESSENTIAL (PRIMARY) HYPERTENSION 07/02/2016 BIANCA RUDOLPH, ELIANA Colmenares Ot I48.0 PAROXYSMAL ATRIAL FIBRILLATION 07/02/2016 LUZ CHEN SUPERVISOR ANODIZING Ot 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 07/02/2016 LUZ CHEN SUPERVISOR ANODIZING Ot I10 ESSENTIAL (PRIMARY) HYPERTENSION 07/02/2016 LUZ CHEN SUPERVISOR ANODIZING Ot I48.91 UNSPECIFIED ATRIAL FIBRILLATION 07/02/2016 LUZ CHEN SUPERVISOR ANODIZING Ot Z79.899 OTHER SALES COMMISSIONS ANALYST (CURRENT) DRUG THERAPY 07/02/2016 LUZ CHEN SUPERVISOR ANODIZING Ot Z90.710 ACQUIRED ABSENCE OF BOTH CERVIX AND UTER 07/02/2016 LUZ CHEN SUPERVISOR ANODIZING Ot 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 07/02/2016 LUZ CHEN SUPERVISOR ANODIZING Ot 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 07/02/2016 YAIMA CONNORS Ot 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 07/02/2016 YAIMA CONNORS Ot I10 ESSENTIAL (PRIMARY) HYPERTENSION 07/02/2016 YAIMA CONNORS Ot I48.91 UNSPECIFIED ATRIAL FIBRILLATION 07/02/2016 YAIMA CONNORS Ot Z51.0 ENCOUNTER FOR ANTINEOPLASTIC RADIATION T 07/02/2016 YAIMA CONNORS Ot Z79.899 OTHER SALES COMMISSIONS ANALYST (CURRENT) DRUG THERAPY 07/02/2016 YAIMA CONNORS Ot Z90.710 ACQUIRED ABSENCE OF BOTH CERVIX AND UTER 07/02/2016 BIANCA RUDOLPH, ELIANA Colmenares Ot 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 07/02/2016 BIANCA RUDOLPH, ELIANA Colmenares Ot E78.2 MIXED HYPERLIPIDEMIA 07/02/2016 ELIANA VALENZUELA MD Ot I48.0 PAROXYSMAL ATRIAL FIBRILLATION 07/02/2016 ELIANA VALENZUELA MD Ot R00.2 PALPITATIONS 07/02/2016 DONNY RUDOLPH, LEMUEL Ricks Ot D18.00 HEMANGIOMA UNSPECIFIED SITE 07/02/2016 LEMUEL HINES MD Ot I48.2 CHRONIC ATRIAL FIBRILLATION 07/02/2016 LEMUEL HINES MD Ot R19.7 DIARRHEA, UNSPECIFIED 07/02/2016 LEMUEL HINES MD Ot Z79.899 OTHER SALES COMMISSIONS ANALYST (CURRENT) DRUG THERAPY 07/03/2016 MARISSA HERNADEZ ROLLER PRINT TENDER Ot R10.11 RIGHT UPPER QUADRANT PAIN 07/03/2016 MARISSA HERNADEZ ROLLER PRINT TENDER Ot R19.7 DIARRHEA, UNSPECIFIED 07/07/2016 DONNY RUDOLPH, LEMUEL Ricks Ot D18.00 HEMANGIOMA UNSPECIFIED SITE 07/07/2016 DONNY RUDOLPH, LEMUEL Ricks Ot I48.2 CHRONIC ATRIAL FIBRILLATION 07/07/2016 DONNY RUDOLPH, LEMUEL Ricks Ot R19.7 DIARRHEA, UNSPECIFIED 07/07/2016 DONNY RUDOLPH, LEMUEL Ricks Ot Z79.899 OTHER SALES COMMISSIONS ANALYST (CURRENT) DRUG THERAPY 07/12/2016 ELIANA VALENZUELA MD Ot I10 ESSENTIAL (PRIMARY) HYPERTENSION 07/12/2016 ELIANA VALENZUELA MD Ot I48.0 PAROXYSMAL ATRIAL FIBRILLATION 07/12/2016 ELIANA VALENZUELA MD Ot R00.2 PALPITATIONS 07/12/2016 ANTONI GONZALEZ Ot E78.2 MIXED HYPERLIPIDEMIA 07/12/2016 ANTONI GONZALEZ Ot I10 ESSENTIAL (PRIMARY) HYPERTENSION 07/12/2016 ANTONI GONZALEZ Ot I48.0 PAROXYSMAL ATRIAL FIBRILLATION 07/12/2016 ANTONI GONZALEZ Ot R00.2 PALPITATIONS 07/12/2016 JAVY ZHONG Ot N63 UNSPECIFIED LUMP IN BREAST 07/12/2016 STANLEY BARRY DO S Ot N63 UNSPECIFIED LUMP IN BREAST 07/12/2016 STANLEY BARRY DO S Ot C50.912 MALIGNANT NEOPLASM OF UNSPECIFIED SITE O 07/12/2016 ELIANA VALENZUELA MD Ot E78.2 MIXED HYPERLIPIDEMIA 07/12/2016 ELIANA VALENZUELA MD Ot I10 ESSENTIAL (PRIMARY) HYPERTENSION 07/12/2016 ELIANA VALENZUELA MD Ot I48.0 PAROXYSMAL ATRIAL FIBRILLATION 07/12/2016 ELIANA VALENZUELA MD Ot I49.5 SICK SINUS SYNDROME 07/12/2016 ELIANA VALENZUELA MD Ot R00.2 PALPITATIONS 07/12/2016 YAIMA CONNORS Ot 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 07/12/2016 YAIMA CONNORS Ot R16.0 HEPATOMEGALY, NOT ELSEWHERE CLASSIFIED 07/12/2016 ELIANA VALENZUELA MD Ot I10 ESSENTIAL (PRIMARY) HYPERTENSION 07/12/2016 ELIANA VALENZUELA MD Ot I48.0 PAROXYSMAL ATRIAL FIBRILLATION 07/12/2016 LUZ CHEN SUPERVISOR ANODIZING Ot 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 07/12/2016 LUZ CHEN SUPERVISOR ANODIZING Ot I10 ESSENTIAL (PRIMARY) HYPERTENSION 07/12/2016 LUZ CHEN SUPERVISOR ANODIZING Ot I48.91 UNSPECIFIED ATRIAL FIBRILLATION 07/12/2016 BINTA CHENYUE Millicent SUPERVISOR ANODIZING Ot Z79.899 OTHER SALES COMMISSIONS ANALYST (CURRENT) DRUG THERAPY 07/12/2016 BINTA CHENYUE Millicent SUPERVISOR ANODIZING Ot Z90.710 ACQUIRED ABSENCE OF BOTH CERVIX AND UTER 07/12/2016 LUZ CHEN SUPERVISOR ANODIZING Ot 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 07/12/2016 LUZ CHEN SUPERVISOR ANODIZING Ot 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 07/12/2016 YAIMA CONNORS Ot 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 07/12/2016 YAIMA CONNORS Ot I10 ESSENTIAL (PRIMARY) HYPERTENSION 07/12/2016 YAIMA CONNORS Ot I48.91 UNSPECIFIED ATRIAL FIBRILLATION 07/12/2016 YAIMA CONNORS Ot Z51.0 ENCOUNTER FOR ANTINEOPLASTIC RADIATION T 07/12/2016 YAIMA CONNORS Ot Z79.899 OTHER SALES COMMISSIONS ANALYST (CURRENT) DRUG THERAPY 07/12/2016 YAIMA CONNORS Ot Z90.710 ACQUIRED ABSENCE OF BOTH CERVIX AND UTER 07/12/2016 ELIANA VALENZUELA MD Ot 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 07/12/2016 ELIANA VALENZUELA MD Ot E78.2 MIXED HYPERLIPIDEMIA 07/12/2016 ELIANA VALENZUELA MD Ot I48.0 PAROXYSMAL ATRIAL FIBRILLATION 07/12/2016 ELIANA VALENZUELA MD Ot R00.2 PALPITATIONS 07/12/2016 MARISSA HERNADEZ ROLLER PRINT TENDER Ot R10.11 RIGHT UPPER QUADRANT PAIN 07/12/2016 MARISSA HERNADEZ ROLLER PRINT TENDER Ot R19.7 DIARRHEA, UNSPECIFIED 07/13/2016 ELIANA VALENZUELA MD Ot I10 ESSENTIAL (PRIMARY) HYPERTENSION 07/13/2016 ELIANA VALENZUELA MD Ot I48.0 PAROXYSMAL ATRIAL FIBRILLATION 07/13/2016 DORY, YAIMA Knott Ot 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 07/13/2016 DORY YAIMA Knott Ot I10 ESSENTIAL (PRIMARY) HYPERTENSION 07/13/2016 DORY JESUS MANUELDIVINA Hedy Ot I48.91 UNSPECIFIED ATRIAL FIBRILLATION 07/13/2016 DORY JESUS MANUELDIVINA Hedy Ot Z51.0 ENCOUNTER FOR ANTINEOPLASTIC RADIATION T 07/13/2016 DORY YAIMA Knott Ot Z79.899 OTHER SALES COMMISSIONS ANALYST (CURRENT) DRUG THERAPY 07/13/2016 DORY YAIMA Knott Ot Z90.710 ACQUIRED ABSENCE OF BOTH CERVIX AND UTER 07/13/2016 MARISSA HERNADEZ ROLLER PRINT TENDER Ot R10.11 RIGHT UPPER QUADRANT PAIN 07/13/2016 MARISSA HERNADEZ ROLLER PRINT TENDER Ot R19.7 DIARRHEA, UNSPECIFIED 07/13/2016 ELIANA VALENZUELA MD, Ot I10 ESSENTIAL (PRIMARY) HYPERTENSION 07/13/2016 ELIANA VALENZUELA MD Ot I48.0 PAROXYSMAL ATRIAL FIBRILLATION 07/13/2016 ELIANA VALENZUELA MD Ot R00.2 PALPITATIONS 07/13/2016 ANTONI GONZALEZ Ot E78.2 MIXED HYPERLIPIDEMIA 07/13/2016 ANTONI GONZALEZ Ot I10 ESSENTIAL (PRIMARY) HYPERTENSION 07/13/2016 ANTONI GONZALEZ Ot I48.0 PAROXYSMAL ATRIAL FIBRILLATION 07/13/2016 ANTONI GONZALEZ Ot R00.2 PALPITATIONS 07/13/2016 JAVY ZHONG Ot N63 UNSPECIFIED LUMP IN BREAST 07/13/2016 STANLEY BARRY DO S Ot N63 UNSPECIFIED LUMP IN BREAST 07/13/2016 STANLEY BARRY DO Ot C50.912 MALIGNANT NEOPLASM OF UNSPECIFIED SITE O 07/13/2016 ELIANA VALENZUELA MD Ot E78.2 MIXED HYPERLIPIDEMIA 07/13/2016 ELIANA VALENZUELA MD Ot I10 ESSENTIAL (PRIMARY) HYPERTENSION 07/13/2016 ELIANA VALENZUELA MD Ot I48.0 PAROXYSMAL ATRIAL FIBRILLATION 07/13/2016 ELIANA VALENZUELA MD Ot I49.5 SICK SINUS SYNDROME 07/13/2016 ELIANA VALENZUELA MD Ot R00.2 PALPITATIONS 07/13/2016 YAIMA CONNORS Ot 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 07/13/2016 YAIMA CONNORS Ot R16.0 HEPATOMEGALY, NOT ELSEWHERE CLASSIFIED 07/13/2016 ELIANA VALENZUELA MD Ot I10 ESSENTIAL (PRIMARY) HYPERTENSION 07/13/2016 ELIANA VALENZUELA MD Ot I48.0 PAROXYSMAL ATRIAL FIBRILLATION 07/13/2016 LUZ CHEN SUPERVISOR ANODIZING Ot 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 07/13/2016 LUZ CHEN SUPERVISOR ANODIZING Ot I10 ESSENTIAL (PRIMARY) HYPERTENSION 07/13/2016 LUZ CHEN SUPERVISOR ANODIZING Ot I48.91 UNSPECIFIED ATRIAL FIBRILLATION 07/13/2016 LUZ CHEN SUPERVISOR ANODIZING Ot Z79.899 OTHER FPC (CURRENT) DRUG THERAPY 07/13/2016 LUZ CHEN SUPERVISOR ANODIZING Ot Z90.710 ACQUIRED ABSENCE OF BOTH CERVIX AND UTER 07/13/2016 LUZ CHEN SUPERVISOR ANODIZING Ot 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 07/13/2016 LUZ CHEN SUPERVISOR ANODIZING Ot 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 07/13/2016 YAIMA CONNORS Ot 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 07/13/2016 YAIMA CONNORS Ot I10 ESSENTIAL (PRIMARY) HYPERTENSION 07/13/2016 YAIMA CONNORS Ot I48.91 UNSPECIFIED ATRIAL FIBRILLATION 07/13/2016 YAIMA CONNORS Ot Z51.0 ENCOUNTER FOR ANTINEOPLASTIC RADIATION T 07/13/2016 YAIMA CONNORS Ot Z79.899 OTHER FPC (CURRENT) DRUG THERAPY 07/13/2016 YAIMA CONNORS Ot Z90.710 ACQUIRED ABSENCE OF BOTH CERVIX AND UTER 07/13/2016 ELIANA VALENZUELA MD Ot 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 07/13/2016 ELIANA VALENZUELA MD Ot E78.2 MIXED HYPERLIPIDEMIA 07/13/2016 ELIANA VALENZUELA MD Ot I48.0 PAROXYSMAL ATRIAL FIBRILLATION 07/13/2016 ELIANA VALENZUELA MD Ot R00.2 PALPITATIONS 07/13/2016 MARISSA HERNADEZ ROLLER PRINT TENDER Ot R10.11 RIGHT UPPER QUADRANT PAIN 07/13/2016 MARISSA HERNADEZ ROLLER PRINT TENDER Ot R19.7 DIARRHEA, UNSPECIFIED 07/13/2016 KALLINDER DO, STANLEY S Ot E86.0 DEHYDRATION 07/13/2016 ORENDER DO, STANLEY S Ot I10 ESSENTIAL (PRIMARY) HYPERTENSION 07/13/2016 ORENDER DO, STANLEY S Ot K52.89 OTHER SPECIFIED NONINFECTIVE GASTROENTER 07/13/2016 ORENDER DO, STANLEY S Ot K57.30 DVRTCLOS OF LG INT W/O PERFORATION OR AB 07/13/2016 ORENDER DO, STANLEY S Ot Z79.811 FPC (CURRENT) USE OF AROMATASE INH 07/13/2016 KALLIND DO, STANLEY S Ot Z80.0 FAMILY HISTORY OF MALIGNANT NEOPLASM OF 07/13/2016 KALLINDER DO, STANLEY S Ot Z85.3 PERSONAL HISTORY OF MALIGNANT NEOPLASM O 07/13/2016 KALLINDER DO, STANLEY S Ot Z86.010 PERSONAL HISTORY OF COLONIC POLYPS 07/23/2016 ORENDER DO, STANLEY S Ot E86.0 DEHYDRATION 07/23/2016 ORENDER DO, STANLEY S Ot I10 ESSENTIAL (PRIMARY) HYPERTENSION 07/23/2016 KALLINDER DO, STANLEY S Ot K52.89 OTHER SPECIFIED NONINFECTIVE GASTROENTER 07/23/2016 ORENDER DO, STANLEY S Ot K57.30 DVRTCLOS OF LG INT W/O PERFORATION OR AB 07/23/2016 KALLINDER DO, STANLEY S Ot Z79.811 FPC (CURRENT) USE OF AROMATASE INH 07/23/2016 ORENDER DO, STANLEY S Ot Z80.0 FAMILY HISTORY OF MALIGNANT NEOPLASM OF 07/23/2016 ORENDER DO, STANLEY S Ot Z85.3 PERSONAL HISTORY OF MALIGNANT NEOPLASM O 07/23/2016 ORENDER DO, STANLEY S Ot Z86.010 PERSONAL HISTORY OF COLONIC POLYPS 07/25/2016 ORENDER DO, STANLEY S Ot E86.0 DEHYDRATION 07/25/2016 ORENDER DO, STANLEY S Ot I10 ESSENTIAL (PRIMARY) HYPERTENSION 07/25/2016 ORENDER DO, STANLEY S Ot K52.89 OTHER SPECIFIED NONINFECTIVE GASTROENTER 07/25/2016 STANLEY BARRY DO Ot K57.30 DVRTCLOS OF LG INT W/O PERFORATION OR AB 07/25/2016 STANLEY BARRY DO Ot Z79.811 SALES COMMISSIONS ANALYST (CURRENT) USE OF AROMATASE INH 07/25/2016 STANLEY BARRY DO Ot Z80.0 FAMILY HISTORY OF MALIGNANT NEOPLASM OF 07/25/2016 STANLEY BARRY DO Ot Z85.3 PERSONAL HISTORY OF MALIGNANT NEOPLASM O 07/25/2016 STANLEY BARRY DO Ot Z86.010 PERSONAL HISTORY OF COLONIC POLYPS 08/07/2016 ELIANA VALENZUELA MD Ot 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 08/07/2016 ELIANA VALENZUELA MD Ot E78.2 MIXED HYPERLIPIDEMIA 08/07/2016 ELIANA VALENZUELA MD Ot I48.0 PAROXYSMAL ATRIAL FIBRILLATION 08/07/2016 ELIANA VALENZUELA MD Ot R00.2 PALPITATIONS 08/20/2016 ELIANA VALENZUELA MD Ot 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 08/20/2016 ELIANA VALENZUELA MD Ot E78.2 MIXED HYPERLIPIDEMIA 08/20/2016 ELIANA VALENZUELA MD Ot I48.0 PAROXYSMAL ATRIAL FIBRILLATION 08/20/2016 ELIANA VALENZUELA MD Ot R00.2 PALPITATIONS 09/18/2016 YAIMA CONNORS Ot 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 09/18/2016 YAIMA CONNORS Ot I10 ESSENTIAL (PRIMARY) HYPERTENSION 09/18/2016 YAIMA CONNORS Ot I48.91 UNSPECIFIED ATRIAL FIBRILLATION 09/18/2016 YAIMA CONNORS Ot Z51.0 ENCOUNTER FOR ANTINEOPLASTIC RADIATION T 09/18/2016 YAIMA CONNORS Ot Z79.899 OTHER FPC (CURRENT) DRUG THERAPY 09/18/2016 YAIMA CONNORS Ot Z90.710 ACQUIRED ABSENCE OF BOTH CERVIX AND UTER 09/20/2016 ELIANA VALENZUELA MD Ot E78.5 HYPERLIPIDEMIA, UNSPECIFIED 09/20/2016 ELIANA VALENZUELA MD Ot I10 ESSENTIAL (PRIMARY) HYPERTENSION 09/20/2016 ELIANA VALENZUELA MD Ot I48.0 PAROXYSMAL ATRIAL FIBRILLATION 09/20/2016 ELIANA VALENZUELA MD Ot I49.5 SICK SINUS SYNDROME 09/20/2016 ELIANA VALENZUELA MD Ot Z79.899 OTHER FPC (CURRENT) DRUG THERAPY 09/20/2016 ELIANA VALENZUELA MD Ot Z85.3 PERSONAL HISTORY OF MALIGNANT NEOPLASM O 09/20/2016 ELIANA VALENZUELA MD Ot Z90.5 ACQUIRED ABSENCE OF KIDNEY 09/20/2016 ELIANA VALENZUELA MD Ot Z92.3 PERSONAL HISTORY OF IRRADIATION 09/26/2016 YAIMA CONNORS Ot 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 09/26/2016 YAIMA CONONRS Ot I10 ESSENTIAL (PRIMARY) HYPERTENSION 09/26/2016 YAIMA CONNORS Ot I48.91 UNSPECIFIED ATRIAL FIBRILLATION 09/26/2016 YAIMA CONNORS Ot Z51.0 ENCOUNTER FOR ANTINEOPLASTIC RADIATION T 09/26/2016 YAIMA CONNORS Ot Z79.899 OTHER FPC (CURRENT) DRUG THERAPY 09/26/2016 YAIMA CONNORS Ot Z90.710 ACQUIRED ABSENCE OF BOTH CERVIX AND UTER 10/30/2016 ELIANA VALENZUELA MD Ot E78.5 HYPERLIPIDEMIA, UNSPECIFIED 10/30/2016 ELIANA VALENZUELA MD Ot I10 ESSENTIAL (PRIMARY) HYPERTENSION 10/30/2016 ELIANA VALENZUELA MD Ot I48.0 PAROXYSMAL ATRIAL FIBRILLATION 10/30/2016 ELIANA VALENZUELA MD Ot I49.5 SICK SINUS SYNDROME 10/30/2016 ELIANA VALENZUELA MD Ot Z79.899 OTHER FPC (CURRENT) DRUG THERAPY 10/30/2016 ELIANA VALENZUELA MD Ot Z85.3 PERSONAL HISTORY OF MALIGNANT NEOPLASM O 10/30/2016 ELIANA VALENZUELA MD Ot Z90.5 ACQUIRED ABSENCE OF KIDNEY 10/30/2016 ELIANA VALENZUELA MD Ot Z92.3 PERSONAL HISTORY OF IRRADIATION 11/18/2016 YAIMA CONNORS Ot 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 11/18/2016 YAIMA CONNORS Ot I10 ESSENTIAL (PRIMARY) HYPERTENSION 11/18/2016 YAIMA CONNORS Ot I48.91 UNSPECIFIED ATRIAL FIBRILLATION 11/18/2016 DORY, BOBAN N Ot Z79.899 OTHER SALES COMMISSIONS ANALYST (CURRENT) DRUG THERAPY 11/18/2016 DORYJESUS MANUELAN N Ot Z90.710 ACQUIRED ABSENCE OF BOTH CERVIX AND UTER 11/19/2016 DORYYAIMA N Ot 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 11/19/2016 DORY BOBAN N Ot I10 ESSENTIAL (PRIMARY) HYPERTENSION 11/19/2016 DORY BOBAN N Ot I48.91 UNSPECIFIED ATRIAL FIBRILLATION 11/19/2016 DORYYAIMA N Ot Z79.899 OTHER FPC (CURRENT) DRUG THERAPY 11/19/2016 DORY BOBAN N Ot Z90.710 ACQUIRED ABSENCE OF BOTH CERVIX AND UTER 01/28/2017 DORYYAIMA N Ot 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 01/28/2017 DORY BOBAN N Ot I10 ESSENTIAL (PRIMARY) HYPERTENSION 01/28/2017 DROY, BOBAN N Ot I48.91 UNSPECIFIED ATRIAL FIBRILLATION 01/28/2017 DORY BOBAN N Ot Z79.899 OTHER FPC (CURRENT) DRUG THERAPY 01/28/2017 DORY BOBAN N Ot Z90.710 ACQUIRED ABSENCE OF BOTH CERVIX AND UTER 03/20/2017 DORYYAMIA N Ot 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 03/20/2017 DORY BOBAN N Ot I10 ESSENTIAL (PRIMARY) HYPERTENSION 03/20/2017 DORY BOBDIVINA N Ot I48.91 UNSPECIFIED ATRIAL FIBRILLATION 03/20/2017 DORYYAIMA N Ot Z79.899 OTHER FPC (CURRENT) DRUG THERAPY 03/20/2017 DORYYAIMA N Ot Z90.710 ACQUIRED ABSENCE OF BOTH CERVIX AND UTER 03/22/2017 DORY BOBAN N Ot 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 03/22/2017 DORY, BOBAN N Ot I10 ESSENTIAL (PRIMARY) HYPERTENSION 03/22/2017 DORY, BOBAN N Ot I48.91 UNSPECIFIED ATRIAL FIBRILLATION 03/22/2017 DORY, BOBAN N Ot Z79.899 OTHER SALES COMMISSIONS ANALYST (CURRENT) DRUG THERAPY 03/22/2017 DORY BOBAN N Ot Z90.710 ACQUIRED ABSENCE OF BOTH CERVIX AND UTER 04/25/2017 DORY, BOBAN N Ot 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 04/25/2017 YAIMA CONNORS N Ot I10 ESSENTIAL (PRIMARY) HYPERTENSION 04/25/2017 YAIMA CONNORS N Ot I48.91 UNSPECIFIED ATRIAL FIBRILLATION 04/25/2017 YAIMA CONNORS N Ot Z79.899 OTHER SALES COMMISSIONS ANALYST (CURRENT) DRUG THERAPY 04/25/2017 YAIMA CONNORS N Ot Z90.710 ACQUIRED ABSENCE OF BOTH CERVIX AND UTER 06/19/2017 YAIMA CONNORS Ot 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 06/19/2017 YAIMA CONNORS N Ot I10 ESSENTIAL (PRIMARY) HYPERTENSION 06/19/2017 YAIMA CONNORS N Ot I48.91 UNSPECIFIED ATRIAL FIBRILLATION 06/19/2017 YAIMA CONNORS Ot Z79.899 OTHER FPC (CURRENT) DRUG THERAPY 06/19/2017 YAIMA CONNORS N Ot Z90.710 ACQUIRED ABSENCE OF BOTH CERVIX AND UTER 06/23/2017 INDERJIT MEADE MD Ot I10 ESSENTIAL (PRIMARY) HYPERTENSION 06/23/2017 INDERJIT MEADE MD T Ot I48.91 UNSPECIFIED ATRIAL FIBRILLATION 06/23/2017 INDERJIT MEADE MD Ot J42 UNSPECIFIED CHRONIC BRONCHITIS 06/23/2017 INDERJIT MEADE MD T Ot K52.9 NONINFECTIVE GASTROENTERITIS AND COLITIS 06/23/2017 INDERJIT MEADE MD Ot R00.2 PALPITATIONS 06/23/2017 INDERJIT MEADE MD T Ot Z87.11 PERSONAL HISTORY OF PEPTIC ULCER DISEASE 06/23/2017 INDERJIT MEADE MD Ot Z90.89 ACQUIRED ABSENCE OF OTHER ORGANS 06/23/2017 INDERJIT MEADE MD Ot Z91.14 PATIENT'S OTHER NONCOMPLIANCE WITH MEDIC 06/25/2017 INDERJIT MEADE MD T Ot I10 ESSENTIAL (PRIMARY) HYPERTENSION 06/25/2017 INDERJIT MEADE MD T Ot I48.91 UNSPECIFIED ATRIAL FIBRILLATION 06/25/2017 INDERJIT MEADE MD Ot J42 UNSPECIFIED CHRONIC BRONCHITIS 06/25/2017 INDERJIT MEADE MD T Ot K52.9 NONINFECTIVE GASTROENTERITIS AND COLITIS 06/25/2017 INDERJIT MEADE MD Ot R00.2 PALPITATIONS 06/25/2017 INDERJIT MEADE MD Ot Z87.11 PERSONAL HISTORY OF PEPTIC ULCER DISEASE 06/25/2017 INDERJIT MEADE MD Ot Z90.89 ACQUIRED ABSENCE OF OTHER ORGANS 06/25/2017 INDERJIT MEADE MD Ot Z91.14 PATIENT'S OTHER NONCOMPLIANCE WITH MEDIC 06/25/2017 INDERJIT MEADE MD Ot I10 ESSENTIAL (PRIMARY) HYPERTENSION 06/25/2017 INDERJIT MEADE MD Ot I48.91 UNSPECIFIED ATRIAL FIBRILLATION 06/25/2017 INDERJIT MEADE MD Ot J42 UNSPECIFIED CHRONIC BRONCHITIS 06/25/2017 INDERJIT MEADE MD Ot K52.9 NONINFECTIVE GASTROENTERITIS AND COLITIS 06/25/2017 INDERJIT MEADE MD Ot R00.2 PALPITATIONS 06/25/2017 INDERJIT MEADE MD Ot Z87.11 PERSONAL HISTORY OF PEPTIC ULCER DISEASE 06/25/2017 INDERJIT MEADE MD Ot Z90.89 ACQUIRED ABSENCE OF OTHER ORGANS 06/25/2017 INDERJIT MEADE MD Ot Z91.14 PATIENT'S OTHER NONCOMPLIANCE WITH MEDIC 06/27/2017 YAIMA CONNORS Ot 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 06/27/2017 YAIMA CONNORS Ot I10 ESSENTIAL (PRIMARY) HYPERTENSION 06/27/2017 YAIMA CONNORS Ot I48.91 UNSPECIFIED ATRIAL FIBRILLATION 06/27/2017 YAIMA CONNORS Ot Z79.899 OTHER SALES COMMISSIONS ANALYST (CURRENT) DRUG THERAPY 06/27/2017 YAIMA CONNORS Ot Z90.710 ACQUIRED ABSENCE OF BOTH CERVIX AND UTER 07/10/2017 YAIMA CONNORS Ot 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 07/10/2017 YAIMA CONNORS N Ot I10 ESSENTIAL (PRIMARY) HYPERTENSION 07/10/2017 YAIMA CONNORS N Ot I48.91 UNSPECIFIED ATRIAL FIBRILLATION 07/10/2017 YAIMA CONNORS Ot Z79.899 OTHER FPC (CURRENT) DRUG THERAPY 07/10/2017 YAIMA CONNORS Ot Z90.710 ACQUIRED ABSENCE OF BOTH CERVIX AND UTER 07/24/2017 ELIANA VALENZUELA MD Ot I10 ESSENTIAL (PRIMARY) HYPERTENSION 07/24/2017 ELIANA VALENZUELA MD Ot I48.0 PAROXYSMAL ATRIAL FIBRILLATION 07/24/2017 ELIANA VALENZUELA MD Ot R00.2 PALPITATIONS 07/24/2017 ANTONI GONZALEZ Ot E78.2 MIXED HYPERLIPIDEMIA 07/24/2017 SOURAV GONZALEZTH K Ot I10 ESSENTIAL (PRIMARY) HYPERTENSION 07/24/2017 ANTONI GONZALEZ Ot I48.0 PAROXYSMAL ATRIAL FIBRILLATION 07/24/2017 ANTONI GONZALEZ Ot R00.2 PALPITATIONS 07/24/2017 JAVY ZHONG SUPERVISOR ANODIZING Ot N63 UNSPECIFIED LUMP IN BREAST 07/24/2017 STANLEY BARRY DO S Ot N63 UNSPECIFIED LUMP IN BREAST 07/24/2017 STANLEY BARRY DO S Ot C50.912 MALIGNANT NEOPLASM OF UNSPECIFIED SITE O 07/24/2017 ELIANA VALENZUELA MD Ot E78.2 MIXED HYPERLIPIDEMIA 07/24/2017 ELIANA VALENZUELA MD Ot I10 ESSENTIAL (PRIMARY) HYPERTENSION 07/24/2017 ELIANA VALENZUELA MD Ot I48.0 PAROXYSMAL ATRIAL FIBRILLATION 07/24/2017 ELIANA VALENZUELA MD Ot I49.5 SICK SINUS SYNDROME 07/24/2017 ELIANA VALENZUELA MD Ot R00.2 PALPITATIONS 07/24/2017 YAIMA CONNORS Ot 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 07/24/2017 YAIMA CONNORS Ot R16.0 HEPATOMEGALY, NOT ELSEWHERE CLASSIFIED 07/24/2017 ELIANA VALENZUELA MD Ot I10 ESSENTIAL (PRIMARY) HYPERTENSION 07/24/2017 ELIANA VALENZUELA MD Ot I48.0 PAROXYSMAL ATRIAL FIBRILLATION 07/24/2017 LUZ CHEN SUPERVISOR ANODIZING Ot 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 07/24/2017 LUZ CHEN SUPERVISOR ANODIZING Ot I10 ESSENTIAL (PRIMARY) HYPERTENSION 07/24/2017 LUZ CHEN SUPERVISOR ANODIZING Ot I48.91 UNSPECIFIED ATRIAL FIBRILLATION 07/24/2017 LUZ CHEN SUPERVISOR ANODIZING Ot Z79.899 OTHER SALES COMMISSIONS ANALYST (CURRENT) DRUG THERAPY 07/24/2017 LUZ CHEN SUPERVISOR ANODIZING Ot Z90.710 ACQUIRED ABSENCE OF BOTH CERVIX AND UTER 07/24/2017 LUZ CHEN SUPERVISOR ANODIZING Ot 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 07/24/2017 LUZ CHEN SUPERVISOR ANODIZING Ot 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11 RIGHT UPPER QUADRANT PAIN 07/24/2017 MARISSA HERNADEZ ROLLER PRINT TENDER Ot R19.7 DIARRHEA, UNSPECIFIED 07/24/2017 ELIANA VALENZUELA MD Ot E78.5 HYPERLIPIDEMIA, UNSPECIFIED 07/24/2017 ELIANA VALENZUELA MD Ot I10 ESSENTIAL (PRIMARY) HYPERTENSION 07/24/2017 ELIANA VALENZUELA MD Ot I48.0 PAROXYSMAL ATRIAL FIBRILLATION 07/24/2017 ELIANA VALENZUELA MD Ot I49.5 SICK SINUS SYNDROME 07/24/2017 ELIANA VALENZUELA MD Ot Z79.899 OTHER SALES COMMISSIONS ANALYST (CURRENT) DRUG THERAPY 07/24/2017 ELIANA VALENZUELA MD Ot Z85.3 PERSONAL HISTORY OF MALIGNANT NEOPLASM O 07/24/2017 ELIANA VALENZUELA MD Ot Z90.5 ACQUIRED ABSENCE OF KIDNEY 07/24/2017 ELIANA VALENZUELA MD Ot Z92.3 PERSONAL HISTORY OF IRRADIATION 07/30/2017 ORENDER DO, STANLEY S Ot C50.912 MALIGNANT NEOPLASM OF UNSPECIFIED SITE O 07/30/2017 ORENDER DO, STANLEY S Ot E78.5 HYPERLIPIDEMIA, UNSPECIFIED 07/30/2017 ORENDER DO, STANLEY S Ot F41.9 ANXIETY DISORDER, UNSPECIFIED 07/30/2017 ORENDER DO, STANLEY S Ot I10 ESSENTIAL (PRIMARY) HYPERTENSION 07/30/2017 ORENDER DO, STANLEY S Ot I47.1 SUPRAVENTRICULAR TACHYCARDIA 07/30/2017 ORENDER DO, STANLEY S Ot I48.0 PAROXYSMAL ATRIAL FIBRILLATION 07/30/2017 ORENDER DO, STANLEY S Ot I48.92 UNSPECIFIED ATRIAL FLUTTER 07/30/2017 ORENDER DO, STANLEY S Ot I49.5 SICK SINUS SYNDROME 07/30/2017 ORENDER DO, STANLEY S Ot 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 07/30/2017 ORENDER DO, STANLEY S Ot J30.2 OTHER SEASONAL ALLERGIC RHINITIS 07/30/2017 KALLINDER DO, STANLEY S Ot R00.1 BRADYCARDIA, UNSPECIFIED 07/30/2017 ORENDER DO, STANLEY S Ot Z90.5 ACQUIRED ABSENCE OF KIDNEY 07/30/2017 ORENDER DO, STANLEY S Ot C50.912 MALIGNANT NEOPLASM OF UNSPECIFIED SITE O 07/30/2017 ORENDER DO, STANLEY S Ot E78.5 HYPERLIPIDEMIA, UNSPECIFIED 07/30/2017 ORENDER DO, STANLEY S Ot F41.9 ANXIETY DISORDER, UNSPECIFIED 07/30/2017 ORENDER DO, STANLEY S Ot I10 ESSENTIAL (PRIMARY) HYPERTENSION 07/30/2017 ORENDER DO, STANLEY S Ot I47.1 SUPRAVENTRICULAR TACHYCARDIA 07/30/2017 ORENDER DO, STANLEY S Ot I48.0 PAROXYSMAL ATRIAL FIBRILLATION 07/30/2017 ORENDER DO, STANLEY S Ot I48.92 UNSPECIFIED ATRIAL FLUTTER 07/30/2017 ORENDER DO, STANLEY S Ot I49.5 SICK SINUS SYNDROME 07/30/2017 ORENDER DO, STANLEY S Ot 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 07/30/2017 ORENDER DO, STANLEY S Ot J30.2 OTHER SEASONAL ALLERGIC RHINITIS 07/30/2017 JHONNY CONRAD, STANLEY S Ot R00.1 BRADYCARDIA, UNSPECIFIED 07/30/2017 KALLINDER AMBERLY CONRADLINE S Ot Z79.01 FPC (CURRENT) USE OF ANTICOAGULANT 07/30/2017 AMBERLY BARRY DOLINE S Ot Z90.5 ACQUIRED ABSENCE OF KIDNEY 10/03/2017 DORYYAIMA ANDRADE N Ot 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 10/03/2017 DORY, BOBAN N Ot I10 ESSENTIAL (PRIMARY) HYPERTENSION 10/03/2017 DORYYAIMA ANDRADE N Ot I48.91 UNSPECIFIED ATRIAL FIBRILLATION 10/03/2017 DORYYAIMA ANDRADE N Ot Z79.899 OTHER FPC (CURRENT) DRUG THERAPY 10/03/2017 DORY, BOBAN N Ot Z90.710 ACQUIRED ABSENCE OF BOTH CERVIX AND UTER 10/24/2017 DORYYAIMA ANDRADE N Ot 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 10/24/2017 DORY BOBAN N Ot I10 ESSENTIAL (PRIMARY) HYPERTENSION 10/24/2017 DORY BOBAN N Ot I48.91 UNSPECIFIED ATRIAL FIBRILLATION 10/24/2017 DORYJESUS MANUELAN N Ot Z79.899 OTHER SALES COMMISSIONS ANALYST (CURRENT) DRUG THERAPY 10/24/2017 DORY BOBAN N Ot Z90.710 ACQUIRED ABSENCE OF BOTH CERVIX AND UTER 12/04/2017 DORYYAIMA ANDRADE N Ot 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 12/04/2017 DORY BOBAN N Ot I10 ESSENTIAL (PRIMARY) HYPERTENSION 12/04/2017 DORY BOBAN N Ot I48.91 UNSPECIFIED ATRIAL FIBRILLATION 12/04/2017 DORYYAIMA N Ot Z79.899 OTHER SALES COMMISSIONS ANALYST (CURRENT) DRUG THERAPY 12/04/2017 DORYYAIMA N Ot Z90.710 ACQUIRED ABSENCE OF BOTH CERVIX AND UTER 12/04/2017 ELIANA VALENZUELA MD Ot I10 ESSENTIAL (PRIMARY) HYPERTENSION 12/04/2017 ELIANA VALENZUELA MD Ot I48.0 PAROXYSMAL ATRIAL FIBRILLATION 12/04/2017 ELIANA VALENZUELA MD Ot R00.2 PALPITATIONS 12/04/2017 ANTONI GONZALEZ Ot E78.2 MIXED HYPERLIPIDEMIA 12/04/2017 ANTONI GONZALEZ Ot I10 ESSENTIAL (PRIMARY) HYPERTENSION 12/04/2017 ANTONI GONZALEZ Ot I48.0 PAROXYSMAL ATRIAL FIBRILLATION 12/04/2017 ANTONI GONZALEZ Ot R00.2 PALPITATIONS 12/04/2017 JAVY ZHONG SUPERVISOR ANODIZING Ot N63 UNSPECIFIED LUMP IN BREAST 12/04/2017 STANLEY BARRY DO S Ot N63 UNSPECIFIED LUMP IN BREAST 12/04/2017 STANLEY BARRY DO S Ot C50.912 MALIGNANT NEOPLASM OF UNSPECIFIED SITE O 12/04/2017 BIANCA RUDOLPH, ELIANA Colmenares Ot E78.2 MIXED HYPERLIPIDEMIA 12/04/2017 BIANCA RUDOLPH, ELIANA Colmenares Ot I10 ESSENTIAL (PRIMARY) HYPERTENSION 12/04/2017 ELIANA VALENZUELA MD Ot I48.0 PAROXYSMAL ATRIAL FIBRILLATION 12/04/2017 ELIANA VALENZUELA MD Ot I49.5 SICK SINUS SYNDROME 12/04/2017 ELIANA VALENZUELA MD Ot R00.2 PALPITATIONS 12/04/2017 YAIMA CONNORS Ot 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 12/04/2017 YAIMA CONNORS Ot R16.0 HEPATOMEGALY, NOT ELSEWHERE CLASSIFIED 12/04/2017 ELIANA VALENZUELA MD Ot I10 ESSENTIAL (PRIMARY) HYPERTENSION 12/04/2017 ELIANA VALENZUELA MD Ot I48.0 PAROXYSMAL ATRIAL FIBRILLATION 12/04/2017 LUZ CHEN SUPERVISOR ANODIZING Ot 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 12/04/2017 LUZ CHEN SUPERVISOR ANODIZING Ot I10 ESSENTIAL (PRIMARY) HYPERTENSION 12/04/2017 LUZ CHEN SUPERVISOR ANODIZING Ot I48.91 UNSPECIFIED ATRIAL FIBRILLATION 12/04/2017 LUZ CHEN SUPERVISOR ANODIZING Ot Z79.899 OTHER SALES COMMISSIONS ANALYST (CURRENT) DRUG THERAPY 12/04/2017 LUZ CHEN SUPERVISOR ANODIZING Ot Z90.710 ACQUIRED ABSENCE OF BOTH CERVIX AND UTER 12/04/2017 LUZ CHEN SUPERVISOR ANODIZING Ot 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 12/04/2017 LUZ CHEN SUPERVISOR ANODIZING Ot 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 12/04/2017 ELIANA VALENZUELA MD Ot 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 12/04/2017 ELIANA VALENZUELA MD Ot E78.2 MIXED HYPERLIPIDEMIA 12/04/2017 ELIANA VALENZUELA MD Ot I48.0 PAROXYSMAL ATRIAL FIBRILLATION 12/04/2017 ELIANA VALENZULEA MD Ot R00.2 PALPITATIONS 12/04/2017 ELIANA VALENZUELA MD Ot 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 12/04/2017 ELIANA VALENZUELA MD Ot E78.2 MIXED HYPERLIPIDEMIA 12/04/2017 ELIANA VALENZUELA MD Ot I48.0 PAROXYSMAL ATRIAL FIBRILLATION 12/04/2017 ELIANA VALENZUELA MD Ot R00.2 PALPITATIONS 12/04/2017 MARISSA HERNADEZ ROLLER PRINT TENDER Ot R10.11 RIGHT UPPER QUADRANT PAIN 12/04/2017 MARISSA HERNADEZ ROLLER PRINT TENDER Ot R19.7 DIARRHEA, UNSPECIFIED 12/04/2017 ELIANA VALENZUELA MD Ot E78.5 HYPERLIPIDEMIA, UNSPECIFIED 12/04/2017 ELIANA VALENZUELA MD Ot I10 ESSENTIAL (PRIMARY) HYPERTENSION 12/04/2017 ELIANA VALENZUELA MD Ot I48.0 PAROXYSMAL ATRIAL FIBRILLATION 12/04/2017 ELIANA VALENZUELA MD Ot I49.5 SICK SINUS SYNDROME 12/04/2017 ELIANA VALENZUELA MD Ot Z79.899 OTHER SALES COMMISSIONS ANALYST (CURRENT) DRUG THERAPY 12/04/2017 ELIANA VALENZUELA MD Ot Z85.3 PERSONAL HISTORY OF MALIGNANT NEOPLASM O 12/04/2017 ELIANA VALENZUELA MD Ot Z90.5 ACQUIRED ABSENCE OF KIDNEY 12/04/2017 ELIANA VALENZUELA MD Ot Z92.3 PERSONAL HISTORY OF IRRADIATION 12/04/2017 YAIMA CONNORS Ot 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 12/04/2017 YAIMA CONNORS Ot I10 ESSENTIAL (PRIMARY) HYPERTENSION 12/04/2017 YAIMA CONNORS Ot I48.91 UNSPECIFIED ATRIAL FIBRILLATION 12/04/2017 YAIMA CONNORS Ot Z79.899 OTHER FPC (CURRENT) DRUG THERAPY 12/04/2017 YAIMA CONNORS Ot Z90.710 ACQUIRED ABSENCE OF BOTH CERVIX AND UTER 12/11/2017 YAIMA CONNORS Ot 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 12/11/2017 YAIMA CONNORS N Ot I10 ESSENTIAL (PRIMARY) HYPERTENSION 12/11/2017 YAIMA CONNORS N Ot I48.91 UNSPECIFIED ATRIAL FIBRILLATION 12/11/2017 YAIMA CONNORS N Ot Z79.899 OTHER SALES COMMISSIONS ANALYST (CURRENT) DRUG THERAPY 12/11/2017 YAIMA CONNORS N Ot Z90.710 ACQUIRED ABSENCE OF BOTH CERVIX AND UTER 12/31/2017 YAIMA CONNORS Ot 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 12/31/2017 YAIMA CONNORS N Ot I10 ESSENTIAL (PRIMARY) HYPERTENSION 12/31/2017 DORYYAIMA ANDRADE N Ot I48.91 UNSPECIFIED ATRIAL FIBRILLATION 12/31/2017 YAIMA CONNORS N Ot Z79.899 OTHER SALES COMMISSIONS ANALYST (CURRENT) DRUG THERAPY 12/31/2017 YAIMA CONNORS N Ot Z90.710 ACQUIRED ABSENCE OF BOTH CERVIX AND UTER 01/01/2018 YAIMA CONNORS N Ot 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 01/01/2018 YAIMA CONNORS N Ot I10 ESSENTIAL (PRIMARY) HYPERTENSION 01/01/2018 YAIMA CONNORS N Ot I48.91 UNSPECIFIED ATRIAL FIBRILLATION 01/01/2018 YAIMA CONNORS N Ot Z79.899 OTHER SALES COMMISSIONS ANALYST (CURRENT) DRUG THERAPY 01/01/2018 YAIMA CONNORS N Ot Z90.710 ACQUIRED ABSENCE OF BOTH CERVIX AND UTER Procedures Code Description Performed By Performed On 17.42 Laparoscopic robotic assisted procedure 05/31/2015 [id number] INSERTION OF PACEMAKER LEAD INTO RIGHT A 07/28/2017 [id number] INSERTION OF PACEMAKER LEAD INTO R VENTR 07/28/2017 [id number] INSERT PACE. DUAL LEXIE IN CHEST SUBCU/FA 07/28/2017 [id number] REMOVE OF MONITOR DEV FROM TRUNK SUBCU/F 07/28/2017 Results Test Result Range UA - 06/13/14 00:00 PH 7.0 4.5-8.0 SG 1.015 1.003-1.035 UABILI NEGATIVE UABLD 3+ UACOLOR YEL UAGLU TRACE UAKET NEGATIVE UALEUK 3+ UANIT POSITIVE UAURO 1.0 0-0.2 CLARITY CLD PROTEIN 2+ UA WBC TNTC UA RBC TNTC SQUAMOUS EPITHELIAL CELLS 1+ BACTERIA 2+ YEAST 1+ Complete blood count (CBC) with automated white blood cell (WBC) differential - 06/30/16 14:15 Blood leukocytes automated count (number/volume) 6.0 10*3/uL 4.3-11.0 Blood erythrocytes automated count (number/volume) 4.97 10*6/uL 4.35-5.85 Venous blood hemoglobin measurement (mass/volume) 15.0 g/dL 11.5-16.0 Blood hematocrit (volume fraction) 45 % 35-52 Automated erythrocyte mean corpuscular volume 90 [foz_us] 80-99 Automated erythrocyte mean corpuscular hemoglobin (mass per erythrocyte) 30 pg 25-34 Automated erythrocyte mean corpuscular hemoglobin concentration measurement ( mass/volume) 34 g/dL 32-36 Automated erythrocyte distribution width ratio 14.3 % 10.0-14.5 Automated blood platelet count (count/volume) 342 10*3/uL 130-400 Automated blood platelet mean volume measurement 9.7 [foz_us] 7.4-10.4 Automated blood neutrophils/100 leukocytes 59 % 42-75 Automated blood lymphocytes/100 leukocytes 29 % 12-44 Blood monocytes/100 leukocytes 8 % 0-12 Automated blood eosinophils/100 leukocytes 3 % 0-10 Automated blood basophils/100 leukocytes 1 % 0-10 Blood neutrophils automated count (number/volume) 3.5 10*3 1.8-7.8 Blood lymphocytes automated count (number/volume) 1.7 10*3 1.0-4.0 Blood monocytes automated count (number/volume) 0.5 10*3 0.0-1.0 Automated eosinophil count 0.2 10*3/uL 0.0-0.3 Automated blood basophil count (count/volume) 0.1 10*3/uL 0.0-0.1 Erythrocyte sedimentation rate by westergren method - 06/30/16 14:15 Erythrocyte sedimentation rate by westergren method 2 mm 0-30 Comprehensive metabolic panel - 06/30/16 14:30 Serum or plasma sodium measurement (moles/volume) 139 mmol/L 135-145 Serum or plasma potassium measurement (moles/volume) 4.1 mmol/L 3.6-5.0 Serum or plasma chloride measurement (moles/volume) 107 mmol/L 98-107 Carbon dioxide 22 mmol/L 21-32 Serum or plasma anion gap determination (moles/volume) 10 mmol/L 5-14 Serum or plasma urea nitrogen measurement (mass/volume) 8 mg/dL 7-18 Serum or plasma creatinine measurement (mass/volume) 0.80 mg/dL 0.60-1.30 Serum or plasma urea nitrogen/creatinine mass ratio 10 NRG Serum or plasma creatinine measurement with calculation of estimated glomerular filtration rate > NRG Serum or plasma glucose measurement (mass/volume) 85 mg/dL 70-105 Serum or plasma calcium measurement (mass/volume) 8.8 mg/dL 8.5-10.1 Serum or plasma total bilirubin measurement (mass/volume) 0.5 mg/dL 0.1-1.0 Serum or plasma alkaline phosphatase measurement (enzymatic activity/volume) 74 U/L 40-136 Serum or plasma aspartate aminotransferase measurement (enzymatic activity/ volume) 12 U/L 5-34 Serum or plasma alanine aminotransferase measurement (enzymatic activity/volume ) 8 U/L 0-55 Serum or plasma protein measurement (mass/volume) 6.4 g/dL 6.4-8.2 Serum or plasma albumin measurement (mass/volume) 4.1 g/dL 3.2-4.5 Lipase - 06/30/16 14:30 Lipase 11 U/L 8-78 Complete blood count (CBC) with automated white blood cell (WBC) differential - 07/12/16 12:51 Blood leukocytes automated count (number/volume) 6.9 10*3/uL 4.3-11.0 Blood erythrocytes automated count (number/volume) 4.83 10*6/uL 4.35-5.85 Venous blood hemoglobin measurement (mass/volume) 14.4 g/dL 11.5-16.0 Blood hematocrit (volume fraction) 43 % 35-52 Automated erythrocyte mean corpuscular volume 90 [foz_us] 80-99 Automated erythrocyte mean corpuscular hemoglobin (mass per erythrocyte) 30 pg 25-34 Automated erythrocyte mean corpuscular hemoglobin concentration measurement ( mass/volume) 33 g/dL 32-36 Automated erythrocyte distribution width ratio 14.1 % 10.0-14.5 Automated blood platelet count (count/volume) 315 10*3/uL 130-400 Automated blood platelet mean volume measurement 9.4 [foz_us] 7.4-10.4 Automated blood neutrophils/100 leukocytes 62 % 42-75 Automated blood lymphocytes/100 leukocytes 27 % 12-44 Blood monocytes/100 leukocytes 9 % 0-12 Automated blood eosinophils/100 leukocytes 1 % 0-10 Automated blood basophils/100 leukocytes 1 % 0-10 Blood neutrophils automated count (number/volume) 4.3 10*3 1.8-7.8 Blood lymphocytes automated count (number/volume) 1.9 10*3 1.0-4.0 Blood monocytes automated count (number/volume) 0.6 10*3 0.0-1.0 Automated eosinophil count 0.1 10*3/uL 0.0-0.3 Automated blood basophil count (count/volume) 0.1 10*3/uL 0.0-0.1 Comprehensive metabolic panel - 07/12/16 12:51 Serum or plasma sodium measurement (moles/volume) 136 mmol/L 135-145 Serum or plasma potassium measurement (moles/volume) 3.9 mmol/L 3.6-5.0 Serum or plasma chloride measurement (moles/volume) 103 mmol/L 98-107 Carbon dioxide 22 mmol/L 21-32 Serum or plasma anion gap determination (moles/volume) 11 mmol/L 5-14 Serum or plasma urea nitrogen measurement (mass/volume) 8 mg/dL 7-18 Serum or plasma creatinine measurement (mass/volume) 0.95 mg/dL 0.60-1.30 Serum or plasma urea nitrogen/creatinine mass ratio 8 NRG Serum or plasma creatinine measurement with calculation of estimated glomerular filtration rate 58 NRG Serum or plasma glucose measurement (mass/volume) 98 mg/dL 70-105 Serum or plasma calcium measurement (mass/volume) 9.3 mg/dL 8.5-10.1 Serum or plasma total bilirubin measurement (mass/volume) 0.4 mg/dL 0.1-1.0 Serum or plasma alkaline phosphatase measurement (enzymatic activity/volume) 61 U/L 40-136 Serum or plasma aspartate aminotransferase measurement (enzymatic activity/ volume) 24 U/L 5-34 Serum or plasma alanine aminotransferase measurement (enzymatic activity/volume ) 19 U/L 0-55 Serum or plasma protein measurement (mass/volume) 6.3 g/dL 6.4-8.2 Serum or plasma albumin measurement (mass/volume) 4.1 g/dL 3.2-4.5 Magnesium - 07/12/16 12:51 Magnesium 2.1 mg/dL 1.8-2.4 Complete blood count (CBC) with automated white blood cell (WBC) differential - 06/23/17 02:55 Blood leukocytes automated count (number/volume) 10.5 10*3/uL 4.3-11.0 Blood erythrocytes automated count (number/volume) 4.85 10*6/uL 4.35-5.85 Venous blood hemoglobin measurement (mass/volume) 14.2 g/dL 11.5-16.0 Blood hematocrit (volume fraction) 43 % 35-52 Automated erythrocyte mean corpuscular volume 89 [foz_us] 80-99 Automated erythrocyte mean corpuscular hemoglobin (mass per erythrocyte) 29 pg 25-34 Automated erythrocyte mean corpuscular hemoglobin concentration measurement ( mass/volume) 33 g/dL 32-36 Automated erythrocyte distribution width ratio 14.0 % 10.0-14.5 Automated blood platelet count (count/volume) 358 10*3/uL 130-400 Automated blood platelet mean volume measurement 9.5 [foz_us] 7.4-10.4 Automated blood neutrophils/100 leukocytes 56 % 42-75 Automated blood lymphocytes/100 leukocytes 36 % 12-44 Blood monocytes/100 leukocytes 6 % 0-12 Automated blood eosinophils/100 leukocytes 2 % 0-10 Automated blood basophils/100 leukocytes 1 % 0-10 Blood neutrophils automated count (number/volume) 5.9 10*3 1.8-7.8 Blood lymphocytes automated count (number/volume) 3.7 10*3 1.0-4.0 Blood monocytes automated count (number/volume) 0.6 10*3 0.0-1.0 Automated eosinophil count 0.2 10*3/uL 0.0-0.3 Automated blood basophil count (count/volume) 0.1 10*3/uL 0.0-0.1 Comprehensive metabolic panel - 06/23/17 02:55 Serum or plasma sodium measurement (moles/volume) 139 mmol/L 135-145 Serum or plasma potassium measurement (moles/volume) 3.7 mmol/L 3.6-5.0 Serum or plasma chloride measurement (moles/volume) 104 mmol/L 98-107 Carbon dioxide 19 mmol/L 21-32 Serum or plasma anion gap determination (moles/volume) 16 mmol/L 5-14 Serum or plasma urea nitrogen measurement (mass/volume) 18 mg/dL 7-18 Serum or plasma creatinine measurement (mass/volume) 0.86 mg/dL 0.60-1.30 Serum or plasma urea nitrogen/creatinine mass ratio 21 NRG Serum or plasma creatinine measurement with calculation of estimated glomerular filtration rate > NRG Serum or plasma glucose measurement (mass/volume) 148 mg/dL 70-105 Serum or plasma calcium measurement (mass/volume) 9.7 mg/dL 8.5-10.1 Serum or plasma total bilirubin measurement (mass/volume) 0.4 mg/dL 0.1-1.0 Serum or plasma alkaline phosphatase measurement (enzymatic activity/volume) 102 U/L 40-136 Serum or plasma aspartate aminotransferase measurement (enzymatic activity/ volume) 18 U/L 5-34 Serum or plasma alanine aminotransferase measurement (enzymatic activity/volume ) 9 U/L 0-55 Serum or plasma protein measurement (mass/volume) 7.9 g/dL 6.4-8.2 Serum or plasma albumin measurement (mass/volume) 4.6 g/dL 3.2-4.5 Magnesium - 06/23/17 02:55 Magnesium 2.4 mg/dL 1.8-2.4 Serum or plasma troponin i.cardiac measurement (mass/volume) - 06/23/17 02:55 Serum or plasma troponin i.cardiac measurement (mass/volume) < ng/ mL <0.30 Serum or plasma thyrotropin measurement by detection limit <=0.05 miu/l (units/ volume) - 06/23/17 02:55 Serum or plasma thyrotropin measurement by detection limit <=0.05 miu/l (units/ volume) 2.72 u[iU]/mL 0.35-4.94 Complete blood count (CBC) with automated white blood cell (WBC) differential - 07/24/17 19:00 Blood leukocytes automated count (number/volume) 9.5 10*3/uL 4.3-11.0 Blood erythrocytes automated count (number/volume) 4.72 10*6/uL 4.35-5.85 Venous blood hemoglobin measurement (mass/volume) 14.1 g/dL 11.5-16.0 Blood hematocrit (volume fraction) 43 % 35-52 Automated erythrocyte mean corpuscular volume 90 [foz_us] 80-99 Automated erythrocyte mean corpuscular hemoglobin (mass per erythrocyte) 30 pg 25-34 Automated erythrocyte mean corpuscular hemoglobin concentration measurement ( mass/volume) 33 g/dL 32-36 Automated erythrocyte distribution width ratio 14.1 % 10.0-14.5 Automated blood platelet count (count/volume) 353 10*3/uL 130-400 Automated blood platelet mean volume measurement 9.4 [foz_us] 7.4-10.4 Automated blood neutrophils/100 leukocytes 61 % 42-75 Automated blood lymphocytes/100 leukocytes 29 % 12-44 Blood monocytes/100 leukocytes 8 % 0-12 Automated blood eosinophils/100 leukocytes 3 % 0-10 Automated blood basophils/100 leukocytes 1 % 0-10 Blood neutrophils automated count (number/volume) 5.8 10*3 1.8-7.8 Blood lymphocytes automated count (number/volume) 2.7 10*3 1.0-4.0 Blood monocytes automated count (number/volume) 0.7 10*3 0.0-1.0 Automated eosinophil count 0.3 10*3/uL 0.0-0.3 Automated blood basophil count (count/volume) 0.1 10*3/uL 0.0-0.1 PT panel in platelet poor plasma by coagulation assay - 07/24/17 19:00 Prothrombin time (PT) in platelet poor plasma by coagulation assay 15.1 s 12.2-14.7 INR in platelet poor plasma or blood by coagulation assay 1.2 0.8-1.4 Activated partial thromboplastin time (aPTT) in platelet poor plasma bycoagulation assay - 07/24/17 19:00 Activated partial thromboplastin time (aPTT) in platelet poor plasma bycoagulation assay 28 s 24-35 Comprehensive metabolic panel - 07/24/17 19:00 Serum or plasma sodium measurement (moles/volume) 139 mmol/L 135-145 Serum or plasma potassium measurement (moles/volume) 4.0 mmol/L 3.6-5.0 Serum or plasma chloride measurement (moles/volume) 104 mmol/L 98-107 Carbon dioxide 27 mmol/L 21-32 Serum or plasma anion gap determination (moles/volume) 8 mmol/L 5-14 Serum or plasma urea nitrogen measurement (mass/volume) 12 mg/dL 7-18 Serum or plasma creatinine measurement (mass/volume) 0.89 mg/dL 0.60-1.30 Serum or plasma urea nitrogen/creatinine mass ratio 13 NRG Serum or plasma creatinine measurement with calculation of estimated glomerular filtration rate > NRG Serum or plasma glucose measurement (mass/volume) 96 mg/dL 70-105 Serum or plasma calcium measurement (mass/volume) 9.7 mg/dL 8.5-10.1 Serum or plasma total bilirubin measurement (mass/volume) 0.3 mg/dL 0.1-1.0 Serum or plasma alkaline phosphatase measurement (enzymatic activity/volume) 85 U/L 40-136 Serum or plasma aspartate aminotransferase measurement (enzymatic activity/ volume) 18 U/L 5-34 Serum or plasma alanine aminotransferase measurement (enzymatic activity/volume ) 8 U/L 0-55 Serum or plasma protein measurement (mass/volume) 7.7 g/dL 6.4-8.2 Serum or plasma albumin measurement (mass/volume) 4.4 g/dL 3.2-4.5 Magnesium - 07/24/17 19:00 Magnesium 2.4 mg/dL 1.8-2.4 Serum or plasma troponin i.cardiac measurement (mass/volume) - 07/24/17 19:00 Serum or plasma troponin i.cardiac measurement (mass/volume) < ng/ mL <0.30 Myoglobin, serum - 07/24/17 19:00 Myoglobin, serum 49.7 ng/mL 10.0-92.0 Serum or plasma thyrotropin measurement by detection limit <=0.05 miu/l (units/ volume) - 07/24/17 19:00 Serum or plasma thyrotropin measurement by detection limit <=0.05 miu/l (units/ volume) 1.37 u[iU]/mL 0.35-4.94 Methicillin resistant Staphylococcus aureus (MRSA) screening culture - 20:36 Methicillin resistant Staphylococcus aureus (MRSA) screening culture NEG NRG Complete blood count (CBC) with automated white blood cell (WBC) differential - 07/25/17 05:00 Blood leukocytes automated count (number/volume) 6.8 10*3/uL 4.3-11.0 Blood erythrocytes automated count (number/volume) 4.26 10*6/uL 4.35-5.85 Venous blood hemoglobin measurement (mass/volume) 12.9 g/dL 11.5-16.0 Blood hematocrit (volume fraction) 39 % 35-52 Automated erythrocyte mean corpuscular volume 91 [foz_us] 80-99 Automated erythrocyte mean corpuscular hemoglobin (mass per erythrocyte) 30 pg 25-34 Automated erythrocyte mean corpuscular hemoglobin concentration measurement ( mass/volume) 33 g/dL 32-36 Automated erythrocyte distribution width ratio 14.3 % 10.0-14.5 Automated blood platelet count (count/volume) 335 10*3/uL 130-400 Automated blood platelet mean volume measurement 9.5 [foz_us] 7.4-10.4 Automated blood neutrophils/100 leukocytes 57 % 42-75 Automated blood lymphocytes/100 leukocytes 28 % 12-44 Blood monocytes/100 leukocytes 11 % 0-12 Automated blood eosinophils/100 leukocytes 4 % 0-10 Automated blood basophils/100 leukocytes 1 % 0-10 Blood neutrophils automated count (number/volume) 3.8 10*3 1.8-7.8 Blood lymphocytes automated count (number/volume) 1.9 10*3 1.0-4.0 Blood monocytes automated count (number/volume) 0.7 10*3 0.0-1.0 Automated eosinophil count 0.3 10*3/uL 0.0-0.3 Automated blood basophil count (count/volume) 0.1 10*3/uL 0.0-0.1 Whole blood basic metabolic panel - 07/25/17 05:00 Serum or plasma sodium measurement (moles/volume) 142 mmol/L 135-145 Serum or plasma potassium measurement (moles/volume) 4.0 mmol/L 3.6-5.0 Serum or plasma chloride measurement (moles/volume) 109 mmol/L 98-107 Carbon dioxide 24 mmol/L 21-32 Serum or plasma anion gap determination (moles/volume) 9 mmol/L 5-14 Serum or plasma urea nitrogen measurement (mass/volume) 10 mg/dL 7-18 Serum or plasma creatinine measurement (mass/volume) 0.74 mg/dL 0.60-1.30 Serum or plasma urea nitrogen/creatinine mass ratio 14 NRG Serum or plasma creatinine measurement with calculation of estimated glomerular filtration rate > NRG Serum or plasma glucose measurement (mass/volume) 93 mg/dL 70-105 Serum or plasma calcium measurement (mass/volume) 9.0 mg/dL 8.5-10.1 Serum or plasma phosphate measurement (mass/volume) - 07/25/17 05:00 Serum or plasma phosphate measurement (mass/volume) 3.4 mg/dL 2.3-4.7 Magnesium - 07/25/17 05:00 Magnesium 2.3 mg/dL 1.8-2.4 Lipid 1996 panel - 07/25/17 05:00 Serum or plasma triglyceride measurement (mass/volume) 71 mg/dL <150 Serum or plasma cholesterol measurement (mass/volume) 168 mg/dL < 200 Serum or plasma cholesterol in HDL measurement (mass/volume) 54 mg/ dL 40-60 Cholesterol in LDL [mass/volume] in serum or plasma by direct assay 97 mg/dL 1-129 Serum or plasma cholesterol in VLDL measurement (mass/volume) 14 mg/ dL 5-40 Whole blood basic metabolic panel - 07/26/17 04:25 Serum or plasma sodium measurement (moles/volume) 141 mmol/L 135-145 Serum or plasma potassium measurement (moles/volume) 4.1 mmol/L 3.6-5.0 Serum or plasma chloride measurement (moles/volume) 111 mmol/L 98-107 Carbon dioxide 21 mmol/L 21-32 Serum or plasma anion gap determination (moles/volume) 9 mmol/L 5-14 Serum or plasma urea nitrogen measurement (mass/volume) 9 mg/dL 7-18 Serum or plasma creatinine measurement (mass/volume) 0.69 mg/dL 0.60-1.30 Serum or plasma urea nitrogen/creatinine mass ratio 13 NRG Serum or plasma creatinine measurement with calculation of estimated glomerular filtration rate > NRG Serum or plasma glucose measurement (mass/volume) 86 mg/dL 70-105 Serum or plasma calcium measurement (mass/volume) 8.5 mg/dL 8.5-10.1 Serum or plasma phosphate measurement (mass/volume) - 07/26/17 04:25 Serum or plasma phosphate measurement (mass/volume) 3.2 mg/dL 2.3-4.7 Magnesium - 07/26/17 04:25 Magnesium 2.1 mg/dL 1.8-2.4 Complete blood count (CBC) with automated white blood cell (WBC) differential - 07/26/17 04:25 Blood leukocytes automated count (number/volume) 6.5 10*3/uL 4.3-11.0 Blood erythrocytes automated count (number/volume) 4.01 10*6/uL 4.35-5.85 Venous blood hemoglobin measurement (mass/volume) 11.9 g/dL 11.5-16.0 Blood hematocrit (volume fraction) 37 % 35-52 Automated erythrocyte mean corpuscular volume 92 [foz_us] 80-99 Automated erythrocyte mean corpuscular hemoglobin (mass per erythrocyte) 30 pg 25-34 Automated erythrocyte mean corpuscular hemoglobin concentration measurement ( mass/volume) 32 g/dL 32-36 Automated erythrocyte distribution width ratio 14.2 % 10.0-14.5 Automated blood platelet count (count/volume) 296 10*3/uL 130-400 Automated blood platelet mean volume measurement 10.0 [foz_us] 7.4-10.4 Automated blood neutrophils/100 leukocytes 52 % 42-75 Automated blood lymphocytes/100 leukocytes 31 % 12-44 Blood monocytes/100 leukocytes 10 % 0-12 Automated blood eosinophils/100 leukocytes 6 % 0-10 Automated blood basophils/100 leukocytes 1 % 0-10 Blood neutrophils automated count (number/volume) 3.4 10*3 1.8-7.8 Blood lymphocytes automated count (number/volume) 2.0 10*3 1.0-4.0 Blood monocytes automated count (number/volume) 0.6 10*3 0.0-1.0 Automated eosinophil count 0.4 10*3/uL 0.0-0.3 Automated blood basophil count (count/volume) 0.1 10*3/uL 0.0-0.1 Complete blood count (CBC) with automated white blood cell (WBC) differential - 07/27/17 04:17 Blood leukocytes automated count (number/volume) 6.0 10*3/uL 4.3-11.0 Blood erythrocytes automated count (number/volume) 3.92 10*6/uL 4.35-5.85 Venous blood hemoglobin measurement (mass/volume) 11.7 g/dL 11.5-16.0 Blood hematocrit (volume fraction) 36 % 35-52 Automated erythrocyte mean corpuscular volume 91 [foz_us] 80-99 Automated erythrocyte mean corpuscular hemoglobin (mass per erythrocyte) 30 pg 25-34 Automated erythrocyte mean corpuscular hemoglobin concentration measurement ( mass/volume) 33 g/dL 32-36 Automated erythrocyte distribution width ratio 13.9 % 10.0-14.5 Automated blood platelet count (count/volume) 293 10*3/uL 130-400 Automated blood platelet mean volume measurement 9.5 [foz_us] 7.4-10.4 Automated blood neutrophils/100 leukocytes 55 % 42-75 Automated blood lymphocytes/100 leukocytes 27 % 12-44 Blood monocytes/100 leukocytes 9 % 0-12 Automated blood eosinophils/100 leukocytes 8 % 0-10 Automated blood basophils/100 leukocytes 1 % 0-10 Blood neutrophils automated count (number/volume) 3.3 10*3 1.8-7.8 Blood lymphocytes automated count (number/volume) 1.6 10*3 1.0-4.0 Blood monocytes automated count (number/volume) 0.5 10*3 0.0-1.0 Automated eosinophil count 0.5 10*3/uL 0.0-0.3 Automated blood basophil count (count/volume) 0.1 10*3/uL 0.0-0.1 Whole blood basic metabolic panel - 07/27/17 04:17 Serum or plasma sodium measurement (moles/volume) 141 mmol/L 135-145 Serum or plasma potassium measurement (moles/volume) 3.6 mmol/L 3.6-5.0 Serum or plasma chloride measurement (moles/volume) 108 mmol/L 98-107 Carbon dioxide 24 mmol/L 21-32 Serum or plasma anion gap determination (moles/volume) 9 mmol/L 5-14 Serum or plasma urea nitrogen measurement (mass/volume) 8 mg/dL 7-18 Serum or plasma creatinine measurement (mass/volume) 0.65 mg/dL 0.60-1.30 Serum or plasma urea nitrogen/creatinine mass ratio 12 NRG Serum or plasma creatinine measurement with calculation of estimated glomerular filtration rate > NRG Serum or plasma glucose measurement (mass/volume) 97 mg/dL 70-105 Serum or plasma calcium measurement (mass/volume) 8.8 mg/dL 8.5-10.1 Serum or plasma phosphate measurement (mass/volume) - 07/27/17 04:17 Serum or plasma phosphate measurement (mass/volume) 3.4 mg/dL 2.3-4.7 Magnesium - 07/27/17 04:17 Magnesium 2.0 mg/dL 1.8-2.4 Complete blood count (CBC) with automated white blood cell (WBC) differential - 07/28/17 04:50 Blood leukocytes automated count (number/volume) 7.3 10*3/uL 4.3-11.0 Blood erythrocytes automated count (number/volume) 4.41 10*6/uL 4.35-5.85 Venous blood hemoglobin measurement (mass/volume) 13.1 g/dL 11.5-16.0 Blood hematocrit (volume fraction) 40 % 35-52 Automated erythrocyte mean corpuscular volume 91 [foz_us] 80-99 Automated erythrocyte mean corpuscular hemoglobin (mass per erythrocyte) 30 pg 25-34 Automated erythrocyte mean corpuscular hemoglobin concentration measurement ( mass/volume) 33 g/dL 32-36 Automated erythrocyte distribution width ratio 13.9 % 10.0-14.5 Automated blood platelet count (count/volume) 330 10*3/uL 130-400 Automated blood platelet mean volume measurement 9.8 [foz_us] 7.4-10.4 Automated blood neutrophils/100 leukocytes 61 % 42-75 Automated blood lymphocytes/100 leukocytes 27 % 12-44 Blood monocytes/100 leukocytes 7 % 0-12 Automated blood eosinophils/100 leukocytes 4 % 0-10 Automated blood basophils/100 leukocytes 1 % 0-10 Blood neutrophils automated count (number/volume) 4.4 10*3 1.8-7.8 Blood lymphocytes automated count (number/volume) 1.9 10*3 1.0-4.0 Blood monocytes automated count (number/volume) 0.5 10*3 0.0-1.0 Automated eosinophil count 0.3 10*3/uL 0.0-0.3 Automated blood basophil count (count/volume) 0.1 10*3/uL 0.0-0.1 Whole blood basic metabolic panel - 07/28/17 04:50 Serum or plasma sodium measurement (moles/volume) 141 mmol/L 135-145 Serum or plasma potassium measurement (moles/volume) 3.9 mmol/L 3.6-5.0 Serum or plasma chloride measurement (moles/volume) 108 mmol/L 98-107 Carbon dioxide 21 mmol/L 21-32 Serum or plasma anion gap determination (moles/volume) 12 mmol/L 5-14 Serum or plasma urea nitrogen measurement (mass/volume) 12 mg/dL 7-18 Serum or plasma creatinine measurement (mass/volume) 0.72 mg/dL 0.60-1.30 Serum or plasma urea nitrogen/creatinine mass ratio 17 NRG Serum or plasma creatinine measurement with calculation of estimated glomerular filtration rate > NRG Serum or plasma glucose measurement (mass/volume) 95 mg/dL 70-105 Serum or plasma calcium measurement (mass/volume) 9.3 mg/dL 8.5-10.1 Serum or plasma phosphate measurement (mass/volume) - 07/28/17 04:50 Serum or plasma phosphate measurement (mass/volume) 3.7 mg/dL 2.3-4.7 Magnesium - 07/28/17 04:50 Magnesium 2.2 mg/dL 1.8-2.4 Complete blood count (CBC) with automated white blood cell (WBC) differential - 07/29/17 04:45 Blood leukocytes automated count (number/volume) 7.6 10*3/uL 4.3-11.0 Blood erythrocytes automated count (number/volume) 4.37 10*6/uL 4.35-5.85 Venous blood hemoglobin measurement (mass/volume) 13.1 g/dL 11.5-16.0 Blood hematocrit (volume fraction) 40 % 35-52 Automated erythrocyte mean corpuscular volume 92 [foz_us] 80-99 Automated erythrocyte mean corpuscular hemoglobin (mass per erythrocyte) 30 pg 25-34 Automated erythrocyte mean corpuscular hemoglobin concentration measurement ( mass/volume) 33 g/dL 32-36 Automated erythrocyte distribution width ratio 14.2 % 10.0-14.5 Automated blood platelet count (count/volume) 262 10*3/uL 130-400 Automated blood platelet mean volume measurement 9.6 [foz_us] 7.4-10.4 Automated blood neutrophils/100 leukocytes 57 % 42-75 Automated blood lymphocytes/100 leukocytes 29 % 12-44 Blood monocytes/100 leukocytes 8 % 0-12 Automated blood eosinophils/100 leukocytes 5 % 0-10 Automated blood basophils/100 leukocytes 1 % 0-10 Blood neutrophils automated count (number/volume) 4.4 10*3 1.8-7.8 Blood lymphocytes automated count (number/volume) 2.2 10*3 1.0-4.0 Blood monocytes automated count (number/volume) 0.6 10*3 0.0-1.0 Automated eosinophil count 0.4 10*3/uL 0.0-0.3 Automated blood basophil count (count/volume) 0.1 10*3/uL 0.0-0.1 Comprehensive metabolic panel - 07/29/17 04:45 Serum or plasma sodium measurement (moles/volume) 139 mmol/L 135-145 Serum or plasma potassium measurement (moles/volume) 3.8 mmol/L 3.6-5.0 Serum or plasma chloride measurement (moles/volume) 107 mmol/L 98-107 Carbon dioxide 23 mmol/L 21-32 Serum or plasma anion gap determination (moles/volume) 9 mmol/L 5-14 Serum or plasma urea nitrogen measurement (mass/volume) 17 mg/dL 7-18 Serum or plasma creatinine measurement (mass/volume) 0.75 mg/dL 0.60-1.30 Serum or plasma urea nitrogen/creatinine mass ratio 23 NRG Serum or plasma creatinine measurement with calculation of estimated glomerular filtration rate > NRG Serum or plasma glucose measurement (mass/volume) 89 mg/dL 70-105 Serum or plasma calcium measurement (mass/volume) 8.9 mg/dL 8.5-10.1 Serum or plasma total bilirubin measurement (mass/volume) 0.4 mg/dL 0.1-1.0 Serum or plasma alkaline phosphatase measurement (enzymatic activity/volume) 78 U/L 40-136 Serum or plasma aspartate aminotransferase measurement (enzymatic activity/ volume) 11 U/L 5-34 Serum or plasma alanine aminotransferase measurement (enzymatic activity/volume ) < U/L 0-55 Serum or plasma protein measurement (mass/volume) 6.0 g/dL 6.4-8.2 Serum or plasma albumin measurement (mass/volume) 3.4 g/dL 3.2-4.5 Serum or plasma phosphate measurement (mass/volume) - 07/29/17 04:45 Serum or plasma phosphate measurement (mass/volume) 3.7 mg/dL 2.3-4.7 Magnesium - 07/29/17 04:45 Magnesium 2.0 mg/dL 1.8-2.4 Complete blood count (CBC) with automated white blood cell (WBC) differential - 07/30/17 05:45 Blood leukocytes automated count (number/volume) 7.5 10*3/uL 4.3-11.0 Blood erythrocytes automated count (number/volume) 3.88 10*6/uL 4.35-5.85 Venous blood hemoglobin measurement (mass/volume) 11.5 g/dL 11.5-16.0 Blood hematocrit (volume fraction) 36 % 35-52 Automated erythrocyte mean corpuscular volume 92 [foz_us] 80-99 Automated erythrocyte mean corpuscular hemoglobin (mass per erythrocyte) 30 pg 25-34 Automated erythrocyte mean corpuscular hemoglobin concentration measurement ( mass/volume) 32 g/dL 32-36 Automated erythrocyte distribution width ratio 14.1 % 10.0-14.5 Automated blood platelet count (count/volume) 288 10*3/uL 130-400 Automated blood platelet mean volume measurement 9.3 [foz_us] 7.4-10.4 Automated blood neutrophils/100 leukocytes 64 % 42-75 Automated blood lymphocytes/100 leukocytes 23 % 12-44 Blood monocytes/100 leukocytes 7 % 0-12 Automated blood eosinophils/100 leukocytes 5 % 0-10 Automated blood basophils/100 leukocytes 1 % 0-10 Blood neutrophils automated count (number/volume) 4.8 10*3 1.8-7.8 Blood lymphocytes automated count (number/volume) 1.7 10*3 1.0-4.0 Blood monocytes automated count (number/volume) 0.6 10*3 0.0-1.0 Automated eosinophil count 0.4 10*3/uL 0.0-0.3 Automated blood basophil count (count/volume) 0.1 10*3/uL 0.0-0.1 Whole blood basic metabolic panel - 07/30/17 05:45 Serum or plasma sodium measurement (moles/volume) 139 mmol/L 135-145 Serum or plasma potassium measurement (moles/volume) 4.0 mmol/L 3.6-5.0 Serum or plasma chloride measurement (moles/volume) 107 mmol/L 98-107 Carbon dioxide 23 mmol/L 21-32 Serum or plasma anion gap determination (moles/volume) 9 mmol/L 5-14 Serum or plasma urea nitrogen measurement (mass/volume) 11 mg/dL 7-18 Serum or plasma creatinine measurement (mass/volume) 0.65 mg/dL 0.60-1.30 Serum or plasma urea nitrogen/creatinine mass ratio 17 NRG Serum or plasma creatinine measurement with calculation of estimated glomerular filtration rate > NRG Serum or plasma glucose measurement (mass/volume) 99 mg/dL 70-105 Serum or plasma calcium measurement (mass/volume) 8.8 mg/dL 8.5-10.1 Serum or plasma phosphate measurement (mass/volume) - 07/30/17 05:45 Serum or plasma phosphate measurement (mass/volume) 2.8 mg/dL 2.3-4.7 Magnesium - 07/30/17 05:45 Magnesium 1.9 mg/dL 1.8-2.4 Encounters ACCT No. Visit Date/Time Discharge Status Pt. Type Provider Facility Loc./Unit Complaint [id number] 06/13/2014 09:58:00 06/14/2014 20:55:00 DIS Emergency LEMUEL JENKINS [facility] EMR [id number] 03/03/2014 16:00:00 03/03/2014 16:00:00 DIS Outpatient MIKEY AGEE [facility] RAD [id number] 09/12/2013 00:00:00 Document Registration 04/24/17 10/10/2017 09:40:19 10/10/2017 23:59:59 CLS Outpatient [id number] 06/21/2014 16:52:43 06/21/2014 23:59:59 CLS Outpatient Juan M Tipton [id number] 05/30/2015 11:17:00 06/01/2015 15:45:00 DIS Inpatient Arianna RUDOLPH, [facility] on [facility] [id number] right renal mass [id number] 09/07/2015 13:45:00 09/07/2015 17:45:00 DIS ROXANNE YING [facility] CL [id number] 09/07/2015 14:10:00 09/07/2015 15:10:00 DIS GERARDO YING [facility] OT [id number] 08/22/2015 23:27:00 08/24/2015 13:00:00 DIS OV STEPAN [facility] NS [id number] 08/20/2015 20:19:00 08/21/2015 12:02:00 DIS OV ANDREW [facility] NS [id number] 07/28/2015 14:15:00 07/28/2015 18[facility]15[id number]/11[facility]2015 11:00:00 07/11/2015 15:00:00 DIS CY STEPAN [facility] CL [id number] 07/09/2015 00:49:00 07/09/2015 13:50:00 DIS OV DALEMECHELLE [facility] NS [id number] 07/07/2015 10:30:00 07/07/2015 14:30:00 DIS CY STEPAN [facility] [id number] 06/09/2015 11:22:00 06/09/2015 [facility]22[id number]2015 11:00:00 06/09/2015 [facility]00[facility] [id number] 06/04/2015 12:45:00 06/06/2015 [facility]30[id number]/04/2015 10:45:00 06/04/2015 14:36:00 [id number]/02/2015 23:14:00 06/03/2015 01:00:00 [id number] 05/23/2015 11:16:00 05/23/2015 15:16:00 DIS OP STEPAN MARAL [id number] 05/23/2015 11:00:00 05/23/2015 15:00:00 DIS CY STEPAN [facility] [id number] 05/10/2015 16:15:00 05/10/2015 20:15:00 DIS CY STEPAN [facility] [id number] 05/03/2015 15:07:00 05/03/2015 19:07:00 DIS OP STEPAN [facility] OT [id number] 05/03/2015 14:45:00 05/03/2015 18:45:00 [facility] [id number] 04/26/2015 08:45:00 04/26/2015 12:45:00 DIS OP MARAL YING [id number] 04/25/2015 14:10:00 04/25/2015 18:10:00 DIS OP STEPAN [facility] OT [id number] 04/25/2015 14:00:00 04/25/2015 18:00:00 DIS CY STEPAN [facility] CL [id number] 04/12/2015 11:00:00 04/12/2015 15:00:00 DIS OP STEPAN [facility] OT [id number] 04/12/2015 10:45:00 04/12/2015 14:45:00 DIS CY STEPAN [facility] CL [id number] 08/31/2015 10:45:00 PEN PB ANDREW [facility] OT [id number] 08/23/2015 15:30:00 DIS PB [facility] OT [id number] 07/27/2015 10:45:00 PEN CY [id number] 07/09/2015 14:12:00 DIS PB DALE MECHELLE [facility] OT [id number] 07/09/2015 12:23:00 [facility] [id number] 06/04/2015 12:54:00 [facility] [id number] 05/10/2015 16:22:00 DIS OP STEPAN [facility] [id number] 03/15/2014 14:45:00 Document Registration [id number] 01/01/2018 00:40:00 01/01/2018 23:59:59 CLS Preadmit YAIMA CONNORS [facility] ONC [id number] 10/02/2017 12:38:00 12/31/2017 00:01:00 DIS Outpatient YAIMA CONNORS [facility] ONC [id number] 07/24/2017 19:33:00 07/30/2017 13:32:00 DIS Inpatient STANLEY BARRY DO [facility] ICU AFIB BRADYCARDIA [id number] 07/01/2017 13:23:00 07/10/2017 09:09:00 DIS Outpatient YAIMA CONNORS [facility] ONC [id number] 07/08/2017 17:37:00 07/08/2017 23:59:59 CLS Preadmit ANTONI GONZALEZ Jerardo [facility] RAD I10 [id number] 06/23/2017 02:51:00 06/23/2017 05:48:00 DIS Emergency INDERJIT MEADE MD [facility] ER HEART PALPITATIONS [id number] 03/21/2017 13:47:00 06/19/2017 00:01:00 DIS Outpatient YAIMA CONNORS N [facility] ONC [id number] 12/20/2016 13:42:00 03/20/2017 00:01:00 DIS Outpatient YIAMA CONNORS N [facility] ONC [id number] 08/20/2016 13:39:00 11/18/2016 00:01:00 DIS Outpatient YAIMA CONNORS Hedy [facility] ONC [id number] 08/15/2016 10:52:00 08/15/2016 23:59:59 CLS Outpatient ELIANA VALENZUELA MD [facility] CATH PAF,PALPITATIONS,HTN [id number] 08/06/2016 11:37:00 08/06/2016 23:59:59 CLS Outpatient ELIANA VALENZUELA MD [facility] CARD AFIB,HLP,PALPITATIONS [id number] 07/12/2016 12:31:00 07/13/2016 15:05:00 DIS Outpatient STANLEY BARRY DO [facility] SDC DEHYDRATION, DIARRHEA [id number] 07/02/2016 09:04:00 07/02/2016 23:59:59 CLS Outpatient SATYA MARISSA N [employer] [facility] RAD RUQ PAIN,DIARRHEA [id number] 06/30/2016 13:03:00 06/30/2016 16:45:00 DIS Emergency LEMUEL HINES MD [facility] ER DIARRHEA [id number] 06/12/2016 11:34:00 06/12/2016 23:59:59 CLS Outpatient ELIANA VALENZUELA MD [facility] RAD HYPERLIPIDMIA, PALPITATION [id number] 06/07/2016 11:09:00 06/07/2016 23:59:59 CLS Outpatient LUZ CHEN SUPERVISOR ANODIZING [facility] RAD SURGICAL MENOPAUSE [id number] 05/29/2016 14:46:00 06/06/2016 00:01:00 DIS Outpatient YAIMA CONNORS [facility] ONC [id number] 05/22/2016 14:18:00 05/22/2016 23:59:59 CLS Outpatient LUZ CHEN SUPERVIS[employer] ANODIZING [facility] ONC [id number] 03/07/2016 10:37:00 03/07/2016 00:01:00 DIS Outpatient YAIMA CONNORS [facility] ONC [id number] 01/02/2016 11:00:00 01/02/2016 23:59:59 CLS Preadmit ELIANA VALENZUELA MD [facility] CARD AFIB,PALPITATIONS [id number] 10/03/2015 10:30:00 01/01/2016 00:01:00 DIS Outpatient ELIANA VALENZUELA MD [facility] CARD AFIB,PALPITATIONS [id number] 12/21/2015 10:52:00 12/21/2015 23:59:59 CLS Outpatient YAIMA CONNORS [facility] RAD BREAST CANCER,LIVER MASS [id number] 12/13/2015 08:18:00 12/13/2015 23:59:59 CLS Outpatient STANLEY BARRY DO [facility] RAD LT BREAST INFLITRATING MAMARY CA [id number] 12/13/2015 08:15:00 12/13/2015 23:59:59 CLS Outpatient ELIANA VALENZUELA MD [facility] LAB AFIB,ESSENTIAL HTN,HLP, PALPITATION [id number] 12/01/2015 12:42:00 12/01/2015 23:59:59 CLS Outpatient STANLEY BARRY DO [facility] RAD LEFT BREAST LUMP [id number] 11/23/2015 14:02:00 11/23/2015 23:59:59 CLS Outpatient JAVY ZHONG SUPER[employer]ING [facility] RAD BREAST MASS IN LEFT MASS [id number] 11/11/2015 13:15:00 11/11/2015 23:59:59 CLS Outpatient ANTONI GONZALEZ [facility] CARD AFIB, PALPITATIONS,HTN,HLP [id number] 10/05/2015 10:45:00 10/05/2015 23:59:59 CLS Outpatient ELIANA VALENZUELA MD [facility] CARD AFIB,ESSENTIAL HTN, PALPITATIONS [id number] 09/28/2015 20:40:00 09/29/2015 06:46:00 DIS Outpatient ELIANA VALENZUELA MD [facility] SLEEP SNORING,ARRHYTHMIAS, HTN
[2018-03-25] MEDS: ASPIRIN 81 MG CHEW (CHILDREN'S ASA) ONE (22:44)
[2018-03-25] MEDS ORDERED: NITROGLYCERIN 0.4 MG SL TABS BTL 25'S SL PRN (22:45)
[2018-03-25] MEDS ORDERED: ASPIRIN 81 MG CHEW (CHILDREN'S ASA) PO ONE (22:45)
[2018-03-25] MEDS ORDERED: NITROGLYCERIN 0.4 MG SL TABS BTL 25'S SL ONE (22:46)
--- NOTE | 2018-03-25 22:48 | ED Chest Pain ---
General Chief Complaint: Chest Pain Stated Complaint: CHEST PAIN Source: patient Exam Limitations: no limitations History of Present Illness Date Seen by Provider: Mar 25, 2018 Time Seen by Provider: 22:29 Initial Comments Patient presents to the ER for chest pain that started tonight about 7:30 after a [place] session. She's not having any sweats, nausea, chills or cough. She does not have a history of coronary artery disease although she does have a pacemaker placed. She is followed by Dr. Zee. She says her chest pain is felt mostly in her neck squeezing like a pressure. Does radiate to her right shoulder And into her back. She became more concerned when she checked her blood pressure is 170/100 home. She took an extra dose of lisinopril and when it did not improve she presented to the ER by private conveyance. Allergies and Home Medications Allergies Coded Allergies: No Known Drug Allergies (Verified , 07/13/16) Home Medications Alprazolam 0.25 Mg Tablet, 0.25 MG PO DAILY PRN for ANXIETY, (Reported) Apixaban 5 Mg Tablet, 5 MG PO BID, (Reported) Calcium Carbonate/Vitamin D3 1 Each Tablet, 1 TAB PO DAILY, (Reported) Cholecalciferol (Vitamin D3) 2,000 Unit Capsule, 2,000 UNIT PO DAILY, (Reported) Diltiazem HCl 120 Mg Cap.er.24h, 120 MG PO DAILY PRN for INCREASED HEART RATE, ( Reported) Flecainide Acetate 100 Mg Tablet, 100 MG PO BID Prescribed by: ELIANA ZEE on 07/30/17 0800 Letrozole 2.5 Mg Tablet, 2.5 MG PO DAILY, (Reported) Lisinopril 20 Mg Tablet, 20 MG PO 1700, (Reported) Metoprolol Succinate 100 Mg Tab.er.24h, 100 MG PO BID Prescribed by: ELIANA ZEE on 07/30/17 0800 Patient Home Medication List Home Medication List Reviewed: Yes Review of Systems Constitutional: No chills, No diaphoresis, No fever, No malaise EENTM: No Blurred Vision, No Double Vision Respiratory: Denies Cough, Denies Shortness of Air Cardiovascular: See HPI, Chest Pain; Denies Edema, Denies Irregular Heart Rate , Denies Palpitations, Denies Syncope Gastrointestinal: Denies Abdominal Pain, Denies Constipated, Denies Diarrhea, Denies Nausea Genitourinary: Denies Burning, Denies Discharge Musculoskeletal: No back pain Skin: No pruritus, No rash Psychiatric/Neurological: Denies Headache, Denies Numbness Past [id number]-Ebtwwk-Avbqhh Hx Patient Social History Alcohol Use: Denies Use Recreational Drug Use: No Smoking Status: Never a Smoker 2nd Hand Smoke Exposure: No Recent Foreign Travel: No Contact w/Someone Who Travel: No Recent Hopitalizations: No Immunizations Up To Date Tetanus Booster (TDap): Less than 5yrs Date of Pneumonia Vaccine: Jul 12, 2014 Date of Influenza Vaccine: Jul 17, 2017 Seasonal Allergies Seasonal Allergies: Yes Past Medical History Surgeries: Yes (LUMPECTOMY, KIDNEY SURGERY) Breast, Tonsillectomy Respiratory: Yes Chronic Bronchitis Currently Using CPAP: No Currently Using BIPAP: No Cardiac: Yes Atrial Fibrillation, Hypertension Neurological: No HIV/AIDS: No Genitourinary: No UTI-Chronic Gastrointestinal: Yes Chronic Diarrhea Musculoskeletal: No Endocrine: No HEENT: No Loss of Vision: Denies Hearing Impairment: Denies Cancer: Yes Breast Psychosocial: No Integumentary: No Blood Disorders: No Adverse Reaction/Blood Tranf: No Family Medical History Colon cancer 19 MOTHER Hypertension 19 FATHER Neoplasm 19 FATHER Hypertension Physical Exam Vital Signs Vital Signs - First Documented 03/25/18 22:23 Temp 98.1 Pulse 65 Resp 16 B/P (MAP) 199/126 (150) Pulse Ox 99 O2 Delivery Room Air Capillary Refill : General Appearance: No Apparent Distress, WD/WN HEENT: PERRL/EOMI, Normal ENT Inspection, Pharynx Normal Neck: Full Range of Motion, Non Tender, Supple Respiratory: Chest Non Tender, Lungs Clear, Normal Breath Sounds, No Accessory Muscle Use, No Respiratory Distress Cardiovascular: Regular Rate, Rhythm, No Edema, Normal Peripheral Pulses Gastrointestinal: Normal Bowel Sounds, Non Tender, Soft Neurologic/Psychiatric: Alert, Oriented x3 Skin: Normal Color, Warm/Dry Progress/Results/Core Measures Results/Orders Lab Results Laboratory Tests Test 03/25/18 22:35 Range/Units White Blood Count 9.2 4.3-11.0 10^3/uL Red Blood Count 4.58 4.35-5.85 10^6/uL Hemoglobin 14.2 11.5-16.0 G/DL Hematocrit 41 35-52 % Mean Corpuscular Volume 90 80-99 FL Mean Corpuscular Hemoglobin 31 25-34 PG Mean Corpuscular Hemoglobin Concent 35 32-36 G/DL Red Cell Distribution Width 14.3 10.0-14.5 % Platelet Count 336 130-400 10^3/uL Mean Platelet Volume 9.1 7.4-10.4 FL Neutrophils (%) (Auto) 55 42-75 % Lymphocytes (%) (Auto) 35 12-44 % Monocytes (%) (Auto) 8 0-12 % Eosinophils (%) (Auto) 1 0-10 % Basophils (%) (Auto) 0 0-10 % Neutrophils # (Auto) 5.0 1.8-7.8 X 10^3 Lymphocytes # (Auto) 3.2 1.0-4.0 X 10^3 Monocytes # (Auto) 0.8 0.0-1.0 X 10^3 Eosinophils # (Auto) 0.1 0.0-0.3 10^3/uL Basophils # (Auto) 0.0 0.0-0.1 10^3/uL Prothrombin Time 15.2 H 12.2-14.7 SEC INR Comment 1.2 0.8-1.4 Activated Partial Thromboplast Time 30 24-35 SEC D-Dimer 0.27 0.00-0.49 UG/ML Sodium Level 137 135-145 MMOL/L Potassium Level 3.9 3.6-5.0 MMOL/L Chloride Level 101 98-107 MMOL/L Carbon Dioxide Level 24 21-32 MMOL/L Anion Gap 12 5-14 MMOL/L Blood Urea Nitrogen 17 7-18 MG/DL Creatinine 0.84 0.60-1.30 MG/DL Estimat Glomerular Filtration Rate > 60 BUN/Creatinine Ratio 20 Glucose Level 110 H 70-105 MG/DL Calcium Level 9.8 8.5-10.1 MG/DL Magnesium Level 2.4 1.8-2.4 MG/DL Total Bilirubin 0.3 0.1-1.0 MG/DL Aspartate Amino Transf (AST/SGOT) 18 5-34 U/L Alanine Aminotransferase (ALT/SGPT) 9 0-55 U/L Alkaline Phosphatase 79 40-136 U/L Myoglobin 40.1 10.0-92.0 NG/ML Troponin I < 0.30 <0.30 NG/ML B-Type Natriuretic Peptide 253.0 H <100.0 PG/ML Total Protein 7.3 6.4-8.2 GM/DL Albumin 4.5 3.2-4.5 GM/DL My Orders Orders - NATASHA REZA Ekg Tracing (03/25/18 22:20) Aspirin Chewable Tablet (Baby Aspirin Ch (03/25/18 22:41) Cbc With Automated Diff (03/25/18 22:44) Magnesium (03/25/18 22:44) Chest 1 View, Ap/Pa Only (03/25/18 22:44) Cardiac Profile 1 (03/25/18 22:44) Comprehensive Metabolic Panel (03/25/18 22:44) Myoglobin Serum (03/25/18 22:44) Protime With Inr (03/25/18 22:44) Partial Thromboplastin Time (03/25/18 22:44) O2 (03/25/18 22:44) Monitor-Rhythm Ecg Trace Only (03/25/18 22:44) Lipid Panel (03/26/18 06:00) Aspirin Chewable Tablet (Baby Aspirin Ch (03/25/18 22:45) Nitroglycerin 0.4 Mg Btl 25's (Nitrostat (03/25/18 22:45) Saline Lock/Iv-Start (03/25/18 22:44) BNP (03/25/18 22:44) Fibrin Degradation Products (03/25/18 22:44) Nitroglycerin 0.4 Mg Btl 25's (Nitrostat (03/25/18 22:46) Labetalol Injection (Normodyne Injection (03/25/18 23:15) Medications Given in ED Current Medications Medications Dose Ordered Sig/Rickey Route Start Time Stop Time Status Last Admin Dose Admin Aspirin 81 mg STK-MED ONCE .ROUTE 03/25/18 22:41 03/25/18 22:42 DC 03/25/18 22:44 81 MG Labetalol HCl 10 mg ONCE ONCE IV 03/25/18 23:15 03/25/18 23:16 DC 03/25/18 23:05 10 MG Nitroglycerin 0.4 mg UD PRN SL 03/25/18 22:45 03/25/18 22:47 0.4 MG Vital Signs/I&O 03/25/18 22:23 Temp 98.1 Pulse 65 Resp 16 B/P (MAP) 199/126 (150) Pulse Ox 99 O2 Delivery Room Air Progress Progress Note #1: Time: 23:20 Progress Note ED ACS Score: 17 points. Not low risk. This patient is not a candidate for early discharge and should receive a standard chest pain evaluation with delayed troponin testing. Severe symptom medics sinus node dysfunction with positive greater than 7 seconds. Antiarrhythmic and rate controlling agents for atrial fibrillation with rapid ventricular rate. Pacemaker implanted [address] Meyers. Stress test July [address] Zee: EF of 79% without evidence of infarction or ischemia. Progress Note #2: Time: 00:11 Progress Note Pain and pressure in her chest went away with a single dose of nitroglycerin. We gave her 10 mg labetalol because her pressure persisted about 177/105. This helped with her anxiety as well. Initial ECG Impression Date: Mar 25, 2018 Initial ECG Impression Time: 22:26 Initial ECG Rate: 68 Initial ECG Rhythm: Normal Sinus Initial ECG Intervals: VA (156) Initial ECG Impression: Nonspecific Changes (Atrial paced rhythm) Comment No ST elevation or depression. Diagnostic Imaging Diagonstic Imaging: Xray Plain Films/CT/US/NM/MRI: chest Comments No acute cardiopulmonary abnormalities. Reviewed: Reviewed by Me Departure Communication (Admissions) Time/Spoke to Admitting Phy: 00:10 Discussed case lab EKG imaging with Dr. Elmore. Time/Spoke to Consulting Phy: 00:05 Dr. Jordan discussed case lab imaging and EKG. Impression Primary Impression: Chest pain Qualified Codes: R07.9 - Chest pain, unspecified Disposition: ADMITTED INPATIENT Condition: Stable Admissions Decision to Admit Reason: Admit from ER (General) Decision to Admit/Date: Mar 26, 2018 Time/Decision to Admit Time: 00:12 Departure-Patient Inst. Referrals: STANLEY ELMORE DO (PCP/Family) Primary Care Physician Copy Copies To 1: ELIANA ZEE MD; STANLEY ELMORE TITUS J Mar 25, 2018 22:48
[2018-03-25 22:56] LABS: BASOPHILS % (AUTO) 0 % (0-10); EOSINOPHILS # (AUTO) 0.1 10^3/uL (0.0-0.3); EOSINOPHILS % (AUTO) 1 % (0-10); HEMATOCRIT 41 % (35-52); HEMOGLOBIN 14.2 G/DL (11.5-16.0); LYMPHOCYTES # (AUTO) 3.2 X 10^3 (1.0-4.0); LYMPHOCYTES % (AUTO) 35 % (12-44); MEAN CORPUSCULAR HEMOGLOBIN 31 PG (25-34); MEAN CORPUSCULAR HGB CONC 35 G/DL (32-36); MEAN CORPUSCULAR VOLUME 90 FL (80-99); MEAN PLATELET VOLUME 9.1 FL (7.4-10.4); MONOCYTES # (AUTO) 0.8 X 10^3 (0.0-1.0); MONOCYTES % (AUTO) 8 % (0-12); NEUTROPHILS % (AUTO) 55 % (42-75); PLATELET COUNT 336 10^3/uL (130-400); RED BLOOD COUNT 4.58 10^6/uL (4.35-5.85); RED CELL DISTRIBUTION WIDTH 14.3 % (10.0-14.5); WHITE BLOOD COUNT 9.2 10^3/uL (4.3-11.0)
[2018-03-25 22:58] LABS: INR 1.2 (0.8-1.4); PROTHROMBIN TIME PATIENT 15.2 SEC (12.2-14.7)
[2018-03-25 23:08] LABS: ALANINE AMINOTRANSFERASE 9 U/L (0-55); ALBUMIN 4.5 GM/DL (3.2-4.5); ALKALINE PHOSPHATASE 79 U/L (40-136); BILIRUBIN,TOTAL 0.3 MG/DL (0.1-1.0); BUN/CREATININE RATIO 20; CALCIUM 9.8 MG/DL (8.5-10.1); CARBON DIOXIDE 24 MMOL/L (21-32); CHLORIDE 101 MMOL/L (98-107); CREATININE SERUM 0.84 MG/DL (0.60-1.30); GFR ESTIMATED > 60; GLUCOSE 110 MG/DL (70-105); MAGNESIUM 2.4 MG/DL (1.8-2.4); POTASSIUM 3.9 MMOL/L (3.6-5.0); SODIUM 137 MMOL/L (135-145); TOTAL PROTEIN 7.3 GM/DL (6.4-8.2)
[2018-03-25 23:15] LABS: MYOGLOBIN SERUM 40.1 NG/ML (10.0-92.0)
[2018-03-25] MEDS ORDERED: LABETALOL HCL 20 MG/4 ML VIAL IV ONE (23:15)
[2018-03-26] VITALS (13 sets, daily range): BP systolic 128–169; BP diastolic 78–87
[2018-03-26 06:14] LABS: CHOLESTEROL 180 MG/DL (< 200); HDL CHOLESTEROL 57 MG/DL (40-60); TRIGLYCERIDES 68 MG/DL (<150); VLDL CHOLESTEROL 14 MG/DL (5-40)
[2018-03-26 06:22] LABS: CARDIAC PROFILE 2 < 0.30 NG/ML (<0.30)
[2018-03-26] MEDS ORDERED: ONDANSETRON 4 MG/2 ML (SDV) Z0FRAN IV PRN (07:15)
[2018-03-26] MEDS ORDERED: ALPRAZolam 0.25 MG (XANAX) TAB PO PRN (07:15)
[2018-03-26] MEDS ORDERED: morphine INJ 4 MG/ML 1 ML (VIAL/SYRINGE) IV PRN (07:30)
--- NOTE | 2018-03-26 08:29 | Diagnostic Imaging Report ---
INDICATION: Chest tightness. Study compared to 07/28/2017. FINDINGS: Pacemaker device stable. Blunting of the left costophrenic angle resolved in the interim. The lungs are clear. There is no failure, effusion or pneumothorax. IMPRESSION: Clear chest on followup. Dictated by: Dictated on workstation # [id number]
[2018-03-26] MEDS ORDERED: APIXABAN 5 MG (ELIQUIS) TABLET PO SCH (09:00)
[2018-03-26] MEDS ORDERED: lisINopril 20 MG (PRINIVIL) TABLET PO SCH (09:00)
[2018-03-26] MEDS ORDERED: DILTIAZEM 120 MG (CARDIZEM CD) CAP PO SCH (09:00)
[2018-03-26] MEDS ORDERED: meTOprolol SUCCINATE 100 MG (TOPROL XL) TAB PO SCH (09:00)
[2018-03-26] MEDS ORDERED: LETROZOLE 2.5 MG (FEMARA) TAB PO SCH (09:00)
--- NOTE | 2018-03-26 09:31 | Consultation-Cardiology ---
HPI-Cardiology Cardiology Consultation Date of Consultation 03/26/18 Date of Admission Time Seen by Provider: 09:27 Indication: Chest pain HPI 72 years old lady with history of paroxysmal atrial fibrillation, sick sinus syndrome, has been exercising with swimming and exercise classes recently, started having chest pain last night described it as dull achiness in the retrosternal area of her chest worsening with inspiration in addition to neck pain and shoulder pain. Came into the emergency room for evaluation, however evaluation she was feeling better. Denied any palpitation, no syncope or near syncopal episodes. No claudications. EKG and cardiac enzymes did not show any acute abnormality. Patient had a stress test done in July 2017 which was normal Home Medications & Allergies Allergies: Coded Allergies: No Known Drug Allergies (Verified , 07/13/16) Home Medication List Reviewed: Yes [id number] Hx Patient Social History Employed/Student: employed Alcohol Use: Denies Use Recreational Drug Use: No Smoking Status: Never a Smoker 2nd Hand Smoke Exposure: No Recent Foreign Travel: Yes Recent Infectious Disease Expo: No Recent Hopitalizations: Yes (jul 2017) Physical Abuse Screen: No Sexual Abuse: No Immunizations Up To Date Tetanus Booster (TDap): Less than 5yrs Date of Pneumonia Vaccine: Jul 12, 2014 Date of Influenza Vaccine: Jul 17, 2017 Past Medical History Past medical history as discussed below Family Medical History Significant Family History: Hypertension Family History: Colon cancer 19 MOTHER Hypertension 19 FATHER Neoplasm 19 FATHER Constitutional: no symptoms reported, see HPI EENTM: see HPI, no symptoms reported Respiratory: see HPI; No cough, No dyspnea on exertion, No hemoptysis, No orthopnea, No phlegm, No short of breath, No stridor, No wheezing, No other Cardiovascular: see HPI, chest pain; No edema, No Hx of Intervention, No palpitations, No syncope, No vascular heart diseas, No other Gastrointestinal: no symptoms reported, see HPI Genitourinary: no symptoms reported, see HPI Musculoskeletal: no symptoms reported, see HPI Skin: no symptoms reported, see HPI Psychiatric/Neurological: No Symptoms Reported, See HPI Reviewed Test Results Reviewed Test Results Lab Laboratory Tests Test 03/25/18 22:35 03/26/18 05:16 Range/Units White Blood Count 9.2 4.3-11.0 10^3/uL Red Blood Count 4.58 4.35-5.85 10^6/uL Hemoglobin 14.2 11.5-16.0 G/DL Hematocrit 41 35-52 % Mean Corpuscular Volume 90 80-99 FL Mean Corpuscular Hemoglobin 31 25-34 PG Mean Corpuscular Hemoglobin Concent 35 32-36 G/DL Red Cell Distribution Width 14.3 10.0-14.5 % Platelet Count 336 130-400 10^3/uL Mean Platelet Volume 9.1 7.4-10.4 FL Neutrophils (%) (Auto) 55 42-75 % Lymphocytes (%) (Auto) 35 12-44 % Monocytes (%) (Auto) 8 0-12 % Eosinophils (%) (Auto) 1 0-10 % Basophils (%) (Auto) 0 0-10 % Neutrophils # (Auto) 5.0 1.8-7.8 X 10^3 Lymphocytes # (Auto) 3.2 1.0-4.0 X 10^3 Monocytes # (Auto) 0.8 0.0-1.0 X 10^3 Eosinophils # (Auto) 0.1 0.0-0.3 10^3/uL Basophils # (Auto) 0.0 0.0-0.1 10^3/uL Prothrombin Time 15.2 H 12.2-14.7 SEC INR Comment 1.2 0.8-1.4 Activated Partial Thromboplast Time 30 24-35 SEC D-Dimer 0.27 0.00-0.49 UG/ML Sodium Level 137 135-145 MMOL/L Potassium Level 3.9 3.6-5.0 MMOL/L Chloride Level 101 98-107 MMOL/L Carbon Dioxide Level 24 21-32 MMOL/L Anion Gap 12 5-14 MMOL/L Blood Urea Nitrogen 17 7-18 MG/DL Creatinine 0.84 0.60-1.30 MG/DL Estimat Glomerular Filtration Rate > 60 BUN/Creatinine Ratio 20 Glucose Level 110 H 70-105 MG/DL Calcium Level 9.8 8.5-10.1 MG/DL Magnesium Level 2.4 1.8-2.4 MG/DL Total Bilirubin 0.3 0.1-1.0 MG/DL Aspartate Amino Transf (AST/SGOT) 18 5-34 U/L Alanine Aminotransferase (ALT/SGPT) 9 0-55 U/L Alkaline Phosphatase 79 40-136 U/L Myoglobin 40.1 10.0-92.0 NG/ML Troponin I < 0.30 < 0.30 <0.30 NG/ML B-Type Natriuretic Peptide 253.0 H <100.0 PG/ML Total Protein 7.3 6.4-8.2 GM/DL Albumin 4.5 3.2-4.5 GM/DL Triglycerides Level 68 <150 MG/DL Cholesterol Level 180 < 200 MG/DL LDL Cholesterol Direct 112 1-129 MG/DL VLDL Cholesterol 14 5-40 MG/DL HDL Cholesterol 57 40-60 MG/DL Physical Exam Vital Signs Vital Signs - First Documented 03/25/18 22:23 Temp 98.1 Pulse 65 Resp 16 B/P (MAP) 199/126 (150) Pulse Ox 99 O2 Delivery Room Air Capillary Refill : Less Than 3 Seconds General Appearance: No Apparent Distress, WD/WN Eyes: Bilateral Eye Normal Inspection, Bilateral Eye PERRL, Bilateral Eye EOMI HEENT: PERRL/EOMI, TMs Normal, Normal ENT Inspection, Pharynx Normal Neck: Full Range of Motion, Normal Inspection, Non Tender, Supple, Carotid Bruit Respiratory: Chest Non Tender, Lungs Clear, Normal Breath Sounds, No Accessory Muscle Use, No Respiratory Distress Cardiovascular: Regular Rate, Rhythm, No Edema, No Gallop, No JVD, No Murmur, Normal Peripheral Pulses Gastrointestinal: Normal Bowel Sounds, No Organomegaly, No Pulsatile Mass, Non Tender, Soft Back: Normal Inspection, No CVA Tenderness, No Vertebral Tenderness Extremity: Normal Capillary Refill, Normal Inspection, Normal Range of Motion, Non Tender, No Calf Tenderness, No Pedal Edema Neurologic/Psychiatric: Alert, Oriented x3, No Motor/Sensory Deficits, Normal Mood/Affect Skin: Normal Color, Warm/Dry Lymphatic: No Adenopathy A/P-Cardiology Admission Diagnosis Chest pain nonspecific etiology Sick sinus syndrome Paroxysmal atrial fibrillation Hypertension Assessment/Plan Chest pain nonspecific etiology, atypical in presentation, likely to be cardiac. Cardiac enzymes and EKG did not show any acute abnormality. Patient had a stress test done in July 2017 showing no ischemia or infarction. I reassured her at this time, okay for discharge and follow-up as an outpatient. Near syncope. Sick sinus syndrome with tachybradycardia, paroxysmal atrial fibrillation with pauses prior to conversion back to sinus rhythm with lightheadedness and near syncope. No full syncope was reported. s/p dual chamber PPM implantation, Biotronik. Is scheduled for pacemaker checkup tomorrow in the office as an outpatient. Paroxysmal atrial fibrillation, sick sinus syndrome, currently in atrial paced rhythm. Continue on current medication and continue to monitor [id number] score is 3, yearly risk of stroke without oral anticoagulation is 3.2 percent. Has been on Eliquis, restart and continue to monitor as an outpatient. Sick sinus syndrome, bradycardia, asymptomatic, exacerbated by amiodarone, higher doses of diltiazem, management as described above Hypertension, control at this time. 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 Doing well. Patient reporting to me that no further active malignancy. Clinical Quality Measures AMI/AHF: ASA po Prior to arrival: No DVT/VTE Risk/Contraindication: Risk Factor Score Per Nursin RFS Level Per Nursing on Admit: 2=Moderate ELIANA VALENZUELA MD Mar 26, 2018 09:31
[2018-03-26] MEDS ORDERED: DILT-27 PO (12:52)
[2018-03-26 13:44] LABS: BILIRUBIN,URINE NEGATIVE (NEGATIVE); CLARITY,URINE CLEAR; COLOR,URINE YELLOW; GLUCOSE, URINE (UA) NEGATIVE (NEGATIVE); KETONES,URINE NEGATIVE (NEGATIVE); LEUKOCYTE ESTERASE ,URINE 3+ (NEGATIVE); NITRITE,URINE NEGATIVE (NEGATIVE); PH,URINE 7 (5-9); PROTEIN,URINE NEGATIVE (NEGATIVE); UROBILINOGEN,URINE NORMAL (NORMAL)
[2018-03-26 13:59] LABS: RBC,URINE RARE /HPF
[2018-03-26 14:02] LABS: BACTERIA,URINE NEGATIVE /HPF
[2018-03-26 14:03] LABS: RENAL EPITHELIAL CELLS,URINE 0-2 /HPF; SQUAMOUS EPITHELIAL CELL,UR 0-2 /HPF
[2018-03-26] MEDS ORDERED: SULF1TAB35 PO (14:36)
--- NOTE | 2018-03-26 14:38 | Discharge Inst-Simple/Standard ---
Discharge Inst-Standard Discharge Medications New, Converted or Re-Newed RX: Transmitted to Pharmacy Patient Instructions/Follow Up Plan of Care/Instructions/FU: Fwup in 2 weeks Activity as Tolerated: Yes Discharge Diet: Cardiac Diet STANLEY BARRY DO Mar 26, 2018 2:38 pm
--- NOTE | 2018-03-26 18:58 | Short Stay Summary ---
History of Present Illness History of Present Illness Reason for visit/HPI This is a 72 year old female who presented to the emergency room with left sided chest and neck pain. Her EKG showed no acute changes and her cardiac enzymes were negative however cardiology wanted her kept for repeat cardiac enzymes, monitoring on telemetry and evaluation. Date of Admission Mar 26, 2018 at 12:30 am Date of Discharge Mar 26, 2018 at 2:55 pm Time Seen by Provider: 12:45 Attending Physician Evangelina Barry DO Admitting Physician Evangelina Barry DO Consult Allergies and Home Medications Allergies Coded Allergies: No Known Drug Allergies (Verified , 07/13/16) Home Medications Apixaban 5 Mg Tablet, 5 MG PO BID, (Reported) Calcium Carbonate/Vitamin D3 1 Each Tablet, 1 TAB PO DAILY, (Reported) Cholecalciferol (Vitamin D3) 2,000 Unit Capsule, 2,000 UNIT PO DAILY, (Reported) Diltiazem HCl 120 Mg Cap.er.24h, 120 MG PO DAILY PRN for INCREASED HEART RATE, ( Reported) MAY TAKE AN ADDITIONAL DOSE NEEDED FOR PALPITATIONS Diltiazem HCl 120 Mg Cap.er.24h, 120 MG PO DAILY, (Reported) Flecainide Acetate 100 Mg Tablet, 100 MG PO BID Prescribed by: ELIANA VALENZUELA on 07/30/17 0800 Letrozole 2.5 Mg Tablet, 2.5 MG PO DAILY, (Reported) Metoprolol Succinate 100 Mg Tab.er.24h, 100 MG PO BID Prescribed by: ELIANA VALENZUELA on 07/30/17 0800 Sulfamethoxazole/Trimethoprim 1 Each Tablet, 1 EACH PO BID Prescribed by: EVANGELINA BARRY on 03/26/18 1436 Patient Home Medication List Home Medication List Reviewed: Yes Past [id number]-Ursdlx Hx Patient Social History Employed/Student: employed Alcohol Use: Denies Use Recreational Drug Use: No Smoking Status: Never a Smoker 2nd Hand Smoke Exposure: No Physical Abuse Screen: No Sexual Abuse: No Recent Foreign Travel: Yes Contact w/other who traveled: No Recent Hopitalizations: Yes (jul 2017) Recent Infectious Disease Expo: No Immunizations Up To Date Tetanus Booster (TDap): Less than 5yrs Date of Pneumonia Vaccine: Jul 12, 2014 Date of Influenza Vaccine: Jul 17, 2017 Seasonal Allergies Seasonal Allergies: No Surgeries Yes (LUMPECTOMY, KIDNEY SURGERY) Breast, Tonsillectomy Respiratory No Currently Using CPAP: No Currently Using BIPAP: No Cardiovascular Yes Atrial Fibrillation, Hypertension Neurological No Reproductive System HIV/AIDS: No Female 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 Genitourinary Yes UTI-Chronic Gastrointestinal Yes Chronic Diarrhea Musculoskeletal No Endocrine History of Endocrine Disorders: No HEENT History of HEENT Disorders: Yes HEENT Disorders: Cataract Loss of Vision: Denies Hearing Impairment: Hard of Hearing Cancer Yes Breast Did You Recieve Any Treatments: Yes Type of Treatment: Radiation, Surgical Intervention Psychosocial History of Psychiatric Problem: No Integumentary History of Skin or Integumenta: No Blood Transfusions History of Blood Disorders: No Adverse Reaction to a Blood Tr: No Family Medical History Significant Family History: Hypertension Family Hx: Colon cancer 19 MOTHER Hypertension 19 FATHER Neoplasm 19 FATHER Constitutional: No no symptoms reported, No see HPI, No chills, No diaphoresis , No dizziness, No fever, No malaise, No weakness, No weight gain, No weight loss, No other EENTM: No see HPI, No no symptoms reported, No ear discharge, No hearing loss, No ear pain, No blurred vision, No double vision, No eye pain, No tearing, No vision loss, No dental problems, No hoarseness, No mouth pain, No mouth swelling , No epistaxis, No nose congestion, No nose pain, No throat pain, No throat swelling, No other Respiratory: No no symptoms reported, No see HPI, No cough, No dyspnea on exertion, No hemoptysis, No orthopnea, No phlegm, No short of breath, No stridor , No wheezing, No other Cardiovascular: chest pain Gastrointestinal: No RUQ, No LUQ, No RLQ, No LLQ, No no symptoms reported, No see HPI, No abdominal pain, No constipation, No diarrhea, No dysphagia, No hematemesis, No heartburn, No jaundice, No loss of appetite, No melena, No nausea, No vomiting, No other Genitourinary: dysuria, frequency Musculoskeletal: neck pain Skin: No no symptoms reported, No see HPI, No change in color, No change in hair/nails, No dryness, No hx of skin cancer, No lesions, No lumps, No pruritus , No rash, No other Psychiatric/Neurological: Denies No Symptoms Reported, Denies See HPI, Denies Anxiety, Denies Depressed, Denies Emotional Problems, Denies Headache, Denies Numbness, Denies Paresthesia, Denies Pre-Existing Deficit, Denies Seizure, Denies Tingling, Denies Tremors, Denies Weakness, Denies Other Physical Exam Vital Signs Vital Signs - First Documented 03/25/18 22:23 Temp 98.1 Pulse 65 Resp 16 B/P (MAP) 199/126 (150) Pulse Ox 99 O2 Delivery Room Air Capillary Refill : Less Than 3 Seconds General Appearance: No Apparent Distress HEENT: Normal ENT Inspection Neck: Supple Respiratory: Lungs Clear Cardiovascular: Regular Rate, Rhythm, Systolic Murmur Gastrointestinal: Normal Bowel Sounds, Non Tender, Soft Rectal: Deferred Back: No CVA Tenderness Extremity: Non Tender, No Calf Tenderness, No Pedal Edema Neurologic/Psychiatric: Alert, Oriented x3 Skin: Normal Color, Warm/Dry Lymphatic: No Adenopathy Comments Laboratory Tests 03/25/18 22:35: White Blood Count 9.2, Red Blood Count 4.58, Hemoglobin 14.2, Hematocrit 41, Mean Corpuscular Volume 90, Mean Corpuscular Hemoglobin 31, Mean Corpuscular Hemoglobin Concent 35, Red Cell Distribution Width 14.3, Platelet Count 336, Mean Platelet Volume 9.1, Neutrophils (%) (Auto) 55, Lymphocytes (%) (Auto) 35, Monocytes (%) (Auto) 8, Eosinophils (%) (Auto) 1, Basophils (%) (Auto) 0, Neutrophils # (Auto) 5.0, Lymphocytes # (Auto) 3.2, Monocytes # (Auto) 0.8, Eosinophils # (Auto) 0.1, Basophils # (Auto) 0.0, Prothrombin Time 15.2H, INR Comment 1.2, Activated Partial Thromboplast Time 30, D-Dimer 0.27, Sodium Level 137, Potassium Level 3.9, Chloride Level 101, Carbon Dioxide Level 24, Anion Gap 12, Blood Urea Nitrogen 17, Creatinine 0.84, Estimat Glomerular Filtration Rate > 60, BUN/Creatinine Ratio 20, Glucose Level 110H, Calcium Level 9.8, Magnesium Level 2.4, Total Bilirubin 0.3, Aspartate Amino Transf (AST/SGOT) 18, Alanine Aminotransferase (ALT/SGPT) 9, Alkaline Phosphatase 79, Myoglobin 40.1, Troponin I < 0.30, B-Type Natriuretic Peptide 253.0H, Total Protein 7.3, Albumin 4.5 03/26/18 05:16: Troponin I < 0.30, Triglycerides Level 68, Cholesterol Level 180, LDL Cholesterol Direct 112, VLDL Cholesterol 14, HDL Cholesterol 57 03/26/18 13:25: Urine Color YELLOW, Urine Clarity CLEAR, Urine pH 7, Urine Specific Hyden 1.010L, Urine Protein NEGATIVE, Urine Glucose (UA) NEGATIVE, Urine Ketones NEGATIVE, Urine Nitrite NEGATIVE, Urine Bilirubin NEGATIVE, Urine Urobilinogen NORMAL, Urine Leukocyte Esterase 3+H, Urine RBC (Auto) NEGATIVE, Urine RBC RARE , Urine WBC 10-25H, Urine Squamous Epithelial Cells 0-2, Urine Renal Epithelial Cells 0-2, Urine Crystals NONE, Urine Bacteria NEGATIVE, Urine Casts NONE, Urine Mucus NEGATIVE, Urine Culture Indicated YES Clinical Quality Measures AMI/AHF: ASA po Prior to arrival: No DVT/VTE Risk/Contraindication: Risk Factor Score Per Nursin RFS Level Per Nursing on Admit: 2=Moderate Short Stay Diagnosis Discharge Diagnosis-Short Stay Final Discharge Diagnosis: 1. Chest Pain--noncardiac in etiology--consistent with chest wall pain 2. Acute UTI 3. History of atrial fibrillation and sick sinus syndrome--stable and rate controlled 4. Hypertension--stable Conclusion Labs Laboratory Tests 03/25/18 22:35: White Blood Count 9.2, Red Blood Count 4.58, Hemoglobin 14.2, Hematocrit 41, Mean Corpuscular Volume 90, Mean Corpuscular Hemoglobin 31, Mean Corpuscular Hemoglobin Concent 35, Red Cell Distribution Width 14.3, Platelet Count 336, Mean Platelet Volume 9.1, Neutrophils (%) (Auto) 55, Lymphocytes (%) (Auto) 35, Monocytes (%) (Auto) 8, Eosinophils (%) (Auto) 1, Basophils (%) (Auto) 0, Neutrophils # (Auto) 5.0, Lymphocytes # (Auto) 3.2, Monocytes # (Auto) 0.8, Eosinophils # (Auto) 0.1, Basophils # (Auto) 0.0, Prothrombin Time 15.2H, INR Comment 1.2, Activated Partial Thromboplast Time 30, D-Dimer 0.27, Sodium Level 137, Potassium Level 3.9, Chloride Level 101, Carbon Dioxide Level 24, Anion Gap 12, Blood Urea Nitrogen 17, Creatinine 0.84, Estimat Glomerular Filtration Rate > 60, BUN/Creatinine Ratio 20, Glucose Level 110H, Calcium Level 9.8, Magnesium Level 2.4, Total Bilirubin 0.3, Aspartate Amino Transf (AST/SGOT) 18, Alanine Aminotransferase (ALT/SGPT) 9, Alkaline Phosphatase 79, Myoglobin 40.1, Troponin I < 0.30, B-Type Natriuretic Peptide 253.0H, Total Protein 7.3, Albumin 4.5 03/26/18 05:16: Troponin I < 0.30, Triglycerides Level 68, Cholesterol Level 180, LDL Cholesterol Direct 112, VLDL Cholesterol 14, HDL Cholesterol 57 03/26/18 13:25: Urine Color YELLOW, Urine Clarity CLEAR, Urine pH 7, Urine Specific Hyden 1.010L, Urine Protein NEGATIVE, Urine Glucose (UA) NEGATIVE, Urine Ketones NEGATIVE, Urine Nitrite NEGATIVE, Urine Bilirubin NEGATIVE, Urine Urobilinogen NORMAL, Urine Leukocyte Esterase 3+H, Urine RBC (Auto) NEGATIVE, Urine RBC RARE , Urine WBC 10-25H, Urine Squamous Epithelial Cells 0-2, Urine Renal Epithelial Cells 0-2, Urine Crystals NONE, Urine Bacteria NEGATIVE, Urine Casts NONE, Urine Mucus NEGATIVE, Urine Culture Indicated YES Conclusion/Plan She was admitted to the medical floor on telemetry. She remained in a paced rhythm. Her repeat cardiac enzymes were negative. She had no further chest or neck pain. Cardiology assessed the patient and felt that her chest pain was noncardiac in etiology and that she could be discharged home. A UA was done prior to discharge which did reveal a UTI so she will be started on Bactrim on discharge. She will have a short followup with cardiology next week to assess her pacemaker. EVANGELINA BARRY DO Mar 26, 2018 6:57 pm
[2018-03-26] MEDS ORDERED: ATORVASTATIN 40 MG (LIPITOR) TABLET PO SCH (21:00)
== END 2018-03-26 14:24 | disposition home or self-care (01) ==
LOC: EDUNIT# 22:18 → ER 22:20 → 4TH 22:21 → UNDOADMOB 03-26 00:30 → 4TH 03-26 00:30 → UNDODISOB 03-26 14:55
PROVIDERS: ADMIT Family Medicine; ATTEND Family Medicine
DX: R07.89 Other chest pain (principal); N39.0 Urinary tract infection, site not specified; I48.0 Paroxysmal atrial fibrillation; I49.5 Sick sinus syndrome; I10 Essential (primary) hypertension; Z95.0 Presence of cardiac pacemaker; Z85.3 Personal history of malignant neoplasm of breast; Z92.3 Personal history of irradiation; E78.5 Hyperlipidemia, unspecified; I65.23 Occlusion and stenosis of bilateral carotid arteries; Z79.899 Other long term (current) drug therapy
CPT/HCPCS: 36415; 71045; 80053; 80061; 81000; 83735; 83874; 83880; 84484; 85025; 85379; 85610; 85730; 87077; 87088; 87186; 93005; 93041; 96374; G0378

== ENCOUNTER 2018-05-07 10:34 | Outpatient (RCR) | payer MEDICARE, OTHER ==
[~2018-05-07 10:34] MED LIST changes: -AMIO200T2 PO; +AMIO200T4 PO; -AMLO5TAB2 PO; +AMLO5TAB7 PO; +DILT-27 PO; +SULF1TAB35 PO
== END 2018-05-13 | disposition home or self-care (01) ==
LOC: ONC 10:34
PROVIDERS: ATTEND Internal Medicine Hematology & Oncology
DX: C50.412 Malignant neoplasm of upper-outer quadrant of left female breast (principal); I10 Essential (primary) hypertension; I48.91 Unspecified atrial fibrillation; Z90.710 Acquired absence of both cervix and uterus; Z79.899 Other long term (current) drug therapy
CPT/HCPCS: 99213

== ENCOUNTER → 2018-05-21 | Outpatient (CLI) | payer MEDICARE, OTHER ==
[~2018-05-21] MED LIST changes: +AMLO5TAB2 PO; -AMLO5TAB7 PO
== END ==
LOC: RT 15:14
PROVIDERS: ATTEND Family Medicine
DX: R06.00 Dyspnea, unspecified (principal)
CPT/HCPCS: 94060; 94726; 94729

== ENCOUNTER 2018-11-06 14:35 | Outpatient (RCR) | payer MEDICARE, OTHER ==
[~2018-11-06 14:35] MED LIST changes: -AMLO5TAB2 PO; +AMLO5TAB9 PO; +METR-145 PO; -METR500T21 PO
[2018-11-06 15:39] LABS: BASOPHILS # (AUTO) 0.1 10^3/uL (0.0-0.1); BASOPHILS % (AUTO) 1 % (0-10); EOSINOPHILS # (AUTO) 0.2 10^3/uL (0.0-0.3); EOSINOPHILS % (AUTO) 2 % (0-10); HEMATOCRIT 42 % (35-52); HEMOGLOBIN 13.7 G/DL (11.5-16.0); LYMPHOCYTES # (AUTO) 2.8 X 10^3 (1.0-4.0); LYMPHOCYTES % (AUTO) 32 % (12-44); MEAN CORPUSCULAR HEMOGLOBIN 29 PG (25-34); MEAN CORPUSCULAR HGB CONC 33 G/DL (32-36); MEAN CORPUSCULAR VOLUME 90 FL (80-99); MEAN PLATELET VOLUME 9.1 FL (7.4-10.4); MONOCYTES # (AUTO) 0.7 X 10^3 (0.0-1.0); MONOCYTES % (AUTO) 8 % (0-12); NEUTROPHILS # (AUTO) 4.9 X 10^3 (1.8-7.8); NEUTROPHILS % (AUTO) 57 % (42-75); PLATELET COUNT 363 10^3/uL (130-400); RED CELL DISTRIBUTION WIDTH 14.8 % (10.0-14.5); WHITE BLOOD COUNT 8.6 10^3/uL (4.3-11.0)
[2018-11-06 15:55] LABS: ALANINE AMINOTRANSFERASE 12 U/L (0-55); ALBUMIN 4.3 GM/DL (3.2-4.5); ALKALINE PHOSPHATASE 88 U/L (40-136); BILIRUBIN,TOTAL 0.3 MG/DL (0.1-1.0); BUN/CREATININE RATIO 24; CALCIUM 9.5 MG/DL (8.5-10.1); CARBON DIOXIDE 26 MMOL/L (21-32); CHLORIDE 103 MMOL/L (98-107); GFR ESTIMATED > 60; GLUCOSE 95 MG/DL (70-105); POTASSIUM 4.3 MMOL/L (3.6-5.0); SODIUM 139 MMOL/L (135-145); TOTAL PROTEIN 7.2 GM/DL (6.4-8.2)
== END 2019-02-04 | disposition home or self-care (01) ==
LOC: ONC 14:35
PROVIDERS: ATTEND Internal Medicine Hematology & Oncology
DX: C50.412 Malignant neoplasm of upper-outer quadrant of left female breast (principal); M85.88 Other specified disorders of bone density and structure, other site; I10 Essential (primary) hypertension; I48.91 Unspecified atrial fibrillation; Z90.710 Acquired absence of both cervix and uterus; Z79.899 Other long term (current) drug therapy
CPT/HCPCS: 80053; 82652; 85025; 99213

== ENCOUNTER → 2019-02-05 | Outpatient (CLI) | payer MEDICARE, OTHER | LOC: RAD 10:03 | PROVIDERS: ATTEND Internal Medicine Cardiovascular Disease | DX: I08.1 Rheumatic disorders of both mitral and tricuspid valves (principal); I65.23 Occlusion and stenosis of bilateral carotid arteries; I10 Essential (primary) hypertension; E78.2 Mixed hyperlipidemia; I48.91 Unspecified atrial fibrillation; I49.5 Sick sinus syndrome | CPT/HCPCS: 93306 ==

== ENCOUNTER → 2019-03-16 | Outpatient (CLI) | payer MEDICARE, OTHER ==
--- NOTE | 2019-03-16 18:05 | Diagnostic Imaging Report ---
INDICATION: Right leg pain. FINDINGS: Three views of the lumbosacral spine. Good alignment of the vertebral bodies. Body heights are well maintained. There is complete loss of disc space at L3-L4 and L4-L5 levels. Sclerosis with hypertrophic lipping of the endplates anteriorly. No evidence of pars defect. The SI joints are symmetrical with moderate sclerotic change. IMPRESSION: Advanced degenerative disc disease at L3-L4 and L4-L5. Dictated by: Dictated on workstation # [id number]
--- NOTE | 2019-03-16 18:10 | Diagnostic Imaging Report ---
INDICATION: Right leg pain. FINDINGS: Three views of the SI joints. SI joints are symmetrical. There is sclerosis along the iliac side of both SI joints most prominent along the inferior one third. Sacrum appears intact with normal sacral foramen. 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 Dictated by: Dictated on workstation # [id number]
== END ==
LOC: RAD 16:20
PROVIDERS: ATTEND Nurse Practitioner Family
DX: M51.17 Intervertebral disc disorders with radiculopathy, lumbosacral region (principal)
CPT/HCPCS: 72100; 72202

== ENCOUNTER → 2019-05-21 | Outpatient (CLI) | payer MEDICARE, OTHER ==
[2019-05-21 13:27] LABS: BASOPHILS % (AUTO) 1 % (0-10); EOSINOPHILS # (AUTO) 0.1 10^3/uL (0.0-0.3); EOSINOPHILS % (AUTO) 2 % (0-10); HEMATOCRIT 41 % (35-52); HEMOGLOBIN 13.6 G/DL (11.5-16.0); LYMPHOCYTES # (AUTO) 2.2 X 10^3 (1.0-4.0); LYMPHOCYTES % (AUTO) 33 % (12-44); MEAN CORPUSCULAR HEMOGLOBIN 30 PG (25-34); MEAN CORPUSCULAR HGB CONC 33 G/DL (32-36); MEAN CORPUSCULAR VOLUME 92 FL (80-99); MEAN PLATELET VOLUME 9.3 FL (7.4-10.4); MONOCYTES # (AUTO) 0.4 X 10^3 (0.0-1.0); MONOCYTES % (AUTO) 6 % (0-12); NEUTROPHILS # (AUTO) 3.8 X 10^3 (1.8-7.8); NEUTROPHILS % (AUTO) 58 % (42-75); PLATELET COUNT 317 10^3/uL (130-400); RED CELL DISTRIBUTION WIDTH 14.3 % (10.0-14.5); WHITE BLOOD COUNT 6.5 10^3/uL (4.3-11.0)
[2019-05-21 13:48] LABS: ALBUMIN 4.1 GM/DL (3.2-4.5); BILIRUBIN,TOTAL 0.4 MG/DL (0.1-1.0); CALCIUM 9.7 MG/DL (8.5-10.1); CREATININE SERUM 0.99 MG/DL (0.60-1.30); POTASSIUM 4.2 MMOL/L (3.6-5.0)
== END ==
LOC: EDSTATUS 02-05 12:23 → ONC 13:06
PROVIDERS: ATTEND Internal Medicine Hematology & Oncology
DX: Z01.89 Encounter for other specified special examinations (principal)
CPT/HCPCS: 36415; 80053; 82306; 85025; 99213

== ENCOUNTER 2019-06-03 08:15 | Outpatient (RCR) | payer MEDICARE, OTHER | END 2019-06-18 | disposition home or self-care (01) | PROVIDERS: ATTEND Nurse Practitioner Family | DX: M54.9 Dorsalgia, unspecified (principal); M79.604 Pain in right leg ==

== ENCOUNTER 2020-02-26 07:43 | Outpatient (RCR) | payer MEDICARE, OTHER ==
[~2020-02-26] VITALS: Ht 172 cm; Wt 77.2 kg
[~2020-02-26 07:43] MED LIST changes: -LETR2.5T5 PO; +LETR2.5T6 PO; -METO-395 PO; +METO50TA15 PO; +MTP100TCR PO
== END 2020-02-26 16:00 | disposition home or self-care (01) ==
LOC: PREOP 07:43
PROVIDERS: ATTEND Surgery
DX: Z01.812 Encounter for preprocedural laboratory examination (principal)
CPT/HCPCS: 87635

== ENCOUNTER → 2020-03-08 | Outpatient (CLI) | payer MEDICARE, OTHER ==
[2020-03-08 15:10] LABS: BASOPHILS # (AUTO) 0.1 10^3/uL (0.0-0.1); BASOPHILS % (AUTO) 1 % (0-10); EOSINOPHILS # (AUTO) 0.2 10^3/uL (0.0-0.3); EOSINOPHILS % (AUTO) 2 % (0-10); HEMATOCRIT 39 % (35-52); HEMOGLOBIN 12.9 G/DL (11.5-16.0); LYMPHOCYTES # (AUTO) 2.7 X 10^3 (1.0-4.0); LYMPHOCYTES % (AUTO) 29 % (12-44); MEAN CORPUSCULAR HEMOGLOBIN 30 PG (25-34); MEAN CORPUSCULAR HGB CONC 33 G/DL (32-36); MEAN CORPUSCULAR VOLUME 91 FL (80-99); MEAN PLATELET VOLUME 9.5 FL (7.4-10.4); MONOCYTES # (AUTO) 0.6 X 10^3 (0.0-1.0); MONOCYTES % (AUTO) 7 % (0-12); NEUTROPHILS # (AUTO) 5.6 X 10^3 (1.8-7.8); NEUTROPHILS % (AUTO) 62 % (42-75); PLATELET COUNT 316 10^3/uL (130-400); RED CELL DISTRIBUTION WIDTH 14.8 % (10.0-14.5); WHITE BLOOD COUNT 9.1 10^3/uL (4.3-11.0)
[2020-03-08 15:31] LABS: ALBUMIN 3.9 GM/DL (3.2-4.5); BILIRUBIN,TOTAL 0.3 MG/DL (0.1-1.0); CALCIUM 9.4 MG/DL (8.5-10.1); CREATININE SERUM 1.01 MG/DL (0.60-1.30); POTASSIUM 4.5 MMOL/L (3.6-5.0); TOTAL PROTEIN 6.8 GM/DL (6.4-8.2)
== END ==
LOC: ONC 14:52
PROVIDERS: ATTEND Internal Medicine Hematology & Oncology
DX: C50.412 Malignant neoplasm of upper-outer quadrant of left female breast (principal); E55.9 Vitamin D deficiency, unspecified; E78.2 Mixed hyperlipidemia; I10 Essential (primary) hypertension; I48.91 Unspecified atrial fibrillation; I65.23 Occlusion and stenosis of bilateral carotid arteries; I49.5 Sick sinus syndrome
CPT/HCPCS: 80053; 82306; 85025; 99213

== ENCOUNTER → 2020-03-30 | Outpatient (CLI) | payer MEDICARE, OTHER ==
--- NOTE | 2020-03-30 09:38 | Diagnostic Imaging Report ---
CLINICAL INDICATION: Mass seen on CT of the liver. EXAM: Right upper quadrant ultrasound. COMPARISON: CT scan of the abdomen and pelvis with contrast dated 06/30/2016. Right upper quadrant ultrasound dated 07/02/2016. FINDINGS: Patient body habitus and overlying bowel gas obscure portions of this exam. The pancreas has normal echogenicity and configuration with no mass or abnormality seen. The visualized portions of the IVC show no significant abnormality. The abdominal aorta is not well-visualized. The liver is partially obscured on this exam due to patient body habitus. The visualized portions of the liver have normal echogenicity and echotexture. The liver surface is smooth. There is a 1.8 cm cyst involving the right lobe of the liver near the gallbladder which measured 1.8 cm on the prior study. There is a heterogeneous hypoechoic area, representing a hemangioma, located within the left lobe of the liver which measures 4.0 cm x 2.6 cm x 2.7 cm and previously measured 3.7 cm x 2.6 cm x 2.7 cm. This area is harder to visualize on today's exam. The liver measures 15.8 cm. The main portal vein demonstrates normal hepatopetal flow. There is a 7 mm hyperechoic area along the wall of the gallbladder fundus, suspected to represent a polyp. This polyp previously measured 6 mm on the prior ultrasound. There is no central Doppler flow associated with this area. There is no sonographic Kerr sign. The gallbladder wall measures roughly 3 mm. There is no ultrasound evidence of cholecystitis. There is no abdominal ascites. The right kidney has normal cortical thickness, size, and shape with no hydronephrosis or mass. The right kidney measures 9.1 cm in craniocaudal dimension. IMPRESSION: 1. There is no significant change in size of the roughly 7 mm gallbladder polyp which previously measured 6 mm. A followup right upper quadrant ultrasound in 1 year is suggested. 2. There is no significant change in the right liver lobe cyst and hemangioma. 3. The remainder of this exam shows no significant interval change compared to the prior study of comparison. Dictated by: Dictated on workstation # [id number]
== END ==
LOC: RAD 08:05
PROVIDERS: ATTEND Nurse Practitioner Family
DX: Z12.31 Encounter for screening mammogram for malignant neoplasm of breast (principal); K76.89 Other specified diseases of liver; K82.4 Cholesterolosis of gallbladder
CPT/HCPCS: 76705; 77063; 77067

== ENCOUNTER → 2020-08-16 | Outpatient (CLI) | payer MEDICARE, OTHER ==
[~2020-08-16] MED LIST changes: +ALPR.25T PO; -ALPR0.254 PO; -AMIO200T4 PO; +AMIO200T6 PO; +AMLO-250 PO; -AMLO5TAB9 PO; +CALC-664 PO; -CALC1TAB94 PO
[2020-08-16 15:10] LABS: BASOPHILS # (AUTO) 0.1 10^3/uL (0.0-0.1); BASOPHILS % (AUTO) 1 % (0-10); EOSINOPHILS # (AUTO) 0.6 10^3/uL (0.0-0.3); EOSINOPHILS % (AUTO) 8 % (0-10); HEMATOCRIT 40 % (35-52); HEMOGLOBIN 12.5 g/dL (11.5-16.0); LYMPHOCYTES # (AUTO) 2.6 10^3/uL (1.0-4.0); LYMPHOCYTES % (AUTO) 34 % (12-44); MEAN CORPUSCULAR HEMOGLOBIN 30 pg (25-34); MEAN CORPUSCULAR HGB CONC 32 g/dL (32-36); MEAN CORPUSCULAR VOLUME 93 fL (80-99); MEAN PLATELET VOLUME 8.9 fL (9.0-12.2); MONOCYTES # (AUTO) 0.6 10^3/uL (0.0-1.0); MONOCYTES % (AUTO) 8 % (0-12); NEUTROPHILS # (AUTO) 3.7 10^3/uL (1.8-7.8); NEUTROPHILS % (AUTO) 49 % (42-75); PLATELET COUNT 293 10^3/uL (130-400); WHITE BLOOD COUNT 7.6 10^3/uL (4.3-11.0)
[2020-08-16 15:34] LABS: ALBUMIN 3.8 GM/DL (3.2-4.5); BILIRUBIN,TOTAL 0.5 MG/DL (0.1-1.0); CALCIUM 8.8 MG/DL (8.5-10.1); CREATININE SERUM 0.96 MG/DL (0.60-1.30); POTASSIUM 3.9 MMOL/L (3.6-5.0); TOTAL PROTEIN 6.4 GM/DL (6.4-8.2)
== END ==
LOC: ONC 14:58
PROVIDERS: ATTEND Internal Medicine Hematology & Oncology
DX: C50.412 Malignant neoplasm of upper-outer quadrant of left female breast (principal); I48.0 Paroxysmal atrial fibrillation; I49.5 Sick sinus syndrome; I10 Essential (primary) hypertension; E78.2 Mixed hyperlipidemia
CPT/HCPCS: 80053; 85025; G0463; 99213

== ENCOUNTER → 2020-08-26 | Outpatient (CLI) | payer MEDICARE, OTHER | LOC: LABNPT 05:56 | PROVIDERS: ATTEND Family Medicine | DX: Z01.812 Encounter for preprocedural laboratory examination (principal); Z20.828 Contact with and (suspected) exposure to other viral communicable diseases | CPT/HCPCS: 87635 ==

== ENCOUNTER → 2021-01-02 | Outpatient (CLI) | payer MEDICARE, OTHER ==
[~2021-01-02] MED LIST changes: +CALC-1026 PO; -CALC-664 PO; -LISI-552 PO; +LISI20TA26 PO
[2021-01-02 13:32] LABS: ALBUMIN 4.2 GM/DL (3.2-4.5); BILIRUBIN,TOTAL 0.4 MG/DL (0.1-1.0); CALCIUM 9.1 MG/DL (8.5-10.1); CREATININE SERUM 1.02 MG/DL (0.60-1.30); POTASSIUM 4.2 MMOL/L (3.6-5.0)
== END ==
LOC: CARD 12:44
PROVIDERS: ATTEND Internal Medicine Cardiovascular Disease
DX: I10 Essential (primary) hypertension (principal); E78.2 Mixed hyperlipidemia; I07.1 Rheumatic tricuspid insufficiency
CPT/HCPCS: 36415; 80053; 80061; 93306

== ENCOUNTER → 2021-02-06 | Outpatient (CLI) | payer MEDICARE, OTHER ==
[~2021-02-06] VITALS: Ht 172 cm; Wt 81.0 kg
[~2021-02-06] MED LIST changes: -DRON400T2 PO; +DRON400T6 PO; +REGADENOSON 0.4 MG/5 ML SYR (LEXISCAN) IV ONE
[2021-02-06] MEDS: CATHETER FLUSH 10 ML SYR IV PRN ×2 (07:31→09:14)
[2021-02-06 09:13] VITALS: BP 182/101
--- NOTE | 2021-02-06 16:26 | Cardiology Stress Test Report ---
Stress Test Report Date of Procedure/Referring: Date of Procedure: Feb 06, 2021 PCP Eliana Zee MD Admitting Physician Evangelina Elmore DO Indications: HTN Baseline Heart Rate: 62 Baseline Blood Pressure: Blood Pressure Systolic: 182 Blood Pressure Diastolic: 101 Baseline Vitals Vital Signs Date Time Temp Pulse Resp B/P (MAP) Pulse Ox O2 Delivery O2 Flow Rate FiO2 02/06/21 09:13 63 14 182/101 (128) 98 Room Air Baseline EKG: Baseline EKG: Atrial paced rhythm Summary After explaining the procedure to the patient, she signed a consent and then brought to the stress nuclear laboratory. Patient received 0.4 mg Lexiscan for stress test, ECG, heart rate and blood pressure were monitored continuously. Resting and stress dose of radio tracer were injected, imaging was acquired and reviewed in short axis, horizontal long axis and vertical long axis views. TID: 1.07 SSS: 2 SDS: 2 EF: 62 1. Patient tolerated Lexiscan well 2. Baseline atrial paced rhythm persisted during test 3. Breast attenuation with no significant ischemia or infarction on SPECT images 4. Normal left ventricular size, EF 62% ELIANA ZEE MD Feb 06, 2021 16:26
== END ==
LOC: CARD 07:45
PROVIDERS: ATTEND Internal Medicine Cardiovascular Disease
DX: I10 Essential (primary) hypertension (principal)
CPT/HCPCS: 78452; 93017; A9502

== ENCOUNTER → 2021-02-14 | Outpatient (CLI) | payer MEDICARE, OTHER ==
[~2021-02-14] MED LIST changes: -REGADENOSON 0.4 MG/5 ML SYR (LEXISCAN) IV ONE
[2021-02-14 15:07] LABS: BASOPHILS # (AUTO) 0.1 10^3/uL (0.0-0.1); BASOPHILS % (AUTO) 1 % (0-10); EOSINOPHILS # (AUTO) 0.1 10^3/uL (0.0-0.3); EOSINOPHILS % (AUTO) 2 % (0-10); HEMATOCRIT 42 % (35-52); HEMOGLOBIN 13.4 g/dL (11.5-16.0); LYMPHOCYTES # (AUTO) 2.5 X 10^3 (1.0-4.0); LYMPHOCYTES % (AUTO) 34 % (12-44); MEAN CORPUSCULAR HEMOGLOBIN 30 pg (25-34); MEAN CORPUSCULAR HGB CONC 32 g/dL (32-36); MEAN CORPUSCULAR VOLUME 93 fL (80-99); MONOCYTES # (AUTO) 0.5 X 10^3 (0.0-1.0); MONOCYTES % (AUTO) 7 % (0-12); NEUTROPHILS # (AUTO) 4.1 X 10^3 (1.8-7.8); NEUTROPHILS % (AUTO) 56 % (42-75); PLATELET COUNT 322 10^3/uL (130-400); WHITE BLOOD COUNT 7.3 10^3/uL (4.3-11.0)
[2021-02-14 15:13] LABS: ALBUMIN 4.1 GM/DL (3.2-4.5); POTASSIUM 4.4 MMOL/L (3.6-5.0)
[2021-02-14 15:14] LABS: CALCIUM 9.4 MG/DL (8.5-10.1)
[2021-02-14 15:16] LABS: TOTAL PROTEIN 6.8 GM/DL (6.4-8.2)
[2021-02-14 15:17] LABS: BILIRUBIN,TOTAL 0.4 MG/DL (0.1-1.0)
[2021-02-14 15:19] LABS: CREATININE SERUM 0.98 MG/DL (0.60-1.30)
== END ==
LOC: ONC 14:22
PROVIDERS: ATTEND Internal Medicine Hematology & Oncology
DX: C50.412 Malignant neoplasm of upper-outer quadrant of left female breast (principal); E55.9 Vitamin D deficiency, unspecified; Z79.811 Long term (current) use of aromatase inhibitors; Z92.3 Personal history of irradiation; Z90.12 Acquired absence of left breast and nipple
CPT/HCPCS: 80053; 85025; G0463; 99213

== ENCOUNTER 2021-03-01 14:15 | Inpatient (IN) | payer MEDICARE, OTHER ==
[~2021-03-01] VITALS: Ht 170 cm; Wt 78.6 kg
[~2021-03-01 14:15] MED LIST changes: +ACET325C7 PO; +ACETAMINOPHEN 325 MG TABLET PO PRN; +ALPRAZolam 0.25 MG (XANAX) TAB PO PRN; +ASPI325T32 PO; +ATOR40TA70 PO; +BISACODYL 10 MG SUPP (DULCOLAX) PR PRN; +CALCIUM CARBONATE 500 MG (TUMS) TAB.CHEW PO PRN; +DOCUSATE SODIUM 100 MG (COLACE) CAP PO PRN; +FLEET ENEMA ADULT 1 EA BTL PR PRN; +HYDR30CR71 RC; +LACTULOSE SYRUP 10GM/15ML (ENULOSE) 30ML UDC PO PRN; +LOPERAMIDE 2 MG (IMODIUM) TABLET PO PRN; +MELATONIN 3 MG TABLET PO PRN; +METO50TA7 PO; +ONDANSETRON 4 MG (ZOFRAN) ORAL DISSOLVE TAB PO PRN; +PHEN57OI3 RC; +diphenhydrAMINE 25 MG TAB (BENADRYL) PO PRN; +guaiFENesin/CODEINE (ROBITUSSIN AC) 10ML UDC PO PRN
[2021-03-01 14:20] VITALS: BP 146/74
--- NOTE | 2021-03-01 14:56 | PM&R Post Admission Assessment ---
PM&R HP Date of Visit: March 01, 2021 Time of Visit: 15:00 History of Present Illness CC: CVA HPI: This is a 75yoWF clinic patient of Dr Elmore who presents to the IRF for recovery and rehabilitation after suffering a CVA. 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 Patient does have a h/o AF managed by Dr Zee but she she took herself off of the OAC because she read "it was bad for you." Dr Zee and Dr Elmore, her PCP, have been consulted. Currently she has significant peripheral vision loss and right sided weakness. Her and son are at the bedside. 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 PLOF was independent. Past Ebendfz-Beekxa-Fobqvi Hx Past Med/Social Hx: Reviewed Nursing Past Med/Soc Hx, Reviewed and Corrections made Patient Social History Marrital Status: Employed/Student: retired Alcohol Use: Denies Use Smoking Status: Never a Smoker 2nd Hand Smoke Exposure: No Recent Foreign Travel: No Contact w/other who traveled: No Recent Hopitalizations: No Immunizations Up To Date Tetanus Booster (TDap): Less than 5yrs Date of Pneumonia Vaccine: Jul 12, 2014 Date of Influenza Vaccine: Jul 20, 2019 Seasonal Allergies Seasonal Allergies: Yes Past Medical History Surgeries: Breast, Pacemaker, Renal, Tonsillectomy Currently Using CPAP: No Currently Using BIPAP: No Cardiac: Atrial Fibrillation, Hypertension Neurological: Stroke HIV/AIDS: No Female 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 Menopausal Genitourinary: UTI-Chronic Gastrointestinal: Chronic Diarrhea HEENT: Cataract Loss of Vision: Denies Hearing Impairment: Hard of Hearing Cancer: Breast Did You Recieve Any Treatments: Yes What Type of Treatment Did You: Radiation, Surgical Intervention Psychosocial: Anxiety History of Blood Disorders: No Adverse Reaction to Blood Eubanks: No (N/A) Family History Colon cancer 19 MOTHER Colon cancer 19 MOTHER Hypertension 19 FATHER Neoplasm 19 FATHER Hypertension PM&R Allergy/Meds/Data Review Allergies Coded Allergies: No Known Drug Allergies (Verified , 04/05/18) Home Medications Scheduled Aspirin (Aspirin EC), 325 MG PO DAILY, (Reported) Atorvastatin Calcium (Atorvastatin Calcium), 40 MG PO HS, (Reported) Diltiazem HCl (Diltiazem 24Hr ER), 120 MG PO DAILY, (Reported) Flecainide Acetate (Flecainide Acetate), 100 MG PO Q12H, (Reported) Letrozole (Letrozole), 2.5 MG PO DAILY, (Reported) Lisinopril (Lisinopril), 20 MG PO DAILY, (Reported) Metoprolol Succinate (Metoprolol Succinate), 50 MG PO DAILY, (Reported) Scheduled PRN Acetaminophen (Tylenol), 650 MG PO Q4H PRN for PAIN-MILD (1-4), (Reported) Phenylephrine/Shk Lv/Mo/Pet,Wh (Hemorrhoidal Ointment), 1 APPLIC RC PRN PRN for HEMMORRHOID DISCOMFORT, (Reported) Discontinued Medications Diltiazem HCl (Diltiazem 24Hr ER), 120 MG PO DAILY, (Reported) Discontinued Reason: No Longer Taking Flecainide Acetate (Flecainide Acetate), 100 MG PO BID Discontinued Reason: Duplicate Order Hydrocortisone (Anusol-Hc), 30 GM RC, (Reported) Discontinued Reason: Duplicate Order Letrozole (Letrozole), 2.5 MG PO DAILY, (Reported) Discontinued Reason: Duplicate Order Lisinopril (Lisinopril), 20 MG PO DAILY, (Reported) Discontinued Reason: Duplicate Order Metoprolol Tartrate (Metoprolol Tartrate), 50 MG PO DAILY, (Reported) Discontinued Reason: No Longer Taking Current Medications Current Medications Reviewed Review of Systems Constitutional: see HPI, malaise, weakness EENTM: blurred vision, double vision, vision loss Respiratory: no symptoms reported, dyspnea on exertion Gastrointestinal: no symptoms reported Genitourinary: no symptoms reported Musculoskeletal: back pain, joint pain Skin: no symptoms reported Psychiatric/Neurological: Anxiety, Numbness, Weakness All Other Systems Reviewed Negative Unless Noted: Yes Physical Exam Physical Exam Vital Signs Capillary Refill : Height, Weight, BMI Height: 5'8.00" Weight: 175lbs. 0.0oz. [id number]; 27.37 BMI Method:Stated General Appearance: No Apparent Distress, WD/WN Eyes: Bilateral Eye Normal Inspection, Bilateral Eye PERRL HEENT: PERRL/EOMI, Normal ENT Inspection, Pharynx Normal, Other (peripheral vision loss noted bilateral) Neck: Full Range of Motion, Normal Inspection, Non Tender, Supple, Carotid Bruit Respiratory: Chest Non Tender, Lungs Clear, Normal Breath Sounds, No Accessory Muscle Use, No Respiratory Distress Cardiovascular: No Edema, No Gallop, No JVD, No Murmur, Normal Peripheral Pulses, Irregularly Irregular Gastrointestinal: Normal Bowel Sounds, No Organomegaly, No Pulsatile Mass, Non Tender, Soft Back: Normal Inspection, No CVA Tenderness, No Vertebral Tenderness Extremity: Normal Capillary Refill, Normal Inspection, Normal Range of Motion, Non Tender, No Calf Tenderness, No Pedal Edema Neurologic/Psychiatric: Alert, Oriented x3, Normal Mood/Affect, Motor Weakness (right sided 4/5), Other (vision loss peripheral) Skin: Normal Color, Warm/Dry Lymphatic: No Adenopathy PM&R Medical Assessment & Plan REHAB/MEDICAL ASSESSMENT AND PLAN: REHAB IMPAIRMENT GROUP: CVA ETIOLOGIC DIAGNOSIS: CVA The comorbidities that impact the patients function and/or functional outcome by: vision loss, non-compliance with OAC fro PAF, cardiac dysfunction at baseline REHAB PLAN: The patient is being admitted to our comprehensive inpatient rehabilitation facility and can tolerate the intensity of service consisting of at least: 180 minutes of therapy a day, 5 out of 7 days a week Rehab treatment will consist of: PT OT ST will focus on regaining strength in the deficient areas from CVA in order to regain ambulation and independent ADL's The patient/family has a good understanding of our discharge process and will benefit from an interdisciplinary inpatient rehabilitation program. The patient has potential to make improvement and is in need of at least two of the following multidisciplinary therapies including but not limited to physical, occupational, speech, and prosthetics and orthotics. Additionally the patient will need services from respiratory, nutritional services, wound care, psychology, etc. (Customize this to each patient). Given the patients complex condition and risk of further medical complications, rehabilitation services cannot be safely or effectively provided at a lower level of care such as a intermediate facility. BARRIERS TO DISCHARGE: Vision loss ESTIMATED LOS: 10 days DISPOSITION: Home RELEVANT CHANGES SINCE PREADMISSION SCREENING: I have compared the patients medical and functional status at the time of the preadmission screening and there are: no changes PROGNOSIS: Fair REHABILITATION GOALS: 1. PT OT ST will focus on regaining strength in the deficient areas from CVA in order to regain ambulation and independent ADL's All the above goals were reviewed with the patient and he/she is in agreement. By signing this document, I acknowledge that I have personally performed a full physical examination on this patient within 24 hours of admission to this inpatient rehabilitation facility and have determined the patient to be able to tolerate the above course of treatment at an intensive level for a reasonable period of time. I will be completing a detailed individualized Plan of Care for this patient by day #4 of the patients stay based upon the Preadmission Screen, the Post-Admission Evaluation, and the therapy evaluations. Admission Dx/Comorbidities: (1) CVA (cerebral vascular accident) ICD Codes: I63.9 - Cerebral infarction, unspecified (2) Pacemaker ICD Codes: Z95.0 - Presence of cardiac pacemaker (3) SSS (sick sinus syndrome) ICD Codes: I49.5 - Sick sinus syndrome (4) PAF (paroxysmal atrial fibrillation) ICD Codes: I48.0 - Paroxysmal atrial fibrillation (5) Vision loss ICD Codes: H54.7 - Unspecified visual loss Assessment/Plan Assessment and Plan Assess & Plan/Chief Complaint Assessment: CVA with vision loss and right sided weakness PPM for SSS PAF Non-compliance with OAC prior to CVA HTN HLP PVD Breast cancer hx CHF Plan: IRF protocol Monitor closely Cardiology consult PCP consult JESSICA GIL DO March 01, 2021 14:56
[2021-03-01] MEDS ORDERED: [UNRECOGNIZED DRUG - MIXTURE] RC PRN (15:00)
[2021-03-01] MEDS ORDERED: NON-FORMULARY MEDICATION 1 EA EA (Acetaminophen (Tylenol) 650 MG) PO PRN (15:00)
[2021-03-01] MEDS ORDERED: PREPARATION H OINTMENT 57 GR TUBE PR PRN (15:30)
--- NOTE | 2021-03-01 15:36 | Consultation-Cardiology ---
HPI-Cardiology Cardiology Consultation Date of Consultation 03/01/21 Date of Admission 03/01/21 Time Seen by Provider: 03:10 Indication: Basilar artery CVA HPI Pt is a 75 year-old lady known to Dr. Zee with a history of HTN, hyperlipidemia, Afib, sinus sick syndrome, diastolic heart dysfunction, and carotid artery stenosis who presented 02/26/21 with CVA. She woke up at 1:00AM wi th acute onset double vision, lightheadedness, left sided weakness, and gait instability. Reported no LOC but did have presyncope. She was taken to [place] ED where they noted mild left sided weakness and did a CTA where they found proximal basilar artery occlusion. She then was transferred to [facility] for intervention. 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 Pt was prescribed eliquis by Dr. Zee but she quit taking it a year ago because she heard it was "bad for you." Not on ASA. No Afib she was aware of since 4 years ago. She also has a pacemaker due to bradycardia and labile HR. Pt was seen today in IRF as she was beginning to work with PT/OT. She reports right sided weakness and right sided peripheral vision loss. She denies any new cp/palpitations/sob/syncope since her CVA. Weakness gradually improving. Home Medications & Allergies Allergies: Coded Allergies: No Known Drug Allergies (Verified , 04/05/18) Home Medication List Reviewed: Yes SFB-Jvgcte-Diwtjx Hx Patient Social History Marital Status: 2nd Hand Smoke Exposure: No Recent Hopitalizations: No Immunizations Up To Date Tetanus Booster (TDap): Less than 5yrs Date of Pneumonia Vaccine: Jul 12, 2014 Date of Influenza Vaccine: Jul 20, 2019 Past Medical History HTN HLD Sinus Sick syndrome Paroxysmal atrial fibrillation Diastolic heart dysfunction Carotid artery stenosis Family Medical History Significant Family History: Hypertension Family History: Colon cancer 19 MOTHER Colon cancer 19 MOTHER Hypertension 19 FATHER Neoplasm 19 FATHER Review of Systems-General Review of Systems Constitutional: see HPI; No chills, No diaphoresis; weakness EENTM: see HPI, hearing loss (chronic), double vision, vision loss (R peripheral ) Respiratory: No no symptoms reported; see HPI; No cough, No dyspnea on exertion, No hemoptysis, No orthopnea, No phlegm, No short of breath, No stridor, No wheezing, No other Cardiovascular: see HPI; No chest pain, No palpitations Gastrointestinal: No RUQ, No LUQ, No RLQ, No LLQ, No no symptoms reported; see HPI; No abdominal pain, No constipation, No diarrhea, No dysphagia, No hematemesis, No heartburn, No jaundice, No loss of appetite, No melena, No nausea, No vomiting, No other Genitourinary: No no symptoms reported; see HPI; No decreased output, No discharge, No dysuria, No frequency, No hematuria, No hesitancy, No incontinence, No nocturia, No pain, No other : No Musculoskeletal: No muscle stiffness, No muscle cramps; muscle weakness (mild R sided weakness ) Skin: No no symptoms reported; see HPI; No change in color, No change in hair/nails, No dryness, No hx of skin cancer, No lesions, No lumps, No pruritus, No rash, No other Psychiatric/Neurological: Denies No Symptoms Reported; See HPI; Denies Anxiety, Denies Depressed, Denies Emotional Problems, Denies Headache, Denies Numbness, Denies Paresthesia, Denies Pre-Existing Deficit, Denies Seizure, Denies Tingling, Denies Tremors, Denies Weakness, Denies Other All Other Systems Reviewed Negative Unless Noted: Yes Physical Exam Physical Exam Vital Signs Vital Signs - First Documented 03/01/21 14:20 Temp 36.0 Pulse 69 Resp 16 B/P (MAP) 146/74 (98) Pulse Ox 99 O2 Delivery Room Air Capillary Refill : Height, Weight, BMI Height: 5'8.00" Weight: 175lbs. 0.0oz. 79.522034bt; 27.68 BMI Method:Stated General Appearance: No Apparent Distress, WD/WN Eyes: Bilateral Eye Normal Inspection HEENT: PERRL/EOMI, Normal ENT Inspection Neck: Full Range of Motion, Normal Inspection, Non Tender, Supple Respiratory: Chest Non Tender, Lungs Clear, Normal Breath Sounds, No Accessory Muscle Use, No Respiratory Distress Cardiovascular: Regular Rate, Rhythm, No Edema, No Gallop, No JVD, No Murmur, Normal Peripheral Pulses Gastrointestinal: Normal Bowel Sounds, No Organomegaly, No Pulsatile Mass, Non Tender, Soft Rectal: Deferred Back: Normal Inspection, No CVA Tenderness, No Vertebral Tenderness Extremity: Normal Capillary Refill, Normal Inspection, Normal Range of Motion, Non Tender, No Calf Tenderness, No Pedal Edema, Other (R sided weakness ) Neurologic/Psychiatric: Alert, Oriented x3, Normal Mood/Affect, Motor Weakness (R sided extermities ), Sensory Deficit (R sided peripheral vision loss, R sided sensation decreased ) Skin: Normal Color, Warm/Dry Lymphatic: No Adenopathy A/P-Cardiology Admission Diagnosis CVA Paroxysmal Afib Sinus sick syndrome HTN HLD Mild bilateral carotid artery stenosis Assessment/Plan CVA of basilar artery, 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 - PT/OT for weakness and neurological symptoms, begin Eliqiuis 03/08 Paroxysmal Afib - continue home meds, continue to monitor Sinus sick syndrome - managed by PPM HTN - continue home meds, monitor HLD - continue home meds Mild bilateral carotid artery stenosis - continue to monitor Supervisory-Addendum Brief Verification & Attestation Participated in pt care: history, MDM, physical Personally performed: exam, history, MDM, supervision of care Care discussed with: Medical Student Procedures: n/a Results interpretation: Verified all documentation Verification and Attestation of Medical Student E/M Service A medical student performed and documented this service in my presence. I reviewed and verified all information documented by the medical student and made modifications to such information, when appropriate. I personally performed the physical exam and medical decision making. Patient is restarting Eliquis on 03/08 Restart home meds and monitor blood pressure Monitor lipids and electrolytes Eliana Zee, March 01, 2021,16:33 ELENO TRISTAN MED STUDENT March 01, 2021 15:36 ELIANA ZEE MD March 01, 2021 16:34
--- NOTE | 2021-03-01 16:05 | Physical Therapy Evaluation ---
PT Evaluation-General Medical Diagnosis Admission Date March 01, 2021 at 14:23 Medical Diagnosis: CVA Onset Date: March 01, 2021 Therapy Diagnosis Therapy Diagnosis: weakness; abn gait Height/Weight Height (Feet): 5 Height (Inches): 8.00 Weight (Pounds): 175 Weight (Ounces): 0.0 Precautions Precautions/Isolations: Fall Prevention, Standard Precautions Chair alarm in place and activated post visit. Referral Physician: Babak Reason for Referral: Evaluation/Treatment Medical History Pertinent Medical History: Atrial Fib, HTN Additional Medical History pacemaker; hx of breast CA Current History Post acute CVA on 02/26/21 with right side weakness and visual impairment. Admitted to this facility for skilled therapy services and continued medical managment. Reviewed History: Yes Social History Home: Single Level Current Living Status: Spouse Entry Into Home: Stairs With Railing PT Steps Into Home: 3 Prior Prior Level of Function SCALE: Activities may be completed with or without assistive devices. 0-Zhytxufpyf-goucbhs completes the activity by him/herself with no assistance from a helper. 5-Set-up or Clean-up Assistance-helper sets up or cleans up; patient completes activity. [place] assists only prior to or following the activity. 4-Supervision or Touching Assistance-helper provides verbal cues and/or touching/steadying and/or contact guard assistance as patient completes activity. Assistance may be provided throughout the activity or intermittently. 3-Partial/Moderate Assistance-helper does LESS THAN HALF the effort. [place] lifts, holds or supports trunk or limbs, but provides less than half the effort. 2-Substantial/Maximal Assistance-helper does MORE THAN HALF the effort. [place] lifts or holds trunk or limbs and provides more than half the effort. 5-Rotqyfaqi-cfefkl does ALL the effort. Patient does none of the effort to complete the activity. Or, the assistance of 2 or more helpers is required for the patient to complete the activity. If activity was not attempted, code reason: 7-Patient Refused. 9-Not Applicable-not attempted and the patient did not perform the activity before the current illness, exacerbation or injury. 10-Not Attempted due to Environmental Limitations-(lack of equipment, weather restraints, etc.). 88-Not Attempted due to Medical Conditions or Safety Concerns. Bed Mobility: 6 Transfers (B,C,W/C): 6 Gait: 6 Stairs: 6 Indoor Mobility (Ambulation): Independent Stairs: Independent Pt was independent with all mobility; community ambulator and active. Pt swam regularly at the [facility] PT Evaluation-Current Subjective Pt is agreeable to PT. Reports she awoke the supervisor whipped topping of the event with weakness and feeling dizzy. She was taken via ambulance to [facility], flown to [place] then flown to [facility]. Reports her right side feels "funny" and notes her sensation is limited; reports her peripheral vision on the right is impaired and she voiced that she cannot read. Pain Numeric Pain Scale: 0-No Pain Location: No Pain Reported Objective Patient Orientation: Person, Place, Time, Situation Decreased safety awareness. ROM/Strength ROM Lower Extremities WNL Strength Lower Extremities Right LE strength is grossly 4-/5; left LE strength is 5/5 Integumentary/Posture Integumentary intact Bowel Incontinence: No Bladder Incontinence: Yes Posture normal and symmetrical Neuromuscular (Tone, Coordination, Reflexes) Tone and reflexes are WNL: decreased coordinated movement right LE and impaired proprioceptive awareness Sensory Vision: impaired; Hearing: Functional Sensation Right Lower Extremit: Impaired (decreased sensation to light touch) Sensation Left Lower Extremity: Intact Transfers Roll Left & Right (QC): 4 Sit to Lying (QC): 4 Lying to Sitting/Side of Bed(Q: 4 Sit to Stand (QC): 3 (CGA with heavy cues for sequencing and safety) Chair/Sto-qo-Enuna Xfer(QC): 3 (CGA with heavy cues for safety and task sequencing) Toilet Transfer (QC): 3 Car Transfer (QC): 3 Heavy cues for safety and awareness of surroundings. Gait Does the Patient Walk?: Yes Mode of Locomotion: Walk Anticipated Mode of Locomotion: Walk Walk 10 feet (QC): 3 Walk 50 ft with 2 Turns(QC): 3 Walk 150 ft (QC): 3 Walking 10ft/uneven surface-QC: 3 Distance: 150 ft x 4; 50 ft x 5 Gait Assistive Device: FWW Comments/Gait Description Pt tends to veer left with her walker; she requires assist at times to safely propel her walker. Tends to bump obstacles on her left. Wheelchair Training Does the Pt Use a Wheelchair?: No Wheel 50 ft with 2 turns (QC): 9 Wheel 150 ft (QC): 9 Stairs 1 Step (curb) (QC): 3 4 Steps (QC): 3 12 Steps (QC): 88 Skilled cues for sequencing and safety; assist to manage the walker safely. Balance Sitting Static: Normal Sitting Dynamic: Normal Standing Static: Fair Standing Dynamic: Normal Picking up an Object (QC): 88 Treatment [place] with OT as the skill of 2 clinicians indicated for optimal safety and effective treatment. OT addressed UE use and placement as well as verbal cues for safety and sequencing as PT assisted with functional balance, functional transfers, walker management and obstacle avoidance. Pt requires assist to grasp and maintain systems mgr on the walker right (also coordinating hand movement to reach the walker). Heavy cues throughout session for safety and impulse control. Pt performed multiple transfers, gait and mobility with walking throughout the session; standing funcitonal balance activities on level surfaces as well as uneven surfaces with walker for balance and min to CGA to maintain balance as OT addressed UE use. Pt in room in recliner with needs met, instruction in how to use the call light and chair alarm activated. Education provided on safety and only getting up when staff is present. Assessment/Needs Post CVA with slight right sided weakness; more notably right side impaired coordinated movement and awareness in space. She also presents with decreased safety awareness and requires heavy cues for sequencing and safety. She tends to move quickly and with large movements; however, responds well to verbal cuing and demonstrates carryover with cues. She tends to move quickly and initiate tasks before full instruction is provided, unsure if this is CVA related or prior personality of quick actions. she is able to voice her impairments and seems aware of the vision deficit and impaired sensation of her right side. Her family was present throughout evaluation and treatment and seem very supportive. Pt was active in and outof her home at [facility] and desires to return to full activities as able. Rehab Potential: Good PT Short Term Goals Short Term Goals Time Frame: March 09, 2021 Sit to stand: 4 Chair/srg-wa-nyccv transfer: 4 Walk 150 feet: 4 PT [employer] Goals Correction Goals PT Correction Goals Time Frame: Mar 24, 2021 Roll Left & Right (QC): 6 Sit to Lying (QC): 6 Lying-Sitting on Side/Bed(QC): 6 Sit to Stand (QC): 6 Chair/Cze-wt-Wpqiv Xfer(QC): 6 Toilet Transfer (QC): 6 Car Transfer (QC): 6 Does the Patient Walk: Yes Walk 10 feet (QC): 6 Walk 50ft with 2 Turns (QC): 6 Walk 150 ft (QC): 6 Walking 10ft on Uneven Surface: 6 1 Step (curb) (QC): 6 4 Steps (QC): 6 12 Steps (QC): 6 Picking up an Object (QC): 4 Does the Pt use WC or Scooter?: No Wheel 50 feet with 2 turns (QC: 9 Wheel 150 feet: 9 PT Plan Problem List Problem List: Activity Tolerance, Functional Strength, Safety, Balance, Gait, Transfer, Bed Mobility Treatment/Plan Treatment Plan: Continue Plan of Care Treatment Plan: Bed Mobility, Education, Functional Activity K[place], Functional Strength, Group Therapy, Gait, Safety, Therapeutic Exercise, Transfers Treatment Duration: Mar 24, 2021 Frequency: At least 5 of 7 days/Wk (IRF) Estimated Hrs Per Day: 1.5 hours per day Patient and/or Family Agrees t: Yes Safety Risks/Education Patient Education: Safety Issues Teaching Recipient: Patient Teaching Methods: Discussion Response to Teaching: Reinforcement Needed Discharge Recommendations Therapy Discharge Recommendati: Post Acute PT (HHC vs outpt) Time/GCodes Time In: 1430 Time Out: 1440 ([id number] (co treat with OT)) Total Billed Treatment visit EVM 10 FA 80 (co treat with OT) MONIK CRAIG PT March 01, 2021 16:05
[2021-03-01] MEDS: polyethylene glycoL POWDER 17 GM (MIRALAX) PACK PO SCH ×2 (16:13→19:41)
[2021-03-01] MEDS: SENNA W/DOCUSATE (SENOKOT S) TABLET PO SCH ×2 (16:13→19:46)
[2021-03-01] MEDS: DOCUSATE SODIUM 100 MG (COLACE) CAP PO SCH ×2 (16:13→19:53)
--- NOTE | 2021-03-01 16:15 | Occupational Therapy Eval ---
OT Evaluation-General/PLF Medical Diagnosis Admission Date March 01, 2021 at 14:23 Medical Diagnosis: CVA Onset Date: February 26, 2021 Therapy Diagnosis Therapy Diagnosis: decreased ADL Status, weakness Height/Weight Height (Feet): 5 Height (Inches): 8.00 Weight (Pounds): 175 Weight (Ounces): 0.0 Precautions Precautions/Isolations: Fall Prevention, Standard Precautions Referral Physician: Babak Referral Reason: Evaluation/Treatment Medical History Pertinent Medical History: Atrial Fib, HTN Additional Medical History HLD, SSS, b/l carotid artery stenosis, diastolic dysfunction, breast cancer, pacemaker Current History 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 03/01/21 transfer to [facility] for continued medication management and skilled therapy. Social History Home: Single Level Current Living Status: Spouse Entry Into Home: Stairs With Railing Steps Into Home: 3 ADL-Prior Level of Function SCALE: Activities may be completed with or without assistive devices. 1-Byvwbanjid-lljsqvj completes the activity by him/herself with no assistance from a helper. 5-Set-up or Clean-up Assistance-helper sets up or cleans up; patient completes activity. [place] assists only prior to or following the activity. 4-Supervision or Touching Assistance-helper provides verbal cues and/or touching/steadying and/or contact guard assistance as patient completes activity. Assistance may be provided throughout the activity or intermittently. 3-Partial/Moderate Assistance-helper does LESS THAN HALF the effort. [place] lif ts, holds or supports trunk or limbs, but provides less than half the effort. 2-Substantial/Maximal Assistance-helper does MORE THAN HALF the effort. [place] lifts or holds trunk or limbs and provides more than half the effort. 3-Chhmvxldv-ruxjfj does ALL the effort. Patient does none of the effort to complete the activity. Or, the assistance of 2 or more helpers is required for the patient to complete the activity. If activity was not attempted, code reason: 7-Patient Refused. 9-Not Applicable-not attempted and the patient did not perform the activity before the current illness, exacerbation or injury. 10-Not Attempted due to Environmental Limitations-(lack of equipment, weather restraints, etc.). 88-Not Attempted due to Medical Conditions or Safety Concerns. ADL PLOF Comments Pt reports IND with all ADLs and functional mobility at PLOF, no AD/AE. She was able to complete her cooking, cleaning, dressing, toileting, driving and grocery shopping. She has a walk in shower and a tub/shower, but does not have a SC in either. Self Care: Independent Functional Cognition: Independent DME/Equipment: Shower, Tub/Shower Drive Self: Yes Leisure Interests: walking dog, swimming OT Current Status Subjective Pt agreeable to OT Evaluation then OT/PT cotreat. Pt reports decreased peripheral vision on R side, and difficulty reading. Mental Status/Objective Patient Orientation: Person, Place, Situation Current Glasses/Contacts: No Hearing Aids: No Dentures/Partials: No Hand Dominance: Right Upper Extremity ROM BUE shoulder flexion to approx 150 degrees, able to touch back of head with h ands. Upper Extremity Coordination decreased RUE coordination, LUE WFL Upper Extremity Sensation Tingling/numbness throughout RUE, pt reports "dull" sensation to light touch. LUE WFL Upper Extremity Strength LUE grossly 3+/5, RUE grossly 4/5 ADL-Treatment Eating (QC): 4 (Pt reports slight difficulty with getting food from plate to mouth due to decreased coordination, able to manage with increased time. ) Oral Hygiene (QC): 7 Shower/Bathe Self (QC): 7 Upper Body Dressing (QC): 7 Lower Body Dressing (QC): 7 On/Off Footwear (QC): 7 Toileting Hygiene (QC): 7 Other Treatments OT evaluation complete. OT/PT cotreat due to skill of 2 clinicians required which a gear technician could not perform in order to coordinate BUE/LEs with task, decrease fall risk, and due to pt's limitations in proprioception, coordination, activity tolerance and strength. OT focused on UE placement, ADL, UE reaching/coordination, R visual scanning, and cues for sequencing and safety, PT focused on LE placement, gross overall movement, transfers and mobility. Pt performed functional transfers bed mobility, car simulation, over uneven surface, steps, and around ARU common area using FWW (please refer to PT evaluation for QC scores associated with mobility/transfers). Pt stood at FWW completing balloon batting with OT as PT assisted with balance, pt initially held onto walker with L hand while batting balloon with R hand, but with cues was able to complete without holding onto walker. Pt took a seated rest break, then completed task again on therex mat, holding onto walker with L hand. Pt completed ring arc in standing, using R hand to move rings across midline x2 sets. Noted slight difficulty locating rings on R side, pt felt around for the ring a few times before successfully locating the ring. Pt instructed to follow the ring all the way across the arc with her eyes. Pt returned to room using FWW, transferring to recliner. With transfers, pt required cues for UE placement and safety, and assistance with placing R hand on walker due to decreased coordination. Post tx, pt seated in recliner, call light in reach and all needs met. Education OT Patient Education: Correct positioning, Energy conservation, Exercise program, Modified ADL techniques, Progress toward Goal/Update tx plan, Purpose of tx/functional activities, Rehab process Teaching Recipient: Patient Teaching Methods: Discussion Response to Teaching: Verbalize Understanding OT Short Term Goals Short Term Goals Time Frame: March 08, 2021 Toileting hygiene: 5 Upper body dressin Lower body dressin Putting on/taking off footwear: 5 OT Half-Way Goals Voltage Tester Goals Time Frame: Mar 24, 2021 Eating (QC): 6 Oral Hygiene (QC): 6 Toileting Hygiene (QC): 6 Shower/Bathe Self (QC): 6 Upper Body Dressing (QC): 6 Lower Body Dressing (QC): 6 On/Off Footwear (QC): 6 Additional Goals: 1-Demonstrate ADL Tasks, 2-Verbalize Understanding, 3- ImproveStrength/Kalli 1=Demonstrate adherence to instructed precautions during ADL tasks. 2=Patient will verbalize/demonstrate understanding of assistive devices/modifications for ADL. 3=Patient will improve strength/tolerance for activity to enable patient to perform ADL's. OT Education/Plan Problem List/Assessment Assessment: Decreased Activ Tolerance, Decreased Safety Aware, Decreased UE Strength, Impaired Coordination, Impaired Funct Balance, Impaired I ADL's, Impaired Self-Care Skills, Visual-Perceptual Deficit Discharge Recommendations Plan/Recommendations: Continue POC Therapy Discharge Recommendati: Post Acute OT Treatment Plan/Plan of Care Patient would benefit from OT for education, treatment and training to promote independence in ADL's, mobility, safety and/or upper extremity function for ADL's. Plan of Care: ADL Retraining, Functional Mobility, Group Exercise/Act as Ind, UE Funct Exercise/Act, UE Neuromus Re-Ed/Coord, Visual/Perceptual Retrain Treatment Duration: Mar 24, 2021 Frequency: At least 5 of 7 days/Wk (IRF) Estimated Hrs Per Day: 1.5 hours per day Rehab Potential: Good Time/GCodes Start Time: 14:40 Stop Time: 16:10 Total Time Billed (hr/min): 90 Billed Treatment Time 2960-9937 OT evaluation, [id number] OT/PT cotreat 1, EVM (10'), FA 5 (80') OANH WINTER OT March 01, 2021 16:15
[2021-03-01] MEDS: ACETAMINOPHEN 325 MG TABLET PO PRN (19:45)
[2021-03-01] MEDS: FLECAINIDE 100 MG (TAMBOCOR) TAB PO SCH (19:45)
[2021-03-01 20:18] VITALS: BP 187/81
[2021-03-02 05:45] LABS: BASOPHILS # (AUTO) 0.1 10^3/uL (0.0-0.1); BASOPHILS % (AUTO) 1 % (0-10); EOSINOPHILS # (AUTO) 0.3 10^3/uL (0.0-0.3); EOSINOPHILS % (AUTO) 3 % (0-10); HEMATOCRIT 41 % (35-52); HEMOGLOBIN 13.1 g/dL (11.5-16.0); LYMPHOCYTES # (AUTO) 2.8 10^3/uL (1.0-4.0); LYMPHOCYTES % (AUTO) 22 % (12-44); MEAN CORPUSCULAR HEMOGLOBIN 30 pg (25-34); MEAN CORPUSCULAR HGB CONC 32 g/dL (32-36); MEAN CORPUSCULAR VOLUME 93 fL (80-99); MEAN PLATELET VOLUME 9.4 fL (9.0-12.2); MONOCYTES # (AUTO) 0.9 10^3/uL (0.0-1.0); MONOCYTES % (AUTO) 7 % (0-12); NEUTROPHILS # (AUTO) 8.3 10^3/uL (1.8-7.8); NEUTROPHILS % (AUTO) 67 % (42-75); PLATELET COUNT 308 10^3/uL (130-400); WHITE BLOOD COUNT 12.4 10^3/uL (4.3-11.0)
[2021-03-02 06:03] LABS: ALBUMIN 3.7 GM/DL (3.2-4.5); CHLORIDE 106 MMOL/L (98-107); SODIUM 140 MMOL/L (135-145)
[2021-03-02 06:04] LABS: CALCIUM 9.3 MG/DL (8.5-10.1)
[2021-03-02 06:05] LABS: GLUCOSE 95 MG/DL (70-105); TOTAL PROTEIN 6.6 GM/DL (6.4-8.2)
[2021-03-02 06:06] LABS: CARBON DIOXIDE 24 MMOL/L (21-32)
[2021-03-02 06:07] LABS: BILIRUBIN,TOTAL 0.6 MG/DL (0.1-1.0)
[2021-03-02 06:09] LABS: ALKALINE PHOSPHATASE 83 U/L (40-136); CREATININE SERUM 0.77 MG/DL (0.60-1.30); GFR ESTIMATED > 60
[2021-03-02 06:10] LABS: BUN/CREATININE RATIO 16
[2021-03-02 06:12] LABS: ALANINE AMINOTRANSFERASE 17 U/L (0-55)
--- NOTE | 2021-03-02 06:21 | PM&R Progress Note ---
Subjective HPI/CC On Admission Date Seen by Provider: March 02, 2021 Time Seen by Provider: 10:00 Subjective/Events-last exam 03/02/21: Pt doing okay today Having some UTI symptoms so will do an in-and-out cath for a UA Sohan will start on 03/08/21 since she did receive TPA Very reluctant to do therapy today Very hard of hearing Peripheral vision loss is an issue too Labs look good Femara prescription will be brought from home Review of Systems General: Fatigue, Malaise HEENT: Visual Changes Neurological: Weakness, Incoordination Objective Exam Vital Signs Vital Signs Date Time Temp Pulse Resp B/P (MAP) Pulse Ox O2 Delivery O2 Flow Rate FiO2 03/02/21 20:00 Room Air 03/02/21 08:00 36.0 66 14 148/70 (96) 95 Capillary Refill : General Appearance: No Apparent Distress, WD/WN HEENT: PERRL/EOMI, Normal ENT Inspection, Pharynx Normal, Other (peripheral vision loss noted bilateral) Neck: Full Range of Motion, Normal Inspection, Non Tender, Supple, Carotid Bruit Respiratory: Chest Non Tender, Lungs Clear, Normal Breath Sounds, No Accessory Muscle Use, No Respiratory Distress Cardiovascular: No Edema, No Gallop, No JVD, No Murmur, Normal Peripheral Pulses, Irregularly Irregular Gastrointestinal: Normal Bowel Sounds, No Organomegaly, No Pulsatile Mass, Non Tender, Soft Rectal: Deferred Back: Normal Inspection, No CVA Tenderness, No Vertebral Tenderness Extremity: Normal Capillary Refill, Normal Inspection, Normal Range of Motion, Non Tender, No Calf Tenderness, No Pedal Edema Neurologic/Psychiatric: Alert, Oriented x3, Normal Mood/Affect, Motor Weakness (right sided 4/5), Other (vision loss peripheral) Skin: Normal Color, Warm/Dry Lymphatic: No Adenopathy Results/Procedures Lab Laboratory Tests 03/02/21 05:30 Patient resulted labs reviewed. FIM Transfers Therapy Code Descriptions/Definitions Functional [place] Measure: 0=Not Assessed/NA 4=Minimal Assistance 1=Total Assistance 5=Supervision or Setup 2=Maximal Assistance 6=Modified [place] 3=Moderate Assistance 7=Complete IndependenceSCALE: Activities may be completed with or without assistive devices. 4-Doxzijjabu-mnoczkl completes the activity by him/herself with no assistance from a helper. 5-Set-up or Clean-up Assistance-helper sets up or cleans up; patient completes activity. [place] assists only prior to or following the activity. 4-Supervision or Touching Assistance-helper provides verbal cues and/or touching/steadying and/or contact guard assistance as patient completes activity. Assistance may be provided throughout the activity or intermittently. 3-Partial/Moderate Assistance-helper does LESS THAN HALF the effort. [place] lifts, holds or supports trunk or limbs, but provides less than half the effort. 2-Substantial/Maximal Assistance-helper does MORE THAN HALF the effort. [place] lifts or holds trunk or limbs and provides more than half the effort. 5-Nkwfkksdn-fwenug does ALL the effort. Patient does none of the effort to complete the activity. Or, the assistance of 2 or more helpers is required for the patient to complete the activity. If activity was not attempted, code reason: 7-Patient Refused. 9-Not Applicable-not attempted and the patient did not perform the activity before the current illness, exacerbation or injury. 10-Not Attempted due to Environmental Limitations-(lack of equipment, weather restraints, etc.). 88-Not Attempted due to Medical Conditions or Safety Concerns. ADL-Treatment Eating (QC): 4 (Pt reports slight difficulty with getting food from plate to mouth due to decreased coordination, able to manage with increased time. 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
[2021-03-02 08:00] VITALS: BP 148/70
--- NOTE | 2021-03-02 08:22 | Cardiology Progress Note ---
Subjective Date Seen by Provider: March 02, 2021 Time Seen by Provider: 08:15 Subjective/Events-last exam Pt very tired this morning laying in bed. Says she experienced multiple episodes of urinary incontinence last night 2/2 UTI and she wasn't able to sleep all night. Denies any new cp/palpitations/sob/dizziness/syncope. Review of Systems General: No Chills, No Night Sweats; Fatigue HEENT: No Head Aches, No Visual Changes Pulmonary: No Dyspnea, No Cough Cardiovascular: No: Chest Pain, Palpitations Gastrointestinal: No: Nausea, Vomiting Genitourinary: Frequency, Incontinence Musculoskeletal: No: neck pain, shoulder pain Neurological: Weakness, Numbness Objective-Cardiology Exam Last Set of Vital Signs Vital Signs 03/02/21 08:00 Temp 36.0 Pulse 66 Resp 14 B/P (MAP) 148/70 (96) Pulse Ox 95 O2 Delivery Room Air Capillary Refill : General: Alert, Oriented X3, Cooperative HEENT: Atraumatic, PERRLA Neck: Supple, No JVD, No Thyromegaly Lungs: Clear to Auscultation, Normal Air Movement Heart: Regular Rate, Normal S1, Normal S2, No Murmurs Abdomen: Normal Bowel Sounds, Soft, No Tenderness, No Hepatosplenomegaly, No Masses Extremities: No Clubbing, No Cyanosis, No Edema, Normal Pulses, No Tenderness/Swelling Skin: No Rashes, No Breakdown, No Significant Lesion Neuro: Normal Gait, Normal Speech, Normal Tone Psych/Mental Status: Mental Status NL Results Lab Laboratory Tests 03/02/21 05:30 A/P-Cardiology Admission Diagnosis CVA Paroxysmal Afib Sinus sick syndrome HTN HLD Mild bilateral carotid artery stenosis Assessment/Plan CVA of basilar artery, 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 - PT/OT for weakness and neurological symptoms, begin Eliqiuis 03/08 Paroxysmal Afib - continue home meds, continue to monitor Sinus sick syndrome - managed by PPM HTN - continue home meds, monitor HLD - continue home meds Mild bilateral carotid artery stenosis - continue to monitor Urinary incontinence, started last night, questionable underlying UTI, will evaluate urine analysis, managed by primary care physician Supervisory-Addendum Brief Verification & Attestation Participated in pt care: history, MDM, physical Personally performed: exam, history, MDM, supervision of care Care discussed with: Medical Student Procedures: n/a Results interpretation: Verified all documentation Verification and Attestation of Medical Student E/M Service A medical student performed and documented this service in my presence. I reviewed and verified all information documented by the medical student and made modifications to such information, when appropriate. I personally performed the physical exam and medical decision making. Eliana Zee, March 02, 2021,10:32 ELENO TRISTAN MED STUDENT March 02, 2021 08:22 ELIANA ZEE MD March 02, 2021 10:32
[2021-03-02] MEDS: dilTIAZem120 MG (CARDIZEM CD) CAP PO SCH (09:25)
[2021-03-02] MEDS: DOCUSATE SODIUM 100 MG (COLACE) CAP PO SCH ×3 (09:25→19:30)
[2021-03-02] MEDS: SENNA W/DOCUSATE (SENOKOT S) TABLET PO SCH ×3 (09:25→19:30)
[2021-03-02] MEDS: meTOproloL SUCCINATE 50 MG (TOPROL XL) TAB PO SCH (09:25)
[2021-03-02] MEDS: ASPIRIN E.C. 325 MG (ECOTRIN) TABLET PO SCH (09:25)
[2021-03-02] MEDS: lisINopril 20 MG (PRINIVIL) TABLET PO SCH (09:25)
[2021-03-02] MEDS: FLECAINIDE 100 MG (TAMBOCOR) TAB PO SCH ×2 (09:25→19:53)
[2021-03-02] MEDS: polyethylene glycoL POWDER 17 GM (MIRALAX) PACK PO SCH ×2 (09:26→19:30)
--- NOTE | 2021-03-02 09:32 | ST Cognitive Linguistic Eval ---
Speech Evaluation-General Medical Diagnosis CVA Onset Date: March 01, 2021 Therapy Diagnosis Therapy Diagnosis: Cognitive-communication Precautions Precautions/Isolations: Fall Prevention, Standard Precautions Referral Referring Physician: Dr. 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 She lives in her home with her where she was independent with her daily needs. Subjective Patient was pleasant and cooperative with the cognitive assessment. Language Eval: Auditory Comprehends Simple Yes/No Ques: Functional Indent/Objects Multiple [place]: Functional Ident/Pics in Multiple Re[place]: Functional Follows 1-Step Commands: Functional Follows Complex Directions: Functional Follows General Conversations: Functional Language Eval: Verbal Language Completes Spontaneous Greeting: Functional Produces Auto, Serial Info: Functional Imitates Simple Words/Phrases: Functional Word Finding: Functional Requests Basic Needs: Functional States Basic Personal Info: Functional Expresses Complex Ideas: Functional Objective Cognitive Domain Attention: Mild Memory: WNL Problem Solving: Mild Executive Functions: WNL Visuospatial Skills: Moderate Composite Severity Rating: Mild Clock Drawing Severity Rating: Moderate Objective Formal/Standardized Tests [facility] Status ([facility]) Results 24/30, Mild Neurocognitive Disorder Oral Motor/Speech Production Within Normal Limits Impression Patient is a pleasant 75 y/o female who was admitted to the ARU s/p CVA. The patient was evaluated at bedside with the [facility]. She achieved a score of 24/30 which is within the MNCD range of function. The patient does have significant right side visual neglect. She is unable to read at this point. Patient will receive skilled ST with focus on improving cognitive function. Speech Patient Assess Expression of Ideas/Wants: Expression (4) Understanding Verbal Content: Usually Understands (3) Brief Interview-Mental Status: Yes Repetition of Three Words: Three (3) Temporal Orientation: Year: Correct (3) Temporal Orientation: Month: Accurate within 5 days(2) Temporal Orientation: Day: Correct (1) Recall : Wear to say "Sock": Yes,after cueing (1) Recall : Color: Yes, after cueing (1) Recall : Bed: Yes,after cueing (1) Memory/Recall Ability: Current season, That he or she is in a hsp/hsp unit Speech Short Term Goals Short Term Goals Short Term Goals 1) Patient will complete safety awareness tasks related to her daily needs at 80% or greater with minimal cues. 2) Patient will complete recall of new information tasks related to her daily needs at 80% or greater with minimal cues. Speech Retirement Goals Business Support Manager Goals Patient will improve cognitive-communication skills so that she can complete daily tasks with minimal assist. Speech-Plan Patient/Family Goals Patient/Family Goals: Patient plans on returning to her home where she lives with her . Treatment Plan Speech Therapy Treatment Plan: Continue Plan of Care Treatment Duration: March 10, 2021 Frequency: 4 times per week (Patient will receive ST 4-5x per week) Estimated Hrs Per Day: .5 hour per day Rehab Potential: Good Barriers to Learning: Patient's recent CVA, age Pt/Family Agrees to Plan: Yes Safety Risks/Education Teaching Recipient: Patient Teaching Methods: Discussion Response to Teaching: Verbalize Understanding Education Topics Provided: Safety within her room and communication of wants/needs Time Speech Therapy Time In: 09:00 Speech Therapy Time Out: 09:30 Total Billed Time: 30 Billed Treatment Time 1, MONTEZ BARNETT [address] ST March 02, 2021 09:32
--- NOTE | 2021-03-02 10:00 | Individualized Plan of Care ---
Individualized Plan of Care Rehab Nursing IPOC Order Admission Date March 01, 2021 at 14:23 Current Orders Orders Admission Order(Inpt,Obs,Sdc) (03/01/21 05:54) Vital Signs: Per Unit Policy ( ,,00 (03/01/21 05:54) Mat Louis (03/01/21 05:54) Sequential Compression Device .admit (03/01/21 05:54) Wig Sales Consultant-Inpt Rehab Con (03/01/21 05:54) Rehab Nursing Orders-Ipoc (03/01/21 05:54) Physical Therapy Rehab Orders (03/01/21 05:54) Occupational Therapy Rehab Ord (03/01/21 05:54) Speech Therapy Rehab Orders (03/01/21 05:54) Cbc With Automated Diff (03/02/21 06:00) Comprehensive Metabolic Panel (03/02/21 06:00) Precautions (Aru) (03/01/21 05:54) Rehab-Intensity Of Therapy (03/01/21 05:54) Initiate Admission Nursing Pro .admission (03/01/21 05:54) Acetaminophen Tablet/Caplet (Tylenol T (03/01/21 06:00) Alprazolam Tablet (Xanax Tablet) (03/01/21 06:00) Calcium Carbonate Chew Tablet (Antacid C (03/01/21 06:00) Diphenhydramine Tablet (Benadryl Tablet) (03/01/21 06:00) Docusate Sodium Capsule (Colace Capsule) (03/01/21 09:00) Docusate Sodium Capsule (Colace Capsule) (03/01/21 06:00) Bisacodyl Suppository (Dulcolax Supposit (03/01/21 06:00) Lactulose Oral Solution (Enulose Oral So (03/01/21 06:00) Na Phos/Na Biphos Enema (Fleet Enema Andrea (03/01/21 06:00) Guaifenesin/Codeine Syrup (Robitussin Ac (03/01/21 06:00) Loperamide Tablet (Imodium Tablet) (03/01/21 06:00) Melatonin Tablet (Melatonin Tablet) (03/01/21 06:00) Polyethylene Glycol Powder Pkt (Miralax (03/01/21 09:00) Ondansetron Oral Dissolve Tab (Zofran (03/01/21 06:00) Senna S Tablet (Senokot S Tablet) (03/01/21 09:00) Initiate Admission Nursing Pro .admission (03/01/21 05:54) Aspirin Enteric Coated Tablet (Ecotrin T (03/02/21 09:00) Atorvastatin Tablet (Lipitor) (03/01/21 21:00) Diltiazem Cd 24 Hr Capsule (Cardizem Cd (03/02/21 09:00) Flecainide Tablet (Tambocor Tablet) (03/01/21 21:00) Letrozole (Non-Formulary) (Femara (Non-F (03/02/21 09:00) Lisinopril Tablet (Zestril Tablet) (03/02/21 09:00) Metoprolol Succinate (Xl) Tab (Toprol Xl (03/02/21 09:00) (Nf) Acetaminophen (Tylenol) (03/01/21 15:00) (Nf) Phenylephrine/Shk Lv/Mo/Pet,Wh (Hem (03/01/21 15:00) Hydralazine Tablet (Apresoline Tablet) (03/01/21 15:00) Consult Cardiology (03/01/21 15:02) Acetaminophen Tablet/Caplet (Tylenol T (03/01/21 15:15) Phenyleph/Mineral Oil/Petrolat (Hemorrho (03/01/21 15:30) Consult Family Medicine (03/01/21 15:31) Heart Healthy (03/01/21 Dinner) Patient Visit (03/01/21 ) Pt Eval Moderate Complexity (03/01/21 ) Functional Activities, Ea 15 (03/01/21 ) Urinalysis (03/02/21 16:14) Straight Cath (Urinary) (03/02/21 09:59) Patient May Use Own Meds, All (Patient M (03/02/21 11:15) Patient Visit (03/02/21 ) Speech Sound Lang Comp (03/02/21 ) Treat. Speech/Lang/Voice (03/02/21 ) Patient Visit (03/02/21 ) Gait Training, Ea 15 Min (03/02/21 ) Ex Neuromuscular, Ea 15 Min (03/02/21 ) Functional Activities, Ea 15 (03/02/21 ) Urine Culture (03/02/21 16:15) Cefdinir Capsule (Omnicef Capsule) (03/02/21 18:15) Phenazopyridine Tablet (Pyridium Tablet) (03/02/21 18:15) Rehab Nursing Orders: Ongoing Assess. of Cognitive Status, Ongoing Assess. of Function Status, Bladder Management, Bladder Scan, Bladder Training, Bowel Management, Disease Management & Educaiton, DVT Prophylaxis, Fall Prevention, Fluid/Electrolyte/Nutrition Mgmt, Infection Prevention, Medication Management & Education, Management of Risks & Complications, Nutrition Management, Pain Management, Patient/Family Support, Safety Management Intensity of Therapy to be met Patient to be seen: Min.3h per day/5 of 7d PT IPOC Problem List: Activity Tolerance, Functional Strength, Safety, Balance, Gait, Transfer, Bed Mobility Treatment Plan: Continue Plan of Care Bed Mobility, Education, Functional Activity Kalli, Functional Strength, Group Therapy, Gait, Safety, Therapeutic Exercise, Transfers Treatment Duration: Mar 24, 2021 Frequency: At least 5 of 7 days/Wk (IRF) Estimated Hrs Per Day: 1.5 hours per day OT IPOC Problems: Decreased Activ Tolerance, Decreased Safety Aware, Decreased UE Strength, Impaired Coordination, Impaired Funct Balance, Impaired I ADL's, Impaired Self-Care Skills, Visual-Perceptual Deficit OT Treatment, Training and Edu: Yes Plan of Care: ADL Retraining, Functional Mobility, Group Exercise/Act as Ind, UE Funct Exercise/Act, UE Neuromus Re-Ed/Coord, Visual/Perceptual Retrain Treatment Duration: Mar 24, 2021 Frequency: At least 5 of 7 days/Wk (IRF) Estimated Hrs Per Day: 1.[address] IPOC Speech Therapy Treatment Plan: Discontinue ST Treatment Duration: March 02, 2021 Frequency: Modified Program (IRF) Estimated Hrs Per Day: Other Wig Sales Consultant/Case Mgmt Wig Sales Consultant/Case Managemen: Discharge Planning Dietitian/Dynamics Ax Consultant Dietitian/Dynamics Ax Consultant to monitor nutritional status and make changes and/or recommendations as needed and work with speech pathology on dietary upgrades as the occur. 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
--- NOTE | 2021-03-02 10:50 | Occupational Ther Daily Note ---
OT Current Status-Daily Note Subjective Pt states she did not sleep well last night, agreeable to OT tx Mental Status/Objective Patient Orientation: Person, Place, Situation ADL-Treatment Therapy Code Descriptions/Definitions Functional [place] Measure: 0=Not Assessed/NA 4=Minimal Assistance 1=Total Assistance 5=Supervision or Setup 2=Maximal Assistance 6=Modified [place] 3=Moderate Assistance 7=Complete IndependenceSCALE: Activities may be completed with or without assistive devices. 1-Czpbzvylco-phwdebp completes the activity by him/herself with no assistance from a helper. 5-Set-up or Clean-up Assistance-helper sets up or cleans up; patient completes activity. [place] assists only prior to or following the activity. 4-Supervision or Touching Assistance-helper provides verbal cues and/or touching/steadying and/or contact guard assistance as patient completes activity. Assistance may be provided throughout the activity or intermittently. 3-Partial/Moderate Assistance-helper does LESS THAN HALF the effort. [place] lifts, holds or supports trunk or limbs, but provides less than half the effort. 2-Substantial/Maximal Assistance-helper does MORE THAN HALF the effort. [place] lifts or holds trunk or limbs and provides more than half the effort. 0-Lphaopwyt-cndhbn does ALL the effort. Patient does none of the effort to c omplete the activity. Or, the assistance of 2 or more helpers is required for the patient to complete the activity. If activity was not attempted, code reason: 7-Patient Refused. 9-Not Applicable-not attempted and the patient did not perform the activity before the current illness, exacerbation or injury. 10-Not Attempted due to Environmental Limitations-(lack of equipment, weather restraints, etc.). 88-Not Attempted due to Medical Conditions or Safety Concerns. Oral Hygiene (QC): 4 (CGA standing at sink. Min VCs for sequencing and locating items on counter.) Shower/Bathe Self (QC): 4 (CGA in stand at GBs, min VCs for sequencing and safety throughout shower.) Upper Body Dressing (QC): 3 (Min A with bra fasteners. Pt able to don/doff toe puller shirt with SBA) Lower Body Dressing (QC): 4 (CGA in stand, min verbal cues for sequencing and safety with task.) On/Off Footwear: 4 (SBA, pt required several verbal cues to initiate task) Toileting Hygiene (QC): 4 (CGA) Other Treatment OT/PT cotreat due to skill of 2 clinicians required which a vocational rehabilitation teacher could not perform in order to coordinate BUE/LEs with task, decrease fall risk, and due to pt's limitations in proprioception, coordination, activity tolerance and strength. OT focused on UE placement, ADL, UE reaching/coordination, R visual scanning, and cues for sequencing and safety, PT focused on LE placement, gross overall movement, transfers and mobility, and dynamic standing balance. Pt transferred supine to sit EOB, then used FWW to transfer into bathroom and onto SC. Pt doffed clothes, completed shower, and donned clothes. Pt required min verbal cues throughout tasks for sequencing and safety, and to locate items in R visual field. Pt stood at sink to complete oral care, decreased coordination RUE noted, as pt had toothpaste all around her mouth. Pt able to wash her face with min verbal cues. Pt used FWW to perform functional mobility around [facility] common area/2nd floor and into therapy gym. With functional mobility, pt walked closely to L side of hallway, occasionally bumping objects on L side. Pt completed balloon batting activity at FWW, 1st on even floor without holding onto walker, then x1 on therapy mat/uneven surface (holding onto walker with L hand). Pt completed ring arc x2 using RUE, crossing midline. Pt instructed to track the rings with her eyes throughout motion. Pt had more difficulty locating rings in R visual field compared to when the rings were in L visual field. OT tx focused on increasing RUE coordination, dynamic standing balance, and R visual attention. Pt returned to room, requiring cues to locate room, then transferred to bed. Post tx, pt laying in bed, call light in reach and all needs met. with transfers, pt required cues for UE placement for safety. Education OT Patient Education: Correct positioning, Modified ADL techniques, Progress toward Goal/Update tx plan, Purpose of tx/functional activities, Rehab process, Safety issues Teaching Recipient: Patient Teaching Methods: Discussion Response to Teaching: Verbalize Understanding OT Short Term Goals Short Term Goals Time Frame: March 08, 2021 Toileting hygiene: 5 Upper body dressin Lower body dressin Putting on/taking off footwear: 5 OT Middleware Administrator Goals Alf Goals Time Frame: Mar 24, 2021 Eating (QC): 6 Oral Hygiene (QC): 6 Toileting Hygiene (QC): 6 Shower/Bathe Self (QC): 6 Upper Body Dressing (QC): 6 Lower Body Dressing (QC): 6 On/Off Footwear (QC): 6 Additional Goals: 1-Demonstrate ADL Tasks, 2-Verbalize Understanding, 3- ImproveStrength/Kalli 1=Demonstrate adherence to instructed precautions during ADL tasks. 2=Patient will verbalize/demonstrate understanding of assistive devices/modifications for ADL. 3=Patient will improve strength/tolerance for activity to enable patient to perform ADL's. OT Education/Plan Problem List/Assessment Assessment: Decreased Activ Tolerance, Decreased Safety Aware, Decreased UE Strength, Impaired Coordination, Impaired Funct Balance, Impaired I ADL's, Impaired Self-Care Skills, Visual-Perceptual Deficit Discharge Recommendations Plan/Recommendations: Continue POC Treatment Plan/Plan of Care Patient would benefit from OT for education, treatment and training to promote independence in ADL's, mobility, safety and/or upper extremity function for ADL's. Plan of Care: ADL Retraining, Functional Mobility, Group Exercise/Act as Ind, UE Funct Exercise/Act, UE Neuromus Re-Ed/Coord, Visual/Perceptual Retrain Treatment Duration: Mar 24, 2021 Frequency: At least 5 of 7 days/Wk (IRF) Estimated Hrs Per Day: 1.5 hours per day Rehab Potential: Good Time/GCodes Start Time: 09:30 Stop Time: 10:45 Total Time Billed (hr/min): 75 Billed Treatment Time OT/PT cotreat x75' 1, ADL 2 (30'), FA 3 (45') OANH WINTER OT March 02, 2021 10:50
--- NOTE | 2021-03-02 10:52 | Physical Therapy Daily Note ---
PT Daily Note-Current Subjective Patient in bed pre tx, agrees to PT, has no complaints of pain. Will be co- treating with OT due to poor patient mobility and balance, impulsiveness and poor safety awareness, coordinate UE and LE during activity, safety and reduce risk of falls. Appearance Patient in bed post tx with nurse call, phone, tray, all needs met, bed alarm on. Mental Status Patient Orientation: Person, Place, Situation Transfers SCALE: Activities may be completed with or without assistive devices. 1-Cnboqztoxd-sifbobz completes the activity by him/herself with no assistance from a helper. 5-Set-up or Clean-up Assistance-helper sets up or cleans up; patient completes activity. [place] assists only prior to or following the activity. 4-Supervision or Touching Assistance-helper provides verbal cues and/or touching/steadying and/or contact guard assistance as patient completes activity. Assistance may be provided throughout the activity or intermittently. 3-Partial/Moderate Assistance-helper does LESS THAN HALF the effort. [place] lifts, holds or supports trunk or limbs, but provides less than half the effort. 2-Substantial/Maximal Assistance-helper does MORE THAN HALF the effort. [place] lifts or holds trunk or limbs and provides more than half the effort. 8-Solfhzjyn-ohobmh does ALL the effort. Patient does none of the effort to complete the activity. Or, the assistance of 2 or more helpers is required for the patient to complete the activity. If activity was not attempted, code reason: 7-Patient Refused. 9-Not Applicable-not attempted and the patient did not perform the activity before the current illness, exacerbation or injury. 10-Not Attempted due to Environmental Limitations-(lack of equipment, weather restraints, etc.). 88-Not Attempted due to Medical Conditions or Safety Concerns. Roll Left & Right (QC): 6 Sit to Lying (QC): 6 Lying to Sitting/Side of Bed(Q: 6 Sit to Stand (QC): 4 Chair/Vpn-ft-Mjfai Xfer(QC): 4 Patient ambulated from the bed into the restroom and onto the shower bench for bathing. Patient was CGA for transfers but needed frequent cues for safety and positioning, has poor safety awareness and will often try to sit without a surface behind her or only residential on it. Gait Training Distance: 120', 300' Walk 10 feet (QC): 4 Walk 50 ft with 2 Turns(QC): 4 Walk 150 ft (QC): 4 Gait Assistive Device: FWW CGA, no lavern LOB but patient needs frequent safety cues, tends to drift to the left side, has uncoordinated steps especially on the left side, has a fairly severe path deviation, sudden impulsive movements Exercises Balance training standing hitting a balloon on a regular floor surface and while standing on a mat on the floor, and standing while performing an UE reaching and tracking exercise Treatments PT worked on bed mobility and transfers, safety and positioning during bathing and dressing and ADL's, ambulation, safety and balance during balance training and UE activity, OT worked on bathing and dressing, ADL's, UE activity and balance activity. Assessment Current Status: Fair Progress Patient has impulsive movement, impaired right visual field PT Short Term Goals Short Term Goals Time Frame: March 09, 2021 Sit to stand: 4 Chair/vdq-an-vfzgm transfer: 4 Walk 150 feet: 4 PT [employer] Integrator Goals [employer] Integrator Goals PT [employer] Integrator Goals Time Frame: Mar 24, 2021 Roll Left & Right (QC): 6 Sit to Lying (QC): 6 Lying-Sitting on Side/Bed(QC): 6 Sit to Stand (QC): 6 Chair/Ikr-do-Nxmpn Xfer(QC): 6 Toilet Transfer (QC): 6 Car Transfer (QC): 6 Does the Patient Walk: Yes Walk 10 feet (QC): 6 Walk 50ft with 2 Turns (QC): 6 Walk 150 ft (QC): 6 Walking 10ft on Uneven Surface: 6 1 Step (curb) (QC): 6 4 Steps (QC): 6 12 Steps (QC): 6 Picking up an Object (QC): 4 Does the Pt use WC or Scooter?: No Wheel 50 feet with 2 turns (QC: 9 Wheel 150 feet: 9 PT Plan Problem List Problem List: Activity Tolerance, Functional Strength, Safety, Balance, Gait, Transfer Treatment/Plan Treatment Plan: Continue Plan of Care Treatment Plan: Bed Mobility, Education, Functional Activity Kalli, Functional Strength, Group Therapy, Gait, Safety, Therapeutic Exercise, Transfers Treatment Duration: Mar 24, 2021 Frequency: At least 5 of 7 days/Wk (IRF) Estimated Hrs Per Day: 1.5 hours per day Patient and/or Family Agrees t: Yes Safety Risks/Education Patient Education: Gait Training, Transfer Techniques, Correct Positioning, Safety Issues Teaching Recipient: Patient Teaching Methods: Demonstration, Discussion Response to Teaching: Reinforcement Needed Time/GCodes Time In: 30 Time Out: 1045 Total Billed Treatment Time: 75 Total Billed Treatment 1 visit GT 15' NM 45' FA 15' JOHN VILLAGRAN PT March 02, 2021 10:52
[2021-03-02] MEDS ORDERED: PATIENT MAY USE OWN MEDS, ALL MC SCH (11:15)
[2021-03-02] MEDS: LETROZOLE 2.5 MG (FEMARA) TAB PO SCH (12:13)
[2021-03-02 16:24] LABS: BILIRUBIN,URINE NEGATIVE (NEGATIVE); CLARITY,URINE CLEAR; COLOR,URINE YELLOW; GLUCOSE, URINE (UA) NEGATIVE (NEGATIVE); KETONES,URINE NEGATIVE (NEGATIVE); LEUKOCYTE ESTERASE ,URINE 3+ (NEGATIVE); NITRITE,URINE POSITIVE (NEGATIVE); PROTEIN,URINE NEGATIVE (NEGATIVE)
[2021-03-02 16:31] LABS: BACTERIA,URINE MODERATE /HPF; WBC,URINE 25-50 /HPF
[2021-03-02] MEDS: PHENAZOPYRIDINE 100 MG (PYRIDIUM) TABLET PO SCH ×2 (18:34→19:19)
[2021-03-02] MEDS: CEFDINIR 300 MG (OMNICEF) CAP PO SCH ×2 (18:34→19:53)
[2021-03-02 21:00] VITALS: BP 171/76
[2021-03-02] MEDS: ACETAMINOPHEN 325 MG TABLET PO PRN (22:09)
--- NOTE | 2021-03-03 05:49 | PM&R Progress Note ---
Subjective HPI/CC On Admission Date Seen by Provider: March 03, 2021 Time Seen by Provider: 12:00 Subjective/Events-last exam 03/03/21: Pt had a bad night due to urinary frequency Antibiotic now improving the situation Pyridium is helpful Refusing some of the medications Doing well overall 03/02/21: Pt doing okay today Having some UTI symptoms so will do an in-and-out cath for a UA Sohan will start on 03/08/21 since she did receive TPA Very reluctant to do therapy today Very hard of hearing Peripheral vision loss is an issue too Labs look good Femara prescription will be brought from home Review of Systems General: Fatigue Genitourinary: Frequency, Incontinence Objective Exam Vital Signs Vital Signs Date Time Temp Pulse Resp B/P (MAP) Pulse Ox O2 Delivery O2 Flow Rate FiO2 03/03/21 20:00 97 Room Air 03/03/21 20:00 36.5 69 16 181/79 (113) Capillary Refill : General Appearance: No Apparent Distress, WD/WN HEENT: PERRL/EOMI, Normal ENT Inspection, Pharynx Normal, Other (peripheral vision loss noted bilateral) Neck: Full Range of Motion, Normal Inspection, Non Tender, Supple, Carotid Bruit Respiratory: Chest Non Tender, Lungs Clear, Normal Breath Sounds, No Accessory Muscle Use, No Respiratory Distress Cardiovascular: No Edema, No Gallop, No JVD, No Murmur, Normal Peripheral Pulses, Irregularly Irregular Gastrointestinal: Normal Bowel Sounds, No Organomegaly, No Pulsatile Mass, Non Tender, Soft Rectal: Deferred Back: Normal Inspection, No CVA Tenderness, No Vertebral Tenderness Extremity: Normal Capillary Refill, Normal Inspection, Normal Range of Motion, Non Tender, No Calf Tenderness, No Pedal Edema Neurologic/Psychiatric: Alert, Oriented x3, Normal Mood/Affect, Motor Weakness (right sided 4/5), Other (vision loss peripheral) Skin: Normal Color, Warm/Dry Lymphatic: No Adenopathy Results/Procedures Lab Patient resulted labs reviewed. FIM Transfers Therapy Code Descriptions/Definitions Functional [place] Measure: 0=Not Assessed/NA 4=Minimal Assistance 1=Total Assistance 5=Supervision or Setup 2=Maximal Assistance 6=Modified [place] 3=Moderate Assistance 7=Complete IndependenceSCALE: Activities may be completed with or without assistive devices. 2-Pjdbruskrl-rxcoafg completes the activity by him/herself with no assistance from a helper. 5-Set-up or Clean-up Assistance-helper sets up or cleans up; patient completes activity. [place] assists only prior to or following the activity. 4-Supervision or Touching Assistance-helper provides verbal cues and/or touching/steadying and/or contact guard assistance as patient completes activity. Assistance may be provided throughout the activity or intermittently. 3-Partial/Moderate Assistance-helper does LESS THAN HALF the effort. [place] lifts, holds or supports trunk or limbs, but provides less than half the effort. 2-Substantial/Maximal Assistance-helper does MORE THAN HALF the effort. [place] lifts or holds trunk or limbs and provides more than half the effort. 5-Wawzawgad-xobgyb does ALL the effort. Patient does none of the effort to complete the activity. Or, the assistance of 2 or more helpers is required for the patient to complete the activity. If activity was not attempted, code reason: 7-Patient Refused. 9-Not Applicable-not attempted and the patient did not perform the activity before the current illness, exacerbation or injury. 10-Not Attempted due to Environmental Limitations-(lack of equipment, weather restraints, etc.). 88-Not Attempted due to Medical Conditions or Safety Concerns. Roll Left to Right (QC): 6 Sit to Lying (QC): 6 Sit to Stand (QC): 4 Chair/Pie-ae-Qqjsy Xfer(QC): 4 Car Transfer (QC): 3 Gait Training Does the Patient Walk?: Yes Distance: 120', 300' Walk 10 feet (QC): 4 Walk 50 ft with 2 Turns(QC): 4 Walk 150 ft (QC): 4 Walking 10ft/uneven surface-QC: 3 Gait Assistive Device: FWW Wheelchair Training Does the Pt Use a Wheelchair?: No Wheel 50 ft with 2 turns (QC): 9 Wheel 150 ft (QC): 9 Stair Training 1 Step (curb) (QC): 3 4 Steps (QC): 3 12 Steps (QC): 88 Balance Picking up an Object (QC): 88 ADL-Treatment Eating (QC): 4 (Pt reports slight difficulty with getting food from plate to mouth due to decreased coordination, able to manage with increased time. ) Oral Hygiene (QC): 4 (CGA standing at sink. Min VCs for sequencing and locating items on counter.) Shower/Bathe Self (QC): 4 (CGA in stand at GBs, min VCs for sequencing and safety throughout shower.) Upper Body Dressing (QC): 3 (Min A with bra fasteners. 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
[2021-03-03 08:01] VITALS: BP 178/79
--- NOTE | 2021-03-03 08:33 | Occupational Ther Daily Note ---
OT Current Status-Daily Note Subjective Pt laying in bed, states she feels like she is doing better today. She was able to type a message on her phone for the first time Mental Status/Objective Patient Orientation: Person, Place, Situation ADL-Treatment Therapy Code Descriptions/Definitions Functional [place] Measure: 0=Not Assessed/NA 4=Minimal Assistance 1=Total Assistance 5=Supervision or Setup 2=Maximal Assistance 6=Modified [place] 3=Moderate Assistance 7=Complete IndependenceSCALE: Activities may be completed with or without assistive devices. 1-Ygbcwspecp-zoulstc completes the activity by him/herself with no assistance from a helper. 5-Set-up or Clean-up Assistance-helper sets up or cleans up; patient completes activity. [place] assists only prior to or following the activity. 4-Supervision or Touching Assistance-helper provides verbal cues and/or touching/steadying and/or contact guard assistance as patient completes activity. Assistance may be provided throughout the activity or intermittently. 3-Partial/Moderate Assistance-helper does LESS THAN HALF the effort. [place] lifts, holds or supports trunk or limbs, but provides less than half the effort. 2-Substantial/Maximal Assistance-helper does MORE THAN HALF the effort. [place] lifts or holds trunk or limbs and provides more than half the effort. 1-Nhqxxjjjn-qcrfvu does ALL the effort. Patient does none of the effort to complete the activity. Or, the assistance of 2 or more helpers is required for the patient to complete the activity. If activity was not attempted, code reason: 7-Patient Refused. 9-Not Applicable-not attempted and the patient did not perform the activity before the current illness, exacerbation or injury. 10-Not Attempted due to Environmental Limitations-(lack of equipment, weather restraints, etc.). 88-Not Attempted due to Medical Conditions or Safety Concerns. Eating (QC): 6 (Pt reports she opened all containers, and used utensils to eat. ) Oral Hygiene (QC): 4 (CGA standing at sink.) Lower Body Dressing (QC): 4 (CGA, pt able to don loungepants) Other Treatment Pt laying in bed, transferred supine to sit EOB, then donned pants. Pt stood at FWW (placing hands on walker instead of EOB as instructed in previous sessions). Pt began walking towards the bathroom prior to completing pant hike. OT stopped pt and educated her on safety aspects of pushing up from the surface she is sitt ing on with transfers, and completing pant hike prior to ambulating. After pant hike, pt used FWW to transfer into bathroom and onto toilet. Pt completed toileting, then stood at sink to complete oral care. Pt used FWW to go to therapy gym, CGA, 2 verbal cues to locate therapy gym and turn towards R side. OT tx with focus on increasing RUE coordination, BUE strength and activity to lerance, and R visual scanning. Pt completed x2 pegboard patterns, replicating printed pattern and placing corresponding 1" pegs into foam pegboard. Pt completed first pattern without errors placing 16/16, and completed 2nd pattern with one error correctly placing 24/25 (able to correct error with minimal cues). Pt completed therputty task, removing beads from moderate resistance t heraputty focusing on using RUE for the majority of the work. After instructions given, pt continued sitting and looking at putty. OT asked pt if she understood instructions, she states no. OT simplified instructions, and provided instructions 1 step at a time, pt then able to complete task. Pt completed arm bike, x15 mins, min resistance in order to increase proprioceptive input to RUE and bilateral integration. Pt returned to room, transferring into bed. Post tx, pt laying in bed, call light in reach and all needs met. Education OT Patient Education: Correct positioning, Modified ADL techniques, Progress toward Goal/Update tx plan, Purpose of tx/functional activities, Rehab process Teaching Recipient: Patient Teaching Methods: Discussion Response to Teaching: Verbalize Understanding OT Short Term Goals Short Term Goals Time Frame: March 08, 2021 Toileting hygiene: 5 Upper body dressin Lower body dressin Putting on/taking off footwear: 5 OT Video Engineer Goals Video Engineer Goals Time Frame: Mar 24, 2021 Eating (QC): 6 Oral Hygiene (QC): 6 Toileting Hygiene (QC): 6 Shower/Bathe Self (QC): 6 Upper Body Dressing (QC): 6 Lower Body Dressing (QC): 6 On/Off Footwear (QC): 6 Additional Goals: 1-Demonstrate ADL Tasks, 2-Verbalize Understanding, 3- ImproveStrength/Kalli 1=Demonstrate adherence to instructed precautions during ADL tasks. 2=Patient will verbalize/demonstrate understanding of assistive devices/modifications for ADL. 3=Patient will improve strength/tolerance for activity to enable patient to perform ADL's. OT Education/Plan Problem List/Assessment Assessment: Decreased Activ Tolerance, Decreased UE Strength, Impaired Coordination, Impaired Funct Balance, Impaired I ADL's, Impaired Self-Care Skills, Visual-Perceptual Deficit Discharge Recommendations Plan/Recommendations: Continue POC Treatment Plan/Plan of Care Patient would benefit from OT for education, treatment and training to promote independence in ADL's, mobility, safety and/or upper extremity function for A DL's. Plan of Care: ADL Retraining, Functional Mobility, Group Exercise/Act as Ind, UE Funct Exercise/Act, UE Neuromus Re-Ed/Coord, Visual/Perceptual Retrain Treatment Duration: Mar 24, 2021 Frequency: At least 5 of 7 days/Wk (IRF) Estimated Hrs Per Day: 1.5 hours per day Rehab Potential: Good Time/GCodes Start Time: 08:00 Stop Time: 09:00 Total Time Billed (hr/min): 60 Billed Treatment Time 1, ADL (15'), FA 2 (30'), EX (15') OANH WINTER OT March 03, 2021 08:33
[2021-03-03] MEDS: PHENAZOPYRIDINE 100 MG (PYRIDIUM) TABLET PO SCH ×3 (09:24→18:50)
[2021-03-03] MEDS: FLECAINIDE 100 MG (TAMBOCOR) TAB PO SCH ×2 (09:24→20:40)
[2021-03-03] MEDS: CEFDINIR 300 MG (OMNICEF) CAP PO SCH ×2 (09:24→20:40)
[2021-03-03] MEDS: dilTIAZem120 MG (CARDIZEM CD) CAP PO SCH (09:24)
[2021-03-03] MEDS: SENNA W/DOCUSATE (SENOKOT S) TABLET PO SCH ×2 (09:24→20:40)
[2021-03-03] MEDS: DOCUSATE SODIUM 100 MG (COLACE) CAP PO SCH ×2 (09:24→20:40)
[2021-03-03] MEDS: ASPIRIN E.C. 325 MG (ECOTRIN) TABLET PO SCH (09:24)
[2021-03-03] MEDS: lisINopril 20 MG (PRINIVIL) TABLET PO SCH ×2 (09:24→20:40)
[2021-03-03] MEDS: meTOproloL SUCCINATE 50 MG (TOPROL XL) TAB PO SCH (09:25)
[2021-03-03] MEDS: LETROZOLE 2.5 MG (FEMARA) TAB PO SCH (09:27)
[2021-03-03] MEDS: polyethylene glycoL POWDER 17 GM (MIRALAX) PACK PO SCH ×2 (09:27→20:40)
--- NOTE | 2021-03-03 10:05 | Physical Therapy Daily Note ---
PT Daily Note-Current Subjective Pt. agrees to Rx, states she is determined to beat this and get back to the gym etc. No c/o pain Pain Location: No Pain Reported Mental Status Patient Orientation: Person, Place, Time, Situation Transfers SCALE: Activities may be completed with or without assistive devices. 5-Lqznnnzxfj-qskadde completes the activity by him/herself with no assistance from a helper. 5-Set-up or Clean-up Assistance-helper sets up or cleans up; patient completes activity. [place] assists only prior to or following the activity. 4-Supervision or Touching Assistance-helper provides verbal cues and/or touching/steadying and/or contact guard assistance as patient completes activity. Assistance may be provided throughout the activity or intermittently. 3-Partial/Moderate Assistance-helper does LESS THAN HALF the effort. [place] lifts, holds or supports trunk or limbs, but provides less than half the effort. 2-Substantial/Maximal Assistance-helper does MORE THAN HALF the effort. [place] lifts or holds trunk or limbs and provides more than half the effort. 6-Swcvjrvdm-cvlqki does ALL the effort. Patient does none of the effort to complete the activity. Or, the assistance of 2 or more helpers is required for the patient to complete the activity. If activity was not attempted, code reason: 7-Patient Refused. 9-Not Applicable-not attempted and the patient did not perform the activity before the current illness, exacerbation or injury. 10-Not Attempted due to Environmental Limitations-(lack of equipment, weather restraints, etc.). 88-Not Attempted due to Medical Conditions or Safety Concerns. Roll Left & Right (QC): 6 Sit to Lying (QC): 6 Lying to Sitting/Side of Bed(Q: 6 Sit to Stand (QC): 5 Chair/Qfa-gx-Dddqv Xfer(QC): 5 pt. needed much instruction for approach to chair and bed for turning etc. awkward and needs cues Gait Training Does the Patient Walk?: Yes Walk 10 feet (QC): 4 Walk 50 ft with 2 Turns(QC): 4 Walk 150 ft (QC): 4 Gait Persons Needed: 1 extremely uneven step length , toe in, poor position in FWW, steps outside FWW , needs much instruction for safety and technique Exercises Supine Ex: Bridging, Ankle pumps, Quad Set, Rolling, Glut sets, Lower trunk rotation, Heel Slides, Short Arc Quads, Scooting, Straight leg raise, Hip abd/add Supine Reps: 20 Standing: Hip Abduction, Heel/toe raises, Mini squats Standing Reps: 15 NuStep Minutes: 10 NuStep Workload: 3 Treatments pt. needed director multimedia assist on Nustep to control int ext rotation R hip/LE Assessment Current Status: Good Progress PT Short Term Goals Short Term Goals Time Frame: March 09, 2021 Sit to stand: 4 Chair/qdb-hz-gzoog transfer: 4 Walk 150 feet: 4 PT Jail Goals Crutch Maker Goals PT Jail Goals Time Frame: Mar 24, 2021 Roll Left & Right (QC): 6 Sit to Lying (QC): 6 Lying-Sitting on Side/Bed(QC): 6 Sit to Stand (QC): 6 Chair/Hdr-ox-Bwhid Xfer(QC): 6 Toilet Transfer (QC): 6 Car Transfer (QC): 6 Does the Patient Walk: Yes Walk 10 feet (QC): 6 Walk 50ft with 2 Turns (QC): 6 Walk 150 ft (QC): 6 Walking 10ft on Uneven Surface: 6 1 Step (curb) (QC): 6 4 Steps (QC): 6 12 Steps (QC): 6 Picking up an Object (QC): 4 Does the Pt use WC or Scooter?: No Wheel 50 feet with 2 turns (QC: 9 Wheel 150 feet: 9 PT Plan Treatment/Plan Treatment Plan: Continue Plan of Care Treatment Plan: Bed Mobility, Education, Functional Activity Kalli, Functional Strength, Group Therapy, Gait, Safety, Therapeutic Exercise, Transfers Treatment Duration: Mar 24, 2021 Frequency: At least 5 of 7 days/Wk (IRF) Estimated Hrs Per Day: 1.5 hours per day Patient and/or Family Agrees t: Yes Safety Risks/Education Patient Education: Gait Training, Transfer Techniques, Correct Positioning, Disease Process, Safety Issues Teaching Recipient: Patient Teaching Methods: Demonstration, Discussion Response to Teaching: Verbalize Understanding, Return Demonstration, Reinforcement Needed Time/GCodes Time In: 900 Time Out: 1000 Total Billed Treatment Time: 60 Total Billed Treatment 1,FA15m,GT15m,EX30m NATALIE JURADO PROFILE SAW SETUP OPERATOR March 03, 2021 10:05
--- NOTE | 2021-03-03 11:16 | Speech Therapy Daily Note ---
Speech Daily Progress Note Subjective Date Seen by Provider: March 03, 2021 Time Seen by Provider: 00:30 Patient was resting in her bed, alert and participated well. She was noted to have word finding difficulty periodically. Objective Patient completed general information q/a with 90% given 10% cues. Assessment Assessment Current Status: Good Progress Treatment Plan Continue Plan of Care Speech Short Term Goals Short Term Goals Short Term Goals 1) Patient will complete safety awareness tasks related to her daily needs at 80% or greater with minimal cues. 2) Patient will complete recall of new information tasks related to her daily needs at 80% or greater with minimal cues. Speech Fitter Hand Goals Fitter Hand Goals Patient will improve cognitive-communication skills so that she can complete d aily tasks with minimal assist. Speech-Plan Patient/Family Goals Patient/Family Goals: Patient plans on returning to her home with her . Treatment Plan Speech Therapy Treatment Plan: Continue Plan of Care Treatment Duration: March 10, 2021 Frequency: 4 times per week (Patient will receive ST 4-5x per week) Estimated Hrs Per Day: .5 hour per day Rehab Potential: Good Barriers to Learning: Patient's recent CVA, age Pt/Family Agrees to Plan: Yes Safety Risks/Education Teaching Recipient: Patient Teaching Methods: Demonstration, Discussion Response to Teaching: Verbalize Understanding, Return Demonstration Education Topics Provided: Continued safety and communication Time Speech Therapy Time In: 11:00 Speech Therapy Time Out: 11:30 Total Billed Time: 30 Billed Treatment Time 1[address] March 03, 2021 11:16
--- NOTE | 2021-03-03 11:50 | History & Physical ---
History of Present Illness History of Present Illness Reason for visit/HPI This is a 75 year old female who has been transferred from [facility] in [place], [place] for inpatient rehab following a posterior circulation stroke. The patient has a history of atrial fibrillation, HTN, hyperlipidemia, sinus sick syndrome, diastolic heart dysfunction, and carotid artery stenosis. She apparently stopped taking her oral anticoagulant medication during the last year because she heard it was bad for you. She currently has right sided weakness and peripheral vision loss. She complains of a UTI for which she has been started on omnicef and of her blood pressure not being well controlled. Date of Admission March 01, 2021 at 14:23 Date Seen by a Provider: March 03, 2021 Time Seen by a Provider: 10:00 I consulted on this patient on 03/03/21 11:44 Attending Physician Berkley Hilliard DO Admitting Physician Evangelina Elmore DO Consult Allergies and Home Medications Allergies Coded Allergies: No Known Drug Allergies (Verified , 04/05/18) Home Medications Acetaminophen 325 Mg Capsule, 650 MG PO Q4H PRN for PAIN-MILD (1-4), (Reported) Last Action: Converted Aspirin 325 Mg Tablet.dr, 325 MG PO DAILY, (Reported) Last Action: Continued Atorvastatin Calcium 40 Mg Tablet, 40 MG PO HS, (Reported) Last Action: Continued Diltiazem HCl 120 Mg Cap.er.24h, 120 MG PO DAILY, (Reported) Last Action: Continued Flecainide Acetate 100 Mg Tablet, 100 MG PO Q12H, (Reported) Last Action: Continued Letrozole 2.5 Mg Tablet, 2.5 MG PO DAILY, (Reported) Last Action: Continued Lisinopril 20 Mg Tablet, 20 MG PO DAILY, (Reported) Last Action: Continued Metoprolol Succinate 50 Mg Tab.er.24h, 50 MG PO DAILY, (Reported) Last Action: Continued Phenylephrine/Shk Lv/Mo/Pet,Wh 57 Gm Oint...g., 1 APPLIC RC PRN PRN for HEMMORRHOID DISCOMFORT, (Reported) Last Action: Converted Patient Home Medication List Home Medication List Reviewed: Yes Past Ifbkjpu-Dyiqbv-Lwiioo Hx Past Med/Social Hx: Reviewed Nursing Past Med/Soc Hx, Reviewed and Corrections made Patient Social History Marrital Status: Employed/Student: retired Alcohol Use: Denies Use Smoking Status: Never a Smoker 2nd Hand Smoke Exposure: No Recent Foreign Travel: No Contact w/other who traveled: No Recent Hopitalizations: No Immunizations Up To Date Tetanus Booster (TDap): Less than 5yrs Date of Pneumonia Vaccine: Jul 12, 2014 Date of Influenza Vaccine: Jul 20, 2019 Seasonal Allergies Seasonal Allergies: Yes Past Medical History Surgeries: Breast, Pacemaker, Renal, Tonsillectomy Currently Using CPAP: No Currently Using BIPAP: No Cardiac: Atrial Fibrillation, Hypertension Neurological: Stroke HIV/AIDS: No Female 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 Menopausal Genitourinary: UTI-Chronic Gastrointestinal: Chronic Diarrhea HEENT: Cataract Loss of Vision: Denies Hearing Impairment: Hard of Hearing Cancer: Breast Did You Recieve Any Treatments: Yes What Type of Treatment Did You: Radiation, Surgical Intervention Psychosocial: Anxiety History of Blood Disorders: No Adverse Reaction to Blood [place]: No (N/A) Family History Colon cancer 19 MOTHER Colon cancer 19 MOTHER Hypertension 19 FATHER Neoplasm 19 FATHER Hypertension Review of Systems Constitutional: weakness EENTM: other (peripheral vision loss) Respiratory: No no symptoms reported, No see HPI, No cough, No dyspnea on exertion, No hemoptysis, No orthopnea, No phlegm, No short of breath, No stridor, No wheezing, No other Cardiovascular: other (history of a fib, sick sinus syndrome diastolic dysfunction) Gastrointestinal: No RUQ, No LUQ, No RLQ, No LLQ, No no symptoms reported, No see HPI, No abdominal pain, No constipation, No diarrhea, No dysphagia, No hematemesis, No heartburn, No jaundice, No loss of appetite, No melena, No nausea, No vomiting, No other Genitourinary: frequency, incontinence (urge) Musculoskeletal: muscle weakness Skin: No no symptoms reported, No see HPI, No change in color, No change in hair/nails, No dryness, No hx of skin cancer, No lesions, No lumps, No pruritus, No rash, No other Psychiatric/Neurological: Weakness Physical Exam Vital Signs Vital Signs - First Documented 03/01/21 14:20 Temp 36.0 Pulse 69 Resp 16 B/P (MAP) 146/74 (98) Pulse Ox 99 O2 Delivery Room Air Capillary Refill : Height, Weight, BMI Height: 5'8.00" Weight: 175lbs. 0.0oz. [id number]; 27.68 BMI Method:Stated General Appearance: No Apparent Distress Neck: Supple Respiratory: Lungs Clear Cardiovascular: Regular Rate, Rhythm, Systolic Murmur Gastrointestinal: Normal Bowel Sounds, Non Tender, Soft Rectal: Deferred Back: No CVA Tenderness Extremity: Non Tender, No Calf Tenderness, No Pedal Edema Neurologic/Psychiatric: Alert, Oriented x3 Skin: Warm/Dry Comments Laboratory Tests 03/02/21 16:15: Urine Color YELLOW, Urine Clarity CLEAR, Urine pH 7.0, Urine Specific [place] 1.010L, Urine Protein NEGATIVE, Urine Glucose (UA) NEGATIVE, Urine Ketones NEGATIVE, Urine Nitrite POSITIVEH, Urine Bilirubin NEGATIVE, Urine Urobilinogen 0.2, Urine Leukocyte Esterase 3+H, Urine RBC (Auto) 1+H, Urine RBC 2-5H, Urine WBC 25-50H, Urine Squamous Epithelial Cells NONE, Urine Crystals NONE, Urine Bacteria MODERATEH, Urine Casts NONE, Urine Mucus NEGATIVE, Urine Culture Indicated YES Microbiology 03/02/21 Urine Culture - Preliminary, Resulted Probable E.coli Assessment/Plan Assessment and Plan 1. 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 Hypertension--increase lisinopril to 20mg po BID 3. Recurrent UTIs--currently on omnicef, she had been on estrace vaginal cream as preventative with approval by Dr. Camacho but she stopped using this too because she heard it was bad for you 4.. History of Atrial Fibrillation--on fleicanide and cardiology planning to resume eliquis 5. History of Breast Cancer--on surveillance through cancer center Admission Diagnosis Admission Status: Inpatient Order (span 2 midnights) Reason for Inpatient Admission: Will be in rehab at least 1 week EVANGELINA ELMORE DO March 03, 2021 11:50
--- NOTE | 2021-03-03 14:26 | Therapy Group Daily Note ---
Therapy Daily Group Note Patient Education Topic Home Safety, Fall Prevention, Exercises, Other List Below (ARU orientation) Exercises LE Seated Exercise, UE Exercise Session Ratio (pt:therapist): 3:1 Goal of Session: Education on ARU Expectations, Home Safety Strategies, UE/LE Strengthing Goal Met for this Session: Yes Pt Benefit of Group: Contributions to Others, Increased Functional Strength, Socialization Other/Notes Pt. participated in group PT OT session. Pt. came to from group via w/c and assist. Pts were oriented to purpose and expectations of ARU as well as routines and schedules etc. Pts shared names, home town and occupations through their lives. Seated U&L extremity exercises were completed with explanation of how strength in these areas improve function and safety. Benefits of exercise was reviewed. Pt. to room after group with assist to bed, call davis at hand Start Time: 13:00 Stop Time: 14:00 Total Billed Treatment Time: 60 Total Billed Treatment 1,GRP NATALIE JURADO ROUTE RETURNER March 03, 2021 14:26
[2021-03-03 20:00] VITALS: BP 181/79
--- NOTE | 2021-03-04 06:46 | PM&R Progress Note ---
Subjective HPI/CC On Admission Date Seen by Provider: March 04, 2021 Time Seen by Provider: 12:00 Subjective/Events-last exam 03/04/21: Patient doing better Less urinary frequency Insomnia reported to I started Melatonin 6mg PO QHS Periarea a bit chafed so started cream BM+ 03/03/21: Pt had a bad night due to urinary frequency Antibiotic now improving the situation Pyridium is helpful Refusing some of the medications Doing well overall 03/02/21: Pt doing okay today Having some UTI symptoms so will do an in-and-out cath for a UA Eliquis will start on 03/08/21 since she did receive TPA Very reluctant to do therapy today Very hard of hearing Peripheral vision loss is an issue too Labs look good Femara prescription will be brought from home Review of Systems General: Fatigue, Malaise Genitourinary: Dysuria, Frequency Objective Exam Vital Signs Vital Signs Date Time Temp Pulse Resp B/P (MAP) Pulse Ox O2 Delivery O2 Flow Rate FiO2 03/04/21 20:05 36.4 66 20 145/72 (96) 95 Room Air Capillary Refill : General Appearance: No Apparent Distress, WD/WN HEENT: PERRL/EOMI, Normal ENT Inspection, Pharynx Normal, Other (peripheral vision loss noted bilateral) Neck: Full Range of Motion, Normal Inspection, Non Tender, Supple, Carotid Bruit Respiratory: Chest Non Tender, Lungs Clear, Normal Breath Sounds, No Accessory Muscle Use, No Respiratory Distress Cardiovascular: No Edema, No Gallop, No JVD, No Murmur, Normal Peripheral Pulses, Irregularly Irregular Gastrointestinal: Normal Bowel Sounds, No Organomegaly, No Pulsatile Mass, Non Tender, Soft Rectal: Deferred Back: Normal Inspection, No CVA Tenderness, No Vertebral Tenderness Extremity: Normal Capillary Refill, Normal Inspection, Normal Range of Motion, Non Tender, No Calf Tenderness, No Pedal Edema Neurologic/Psychiatric: Alert, Oriented x3, Normal Mood/Affect, Motor Weakness (right sided 4/5), Other (vision loss peripheral) Skin: Normal Color, Warm/Dry Lymphatic: No Adenopathy Results/Procedures Lab Patient resulted labs reviewed. FIM Transfers Therapy Code Descriptions/Definitions Functional [place] Measure: 0=Not Assessed/NA 4=Minimal Assistance 1=Total Assistance 5=Supervision or Setup 2=Maximal Assistance 6=Modified [place] 3=Moderate Assistance 7=Complete IndependenceSCALE: Activities may be completed with or without assistive devices. 7-Tjidczqqyd-qcirbwi completes the activity by him/herself with no assistance from a helper. 5-Set-up or Clean-up Assistance-helper sets up or cleans up; patient completes activity. [place] assists only prior to or following the activity. 4-Supervision or Touching Assistance-helper provides verbal cues and/or touching/steadying and/or contact guard assistance as patient completes activity. Assistance may be provided throughout the activity or intermittently. 3-Partial/Moderate Assistance-helper does LESS THAN HALF the effort. [place] lifts, holds or supports trunk or limbs, but provides less than half the effort. 2-Substantial/Maximal Assistance-helper does MORE THAN HALF the effort. [place] lifts or holds trunk or limbs and provides more than half the effort. 1-Pxxeuvqjv-uxwcvp does ALL the effort. Patient does none of the effort to complete the activity. Or, the assistance of 2 or more helpers is required for the patient to complete the activity. If activity was not attempted, code reason: 7-Patient Refused. 9-Not Applicable-not attempted and the patient did not perform the activity before the current illness, exacerbation or injury. 10-Not Attempted due to Environmental Limitations-(lack of equipment, weather restraints, etc.). 88-Not Attempted due to Medical Conditions or Safety Concerns. Roll Left to Right (QC): 6 Sit to Lying (QC): 6 Sit to Stand (QC): 5 Chair/Qji-gd-Iejvn Xfer(QC): 5 Car Transfer (QC): 3 Gait Training Does the Patient Walk?: Yes Distance: 120', 300' Walk 10 feet (QC): 4 Walk 50 ft with 2 Turns(QC): 4 Walk 150 ft (QC): 4 Walking 10ft/uneven surface-QC: 3 Gait Persons Needed: 1 Gait Assistive Device: FWW Wheelchair Training Does the Pt Use a Wheelchair?: No Wheel 50 ft with 2 turns (QC): 9 Wheel 150 ft (QC): 9 Stair Training 1 Step (curb) (QC): 3 4 Steps (QC): 3 12 Steps (QC): 88 Balance Picking up an Object (QC): 88 ADL-Treatment Eating (QC): 6 (Pt reports she opened all containers, and used utensils to eat.) Oral Hygiene (QC): 4 (CGA standing at sink.) Shower/Bathe Self (QC): 4 (CGA in stand at GBs, min VCs for sequencing and safety throughout shower.) Upper Body Dressing (QC): 3 (Min A with bra fasteners. Pt able to don/doff fur puller shirt with SBA) Lower Body Dressing (QC): 4 (CGA, pt able to don loungepants) On/Off Footwear (QC): 4 (SBA, pt required several verbal cues to initiate task) Toileting Hygiene (QC): 4 (CGA) Assessment/Plan Assessment and Plan Assess & Plan/Chief Complaint Assessment: CVA with vision loss and right sided weakness PPM for SSS PAF Non-compliance with OAC prior to CVA HTN HLP PVD Breast cancer hx CHF UTI acute on chronic Plan: IRF protocol Monitor closely Cardiology consult PCP consult 03/02/21: UTI treatment Monitor closely Fall risk 03/03/21: Abx Pyridium PT OT Refuses to take some meds 03/04/21: Insomnia treatment Abx (1) CVA (cerebral vascular accident) (2) Pacemaker (3) SSS (sick sinus syndrome) (4) PAF (paroxysmal atrial fibrillation) (5) Vision loss JESSICA GIL DO March 04, 2021 06:46
[2021-03-04 07:02] VITALS: BP 144/66
[2021-03-04] MEDS: SENNA W/DOCUSATE (SENOKOT S) TABLET PO SCH ×2 (09:50→21:00)
[2021-03-04] MEDS: PHENAZOPYRIDINE 100 MG (PYRIDIUM) TABLET PO SCH ×3 (09:50→18:32)
[2021-03-04] MEDS: FLECAINIDE 100 MG (TAMBOCOR) TAB PO SCH ×2 (09:51→20:58)
[2021-03-04] MEDS: dilTIAZem120 MG (CARDIZEM CD) CAP PO SCH (09:51)
[2021-03-04] MEDS: meTOproloL SUCCINATE 50 MG (TOPROL XL) TAB PO SCH (09:51)
[2021-03-04] MEDS: DOCUSATE SODIUM 100 MG (COLACE) CAP PO SCH ×2 (09:51→21:00)
[2021-03-04] MEDS: lisINopril 20 MG (PRINIVIL) TABLET PO SCH ×2 (09:51→20:57)
[2021-03-04] MEDS: ASPIRIN E.C. 325 MG (ECOTRIN) TABLET PO SCH (09:51)
[2021-03-04] MEDS: CEFDINIR 300 MG (OMNICEF) CAP PO SCH ×2 (09:51→20:58)
[2021-03-04] MEDS: polyethylene glycoL POWDER 17 GM (MIRALAX) PACK PO SCH ×2 (09:55→21:00)
[2021-03-04] MEDS: LETROZOLE 2.5 MG (FEMARA) TAB PO SCH (09:56)
--- NOTE | 2021-03-04 11:40 | Physical Therapy Daily Note ---
PT Daily Note-Current Subjective Pt agreeable to treatment. Transfers SCALE: Activities may be completed with or without assistive devices. 2-Ezlvnvawgw-glmullw completes the activity by him/herself with no assistance from a helper. 5-Set-up or Clean-up Assistance-helper sets up or cleans up; patient completes activity. [place] assists only prior to or following the activity. 4-Supervision or Touching Assistance-helper provides verbal cues and/or touching/steadying and/or contact guard assistance as patient completes activity. Assistance may be provided throughout the activity or intermittently. 3-Partial/Moderate Assistance-helper does LESS THAN HALF the effort. [place] lifts, holds or supports trunk or limbs, but provides less than half the effort. 2-Substantial/Maximal Assistance-helper does MORE THAN HALF the effort. [place] lifts or holds trunk or limbs and provides more than half the effort. 0-Zfcrpbntv-zjgzzi does ALL the effort. Patient does none of the effort to complete the activity. Or, the assistance of 2 or more helpers is required for the patient to complete the activity. If activity was not attempted, code reason: 7-Patient Refused. 9-Not Applicable-not attempted and the patient did not perform the activity before the current illness, exacerbation or injury. 10-Not Attempted due to Environmental Limitations-(lack of equipment, weather restraints, etc.). 88-Not Attempted due to Medical Conditions or Safety Concerns. Gait Training Gait Assistive Device: FWW Gait 200ft with fWW and CGA verbal cues to avoid objects. Ambulate 50ft x 2 trials no device with cues for safety. Ambulate around a variety of cones for direction change. Neuromuscular Standing and dynamic balance activies including braiding, side stepping, forward/backward walk, lateral shuffle, and quick direction change. worked (R) LE coordination training of target stepping and quick stepping to 6 inch step with single leg and alternating. PT Short Term Goals Short Term Goals Time Frame: March 09, 2021 Sit to stand: 4 Chair/ota-hr-rspfy transfer: 4 Walk 150 feet: 4 PT Half-Way Goals Server Developer Goals PT Server Developer Goals Time Frame: Mar 24, 2021 Roll Left & Right (QC): 6 Sit to Lying (QC): 6 Lying-Sitting on Side/Bed(QC): 6 Sit to Stand (QC): 6 Chair/Klz-gv-Oqggi Xfer(QC): 6 Toilet Transfer (QC): 6 Car Transfer (QC): 6 Does the Patient Walk: Yes Walk 10 feet (QC): 6 Walk 50ft with 2 Turns (QC): 6 Walk 150 ft (QC): 6 Walking 10ft on Uneven Surface: 6 1 Step (curb) (QC): 6 4 Steps (QC): 6 12 Steps (QC): 6 Picking up an Object (QC): 4 Does the Pt use WC or Scooter?: No Wheel 50 feet with 2 turns (QC: 9 Wheel 150 feet: 9 PT Plan Treatment/Plan Treatment Plan: Continue Plan of Care Treatment Plan: Bed Mobility, Education, Functional Activity Kalli, Functional Strength, Group Therapy, Gait, Safety, Therapeutic Exercise, Transfers Treatment Duration: Mar 24, 2021 Frequency: At least 5 of 7 days/Wk (IRF) Estimated Hrs Per Day: 1.5 hours per day Patient and/or Family Agrees t: Yes Time/GCodes Time In: 940 Time Out: 1000 Total Billed Treatment Time: 20 Total Billed Treatment visit, NM 15min, gt 5 min PEGGY DEGROOT PT March 04, 2021 11:40
[2021-03-04 20:05] VITALS: BP 145/72
[2021-03-04] MEDS: MELATONIN 3 MG TABLET PO SCH (20:58)
--- NOTE | 2021-03-05 06:38 | PM&R Progress Note ---
Subjective HPI/CC On Admission Date Seen by Provider: March 05, 2021 Time Seen by Provider: 11:30 Subjective/Events-last exam 03/05/21: Patient reports she still not feeling too well Urination is getting better Couldn't sleep last night even after taking Melatonin and she really hesitated about taking that Reports she will not be taking her statin when she gets home Very non-compliant with meds BM today BP labile 03/04/21: Patient doing better Less urinary frequency Insomnia reported to I started Melatonin 6mg PO QHS Periarea a bit chafed so started cream BM+ 03/03/21: Pt had a bad night due to urinary frequency Antibiotic now improving the situation Pyridium is helpful Refusing some of the medications Doing well overall 03/02/21: Pt doing okay today Having some UTI symptoms so will do an in-and-out cath for a UA Eliquis will start on 03/08/21 since she did receive TPA Very reluctant to do therapy today Very hard of hearing Peripheral vision loss is an issue too Labs look good Femara prescription will be brought from home Review of Systems General: Fatigue, Malaise HEENT: Visual Changes Neurological: Weakness, Incoordination Objective Exam Vital Signs Vital Signs Date Time Temp Pulse Resp B/P (MAP) Pulse Ox O2 Delivery O2 Flow Rate FiO2 03/05/21 19:34 36.4 70 18 144/77 (99) 95 Room Air Capillary Refill : General Appearance: No Apparent Distress, WD/WN HEENT: PERRL/EOMI, Normal ENT Inspection, Pharynx Normal, Other (peripheral vision loss noted bilateral) Neck: Full Range of Motion, Normal Inspection, Non Tender, Supple, Carotid Bruit Respiratory: Chest Non Tender, Lungs Clear, Normal Breath Sounds, No Accessory Muscle Use, No Respiratory Distress Cardiovascular: No Edema, No Gallop, No JVD, No Murmur, Normal Peripheral Pulses, Irregularly Irregular Gastrointestinal: Normal Bowel Sounds, No Organomegaly, No Pulsatile Mass, Non Tender, Soft Rectal: Deferred Back: Normal Inspection, No CVA Tenderness, No Vertebral Tenderness Extremity: Normal Capillary Refill, Normal Inspection, Normal Range of Motion, Non Tender, No Calf Tenderness, No Pedal Edema Neurologic/Psychiatric: Alert, Oriented x3, Normal Mood/Affect, Motor Weakness (right sided 4/5), Other (vision loss peripheral) Skin: Normal Color, Warm/Dry Lymphatic: No Adenopathy Results/Procedures Lab Patient resulted labs reviewed. FIM Transfers Therapy Code Descriptions/Definitions Functional [place] Measure: 0=Not Assessed/NA 4=Minimal Assistance 1=Total Assistance 5=Supervision or Setup 2=Maximal Assistance 6=Modified [place] 3=Moderate Assistance 7=Complete IndependenceSCALE: Activities may be completed with or without assistive devices. 1-Aialqjjpez-bcyracd completes the activity by him/herself with no assistance from a helper. 5-Set-up or Clean-up Assistance-helper sets up or cleans up; patient completes activity. [place] assists only prior to or following the activity. 4-Supervision or Touching Assistance-helper provides verbal cues and/or touching/steadying and/or contact guard assistance as patient completes activity. Assistance may be provided throughout the activity or intermittently. 3-Partial/Moderate Assistance-helper does LESS THAN HALF the effort. [place] lifts, holds or supports trunk or limbs, but provides less than half the effort. 2-Substantial/Maximal Assistance-helper does MORE THAN HALF the effort. [place] lifts or holds trunk or limbs and provides more than half the effort. 5-Fozupdjky-nxyptg does ALL the effort. Patient does none of the effort to complete the activity. Or, the assistance of 2 or more helpers is required for the patient to complete the activity. If activity was not attempted, code reason: 7-Patient Refused. 9-Not Applicable-not attempted and the patient did not perform the activity before the current illness, exacerbation or injury. 10-Not Attempted due to Environmental Limitations-(lack of equipment, weather restraints, etc.). 88-Not Attempted due to Medical Conditions or Safety Concerns. Roll Left to Right (QC): 6 Sit to Lying (QC): 6 Sit to Stand (QC): 5 Chair/Fwa-ac-Aqbqk Xfer(QC): 5 Car Transfer (QC): 3 Gait Training Does the Patient Walk?: Yes Distance: 120', 300' Walk 10 feet (QC): 4 Walk 50 ft with 2 Turns(QC): 4 Walk 150 ft (QC): 4 Walking 10ft/uneven surface-QC: 3 Gait Persons Needed: 1 Gait Assistive Device: FWW Wheelchair Training Does the Pt Use a Wheelchair?: No Wheel 50 ft with 2 turns (QC): 9 Wheel 150 ft (QC): 9 Stair Training 1 Step (curb) (QC): 3 4 Steps (QC): 3 12 Steps (QC): 88 Balance Picking up an Object (QC): 88 ADL-Treatment Eating (QC): 6 (Pt reports she opened all containers, and used utensils to eat.) Oral Hygiene (QC): 4 (CGA standing at sink.) Shower/Bathe Self (QC): 4 (CGA in stand at GBs, min VCs for sequencing and safety throughout shower.) Upper Body Dressing (QC): 3 (Min A with bra fasteners. 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 PPM for SSS PAF Non-compliance with OAC prior to CVA HTN HLP PVD Breast cancer hx CHF UTI acute on chronic Plan: IRF protocol Monitor closely Cardiology consult PCP consult 03/02/21: UTI treatment Monitor closely Fall risk 03/03/21: Abx Pyridium PT OT Refuses to take some meds 03/04/21: Insomnia treatment Abx 03/05/21: Very difficult to manage considering her hx of non-compliance with meds which resulted in CVA and still stating she will not be taking some of the recommended meds at [place] (1) CVA (cerebral vascular accident) (2) Pacemaker (3) SSS (sick sinus syndrome) (4) PAF (paroxysmal atrial fibrillation) (5) Vision loss JESSICA GIL DO March 05, 2021 06:38
[2021-03-05 07:03] VITALS: BP 176/81
[2021-03-05] MEDS: dilTIAZem120 MG (CARDIZEM CD) CAP PO SCH (08:56)
[2021-03-05] MEDS: ASPIRIN E.C. 325 MG (ECOTRIN) TABLET PO SCH (08:56)
[2021-03-05] MEDS: PHENAZOPYRIDINE 100 MG (PYRIDIUM) TABLET PO SCH ×3 (08:56→18:50)
[2021-03-05] MEDS: meTOproloL SUCCINATE 50 MG (TOPROL XL) TAB PO SCH (08:56)
[2021-03-05] MEDS: CEFDINIR 300 MG (OMNICEF) CAP PO SCH ×2 (08:56→21:19)
[2021-03-05] MEDS: FLECAINIDE 100 MG (TAMBOCOR) TAB PO SCH ×2 (08:56→21:19)
[2021-03-05] MEDS: lisINopril 20 MG (PRINIVIL) TABLET PO SCH ×2 (08:57→21:19)
[2021-03-05] MEDS: LETROZOLE 2.5 MG (FEMARA) TAB PO SCH (09:02)
[2021-03-05] MEDS: DOCUSATE SODIUM 100 MG (COLACE) CAP PO SCH ×2 (09:03→21:15)
[2021-03-05] MEDS: polyethylene glycoL POWDER 17 GM (MIRALAX) PACK PO SCH ×2 (09:03→21:15)
[2021-03-05] MEDS: SENNA W/DOCUSATE (SENOKOT S) TABLET PO SCH ×2 (09:03→21:15)
[2021-03-05 09:15] VITALS: BP 144/70
[2021-03-05 19:34] VITALS: BP 144/77
[2021-03-05] MEDS: MELATONIN 3 MG TABLET PO SCH (21:18)
[2021-03-06 05:29] LABS: BASOPHILS # (AUTO) 0.1 10^3/uL (0.0-0.1); BASOPHILS % (AUTO) 1 % (0-10); EOSINOPHILS # (AUTO) 0.2 10^3/uL (0.0-0.3); EOSINOPHILS % (AUTO) 3 % (0-10); HEMATOCRIT 38 % (35-52); HEMOGLOBIN 12.4 g/dL (11.5-16.0); LYMPHOCYTES % (AUTO) 28 % (12-44); MEAN CORPUSCULAR HEMOGLOBIN 30 pg (25-34); MEAN CORPUSCULAR HGB CONC 33 g/dL (32-36); MEAN CORPUSCULAR VOLUME 93 fL (80-99); MEAN PLATELET VOLUME 9.1 fL (9.0-12.2); MONOCYTES # (AUTO) 0.6 10^3/uL (0.0-1.0); MONOCYTES % (AUTO) 9 % (0-12); NEUTROPHILS # (AUTO) 4.4 10^3/uL (1.8-7.8); NEUTROPHILS % (AUTO) 60 % (42-75); PLATELET COUNT 321 10^3/uL (130-400); WHITE BLOOD COUNT 7.4 10^3/uL (4.3-11.0)
[2021-03-06 05:57] LABS: ALANINE AMINOTRANSFERASE 25 U/L (0-55); ALBUMIN 3.5 GM/DL (3.2-4.5); ALKALINE PHOSPHATASE 79 U/L (40-136); BILIRUBIN,TOTAL 0.4 MG/DL (0.1-1.0); BUN/CREATININE RATIO 22; CALCIUM 8.8 MG/DL (8.5-10.1); CARBON DIOXIDE 26 MMOL/L (21-32); CHLORIDE 106 MMOL/L (98-107); CREATININE SERUM 0.89 MG/DL (0.60-1.30); GFR ESTIMATED > 60; GLUCOSE 91 MG/DL (70-105); POTASSIUM 3.8 MMOL/L (3.6-5.0); SODIUM 139 MMOL/L (135-145); TOTAL PROTEIN 5.9 GM/DL (6.4-8.2)
[2021-03-06] MEDS ORDERED: proPOfol 200 MG/20 ML (DIPRIVAN) VIAL IV ONE (06:55)
[2021-03-06] MEDS ORDERED: ROCURONIUM 10 MG/ML 5 ML SYRINGE IV ONE (06:55)
[2021-03-06] MEDS ORDERED: ONDANSETRON 4 MG/2 ML (SDV) Z0FRAN ONE (06:55)
[2021-03-06] MEDS ORDERED: LIDOCAINE PF 2% 5 ML (XYLOCAINE) VIAL ONE (06:55)
[2021-03-06] MEDS ORDERED: MIDAZOLAM 2 MG/2 ML (VERSED) VIAL ONE (06:56)
[2021-03-06] MEDS ORDERED: fentaNYL INJ 100 MCG/2 ML AMP ONE (06:56)
--- NOTE | 2021-03-06 07:40 | PM&R Progress Note ---
Subjective HPI/CC On Admission Date Seen by Provider: March 06, 2021 Time Seen by Provider: 09:00 Subjective/Events-last exam 03/06/21: Pt doing a lot better Bowels moved yesterday Vitals remain stable Labs are okay Pyridium is helping 03/05/21: Patient reports she still not feeling too well Urination is getting better Couldn't sleep last night even after taking Melatonin and she really hesitated about taking that Reports she will not be taking her statin when she gets home Very non-compliant with meds BM today BP labile 03/04/21: Patient doing better Less urinary frequency Insomnia reported to I started Melatonin 6mg PO QHS Periarea a bit chafed so started cream BM+ 03/03/21: Pt had a bad night due to urinary frequency Antibiotic now improving the situation Pyridium is helpful Refusing some of the medications Doing well overall 03/02/21: Pt doing okay today Having some UTI symptoms so will do an in-and-out cath for a UA Eliquis will start on 03/08/21 since she did receive TPA Very reluctant to do therapy today Very hard of hearing Peripheral vision loss is an issue too Labs look good Femara prescription will be brought from home Review of Systems General: Fatigue Genitourinary: Frequency Neurological: Weakness, Incoordination Objective Exam Vital Signs Vital Signs Date Time Temp Pulse Resp B/P (MAP) Pulse Ox O2 Delivery O2 Flow Rate FiO2 03/06/21 21:50 Room Air 03/06/21 20:00 36.8 67 18 145/64 (91) 95 Capillary Refill : General Appearance: No Apparent Distress, WD/WN HEENT: PERRL/EOMI, Normal ENT Inspection, Pharynx Normal, Other (peripheral vision loss noted bilateral) Neck: Full Range of Motion, Normal Inspection, Non Tender, Supple, Carotid Bruit Respiratory: Chest Non Tender, Lungs Clear, Normal Breath Sounds, No Accessory Muscle Use, No Respiratory Distress Cardiovascular: No Edema, No Gallop, No JVD, No Murmur, Normal Peripheral Pulses, Irregularly Irregular Gastrointestinal: Normal Bowel Sounds, No Organomegaly, No Pulsatile Mass, Non Tender, Soft Rectal: Deferred Back: Normal Inspection, No CVA Tenderness, No Vertebral Tenderness Extremity: Normal Capillary Refill, Normal Inspection, Normal Range of Motion, Non Tender, No Calf Tenderness, No Pedal Edema Neurologic/Psychiatric: Alert, Oriented x3, Normal Mood/Affect, Motor Weakness (right sided 4/5), Other (vision loss peripheral) Skin: Normal Color, Warm/Dry Lymphatic: No Adenopathy Results/Procedures Lab Laboratory Tests 03/06/21 05:14 Patient resulted labs reviewed. FIM Transfers Therapy Code Descriptions/Definitions Functional [place] Measure: 0=Not Assessed/NA 4=Minimal Assistance 1=Total Assistance 5=Supervision or Setup 2=Maximal Assistance 6=Modified [place] 3=Moderate Assistance 7=Complete IndependenceSCALE: Activities may be completed with or without assistive devices. 8-Edsyrolspz-wzagmmp completes the activity by him/herself with no assistance from a helper. 5-Set-up or Clean-up Assistance-helper sets up or cleans up; patient completes activity. [place] assists only prior to or following the activity. 4-Supervision or Touching Assistance-helper provides verbal cues and/or touching/steadying and/or contact guard assistance as patient completes activity. Assistance may be provided throughout the activity or intermittently. 3-Partial/Moderate Assistance-helper does LESS THAN HALF the effort. [place] lifts, holds or supports trunk or limbs, but provides less than half the effort. 2-Substantial/Maximal Assistance-helper does MORE THAN HALF the effort. [place] lifts or holds trunk or limbs and provides more than half the effort. 3-Kzjkvqywk-pabjnz does ALL the effort. Patient does none of the effort to complete the activity. Or, the assistance of 2 or more helpers is required for the patient to complete the activity. If activity was not attempted, code reason: 7-Patient Refused. 9-Not Applicable-not attempted and the patient did not perform the activity before the current illness, exacerbation or injury. 10-Not Attempted due to Environmental Limitations-(lack of equipment, weather restraints, etc.). 88-Not Attempted due to Medical Conditions or Safety Concerns. Roll Left to Right (QC): 6 Sit to Lying (QC): 6 Sit to Stand (QC): 5 Chair/Hia-fg-Jmfxo Xfer(QC): 5 Car Transfer (QC): 3 Gait Training Does the Patient Walk?: Yes Distance: 120', 300' Walk 10 feet (QC): 4 Walk 50 ft with 2 Turns(QC): 4 Walk 150 ft (QC): 4 Walking 10ft/uneven surface-QC: 3 Gait Persons Needed: 1 Gait Assistive Device: FWW Wheelchair Training Does the Pt Use a Wheelchair?: No Wheel 50 ft with 2 turns (QC): 9 Wheel 150 ft (QC): 9 Stair Training 1 Step (curb) (QC): 3 4 Steps (QC): 3 12 Steps (QC): 88 Balance Picking up an Object (QC): 88 ADL-Treatment Eating (QC): 6 (Pt reports she opened all containers, and used utensils to eat.) Oral Hygiene (QC): 4 (CGA standing at sink.) Shower/Bathe Self (QC): 4 (CGA in stand at GBs, min VCs for sequencing and safety throughout shower.) Upper Body Dressing (QC): 3 (Min A with bra fasteners. 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 PPM for SSS PAF Non-compliance with OAC prior to CVA HTN HLP PVD Breast cancer hx CHF UTI acute on chronic Plan: IRF protocol Monitor closely Cardiology consult PCP consult 03/02/21: UTI treatment Monitor closely Fall risk 03/03/21: Abx Pyridium PT OT Refuses to take some meds 03/04/21: Insomnia treatment Abx 03/05/21: Very difficult to manage considering her hx of non-compliance with meds which resulted in CVA and still stating she will not be taking some of the recommended meds at [place] 03/06/21: Much improved Working with PT OT well (1) CVA (cerebral vascular accident) (2) Pacemaker (3) SSS (sick sinus syndrome) (4) PAF (paroxysmal atrial fibrillation) (5) Vision loss JESSICA GIL DO March 06, 2021 07:40
[2021-03-06 07:41] VITALS: BP 132/61
[2021-03-06] MEDS: dilTIAZem120 MG (CARDIZEM CD) CAP PO SCH (08:04)
[2021-03-06] MEDS: DOCUSATE SODIUM 100 MG (COLACE) CAP PO SCH ×2 (08:04→21:59)
[2021-03-06] MEDS: meTOproloL SUCCINATE 50 MG (TOPROL XL) TAB PO SCH (08:04)
[2021-03-06] MEDS: polyethylene glycoL POWDER 17 GM (MIRALAX) PACK PO SCH ×2 (08:04→21:59)
[2021-03-06] MEDS: PHENAZOPYRIDINE 100 MG (PYRIDIUM) TABLET PO SCH ×3 (08:04→18:03)
[2021-03-06] MEDS: lisINopril 20 MG (PRINIVIL) TABLET PO SCH ×2 (08:04→21:57)
[2021-03-06] MEDS: CEFDINIR 300 MG (OMNICEF) CAP PO SCH ×2 (08:04→21:56)
[2021-03-06] MEDS: ASPIRIN E.C. 325 MG (ECOTRIN) TABLET PO SCH (08:04)
[2021-03-06] MEDS: SENNA W/DOCUSATE (SENOKOT S) TABLET PO SCH ×2 (08:04→21:59)
[2021-03-06] MEDS: FLECAINIDE 100 MG (TAMBOCOR) TAB PO SCH ×2 (08:04→21:57)
[2021-03-06] MEDS: LETROZOLE 2.5 MG (FEMARA) TAB PO SCH (08:05)
[2021-03-06] MEDS ORDERED: PHENYLEPHRINE 100 MCG/ML 10 ML (ANESTHESIA) SYR ONE (08:05)
[2021-03-06] MEDS ORDERED: SEVOFLURANE (ULTANE) 15 ML INHAL SOLN ONE (08:16)
--- NOTE | 2021-03-06 08:24 | Occupational Ther Daily Note ---
OT Current Status-Daily Note Subjective Pt seated in recliner, agreeable to OT Tx. ADL-Treatment Therapy Code Descriptions/Definitions Functional [place] Measure: 0=Not Assessed/NA 4=Minimal Assistance 1=Total Assistance 5=Supervision or Setup 2=Maximal Assistance 6=Modified [place] 3=Moderate Assistance 7=Complete IndependenceSCALE: Activities may be completed with or without assistive devices. 1-Srregqqlhg-mdidpmw completes the activity by him/herself with no assistance from a helper. 5-Set-up or Clean-up Assistance-helper sets up or cleans up; patient completes activity. [place] assists only prior to or following the activity. 4-Supervision or Touching Assistance-helper provides verbal cues and/or touching/steadying and/or contact guard assistance as patient completes activity. Assistance may be provided throughout the activity or intermittently. 3-Partial/Moderate Assistance-helper does LESS THAN HALF the effort. [place] lifts, holds or supports trunk or limbs, but provides less than half the effort. 2-Substantial/Maximal Assistance-helper does MORE THAN HALF the effort. [place] lifts or holds trunk or limbs and provides more than half the effort. 5-Zpssqpjep-miuogb does ALL the effort. Patient does none of the effort to complete the activity. Or, the assistance of 2 or more helpers is required for the patient to complete the activity. If activity was not attempted, code reason: 7-Patient Refused. 9-Not Applicable-not attempted and the patient did not perform the activity before the current illness, exacerbation or injury. 10-Not Attempted due to Environmental Limitations-(lack of equipment, weather restraints, etc.). 88-Not Attempted due to Medical Conditions or Safety Concerns. Toileting Hygiene (QC): 4 (CGA) Toilet Transfer (QC): 4 (CGA on/off toilet using GBs.) Other Treatment Pt agreeable to OT Tx, pt used FWW to go to bathroom and complete toileting, CGA. She took meds provided by nurse, then used FWW to perform functional mobility to therapy gym. OT tx with focus on increasing R visual field attention, fine motor coordination, activity tolerance,increasing proprioceptive input RUE, and strength. Pt completed fine motor peg lizy task, matching c olored pegs with min verbal cues. She then performed R hand manipulation, flipping cards over one at a time in various planes. She sorted a deck of cards first by suit, then from high to low, using R hand, moderate verbal cues required to place Pedro, Roberto, Landis and Christian cards in order. Pt completed arm bike x15 mins, min resistance, 3 rest breaks. OT/PT cotreat due to skill of 2 cl inicians required to coordinate UE/LE, decrease fall risk, focus on higher level balance tasks, and due to pt's limitations in activity tolerance. OT focused on UE placement, cues for sequencing and safety, PT focused on LE placement, gross overall movements, and dynamic balance. Pt stood without AD and caught/tossed a ball back and forth with OT, PT assisted with balance as needed. Pt first completed with medium sized ball, then completed with smaller ball. Pt took a rest break, then located x6 cones around the room at various heights, performed functional mobility to locate all cones without AD, minimal verbal cues. Pt. in supine rolls to side and then prone and to quadruped indep, pt. able to crawl for and back but declines floor TRF today. Post tx, pt in therapy gym with PT, all needs met. Education OT Patient Education: Correct positioning, Modified ADL techniques, Progress toward Goal/Update tx plan, Purpose of tx/functional activities Teaching Recipient: Patient Teaching Methods: Discussion Response to Teaching: Verbalize Understanding OT Short Term Goals Short Term Goals Time Frame: March 08, 2021 Toileting hygiene: 5 Upper body dressin Lower body dressin Putting on/taking off footwear: 5 OT Senior Care Goals Methods Analyst Data Processing Goals Time Frame: Mar 24, 2021 Eating (QC): 6 Oral Hygiene (QC): 6 Toileting Hygiene (QC): 6 Shower/Bathe Self (QC): 6 Upper Body Dressing (QC): 6 Lower Body Dressing (QC): 6 On/Off Footwear (QC): 6 Additional Goals: 1-Demonstrate ADL Tasks, 2-Verbalize Understanding, 3- ImproveStrength/Kalli 1=Demonstrate adherence to instructed precautions during ADL tasks. 2=Patient will verbalize/demonstrate understanding of assistive devices/modifications for ADL. 3=Patient will improve strength/tolerance for activity to enable patient to perform ADL's. OT Education/Plan Problem List/Assessment Assessment: Decreased Activ Tolerance, Decreased UE Strength, Impaired Cognition, Impaired I ADL's, Impaired Self-Care Skills, Visual-Perceptual Deficit Discharge Recommendations Plan/Recommendations: Continue POC Treatment Plan/Plan of Care Patient would benefit from OT for education, treatment and training to promote independence in ADL's, mobility, safety and/or upper extremity function for ADL's. Plan of Care: ADL Retraining, Functional Mobility, Group Exercise/Act as Ind, UE Funct Exercise/Act, UE Neuromus Re-Ed/Coord, Visual/Perceptual Retrain Treatment Duration: Mar 24, 2021 Frequency: At least 5 of 7 days/Wk (IRF) Estimated Hrs Per Day: 1.5 hours per day Rehab Potential: Good Time/GCodes Start Time: 08:00 Stop Time: 09:15 Total Time Billed (hr/min): 75 Billed Treatment Time 1, ADL (10'), EX (15'), FA 3 (50') OANH WINTER OT March 06, 2021 08:24
--- NOTE | 2021-03-06 09:17 | Cardiology Progress Note ---
Subjective Date Seen by Provider: March 06, 2021 Time Seen by Provider: 08:55 Subjective/Events-last exam Pt seen while doing PT. Says PT is going well and strength is improving. Still poor peripheral vision. Also reports UTI Sx have improved. Not sleeping well. Denies cp/palpitations/sob/dizziness. Review of Systems General: No Chills, No Night Sweats; Fatigue (2/2 insomnia) HEENT: No Head Aches; Visual Changes (post CVA) Pulmonary: No Dyspnea, No Cough Cardiovascular: No: Chest Pain, Palpitations Gastrointestinal: No: Nausea, Vomiting Genitourinary: No Dysuria, No Frequency Musculoskeletal: No: neck pain, shoulder pain Neurological: Weakness (improved), Numbness (improved) Objective-Cardiology Exam Last Set of Vital Signs Vital Signs 03/06/21 03/06/21 07:41 09:10 Temp 36.4 Pulse 71 Resp 18 B/P (MAP) 132/61 (84) Pulse Ox 97 O2 Delivery Room Air Capillary Refill : General: Alert, Oriented X3, Cooperative HEENT: Atraumatic, PERRLA Neck: Supple, No JVD, No Thyromegaly Lungs: Clear to Auscultation, Normal Air Movement Heart: Regular Rate, Normal S1, Normal S2, No Murmurs Abdomen: Normal Bowel Sounds, Soft, No Tenderness, No Hepatosplenomegaly, No Masses Extremities: No Clubbing, No Cyanosis, No Edema, Normal Pulses, No Tenderness/Swelling Skin: No Rashes, No Breakdown, No Significant Lesion Neuro: Normal Gait, Normal Speech, Normal Tone Psych/Mental Status: Mental Status NL Results Lab Laboratory Tests 03/06/21 05:14 A/P-Cardiology Admission Diagnosis CVA Paroxysmal Afib Sinus sick syndrome HTN HLD Mild bilateral carotid artery stenosis Assessment/Plan CVA of basilar artery, 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, begin Elideep[place] 03/08 Urinary incontinence, UTI, receiving antibiotic and improving Paroxysmal Afib - continue home meds, continue to monitor Sinus sick syndrome - managed by PPM HTN - continue home meds, monitor HLD - continue home meds Mild bilateral carotid artery stenosis - continue to monitor Supervisory-Addendum Brief Verification & Attestation Participated in pt care: history, MDM, physical Personally performed: exam, history, MDM, supervision of care Care discussed with: Medical Student Procedures: n/a Results interpretation: Verified all documentation Verification and Attestation of Medical Student E/M Service A medical student performed and documented this service in my presence. I reviewed and verified all information documented by the medical student and made modifications to such information, when appropriate. I personally performed the physical exam and medical decision making. Eliana Zee, March 06, 2021,11:01 ELENO TRISTAN MED STUDENT March 06, 2021 09:17 ELIANA ZEE MD March 06, 2021 11:01
--- NOTE | 2021-03-06 09:31 | Physical Therapy Daily Note ---
PT Daily Note-Current Subjective Pt. agrees to Rx, feels she is making progress but declines floor TRFs stating the idea makes her a little uncomfortable and she may try it another day Pain Location: No Pain Reported Mental Status Patient Orientation: Normal For Age Attachments: Other-See Comments (mask) Transfers SCALE: Activities may be completed with or without assistive devices. 6-Dzabjfdbvv-rwqxabs completes the activity by him/herself with no assistance from a helper. 5-Set-up or Clean-up Assistance-helper sets up or cleans up; patient completes activity. [place] assists only prior to or following the activity. 4-Supervision or Touching Assistance-helper provides verbal cues and/or touching/steadying and/or contact guard assistance as patient completes activity. Assistance may be provided throughout the activity or intermittently. 3-Partial/Moderate Assistance-helper does LESS THAN HALF the effort. [place] lifts, holds or supports trunk or limbs, but provides less than half the effort. 2-Substantial/Maximal Assistance-helper does MORE THAN HALF the effort. [place] lifts or holds trunk or limbs and provides more than half the effort. 8-Vcmfmrdcu-mxyifs does ALL the effort. Patient does none of the effort to complete the activity. Or, the assistance of 2 or more helpers is required for the patient to complete the activity. If activity was not attempted, code reason: 7-Patient Refused. 9-Not Applicable-not attempted and the patient did not perform the activity before the current illness, exacerbation or injury. 10-Not Attempted due to Environmental Limitations-(lack of equipment, weather restraints, etc.). 88-Not Attempted due to Medical Conditions or Safety Concerns. Roll Left & Right (QC): 6 Sit to Lying (QC): 6 Lying to Sitting/Side of Bed(Q: 6 Sit to Stand (QC): 6 Chair/Nsc-gc-Asmbn Xfer(QC): 6 Toilet Transfer (QC): 6 pt. in supine rolls to side and then prone and to quadruped indep, pt. able to crawl for and back but declines floor TRF today Gait Training Does the Patient Walk?: Yes Walk 10 feet (QC): 5 Walk 50 ft with 2 Turns(QC): 5 Walk 150 ft (QC): 5 Gait Persons Needed: 1 Gait Assistive Device: FWW short bouts of gait trialed without device with pt. asking for support as she feels at risk. PT OT co Rxd for balance and gait challenges for ambulation about gym to locate and p/u cones at various heights . Pt. needed only CGA and some clues for location Treatments pt. stood for ball catch with PT CGA and OT throwing ball at differing heights and speeds requiring pt to twist and reach, no LOB, Pt. jason GILL balance test with some challenges already noted, will complete in PM Assessment Current Status: Good Progress PT Short Term Goals Short Term Goals Time Frame: March 09, 2021 Sit to stand: 4 Chair/ttb-ne-kxufh transfer: 4 Walk 150 feet: 4 PT Associate Attorney Goals Associate Attorney Goals PT Correction Goals Time Frame: Mar 24, 2021 Roll Left & Right (QC): 6 Sit to Lying (QC): 6 Lying-Sitting on Side/Bed(QC): 6 Sit to Stand (QC): 6 Chair/Pny-yo-Tjnuv Xfer(QC): 6 Toilet Transfer (QC): 6 Car Transfer (QC): 6 Does the Patient Walk: Yes Walk 10 feet (QC): 6 Walk 50ft with 2 Turns (QC): 6 Walk 150 ft (QC): 6 Walking 10ft on Uneven Surface: 6 1 Step (curb) (QC): 6 4 Steps (QC): 6 12 Steps (QC): 6 Picking up an Object (QC): 4 Does the Pt use WC or Scooter?: No Wheel 50 feet with 2 turns (QC: 9 Wheel 150 feet: 9 PT Plan Treatment/Plan Treatment Plan: Continue Plan of Care Treatment Plan: Bed Mobility, Education, Functional Activity Kalli, Functional Strength, Group Therapy, Gait, Safety, Therapeutic Exercise, Transfers Treatment Duration: Mar 24, 2021 Frequency: At least 5 of 7 days/Wk (IRF) Estimated Hrs Per Day: 1.5 hours per day Patient and/or Family Agrees t: Yes Safety Risks/Education Patient Education: Gait Training, Transfer Techniques, Correct Positioning, Disease Process, Safety Issues Teaching Recipient: Patient Teaching Methods: Demonstration, Discussion Response to Teaching: Verbalize Understanding, Return Demonstration, Reinforcement Needed Time/GCodes Time In: 845 Time Out: 930 Total Billed Treatment Time: 45 Total Billed Treatment 1,NM30m,GT5m (co Rx w OT 30m) NATALIE JURADO FISH CULTURIST March 06, 2021 09:31
--- NOTE | 2021-03-06 11:07 | Speech Therapy Daily Note ---
Speech Daily Progress Note Subjective Date Seen by Provider: March 06, 2021 Time Seen by Provider: 00:30 Patient was resting in her bed watching television. Patient states she still isn't sleeping well at night. Objective Patient completed a series of "what's missing in this picture" cards with safety scenarios she may encounter within her environment after discharge at 85% with min to mod cuing. Assessment Assessment Current Status: Good Progress Treatment Plan Continue Plan of Care Speech Short Term Goals Short Term Goals Short Term Goals 1) Patient will complete safety awareness tasks related to her daily needs at 80% or greater with minimal cues. 2) Patient will complete recall of new information tasks related to her daily needs at 80% or greater with minimal cues. Speech Care Home Goals Vehicle Body Maker Goals Patient will improve cognitive-communication skills so that she can complete daily tasks with minimal assist. Speech-Plan Patient/Family Goals Patient/Family Goals: Patient plans on returning to her home where she lives with her . Treatment Plan Speech Therapy Treatment Plan: Continue Plan of Care Treatment Duration: March 10, 2021 Frequency: 4 times per week Estimated Hrs Per Day: .5 hour per day Rehab Potential: Good Barriers to Learning: Patient's recent CVA, right side visual neglect Pt/Family Agrees to Plan: Yes Safety Risks/Education Teaching Recipient: Patient Teaching Methods: Demonstration, Discussion Response to Teaching: Verbalize Understanding, Return Demonstration Education Topics Provided: Continued safety within her room, continued communication Time Speech Therapy Time In: 11:00 Speech Therapy Time Out: 11:30 Total Billed Time: 30 Billed Treatment Time [address] March 06, 2021 11:07
--- NOTE | 2021-03-06 13:55 | Physical Therapy Daily Note ---
PT Daily Note-Current Subjective Pt. agrees to Rx. States she is wondering about DC plans, wants to make sure she is ready. Pt will have FT assist of if needed. This [employer] SU[employer] suggests come in for training Pain Location: No Pain Reported Mental Status Patient Orientation: Person, Place, Time, Situation pt. needs frequent reminders of locations in unit and reminders of task at times Transfers SCALE: Activities may be completed with or without assistive devices. 5-Nkojqjfavo-mykmaui completes the activity by him/herself with no assistance from a helper. 5-Set-up or Clean-up Assistance-helper sets up or cleans up; patient completes activity. [place] assists only prior to or following the activity. 4-Supervision or Touching Assistance-helper provides verbal cues and/or touching/steadying and/or contact guard assistance as patient completes activity. Assistance may be provided throughout the activity or intermittently. 3-Partial/Moderate Assistance-helper does LESS THAN HALF the effort. [place] lifts, holds or supports trunk or limbs, but provides less than half the effort. 2-Substantial/Maximal Assistance-helper does MORE THAN HALF the effort. [place] lifts or holds trunk or limbs and provides more than half the effort. 9-Dukzvukjj-lczjwk does ALL the effort. Patient does none of the effort to complete the activity. Or, the assistance of 2 or more helpers is required for the patient to complete the activity. If activity was not attempted, code reason: 7-Patient Refused. 9-Not Applicable-not attempted and the patient did not perform the activity before the current illness, exacerbation or injury. 10-Not Attempted due to Environmental Limitations-(lack of equipment, weather restraints, etc.). 88-Not Attempted due to Medical Conditions or Safety Concerns. Gait Training Does the Patient Walk?: Yes Gait Assistive Device: FWW [id number], 100ft, FWW SBA and directed to destination Exercises NuStep Minutes: 8 NuStep Workload: 3 Treatments leg presses on Nustep as well as work on int ext hip rotation on nustep, pt. is impulsive and goes very fast on Nustep with no regard for where her leg is in regards to arm on nustep, nearly banging it into her leg , discussed safety and speed of movement Assessment Current Status: Good Progress PT Short Term Goals Short Term Goals Time Frame: March 09, 2021 Sit to stand: 4 Chair/jlj-kh-uotrm transfer: 4 Walk 150 feet: 4 PT Shelter Goals Shelter Goals PT Copy Holder Goals Time Frame: Mar 24, 2021 Roll Left & Right (QC): 6 Sit to Lying (QC): 6 Lying-Sitting on Side/Bed(QC): 6 Sit to Stand (QC): 6 Chair/Lkg-et-Dfhaq Xfer(QC): 6 Toilet Transfer (QC): 6 Car Transfer (QC): 6 Does the Patient Walk: Yes Walk 10 feet (QC): 6 Walk 50ft with 2 Turns (QC): 6 Walk 150 ft (QC): 6 Walking 10ft on Uneven Surface: 6 1 Step (curb) (QC): 6 4 Steps (QC): 6 12 Steps (QC): 6 Picking up an Object (QC): 4 Does the Pt use WC or Scooter?: No Wheel 50 feet with 2 turns (QC: 9 Wheel 150 feet: 9 PT Plan Treatment/Plan Treatment Plan: Continue Plan of Care Treatment Plan: Bed Mobility, Education, Functional Activity Kalli, Functional Strength, Group Therapy, Gait, Safety, Therapeutic Exercise, Transfers Treatment Duration: Mar 24, 2021 Frequency: At least 5 of 7 days/Wk (IRF) Estimated Hrs Per Day: 1.5 hours per day Patient and/or Family Agrees t: Yes Safety Risks/Education Patient Education: Gait Training, Correct Positioning Time/GCodes Time In: 1300 Time Out: 1330 Total Billed Treatment Time: 30 Total Billed Treatment 1,GT20m,EX10m NATALIE JURADO [employer] SU[employer] March 06, 2021 13:55
[2021-03-06 20:00] VITALS: BP 145/64
[2021-03-06] MEDS: MELATONIN 3 MG TABLET PO SCH (21:57)
[2021-03-07 08:00] VITALS: BP 133/62
--- NOTE | 2021-03-07 08:31 | Cardiology Progress Note ---
Subjective Date Seen by Provider: March 07, 2021 Time Seen by Provider: 08:15 Subjective/Events-last exam Pt seen as she was walking with PT. Appears to be getting her strength back and mobility improving. Says she still hasn't slept much since arriving, but has had chronic difficulties sleeping. Dysuria continues to improve. Says she is hopeful she might get to go home tomorrow, but is agreeable with whatever plan Dr. Hilliard decides on. Denies cp/palpitations/sob/dizziness/syncope. Review of Systems General: No Chills, No Night Sweats; Fatigue (2/2 insomnia) HEENT: No Head Aches; Visual Changes (R sided peripheral vision loss 2/2 CVA) Pulmonary: No Dyspnea, No Cough Cardiovascular: No: Chest Pain, Palpitations Gastrointestinal: No: Nausea, Vomiting Genitourinary: Dysuria (improving); No Frequency Musculoskeletal: No: neck pain, shoulder pain Neurological: Weakness (improving); No: Numbness Objective-Cardiology Exam Last Set of Vital Signs Vital Signs 03/07/21 03/07/21 08:00 09:35 Temp 36.6 Pulse 62 Resp 14 B/P (MAP) 133/62 (85) Pulse Ox 94 O2 Delivery Room Air Capillary Refill : General: Alert, Oriented X3, Cooperative HEENT: Atraumatic, PERRLA Neck: Supple, No JVD, No Thyromegaly Lungs: Clear to Auscultation, Normal Air Movement Heart: Regular Rate, Normal S1, Normal S2, No Murmurs Abdomen: Normal Bowel Sounds, Soft, No Tenderness, No Hepatosplenomegaly, No Masses Extremities: No Clubbing, No Cyanosis, No Edema, Normal Pulses, No Tenderness/Swelling Skin: No Rashes, No Breakdown, No Significant Lesion Neuro: Normal Gait, Normal Speech, Normal Tone Psych/Mental Status: Mental Status NL A/P-Cardiology Admission Diagnosis CVA Paroxysmal Afib Sinus sick syndrome HTN HLD Mild bilateral carotid artery stenosis Assessment/Plan CVA of basilar artery, 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 Continue to monitor Hyperlipidemia, monitor lipids. No changes Mild bilateral carotid artery stenosis - continue to monitor Supervisory-Addendum Brief Verification & Attestation Participated in pt care: history, MDM, physical Personally performed: exam, history, MDM, supervision of care Care discussed with: Medical Student Procedures: n/a Results interpretation: Verified all documentation Verification and Attestation of Medical Student E/M Service A medical student performed and documented this service in my presence. I reviewed and verified all information documented by the medical student and made modifications to such information, when appropriate. I personally performed the physical exam and medical decision making. Patient reporting improvement in her symptoms, denied any chest pain. No palpitation. Responded antibiotic treatment for her UTI Feeling better today. Continue to monitor. Eliana Zee, March 07, 2021,18:19 ELENO TRISTAN MED STUDENT March 07, 2021 08:31 ELIANA ZEE MD March 07, 2021 12:29
--- NOTE | 2021-03-07 08:55 | Physical Therapy Daily Note ---
PT Daily Note-Current Subjective Pt sitting up in bed upon arrival. Pt agrees to PT tx. Pain Numeric Pain Scale: 0-No Pain Location: No Pain Reported Comment: No c/o P only numbness Mental Status Patient Orientation: Person, Place, Situation Attachments: Other-See Comments (TIFFANY Louis) Transfers SCALE: Activities may be completed with or without assistive devices. 9-Lrtzffvlov-sxtyrfs completes the activity by him/herself with no assistance from a helper. 5-Set-up or Clean-up Assistance-helper sets up or cleans up; patient completes activity. [place] assists only prior to or following the activity. 4-Supervision or Touching Assistance-helper provides verbal cues and/or touching/steadying and/or contact guard assistance as patient completes activity. Assistance may be provided throughout the activity or intermittently. 3-Partial/Moderate Assistance-helper does LESS THAN HALF the effort. [place] lifts, holds or supports trunk or limbs, but provides less than half the effort. 2-Substantial/Maximal Assistance-helper does MORE THAN HALF the effort. [place] lifts or holds trunk or limbs and provides more than half the effort. 4-Etagyjoey-oaexmz does ALL the effort. Patient does none of the effort to complete the activity. Or, the assistance of 2 or more helpers is required for the patient to complete the activity. If activity was not attempted, code reason: 7-Patient Refused. 9-Not Applicable-not attempted and the patient did not perform the activity before the current illness, exacerbation or injury. 10-Not Attempted due to Environmental Limitations-(lack of equipment, weather restraints, etc.). 88-Not Attempted due to Medical Conditions or Safety Concerns. Lying to Sitting/Side of Bed(Q: 6 Sit to Stand (QC): 4 Gait Training Does the Patient Walk?: Yes Distance: 300'+ x2 Walk 10 feet (QC): 4 Walk 50 ft with 2 Turns(QC): 4 Walk 150 ft (QC): 4 Gait Persons Needed: 1 Gait Assistive Device: FWW Pt has difficulty controlling FWW this date. Ambulates w/ CGA Exercises Seated Therapy Exercises: Sit to stand Seated Reps: 10 Standing: Hip Abduction Standing Reps: 10 NuStep Minutes: 10 NuStep Workload: 3 Neuromuscular Standing static balance training including BUE support w/ FWW while completing SLS w/ focus on proper postural alignment and WB tolerance w/ RLE. [employer] CGA when SLS w/ LLE and ModA-MaxA when SLS w/ RLE. Standing dynamic balance training including no UE support while reaching ipsilaterally and contra-laterally w/ RUE and placing cones on top of each other. Treatments Focused on RLE control through using NuStep, balance training and BUE support standing ADD/ABD. Pt requires VC's during NuStep d/t the inability to control RLE and [employer] fear that pt will hit RLE on NuStep arm. During sit<>stands, focused on proper hand placement and eccentric control; VC's required at times. Pt in recliner w/ chair alarm activated, bed side table and call light w/in reach and all needs met at end of tx. Assessment Current Status: Fair Progress Pt requires VC's to complete tasks correctly. PT Short Term Goals Short Term Goals Time Frame: March 09, 2021 Sit to stand: 4 Chair/sui-ib-bkqmn transfer: 4 Walk 150 feet: 4 PT Associate Professor Of Forestry Goals Shelter Goals PT Shelter Goals Time Frame: Mar 24, 2021 Roll Left & Right (QC): 6 Sit to Lying (QC): 6 Lying-Sitting on Side/Bed(QC): 6 Sit to Stand (QC): 6 Chair/Dir-jv-Qhyrz Xfer(QC): 6 Toilet Transfer (QC): 6 Car Transfer (QC): 6 Does the Patient Walk: Yes Walk 10 feet (QC): 6 Walk 50ft with 2 Turns (QC): 6 Walk 150 ft (QC): 6 Walking 10ft on Uneven Surface: 6 1 Step (curb) (QC): 6 4 Steps (QC): 6 12 Steps (QC): 6 Picking up an Object (QC): 4 Does the Pt use WC or Scooter?: No Wheel 50 feet with 2 turns (QC: 9 Wheel 150 feet: 9 PT Plan Problem List Problem List: Activity Tolerance, Functional Strength, Safety, Balance, Gait, Transfer, Bed Mobility, ROM Treatment/Plan Treatment Plan: Continue Plan of Care Treatment Plan: Bed Mobility, Education, Functional Activity Kalli, Functional Strength, Group Therapy, Gait, Safety, Therapeutic Exercise, Transfers Treatment Duration: Mar 24, 2021 Frequency: At least 5 of 7 days/Wk (IRF) Estimated Hrs Per Day: 1.5 hours per day Patient and/or Family Agrees t: Yes Safety Risks/Education Patient Education: Gait Training, Transfer Techniques, Correct Positioning, Safety Issues Teaching Recipient: Patient Teaching Methods: Discussion Response to Teaching: Verbalize Understanding, Reinforcement Needed Time/GCodes Time In: 0800 Time Out: 0900 Total Billed Treatment Time: 60 Total Billed Treatment 1, GT (15m), EX (20m), NM (25m) BRIDGETTE KOTHARI [employer] March 07, 2021 08:55
--- NOTE | 2021-03-07 09:03 | PM&R Progress Note ---
Subjective HPI/CC On Admission Date Seen by Provider: March 07, 2021 Time Seen by Provider: 09:10 Subjective/Events-last exam 03/07/21: Pt doing really well Very impulsive Bed alarm went off several times last night UTI symptoms are much improved Had a BM two days ago Declines any laxative 03/06/21: Pt doing a lot better Bowels moved yesterday Vitals remain stable Labs are okay Pyridium is helping 03/05/21: Patient reports she still not feeling too well Urination is getting better Couldn't sleep last night even after taking Melatonin and she really hesitated about taking that Reports she will not be taking her statin when she gets home Very non-compliant with meds BM today BP labile 03/04/21: Patient doing better Less urinary frequency Insomnia reported to I started Melatonin 6mg PO QHS Periarea a bit chafed so started cream BM+ 03/03/21: Pt had a bad night due to urinary frequency Antibiotic now improving the situation Pyridium is helpful Refusing some of the medications Doing well overall 03/02/21: Pt doing okay today Having some UTI symptoms so will do an in-and-out cath for a UA Eliquis will start on 03/08/21 since she did receive TPA Very reluctant to do therapy today Very hard of hearing Peripheral vision loss is an issue too Labs look good Femara prescription will be brought from home Review of Systems General: Fatigue Neurological: Weakness, Incoordination Objective Exam Vital Signs Vital Signs Date Time Temp Pulse Resp B/P (MAP) Pulse Ox O2 Delivery O2 Flow Rate FiO2 03/07/21 21:43 94 Room Air 03/07/21 20:00 36.4 66 16 133/63 (86) Capillary Refill : General Appearance: No Apparent Distress, WD/WN HEENT: PERRL/EOMI, Normal ENT Inspection, Pharynx Normal, Other (peripheral vision loss noted bilateral) Neck: Full Range of Motion, Normal Inspection, Non Tender, Supple, Carotid Bruit Respiratory: Chest Non Tender, Lungs Clear, Normal Breath Sounds, No Accessory Muscle Use, No Respiratory Distress Cardiovascular: No Edema, No Gallop, No JVD, No Murmur, Normal Peripheral Pulses, Irregularly Irregular Gastrointestinal: Normal Bowel Sounds, No Organomegaly, No Pulsatile Mass, Non Tender, Soft Rectal: Deferred Back: Normal Inspection, No CVA Tenderness, No Vertebral Tenderness Extremity: Normal Capillary Refill, Normal Inspection, Normal Range of Motion, Non Tender, No Calf Tenderness, No Pedal Edema Neurologic/Psychiatric: Alert, Oriented x3, Normal Mood/Affect, Motor Weakness (right sided 4/5), Other (vision loss peripheral) Skin: Normal Color, Warm/Dry Lymphatic: No Adenopathy Results/Procedures Lab Patient resulted labs reviewed. FIM Transfers Therapy Code Descriptions/Definitions Functional [place] Measure: 0=Not Assessed/NA 4=Minimal Assistance 1=Total Assistance 5=Supervision or Setup 2=Maximal Assistance 6=Modified [place] 3=Moderate Assistance 7=Complete IndependenceSCALE: Activities may be completed with or without assistive devices. 4-Nbmlaterhu-mwxuhvr completes the activity by him/herself with no assistance from a helper. 5-Set-up or Clean-up Assistance-helper sets up or cleans up; patient completes activity. [place] assists only prior to or following the activity. 4-Supervision or Touching Assistance-helper provides verbal cues and/or touching/steadying and/or contact guard assistance as patient completes activity. Assistance may be provided throughout the activity or intermittently. 3-Partial/Moderate Assistance-helper does LESS THAN HALF the effort. [place] lifts, holds or supports trunk or limbs, but provides less than half the effort. 2-Substantial/Maximal Assistance-helper does MORE THAN HALF the effort. [place] lifts or holds trunk or limbs and provides more than half the effort. 9-Cldzhdgvj-odikai does ALL the effort. Patient does none of the effort to complete the activity. Or, the assistance of 2 or more helpers is required for the patient to complete the activity. If activity was not attempted, code reason: 7-Patient Refused. 9-Not Applicable-not attempted and the patient did not perform the activity before the current illness, exacerbation or injury. 10-Not Attempted due to Environmental Limitations-(lack of equipment, weather restraints, etc.). 88-Not Attempted due to Medical Conditions or Safety Concerns. Roll Left to Right (QC): 6 Sit to Lying (QC): 6 Sit to Stand (QC): 4 Chair/Cec-bf-Yjcqw Xfer(QC): 6 Car Transfer (QC): 3 Gait Training Does the Patient Walk?: Yes Distance: 300'+ x2 Walk 10 feet (QC): 4 Walk 50 ft with 2 Turns(QC): 4 Walk 150 ft (QC): 4 Walking 10ft/uneven surface-QC: 3 Gait Persons Needed: 1 Gait Assistive Device: FWW Wheelchair Training Does the Pt Use a Wheelchair?: No Wheel 50 ft with 2 turns (QC): 9 Wheel 150 ft (QC): 9 Stair Training 1 Step (curb) (QC): 3 4 Steps (QC): 3 12 Steps (QC): 88 Balance Picking up an Object (QC): 88 ADL-Treatment Eating (QC): 6 (Pt reports she opened all containers, and used utensils to eat.) Oral Hygiene (QC): 4 (CGA standing at sink.) Shower/Bathe Self (QC): 4 (CGA in stand at GBs, min VCs for sequencing and safety throughout shower.) Upper Body Dressing (QC): 3 (Min A with bra fasteners. Pt able to don/doff warehouse order puller shirt with SBA) Lower Body Dressing (QC): 4 (CGA, pt able to don loungepants) On/Off Footwear (QC): 4 (SBA, pt required several verbal cues to initiate task) Toileting Hygiene (QC): 4 (CGA) Toilet Transfer (QC): 4 (CGA on/off toilet using GBs.) Assessment/Plan Assessment and Plan Assess & Plan/Chief Complaint Assessment: CVA with vision loss and right sided weakness PPM for SSS PAF Non-compliance with OAC prior to CVA HTN HLP PVD Breast cancer hx CHF UTI acute on chronic Plan: IRF protocol Monitor closely Cardiology consult PCP consult 03/02/21: UTI treatment Monitor closely Fall risk 03/03/21: Abx Pyridium PT OT Refuses to take some meds 03/04/21: Insomnia treatment Abx 03/05/21: Very difficult to manage considering her hx of non-compliance with meds which resulted in CVA and still stating she will not be taking some of the recommended meds at DC 03/06/21: Much improved Working with PT OT well 03/07/21: Monitor UTI symptoms Fall risk Very impulsive (1) CVA (cerebral vascular accident) (2) Pacemaker (3) SSS (sick sinus syndrome) (4) PAF (paroxysmal atrial fibrillation) (5) Vision loss JESSICA GIL DO March 07, 2021 09:03
[2021-03-07] MEDS: FLECAINIDE 100 MG (TAMBOCOR) TAB PO SCH ×2 (09:21→21:41)
[2021-03-07] MEDS: polyethylene glycoL POWDER 17 GM (MIRALAX) PACK PO SCH ×2 (09:21→21:44)
[2021-03-07] MEDS: ASPIRIN E.C. 325 MG (ECOTRIN) TABLET PO SCH (09:21)
[2021-03-07] MEDS: PHENAZOPYRIDINE 100 MG (PYRIDIUM) TABLET PO SCH ×3 (09:21→18:22)
[2021-03-07] MEDS: dilTIAZem120 MG (CARDIZEM CD) CAP PO SCH (09:22)
[2021-03-07] MEDS: meTOproloL SUCCINATE 50 MG (TOPROL XL) TAB PO SCH (09:22)
[2021-03-07] MEDS: SENNA W/DOCUSATE (SENOKOT S) TABLET PO SCH ×2 (09:22→21:44)
[2021-03-07] MEDS: lisINopril 20 MG (PRINIVIL) TABLET PO SCH ×2 (09:22→21:41)
[2021-03-07] MEDS: CEFDINIR 300 MG (OMNICEF) CAP PO SCH ×2 (09:23→21:41)
[2021-03-07] MEDS: DOCUSATE SODIUM 100 MG (COLACE) CAP PO SCH ×2 (09:25→21:44)
[2021-03-07] MEDS: LETROZOLE 2.5 MG (FEMARA) TAB PO SCH (09:26)
--- NOTE | 2021-03-07 10:07 | Speech Therapy Daily Note ---
Speech Daily Progress Note Subjective Date Seen by Provider: March 07, 2021 Time Seen by Provider: 00:30 Patient was sitting up in the recliner watching television when I entered her room. She states she really wants to go home. Objective Patient completed a series of verbally presented safety scenarios she may encounter within her environment after discharge at 85% with min cuing. Assessment Assessment Current Status: Good Progress Treatment Plan Continue Plan of Care Speech Short Term Goals Short Term Goals Short Term Goals 1) Patient will complete safety awareness tasks related to her daily needs at 80% or greater with minimal cues. 2) Patient will complete recall of new information tasks related to her daily needs at 80% or greater with minimal cues. Speech Broadcast Transmitter Operator Goals Snf Goals Patient will improve cognitive-communication skills so that she can complete daily tasks with minimal assist. Speech-Plan Patient/Family Goals Patient/Family Goals: Patient plans to return home where she lives with her . Treatment Plan Speech Therapy Treatment Plan: Continue Plan of Care Treatment Duration: March 10, 2021 Frequency: 4 times per week Estimated Hrs Per Day: .5 hour per day Rehab Potential: Good Barriers to Learning: Patient's recent CVA with debility Pt/Family Agrees to Plan: Yes Safety Risks/Education Teaching Recipient: Patient Teaching Methods: Demonstration, Discussion Response to Teaching: Verbalize Understanding, Return Demonstration Education Topics Provided: Continued safety within her room, focusing on looking to the right Time Speech Therapy Time In: 10:00 Speech Therapy Time Out: 10:30 Total Billed Time: 30 Billed Treatment Time 1[address] March 07, 2021 10:07
--- NOTE | 2021-03-07 10:50 | Occupational Ther Daily Note ---
OT Current Status-Daily Note Subjective Pt seated in recliner, agreeable to OT tx. Mental Status/Objective Patient Orientation: Person, Place, Time, Situation ADL-Treatment Therapy Code Descriptions/Definitions Functional [place] Measure: 0=Not Assessed/NA 4=Minimal Assistance 1=Total Assistance 5=Supervision or Setup 2=Maximal Assistance 6=Modified [place] 3=Moderate Assistance 7=Complete IndependenceSCALE: Activities may be completed with or without assistive devices. 8-Odemzppmam-qugtpvv completes the activity by him/herself with no assistance from a helper. 5-Set-up or Clean-up Assistance-helper sets up or cleans up; patient completes activity. [place] assists only prior to or following the activity. 4-Supervision or Touching Assistance-helper provides verbal cues and/or touching/steadying and/or contact guard assistance as patient completes activity. Assistance may be provided throughout the activity or intermittently. 3-Partial/Moderate Assistance-helper does LESS THAN HALF the effort. [place] lifts, holds or supports trunk or limbs, but provides less than half the effort. 2-Substantial/Maximal Assistance-helper does MORE THAN HALF the effort. [place] lifts or holds trunk or limbs and provides more than half the effort. 3-Yhcalyjwp-tmrnbd does ALL the effort. Patient does none of the effort to complete the activity. Or, the assistance of 2 or more helpers is required for the patient to complete the activity. If activity was not attempted, code reason: 7-Patient Refused. 9-Not Applicable-not attempted and the patient did not perform the activity before the current illness, exacerbation or injury. 10-Not Attempted due to Environmental Limitations-(lack of equipment, weather restraints, etc.). 88-Not Attempted due to Medical Conditions or Safety Concerns. Other Treatment Pt seated in recliner, agreeable to OT tx. Pt used FWW to ambulate to therapy gym, CGA. OT tx with focus on increasing BUE fine motor coordination, visual scanning, R visual attention, BUE strength and activity tolerance. Pt completed fine motor task, threading beads onto a string. Pt expressed increased difficulty, completing x5 beads on sting, OT switched sting out for shoelace with plastic on end, she was then able to thread x5 beads with less difficulty. Pt worked on functional activity of putting a puzzle together. Pt required cues for problem solving, instructions to find all edge pieces first. Pt required moderate cues throughout task in order to locate correct pieces and for sequencing, and minimal verbal cues to scan into R visual field. Pt completed edge pieces of 100 count puzzle. Pt then completed arm bike, min resistance x10 mins, (2 mins standing, 8 mins seated). Pt returned to room, transferring to recliner. Post tx, pt seated in recliner, call light in reach and all needs met. chair alarm activated Education OT Patient Education: Correct positioning, Energy conservation, Exercise program, Modified ADL techniques, Progress toward Goal/Update tx plan, Purpose of tx/functional activities, Rehab process, Safety issues, Transfer techniques Teaching Recipient: Patient Teaching Methods: Discussion Response to Teaching: Verbalize Understanding OT Short Term Goals Short Term Goals Time Frame: March 08, 2021 Toileting hygiene: 5 Upper body dressin Lower body dressin Putting on/taking off footwear: 5 OT Skilled Nursing Goals Skilled Nursing Goals Time Frame: Mar 24, 2021 Eating (QC): 6 Oral Hygiene (QC): 6 Toileting Hygiene (QC): 6 Shower/Bathe Self (QC): 6 Upper Body Dressing (QC): 6 Lower Body Dressing (QC): 6 On/Off Footwear (QC): 6 Additional Goals: 1-Demonstrate ADL Tasks, 2-Verbalize Understanding, 3- ImproveStrength/Kalli 1=Demonstrate adherence to instructed precautions during ADL tasks. 2=Patient will verbalize/demonstrate understanding of assistive d evices/modifications for ADL. 3=Patient will improve strength/tolerance for activity to enable patient to perform ADL's. OT Education/Plan Problem List/Assessment Assessment: Decreased Activ Tolerance, Decreased UE Strength, Impaired Funct Balance, Impaired I ADL's, Impaired Self-Care Skills, Visual-Perceptual Deficit Discharge Recommendations Plan/Recommendations: Continue POC Treatment Plan/Plan of Care Patient would benefit from OT for education, treatment and training to promote independence in ADL's, mobility, safety and/or upper extremity function for ADL's. Plan of Care: ADL Retraining, Functional Mobility, Group Exercise/Act as Ind, UE Funct Exercise/Act, UE Neuromus Re-Ed/Coord, Visual/Perceptual Retrain Treatment Duration: Mar 24, 2021 Frequency: At least 5 of 7 days/Wk (IRF) Estimated Hrs Per Day: 1.5 hours per day Rehab Potential: Good Time/GCodes Start Time: 10:30 Stop Time: 11:45 Total Time Billed (hr/min): 75 Billed Treatment Time 1, FA 4 (60'), EX (15') OANH WINTER OT March 07, 2021 10:50
--- NOTE | 2021-03-07 14:03 | Physical Therapy Daily Note ---
PT Daily Note-Current Subjective Pt sitting in recliner upon arrival. Pt agrees to PT tx. Pain Numeric Pain Scale: 0-No Pain Location: No Pain Reported Mental Status Patient Orientation: Person, Place, Situation Transfers SCALE: Activities may be completed with or without assistive devices. 9-Qiouempdkb-hpijvwj completes the activity by him/herself with no assistance from a helper. 5-Set-up or Clean-up Assistance-helper sets up or cleans up; patient completes activity. [place] assists only prior to or following the activity. 4-Supervision or Touching Assistance-helper provides verbal cues and/or touching/steadying and/or contact guard assistance as patient completes activity. Assistance may be provided throughout the activity or intermittently. 3-Partial/Moderate Assistance-helper does LESS THAN HALF the effort. [place] lifts, holds or supports trunk or limbs, but provides less than half the effort. 2-Substantial/Maximal Assistance-helper does MORE THAN HALF the effort. [place] lifts or holds trunk or limbs and provides more than half the effort. 9-Uaiqcoezw-gswjld does ALL the effort. Patient does none of the effort to complete the activity. Or, the assistance of 2 or more helpers is required for the patient to complete the activity. If activity was not attempted, code reason: 7-Patient Refused. 9-Not Applicable-not attempted and the patient did not perform the activity before the current illness, exacerbation or injury. 10-Not Attempted due to Environmental Limitations-(lack of equipment, weather restraints, etc.). 88-Not Attempted due to Medical Conditions or Safety Concerns. Sit to Lying (QC): 4 Sit to Stand (QC): 4 Gait Training Does the Patient Walk?: Yes Distance: 300' x2 Walk 10 feet (QC): 4 Walk 50 ft with 2 Turns(QC): 4 Walk 150 ft (QC): 4 Gait Persons Needed: 1 Gait Assistive Device: FWW Treatments Gait training completed. Pt requests to lay down at end of tx. Pt supine in bed w/ bed alarm activated, call light and bedside table w/in reach and all needs met at end of tx. Assessment Current Status: Good Progress Pt has slight confusion this visit. Pt does not recall ambulating w/ PHOTOCOMPOSITION KEYBOARD OPERATOR this AM. PT Short Term Goals Short Term Goals Time Frame: March 09, 2021 Sit to stand: 4 Chair/ktu-cc-idfje transfer: 4 Walk 150 feet: 4 PT Jail Goals Jail Goals PT Jail Goals Time Frame: Mar 24, 2021 Roll Left & Right (QC): 6 Sit to Lying (QC): 6 Lying-Sitting on Side/Bed(QC): 6 Sit to Stand (QC): 6 Chair/Knu-zv-Fgxzy Xfer(QC): 6 Toilet Transfer (QC): 6 Car Transfer (QC): 6 Does the Patient Walk: Yes Walk 10 feet (QC): 6 Walk 50ft with 2 Turns (QC): 6 Walk 150 ft (QC): 6 Walking 10ft on Uneven Surface: 6 1 Step (curb) (QC): 6 4 Steps (QC): 6 12 Steps (QC): 6 Picking up an Object (QC): 4 Does the Pt use WC or Scooter?: No Wheel 50 feet with 2 turns (QC: 9 Wheel 150 feet: 9 PT Plan Problem List Problem List: Activity Tolerance, Functional Strength, Safety, Balance, Gait, Transfer, Bed Mobility Treatment/Plan Treatment Plan: Continue Plan of Care Treatment Plan: Bed Mobility, Education, Functional Activity Kalli, Functional Strength, Group Therapy, Gait, Safety, Therapeutic Exercise, Transfers Treatment Duration: Mar 24, 2021 Frequency: At least 5 of 7 days/Wk (IRF) Estimated Hrs Per Day: 1.5 hours per day Patient and/or Family Agrees t: Yes Safety Risks/Education Patient Education: Gait Training, Safety Issues Teaching Recipient: Patient Teaching Methods: Discussion Response to Teaching: Verbalize Understanding Time/GCodes Time In: 1300 Time Out: 1315 Total Billed Treatment Time: 15 Total Billed Treatment 1, GT (15m) BRIDGETTE KOTHARI PHOTOCOMPOSITION KEYBOARD OPERATOR March 07, 2021 14:03
[2021-03-07 20:00] VITALS: BP 133/63
[2021-03-07] MEDS: MELATONIN 3 MG TABLET PO SCH (21:41)
--- NOTE | 2021-03-08 05:44 | PM&R Progress Note ---
Subjective HPI/CC On Admission Date Seen by Provider: March 08, 2021 Time Seen by Provider: 10:30 Subjective/Events-last exam 03/08/21: Pt doing pretty well Right sided visual field is still deficient Bowels moved today DC is planned for Saturday Incontinence at times at night Antibiotic finishes today Started Eliquis per cardiology? 03/07/21: Pt doing really well Very impulsive Bed alarm went off several times last night UTI symptoms are much improved Had a BM two days ago Declines any laxative 03/06/21: Pt doing a lot better Bowels moved yesterday Vitals remain stable Labs are okay Pyridium is helping 03/05/21: Patient reports she still not feeling too well Urination is getting better Couldn't sleep last night even after taking Melatonin and she really hesitated about taking that Reports she will not be taking her statin when she gets home Very non-compliant with meds BM today BP labile 03/04/21: Patient doing better Less urinary frequency Insomnia reported to I started Melatonin 6mg PO QHS Periarea a bit chafed so started cream BM+ 03/03/21: Pt had a bad night due to urinary frequency Antibiotic now improving the situation Pyridium is helpful Refusing some of the medications Doing well overall 03/02/21: Pt doing okay today Having some UTI symptoms so will do an in-and-out cath for a UA Eliquis will start on 03/08/21 since she did receive TPA Very reluctant to do therapy today Very hard of hearing Peripheral vision loss is an issue too Labs look good Femara prescription will be brought from home Review of Systems General: Fatigue, Malaise Neurological: Weakness, Incoordination Objective Exam Vital Signs Vital Signs Date Time Temp Pulse Resp B/P (MAP) Pulse Ox O2 Delivery O2 Flow Rate FiO2 03/08/21 21:05 95 Room Air 03/08/21 20:00 36.6 74 20 146/72 (96) Capillary Refill : General Appearance: No Apparent Distress, WD/WN HEENT: PERRL/EOMI, Normal ENT Inspection, Pharynx Normal, Other (peripheral vision loss noted bilateral) Neck: Full Range of Motion, Normal Inspection, Non Tender, Supple, Carotid Bruit Respiratory: Chest Non Tender, Lungs Clear, Normal Breath Sounds, No Accessory Muscle Use, No Respiratory Distress Cardiovascular: No Edema, No Gallop, No JVD, No Murmur, Normal Peripheral Pulses, Irregularly Irregular Gastrointestinal: Normal Bowel Sounds, No Organomegaly, No Pulsatile Mass, Non Tender, Soft Rectal: Deferred Back: Normal Inspection, No CVA Tenderness, No Vertebral Tenderness Extremity: Normal Capillary Refill, Normal Inspection, Normal Range of Motion, Non Tender, No Calf Tenderness, No Pedal Edema Neurologic/Psychiatric: Alert, Oriented x3, Normal Mood/Affect, Motor Weakness (right sided 4/5), Other (vision loss peripheral) Skin: Normal Color, Warm/Dry Lymphatic: No Adenopathy Results/Procedures Lab Patient resulted labs reviewed. FIM Transfers Therapy Code Descriptions/Definitions Functional [place] Measure: 0=Not Assessed/NA 4=Minimal Assistance 1=Total Assistance 5=Supervision or Setup 2=Maximal Assistance 6=Modified [place] 3=Moderate Assistance 7=Complete IndependenceSCALE: Activities may be completed with or without assistive devices. 0-Zdwxynopzx-dcnabog completes the activity by him/herself with no assistance from a helper. 5-Set-up or Clean-up Assistance-helper sets up or cleans up; patient completes activity. [place] assists only prior to or following the activity. 4-Supervision or Touching Assistance-helper provides verbal cues and/or to uching/steadying and/or contact guard assistance as patient completes activity. Assistance may be provided throughout the activity or intermittently. 3-Partial/Moderate Assistance-helper does LESS THAN HALF the effort. [place] lifts, holds or supports trunk or limbs, but provides less than half the effort. 2-Substantial/Maximal Assistance-helper does MORE THAN HALF the effort. [place] lifts or holds trunk or limbs and provides more than half the effort. 6-Bjbohmxbz-hxxkbg does ALL the effort. Patient does none of the effort to complete the activity. Or, the assistance of 2 or more helpers is required for the patient to complete the activity. If activity was not attempted, code reason: 7-Patient Refused. 9-Not Applicable-not attempted and the patient did not perform the activity before the current illness, exacerbation or injury. 10-Not Attempted due to Environmental Limitations-(lack of equipment, weather restraints, etc.). 88-Not Attempted due to Medical Conditions or Safety Concerns. Roll Left to Right (QC): 6 Sit to Lying (QC): 4 Sit to Stand (QC): 4 Chair/Blg-fx-Odfin Xfer(QC): 6 Car Transfer (QC): 3 Gait Training Does the Patient Walk?: Yes Distance: 300' x2 Walk 10 feet (QC): 4 Walk 50 ft with 2 Turns(QC): 4 Walk 150 ft (QC): 4 Walking 10ft/uneven surface-QC: 3 Gait Persons Needed: 1 Gait Assistive Device: FWW Wheelchair Training Does the Pt Use a Wheelchair?: No Wheel 50 ft with 2 turns (QC): 9 Wheel 150 ft (QC): 9 Type of Wheelchair: N/A Stair Training 1 Step (curb) (QC): 3 4 Steps (QC): 3 12 Steps (QC): 88 Balance Picking up an Object (QC): 88 ADL-Treatment Eating (QC): 6 (Pt reports she opened all containers, and used utensils to eat.) Oral Hygiene (QC): 4 (CGA standing at sink.) Shower/Bathe Self (QC): 4 (CGA in stand at GBs, min VCs for sequencing and safety throughout shower.) Upper Body Dressing (QC): 3 (Min A with bra fasteners. Pt able to don/doff car repairer pullman shirt with SBA) Lower Body Dressing (QC): 4 (CGA, pt able to don loungepants) On/Off Footwear (QC): 4 (SBA, pt required several verbal cues to initiate task) Toileting Hygiene (QC): 4 (CGA) Toilet Transfer (QC): 4 (CGA on/off toilet using GBs.) Assessment/Plan Assessment and Plan Assess & Plan/Chief Complaint Assessment: CVA with vision loss and right sided weakness PPM for SSS PAF Non-compliance with OAC prior to CVA HTN HLP PVD Breast cancer hx CHF UTI acute on chronic Plan: IRF protocol Monitor closely Cardiology consult PCP consult 03/02/21: UTI treatment Monitor closely Fall risk 03/03/21: Abx Pyridium PT OT Refuses to take some meds 03/04/21: Insomnia treatment Abx 03/05/21: Very difficult to manage considering her hx of non-compliance with meds which resulted in CVA and still stating she will not be taking some of the recommended meds at DC 03/06/21: Much improved Working with PT OT well 03/07/21: Monitor UTI symptoms Fall risk Very impulsive 03/08/21: Monitor closely Completed abx (1) CVA (cerebral vascular accident) (2) Pacemaker (3) SSS (sick sinus syndrome) (4) PAF (paroxysmal atrial fibrillation) (5) Vision loss JESSICA GIL DO March 08, 2021 05:44
[2021-03-08 08:00] VITALS: BP 135/69
[2021-03-08] MEDS: ASPIRIN E.C. 325 MG (ECOTRIN) TABLET PO SCH (08:10)
[2021-03-08] MEDS: FLECAINIDE 100 MG (TAMBOCOR) TAB PO SCH ×2 (08:10→21:03)
[2021-03-08] MEDS: lisINopril 20 MG (PRINIVIL) TABLET PO SCH ×2 (08:10→21:06)
[2021-03-08] MEDS: CEFDINIR 300 MG (OMNICEF) CAP PO SCH ×2 (08:10→21:03)
[2021-03-08] MEDS: DOCUSATE SODIUM 100 MG (COLACE) CAP PO SCH ×2 (08:11→21:05)
[2021-03-08] MEDS: dilTIAZem120 MG (CARDIZEM CD) CAP PO SCH (08:11)
[2021-03-08] MEDS: PHENAZOPYRIDINE 100 MG (PYRIDIUM) TABLET PO SCH ×3 (08:11→18:24)
[2021-03-08] MEDS: meTOproloL SUCCINATE 50 MG (TOPROL XL) TAB PO SCH (08:11)
[2021-03-08] MEDS: SENNA W/DOCUSATE (SENOKOT S) TABLET PO SCH ×2 (08:11→21:15)
[2021-03-08] MEDS: polyethylene glycoL POWDER 17 GM (MIRALAX) PACK PO SCH ×2 (08:11→21:05)
[2021-03-08] MEDS: LETROZOLE 2.5 MG (FEMARA) TAB PO SCH (08:13)
--- NOTE | 2021-03-08 08:48 | Physical Therapy Daily Note ---
PT Daily Note-Current Subjective Pt. agrees to Rx. States she is ready to go home and wants to come TH for educ and DC Fri. Pt. notes what she believes to be vision issues and wants f/u optical appt. Pt. also requests home PT. Pain Location: No Pain Reported Mental Status Patient Orientation: Person, Place, Time, Situation Transfers SCALE: Activities may be completed with or without assistive devices. 8-Mjqevroeal-gzzqdyb completes the activity by him/herself with no assistance from a helper. 5-Set-up or Clean-up Assistance-helper sets up or cleans up; patient completes activity. [place] assists only prior to or following the activity. 4-Supervision or Touching Assistance-helper provides verbal cues and/or touching/steadying and/or contact guard assistance as patient completes activity. Assistance may be provided throughout the activity or intermittently. 3-Partial/Moderate Assistance-helper does LESS THAN HALF the effort. [place] lifts, holds or supports trunk or limbs, but provides less than half the effort. 2-Substantial/Maximal Assistance-helper does MORE THAN HALF the effort. [place] lifts or holds trunk or limbs and provides more than half the effort. 7-Auddhewsk-wvactj does ALL the effort. Patient does none of the effort to complete the activity. Or, the assistance of 2 or more helpers is required for the patient to complete the activity. If activity was not attempted, code reason: 7-Patient Refused. 9-Not Applicable-not attempted and the patient did not perform the activity before the current illness, exacerbation or injury. 10-Not Attempted due to Environmental Limitations-(lack of equipment, weather restraints, etc.). 88-Not Attempted due to Medical Conditions or Safety Concerns. Roll Left & Right (QC): 6 Sit to Lying (QC): 6 Lying to Sitting/Side of Bed(Q: 6 Sit to Stand (QC): 6 Chair/Tdp-jc-Qazer Xfer(QC): 6 Toilet Transfer (QC): 6 Car Transfer (QC): 6 Gait Training Does the Patient Walk?: Yes Walk 10 feet (QC): 6 Walk 50 ft with 2 Turns(QC): 6 Walk 150 ft (QC): 5 Walking 10ft/uneven surface-QC: 6 Gait Persons Needed: 1 Gait Assistive Device: FWW pt. does need guided to from areas, unsure if this is visual or memory/cognitive Wheelchair Training Does the Pt Use a Wheelchair?: No Stair Training Stair Training: Handrails/: 2 handrails #of Steps: 4 1 Step (curb) (QC): 5 4 Steps (QC): 5 12 Steps (QC): 88 Stairs: Pattern: Step to needs min cues, would like to train for step assist Balance Picking up an Object (QC): 4 Special Test Comments pt. wants to hold to opbject for bending over to p/u object Exercises Supine Ex: Bridging, Ankle pumps, Quad Set, Rolling, Heel Slides, Straight leg raise Supine Reps: 15 Assessment Current Status: Good Progress hoping can come for training TH and DC FRI, pt. states she isnt sleeping well and would like to get home with HC PT to ensue PT Short Term Goals Short Term Goals Time Frame: March 09, 2021 Sit to stand: 4 Chair/xuy-cu-trajs transfer: 4 Walk 150 feet: 4 PT Fixed Wing Aircraft Flight Engineer Goals Fixed Wing Aircraft Flight Engineer Goals PT Senior Care Goals Time Frame: Mar 24, 2021 Roll Left & Right (QC): 6 Sit to Lying (QC): 6 Lying-Sitting on Side/Bed(QC): 6 Sit to Stand (QC): 6 Chair/Jnq-mt-Phuzq Xfer(QC): 6 Toilet Transfer (QC): 6 Car Transfer (QC): 6 Does the Patient Walk: Yes Walk 10 feet (QC): 6 Walk 50ft with 2 Turns (QC): 6 Walk 150 ft (QC): 6 Walking 10ft on Uneven Surface: 6 1 Step (curb) (QC): 6 4 Steps (QC): 6 12 Steps (QC): 6 Picking up an Object (QC): 4 Does the Pt use WC or Scooter?: No Wheel 50 feet with 2 turns (QC: 9 Wheel 150 feet: 9 PT Plan Treatment/Plan Treatment Plan: Continue Plan of Care Treatment Plan: Bed Mobility, Education, Functional Activity Kalli, Functional Strength, Group Therapy, Gait, Safety, Therapeutic Exercise, Transfers Treatment Duration: Mar 24, 2021 Frequency: At least 5 of 7 days/Wk (IRF) Estimated Hrs Per Day: 1.5 hours per day Patient and/or Family Agrees t: Yes Safety Risks/Education Patient Education: Gait Training, Transfer Techniques, Steps, Correct Positioning, Disease Process, Safety Issues Teaching Recipient: Patient Teaching Methods: Demonstration, Discussion Response to Teaching: Verbalize Understanding, Return Demonstration, Reinforcement Needed Time/GCodes Time In: 800 Time Out: 845 Total Billed Treatment Time: 45 Total Billed Treatment 1,FA30,GT15 NATALIE JURADO SUPPLY ANALYST March 08, 2021 08:48
--- NOTE | 2021-03-08 08:48 | Cardiology Progress Note ---
Subjective Date Seen by Provider: March 08, 2021 Time Seen by Provider: 08:15 Subjective/Events-last exam Pt seen as she was working with PT. Weakness and mobility better every day. Still sleeping poorly which is normal for her. Dysuria resolving. R peripheral vision is still diminished, but she says it has started improving throughout the day and is worst in the morning. Hoping to get her to come in to train with PT so she can return home safely. Possible DC saturday. Denies cp/palpitations/sob/dizziness/syncope. Review of Systems General: No Chills, No Night Sweats; Fatigue (2/2 insomnia) HEENT: No Head Aches; Visual Changes (improving) Pulmonary: No Dyspnea, No Cough Cardiovascular: No: Chest Pain, Palpitations Gastrointestinal: No: Nausea, Vomiting Genitourinary: Dysuria (improved); No Frequency Musculoskeletal: No: neck pain, shoulder pain Neurological: Weakness (improving); No: Numbness Objective-Cardiology Exam Last Set of Vital Signs Vital Signs 03/08/21 03/08/21 08:00 09:48 Temp 36.0 Pulse 66 Resp 14 B/P (MAP) 135/69 (91) Pulse Ox 95 O2 Delivery Room Air Capillary Refill : General: Alert, Oriented X3, Cooperative HEENT: Atraumatic, PERRLA Neck: Supple, No JVD, No Thyromegaly Lungs: Clear to Auscultation, Normal Air Movement Heart: Regular Rate, Normal S1, Normal S2, No Murmurs Abdomen: Normal Bowel Sounds, Soft, No Tenderness, No Hepatosplenomegaly, No Masses Extremities: No Clubbing, No Cyanosis, No Edema, Normal Pulses, No Tenderness/Swelling Skin: No Rashes, No Breakdown, No Significant Lesion Neuro: Normal Gait, Normal Speech, Normal Tone Psych/Mental Status: Mental Status NL A/P-Cardiology Admission Diagnosis CVA Paroxysmal Afib Sinus sick syndrome HTN HLD Mild bilateral carotid artery stenosis Assessment/Plan CVA of basilar artery, 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 Continue to monitor Hyperlipidemia, monitor lipids. No changes Mild bilateral carotid artery stenosis - continue to monitor Chronic insomnia - managed by PCP Supervisory-Addendum Brief Verification & Attestation Participated in pt care: history, MDM, physical Personally performed: exam, history, MDM, supervision of care Care discussed with: Medical Student Procedures: n/a Results interpretation: Verified all documentation Verification and Attestation of Medical Student E/M Service A medical student performed and documented this service in my presence. I reviewed and verified all information documented by the medical student and made modifications to such information, when appropriate. I personally performed the physical exam and medical decision making. Eliana Zee, March 08, 2021,16:41 ELENO TRISTAN MED STUDENT March 08, 2021 8:48 am ELIANA ZEE MD March 08, 2021 4:41 pm
--- NOTE | 2021-03-08 09:11 | Speech Therapy Daily Note ---
Speech Daily Progress Note Subjective Date Seen by Provider: March 08, 2021 Time Seen by Provider: 00:30 Patient was resting in her bed watching television. She was alert and very talkative. Objective Patient completed a series of hidden pictures with naming the items with 80% given min cues. Assessment Assessment Current Status: Good Progress Treatment Plan Continue Plan of Care Speech Short Term Goals Short Term Goals Short Term Goals 1) Patient will complete safety awareness tasks related to her daily needs at 80% or greater with minimal cues. 2) Patient will complete recall of new information tasks related to her daily needs at 80% or greater with minimal cues. Speech Skilled Nursing Goals Technical Support Engineer Goals Patient will improve cognitive-communication skills so that she can complete daily tasks with minimal assist. Speech-Plan Patient/Family Goals Patient/Family Goals: Patient plans on returning to her home with her for support. Treatment Plan Speech Therapy Treatment Plan: Continue Plan of Care Treatment Duration: March 10, 2021 Frequency: 4 times per week Estimated Hrs Per Day: .5 hour per day Rehab Potential: Good Barriers to Learning: Patient's recent CVA, age Pt/Family Agrees to Plan: Yes Safety Risks/Education Teaching Recipient: Patient Teaching Methods: Demonstration, Discussion Response to Teaching: Verbalize Understanding, Return Demonstration Education Topics Provided: Continued safety within her room and upon her return home Time Speech Therapy Time In: 09:00 Speech Therapy Time Out: 09:30 Total Billed Time: 30 Billed Treatment Time [address] March 08, 2021 09:11
--- NOTE | 2021-03-08 10:46 | Occupational Ther Daily Note ---
OT Current Status-Daily Note Subjective Pt laying in bed, states desire to discharge home soon. Mental Status/Objective Patient Orientation: Person, Place, Time, Situation ADL-Treatment Therapy Code Descriptions/Definitions Functional [place] Measure: 0=Not Assessed/NA 4=Minimal Assistance 1=Total Assistance 5=Supervision or Setup 2=Maximal Assistance 6=Modified [place] 3=Moderate Assistance 7=Complete IndependenceSCALE: Activities may be completed with or without assistive devices. 8-Puticvzqim-ukrsema completes the activity by him/herself with no assistance from a helper. 5-Set-up or Clean-up Assistance-helper sets up or cleans up; patient completes activity. [place] assists only prior to or following the activity. 4-Supervision or Touching Assistance-helper provides verbal cues and/or touching/steadying and/or contact guard assistance as patient completes activity. Assistance may be provided throughout the activity or intermittently. 3-Partial/Moderate Assistance-helper does LESS THAN HALF the effort. [place] lifts, holds or supports trunk or limbs, but provides less than half the effort. 2-Substantial/Maximal Assistance-helper does MORE THAN HALF the effort. [place] lifts or holds trunk or limbs and provides more than half the effort. 5-Bziqbbsqk-wsyhbf does ALL the effort. Patient does none of the effort to com plete the activity. Or, the assistance of 2 or more helpers is required for the patient to complete the activity. If activity was not attempted, code reason: 7-Patient Refused. 9-Not Applicable-not attempted and the patient did not perform the activity before the current illness, exacerbation or injury. 10-Not Attempted due to Environmental Limitations-(lack of equipment, weather restraints, etc.). 88-Not Attempted due to Medical Conditions or Safety Concerns. Eating (QC): 6 (Per pt report) Oral Hygiene (QC): 4 (supervision standing at sink) Shower/Bathe Self (QC): 4 (SBA, pt able to wash/dry all parts.) Upper Body Dressing (QC): 4 (supervision) Lower Body Dressing (QC): 4 (supervision in stand for pant hike) On/Off Footwear: 5 (set up) Toileting Hygiene (QC): 4 (supervision) Toilet Transfer (QC): 4 (supervision) Other Treatment Pt laying in bed, transferred supine to sit EOB, then used FWW to ambulate around room to gather clothes, with supervision. Pt required 1 verbal cue to locate brief. Pt transferred onto SC, doffed clothes, completed shower, then donned clothes. While showering, pt required assistance changing temperature of water, as pt indicates it was too hot but did not initiate changing temperature herself. Pt also required assistance removing showerhead from wall to make it handheld. Pt stood at sink to brush her teeth, then used FWW to ambulate to large shower area. Pt educated on tub transfer bench, able to complete transfer with SBA and min verbal cues. Pt returned to her room to comb her hair, then used FWW to perform functional mobility to therapy gym. In order to increase BUE Strength and activity tolerance, as well as increase proprioceptive input to RUE, pt completed arm bike, x15 mins, min resistance, rest breaks as needed. Pt returned to her room, transferring to bed. Post tx, pt laying in bed, call light in reach and all needs met, bed alarm activated. Education OT Patient Education: Correct positioning, Modified ADL techniques, Progress toward Goal/Update tx plan, Purpose of tx/functional activities Teaching Recipient: Patient Teaching Methods: Discussion Response to Teaching: Verbalize Understanding OT Short Term Goals Short Term Goals Time Frame: March 08, 2021 Toileting hygiene: 5 Upper body dressin Lower body dressin Putting on/taking off footwear: 5 OT Residency Coordinator Goals Residency Coordinator Goals Time Frame: Mar 24, 2021 Eating (QC): 6 Oral Hygiene (QC): 6 Toileting Hygiene (QC): 6 Shower/Bathe Self (QC): 6 Upper Body Dressing (QC): 6 Lower Body Dressing (QC): 6 On/Off Footwear (QC): 6 Additional Goals: 1-Demonstrate ADL Tasks, 2-Verbalize Understanding, 3- ImproveStrength/Kalli 1=Demonstrate adherence to instructed precautions during ADL tasks. 2=Patient will verbalize/demonstrate understanding of assistive devices/modifica tions for ADL. 3=Patient will improve strength/tolerance for activity to enable patient to perform ADL's. OT Education/Plan Problem List/Assessment Assessment: Decreased Activ Tolerance, Decreased UE Strength, Impaired Funct Balance, Impaired I ADL's, Impaired Self-Care Skills, Visual-Perceptual Deficit Discharge Recommendations Plan/Recommendations: Continue POC Treatment Plan/Plan of Care Patient would benefit from OT for education, treatment and training to promote independence in ADL's, mobility, safety and/or upper extremity function for ADL's. Plan of Care: ADL Retraining, Functional Mobility, Group Exercise/Act as Ind, UE Funct Exercise/Act, UE Neuromus Re-Ed/Coord, Visual/Perceptual Retrain Treatment Duration: Mar 24, 2021 Frequency: At least 5 of 7 days/Wk (IRF) Estimated Hrs Per Day: 1.5 hours per day Rehab Potential: Good Time/GCodes Start Time: 10:00 Stop Time: 11:00 Total Time Billed (hr/min): 60 Billed Treatment Time 1, ADL 3 (45'), EX (15') OANH WINTER OT March 08, 2021 10:46
--- NOTE | 2021-03-08 13:01 | Progress Note ---
Subjective Date Seen by a Provider: March 08, 2021 Time Seen by a Provider: 12:58 Subjective/Events-last exam Fwup posterior circulation stroke with right sided weakness and peripheral vision loss, HTN, Hx. of A. Fib, Recurrent UTIs. Sitting up in bed. In good spirits. Objective Exam Vital Signs Date Time Temp Pulse Resp B/P (MAP) Pulse Ox O2 Delivery O2 Flow Rate FiO2 03/08/21 09:48 Room Air 03/08/21 08:00 36.0 66 14 135/69 (91) 95 Room Air 03/07/21 21:43 94 Room Air 03/07/21 20:00 36.4 66 16 133/63 (86) 94 Capillary Refill : General Appearance: No Apparent Distress Neck: Supple Respiratory: Lungs Clear Cardiovascular: Regular Rate, Rhythm Extremity: Non Tender, No Calf Tenderness, No Pedal Edema Neurologic/Psychiatric: Alert, Oriented x3 Results Lab Microbiology 03/02/21 Urine Culture - Final, Complete Escherichia coli Assessment/Plan Assessment/Plan Assess & Plan/Chief Complaint 1. Acute Posterior Circulation Stroke with Right Sided Weakness and Peripheral Vision Loss--Continue PT/OT 2. Hypertension--stable 3. Hx. of Atrial Fibrillation--cardiology on resuming Eliquis 4. Recurrent UTIs--on cefdinir Clinical Quality Measures Admission Status Admission Dx 1. 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 Hypertension--increase lisinopril to 20mg po BID 3. Recurrent UTIs--currently on omnicef, she had been on estrace vaginal cream as preventative with approval by Dr. Camacho but she stopped using this too because she heard it was bad for you 4.. History of Atrial Fibrillation--on fleicanide and cardiology planning to resume eliquis 5. History of Breast Cancer--on surveillance through cancer center STANLEY BARRY DO March 08, 2021 13:01
--- NOTE | 2021-03-08 14:26 | Therapy Group Daily Note ---
Therapy Daily Group Note Patient Education Topic Other List Below (importance of memory and strategies to boost ) Exercises LE Seated Exercise, UE Exercise Session Ratio (pt:therapist): 3:1 Goal of Session: Memory Strategies, UE/LE Strengthing, Other (list) (socialization) Goal Met for this Session: Yes Pt Benefit of Group: Contributions to Others, F/U Use of Strategies @Home, Improved Cognition, Socialization Other/Notes Pt. participated in group PT OT session this date. Pt. came ambulated to and from with SBA. Pts. introduced themselves sharing hometown and favorite restaurant. Pts. were educated in the importance of memory for safety and function as well as given life examples. Pts participated in memory game challenged remember images and match them as well as facilitating hand eye coordination as pts threw aden bags to choose their image etc. Pts also chose 4 words and were challenged to remember them for duration of memory image game. Pts all participated in seated U&L extremity exercises. Pt. to room after group with assist, call davis at hand Start Time: 13:00 Stop Time: 14:15 Total Billed Treatment Time: 75 Total Billed Treatment 1,GRP NATALIE JURADO INTERIOR ASSEMBLIES DEVELOPER PROVER March 08, 2021 14:26
[2021-03-08 20:00] VITALS: BP 146/72
[2021-03-08] MEDS: MELATONIN 3 MG TABLET PO SCH (21:04)
--- NOTE | 2021-03-09 06:05 | PM&R Progress Note ---
Subjective HPI/CC On Admission Date Seen by Provider: March 09, 2021 Time Seen by Provider: 11:00 Subjective/Events-last exam 03/09/21: Patient doing well BP 146/72 DC tomorrow Family training went well BM++ 03/08/21: Pt doing pretty well Right sided visual field is still deficient Bowels moved today DC is planned for Saturday Incontinence at times at night Antibiotic finishes today Started Eliquis per cardiology? 03/07/21: Pt doing really well Very impulsive Bed alarm went off several times last night UTI symptoms are much improved Had a BM two days ago Declines any laxative 03/06/21: Pt doing a lot better Bowels moved yesterday Vitals remain stable Labs are okay Pyridium is helping 03/05/21: Patient reports she still not feeling too well Urination is getting better Couldn't sleep last night even after taking Melatonin and she really hesitated about taking that Reports she will not be taking her statin when she gets home Very non-compliant with meds BM today BP labile 03/04/21: Patient doing better Less urinary frequency Insomnia reported to I started Melatonin 6mg PO QHS Periarea a bit chafed so started cream BM+ 03/03/21: Pt had a bad night due to urinary frequency Antibiotic now improving the situation Pyridium is helpful Refusing some of the medications Doing well overall 03/02/21: Pt doing okay today Having some UTI symptoms so will do an in-and-out cath for a UA Eliquis will start on 03/08/21 since she did receive TPA Very reluctant to do therapy today Very hard of hearing Peripheral vision loss is an issue too Labs look good Femara prescription will be brought from home Review of Systems General: Fatigue, Malaise HEENT: Visual Changes Neurological: Weakness Objective Exam Vital Signs Vital Signs Date Time Temp Pulse Resp B/P (MAP) Pulse Ox O2 Delivery O2 Flow Rate FiO2 03/09/21 21:00 95 Room Air 03/09/21 20:00 36.2 61 20 139/78 (98) Capillary Refill : General Appearance: No Apparent Distress, WD/WN HEENT: PERRL/EOMI, Normal ENT Inspection, Pharynx Normal, Other (peripheral vision loss noted bilateral) Neck: Full Range of Motion, Normal Inspection, Non Tender, Supple, Carotid Bruit Respiratory: Chest Non Tender, Lungs Clear, Normal Breath Sounds, No Accessory Muscle Use, No Respiratory Distress Cardiovascular: No Edema, No Gallop, No JVD, No Murmur, Normal Peripheral Pulses, Irregularly Irregular Gastrointestinal: Normal Bowel Sounds, No Organomegaly, No Pulsatile Mass, Non Tender, Soft Rectal: Deferred Back: Normal Inspection, No CVA Tenderness, No Vertebral Tenderness Extremity: Normal Capillary Refill, Normal Inspection, Normal Range of Motion, Non Tender, No Calf Tenderness, No Pedal Edema Neurologic/Psychiatric: Alert, Oriented x3, Normal Mood/Affect, Motor Weakness (right sided 4/5), Other (vision loss peripheral) Skin: Normal Color, Warm/Dry Lymphatic: No Adenopathy Results/Procedures Lab Patient resulted labs reviewed. FIM Transfers Therapy Code Descriptions/Definitions Functional [place] Measure: 0=Not Assessed/NA 4=Minimal Assistance 1=Total Assistance 5=Supervision or Setup 2=Maximal Assistance 6=Modified [place] 3=Moderate Assistance 7=Complete IndependenceSCALE: Activities may be completed with or without assistive devices. 5-Cumoqwsxwi-kmfifnz completes the activity by him/herself with no assistance f rom a helper. 5-Set-up or Clean-up Assistance-helper sets up or cleans up; patient completes activity. [place] assists only prior to or following the activity. 4-Supervision or Touching Assistance-helper provides verbal cues and/or touching/steadying and/or contact guard assistance as patient completes activity. Assistance may be provided throughout the activity or intermittently. 3-Partial/Moderate Assistance-helper does LESS THAN HALF the effort. [place] lifts, holds or supports trunk or limbs, but provides less than half the effort. 2-Substantial/Maximal Assistance-helper does MORE THAN HALF the effort. [place] lifts or holds trunk or limbs and provides more than half the effort. 5-Vacsgyibn-zolrgk does ALL the effort. Patient does none of the effort to complete the activity. Or, the assistance of 2 or more helpers is required for the patient to complete the activity. If activity was not attempted, code reason: 7-Patient Refused. 9-Not Applicable-not attempted and the patient did not perform the activity before the current illness, exacerbation or injury. 10-Not Attempted due to Environmental Limitations-(lack of equipment, weather restraints, etc.). 88-Not Attempted due to Medical Conditions or Safety Concerns. Roll Left to Right (QC): 6 Sit to Lying (QC): 6 Sit to Stand (QC): 6 Chair/Kpa-gw-Nydrp Xfer(QC): 6 Car Transfer (QC): 6 Gait Training Does the Patient Walk?: Yes Distance: 300' x2 Walk 10 feet (QC): 6 Walk 50 ft with 2 Turns(QC): 6 Walk 150 ft (QC): 5 Walking 10ft/uneven surface-QC: 6 Gait Persons Needed: 1 Gait Assistive Device: FWW Wheelchair Training Does the Pt Use a Wheelchair?: No Wheel 50 ft with 2 turns (QC): 9 Wheel 150 ft (QC): 9 Type of Wheelchair: N/A Stair Training Stair Training: Handrails/: 2 handrails #of Steps: 4 1 Step (curb) (QC): 5 4 Steps (QC): 5 12 Steps (QC): 88 Stairs: Pattern: Step to Balance Picking up an Object (QC): 4 ADL-Treatment Eating (QC): 6 (Per pt report) Oral Hygiene (QC): 4 (supervision standing at sink) Shower/Bathe Self (QC): 4 (SBA, pt able to wash/dry all parts.) Upper Body Dressing (QC): 4 (supervision) Lower Body Dressing (QC): 4 (supervision in stand for pant hike) On/Off Footwear (QC): 5 (set up) Toileting Hygiene (QC): 4 (supervision) Toilet Transfer (QC): 4 (supervision) Assessment/Plan Assessment and Plan Assess & Plan/Chief Complaint Assessment: CVA with vision loss and right sided weakness PPM for SSS PAF Non-compliance with OAC prior to CVA HTN HLP PVD Breast cancer hx CHF UTI acute on chronic Plan: IRF protocol Monitor closely Cardiology consult PCP consult 03/02/21: UTI treatment Monitor closely Fall risk 03/03/21: Abx Pyridium PT OT Refuses to take some meds 03/04/21: Insomnia treatment Abx 03/05/21: Very difficult to manage considering her hx of non-compliance with meds which resulted in CVA and still stating she will not be taking some of the recommended meds at DC 03/06/21: Much improved Working with PT OT well 03/07/21: Monitor UTI symptoms Fall risk Very impulsive 03/08/21: Monitor closely Completed abx 03/09/21: DC tomorrow (1) CVA (cerebral vascular accident) (2) Pacemaker (3) SSS (sick sinus syndrome) (4) PAF (paroxysmal atrial fibrillation) (5) Vision loss JESSICA GIL DO March 09, 2021 06:05
[2021-03-09 08:00] VITALS: BP 141/70
[2021-03-09] MEDS: ASPIRIN E.C. 325 MG (ECOTRIN) TABLET PO SCH (08:13)
[2021-03-09] MEDS: PHENAZOPYRIDINE 100 MG (PYRIDIUM) TABLET PO SCH ×3 (08:13→18:17)
[2021-03-09] MEDS: FLECAINIDE 100 MG (TAMBOCOR) TAB PO SCH ×2 (08:13→21:04)
[2021-03-09] MEDS: dilTIAZem120 MG (CARDIZEM CD) CAP PO SCH (08:13)
[2021-03-09] MEDS: meTOproloL SUCCINATE 50 MG (TOPROL XL) TAB PO SCH (08:13)
[2021-03-09] MEDS: SENNA W/DOCUSATE (SENOKOT S) TABLET PO SCH ×2 (08:13→21:05)
[2021-03-09] MEDS: polyethylene glycoL POWDER 17 GM (MIRALAX) PACK PO SCH ×2 (08:13→21:05)
[2021-03-09] MEDS: lisINopril 20 MG (PRINIVIL) TABLET PO SCH ×2 (08:13→21:04)
[2021-03-09] MEDS: DOCUSATE SODIUM 100 MG (COLACE) CAP PO SCH ×2 (08:13→21:05)
[2021-03-09] MEDS: LETROZOLE 2.5 MG (FEMARA) TAB PO SCH (08:14)
--- NOTE | 2021-03-09 08:22 | Cardiology Progress Note ---
Subjective Date Seen by Provider: March 09, 2021 Time Seen by Provider: 08:22 Subjective/Events-last exam Patient was seen at bedside, laying down comfortably, denied any chest pain Review of Systems General: No Chills, No Night Sweats, No Fatigue, No Malaise, No Appetite, No Other HEENT: No Head Aches, No Visual Changes, No Eye Pain, No Ear Pain, No Dysphasia, No Sinus Congestion, No Post Nasal Drip, No Sore Throat, No Other Pulmonary: No Dyspnea, No Cough, No Pleuritic Chest Pain, No Other Cardiovascular: No: Chest Pain, Palpitations, Orthopnea, Paroxysmal Noc. Dyspnea, Edema, Lt Headedness, Other Objective-Cardiology Exam Last Set of Vital Signs Vital Signs 03/08/21 03/08/21 20:00 21:05 Temp 36.6 Pulse 74 Resp 20 B/P (MAP) 146/72 (96) Pulse Ox 95 O2 Delivery Room Air Capillary Refill : General: Alert, Oriented X3, Cooperative HEENT: Atraumatic, PERRLA Neck: Supple, No JVD, No Thyromegaly Lungs: Clear to Auscultation, Normal Air Movement Heart: Regular Rate, Normal S1, Normal S2, No Murmurs Abdomen: Normal Bowel Sounds, Soft, No Tenderness, No Hepatosplenomegaly, No Masses Extremities: No Clubbing, No Cyanosis, No Edema, Normal Pulses, No Tenderness/Swelling Skin: No Rashes, No Breakdown, No Significant Lesion Neuro: Normal Gait, Normal Speech, Normal Tone Psych/Mental Status: Mental Status NL A/P-Cardiology Admission Diagnosis CVA Paroxysmal Afib Sinus sick syndrome HTN HLD Mild bilateral carotid artery stenosis Assessment/Plan CVA of basilar artery, 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 Continue to monitor Hyperlipidemia, monitor lipids. No changes Mild bilateral carotid artery stenosis - continue to monitor Chronic insomnia - managed by PCP ELIANA VALENZUELA MD March 09, 2021 08:22
--- NOTE | 2021-03-09 08:26 | Occupational Ther Daily Note ---
OT Current Status-Daily Note Subjective Pt laying in bed, agreeable to OT Tx. Family training with pt's . Mental Status/Objective Patient Orientation: Normal For Age ADL-Treatment Therapy Code Descriptions/Definitions Functional [place] Measure: 0=Not Assessed/NA 4=Minimal Assistance 1=Total Assistance 5=Supervision or Setup 2=Maximal Assistance 6=Modified [place] 3=Moderate Assistance 7=Complete IndependenceSCALE: Activities may be completed with or without assistive devices. 3-Uypipqdgsi-vqehxxh completes the activity by him/herself with no assistance from a helper. 5-Set-up or Clean-up Assistance-helper sets up or cleans up; patient completes activity. [place] assists only prior to or following the activity. 4-Supervision or Touching Assistance-helper provides verbal cues and/or touching/steadying and/or contact guard assistance as patient completes activity. Assistance may be provided throughout the activity or intermittently. 3-Partial/Moderate Assistance-helper does LESS THAN HALF the effort. [place] lifts, holds or supports trunk or limbs, but provides less than half the effort. 2-Substantial/Maximal Assistance-helper does MORE THAN HALF the effort. [place] lifts or holds trunk or limbs and provides more than half the effort. 5-Ajpdryknl-hurwzv does ALL the effort. Patient does none of the effort to co mplete the activity. Or, the assistance of 2 or more helpers is required for the patient to complete the activity. If activity was not attempted, code reason: 7-Patient Refused. 9-Not Applicable-not attempted and the patient did not perform the activity before the current illness, exacerbation or injury. 10-Not Attempted due to Environmental Limitations-(lack of equipment, weather restraints, etc.). 88-Not Attempted due to Medical Conditions or Safety Concerns. Eating (QC): 6 (IND, pt able to use utensils to cut food, bring food to mouth, and she was able to locate food on tray.) Other Treatment Pt declines ADLs on this date, as she showered and changed clothes yesterday. Pt states she has not received breakfast yet, but it has been ordered. Pt transferred supine to sit EOB, then used FWW with SBA to perform functional mobility to therapy gym. In order to increase BUE fine motor strength and coordination, pt removed beads from moderate resistance theraputty. Pt did not require any cues to locate beads. Pt used FWW to return to room, SBA. Pt's breakfast arrived, pt able to eat IND. Pt's arrived. OT educated on assistance required with various ADL tasks. Pt and pt's taken to large shower room, pt demo'd tub transfer bench with min verbal cues. Pt's educated on tub transfer bench vs shower chair with recommendation of tub transfer bench. Pt used FWW to go to therapy gym, SBA. OT tx with focus on increasing BUE fine motor strength and coordination. Pt placed/removed graded clothespins (1-5lb) with BUEs. Pt then threaded beads onto string, able to thread shoe lace with minimal difficulty, threaded onto regular string with moderate difficulty. Pt states regular string was easier the more she did. [id number] OT/PT cotreat due to skill of 2 clinicians required which a vocational rehabilitation counselor could not perform in order to coordinate UE/LEs, decrease fall risk, and to educate pt's assistance required with tasks. OT focused on UE placement, ADLS, and cues for sequencing and safety, PT focused on LE placement, gross overall movement, transfers and mobility. Pt used FWW to go to large shower room. Pt expresses wish to take baths upon returning home, as she doesn't care to shower. Education provided on sequencing of getting in and out of bathtub. Pt used FWW to stabilize as she stepped into tub. Once standing in the tub, pt d eclined getting down into the tub. OT encouraged pt to attempt transfer, but pt still declined. OT informed pt and on recommendation for tub transfer bench. Pt returned to therapy gym. Post tx, pt seated in therapy gym, PT present for continued tx, all needs met. Education OT Patient Education: Correct positioning, Modified ADL techniques, Progress toward Goal/Update tx plan, Purpose of tx/functional activities Teaching Recipient: Patient Teaching Methods: Discussion Response to Teaching: Verbalize Understanding OT Short Term Goals Short Term Goals Time Frame: March 08, 2021 Toileting hygiene: 5 Upper body dressin Lower body dressin Putting on/taking off footwear: 5 OT Half-Way Goals Half-Way Goals Time Frame: Mar 24, 2021 Eating (QC): 6 Oral Hygiene (QC): 6 Toileting Hygiene (QC): 6 Shower/Bathe Self (QC): 6 Upper Body Dressing (QC): 6 Lower Body Dressing (QC): 6 On/Off Footwear (QC): 6 Additional Goals: 1-Demonstrate ADL Tasks, 2-Verbalize Understanding, 3- ImproveStrength/Kalli 1=Demonstrate adherence to instructed precautions during ADL tasks. 2=Patient will verbalize/demonstrate understanding of assistive devices/modifications for ADL. 3=Patient will improve strength/tolerance for activity to enable patient to perform ADL's. OT Education/Plan Problem List/Assessment Assessment: Decreased Activ Tolerance, Decreased UE Strength, Impaired Coordination, Impaired Funct Balance, Impaired I ADL's, Impaired Self-Care Skills Discharge Recommendations Plan/Recommendations: Continue POC Treatment Plan/Plan of Care Patient would benefit from OT for education, treatment and training to promote independence in ADL's, mobility, safety and/or upper extremity function for ADL's. Plan of Care: ADL Retraining, Functional Mobility, Group Exercise/Act as Ind, UE Funct Exercise/Act, UE Neuromus Re-Ed/Coord, Visual/Perceptual Retrain Treatment Duration: Mar 24, 2021 Frequency: At least 5 of 7 days/Wk (IRF) Estimated Hrs Per Day: 1.5 hours per day Rehab Potential: Good Time/GCodes Start Time: 08:00 Stop Time: 09:15 Total Time Billed (hr/min): 75 Billed Treatment Time 1, FA 3 (45'), ADL 2 (30') OANH WINTER OT March 09, 2021 08:26
--- NOTE | 2021-03-09 09:56 | Physical Therapy Daily Note ---
PT Daily Note-Current Subjective Patient in therapy gym pre tx, agrees to PT, has no complaints of pain. Will be co-treating with OT due being here for a limited time for family training. Appearance Patient in bed post tx with nurse call, phone, tray, all needs met. Mental Status Patient Orientation: Person, Place, Situation Transfers SCALE: Activities may be completed with or without assistive devices. 3-Vukbhptijl-fkrnima completes the activity by him/herself with no assistance from a helper. 5-Set-up or Clean-up Assistance-helper sets up or cleans up; patient completes activity. [place] assists only prior to or following the activity. 4-Supervision or Touching Assistance-helper provides verbal cues and/or touching/steadying and/or contact guard assistance as patient completes activity. Assistance may be provided throughout the activity or intermittently. 3-Partial/Moderate Assistance-helper does LESS THAN HALF the effort. [place] lifts, holds or supports trunk or limbs, but provides less than half the effort. 2-Substantial/Maximal Assistance-helper does MORE THAN HALF the effort. [place] lifts or holds trunk or limbs and provides more than half the effort. 4-Eucpyymxy-vpvwaa does ALL the effort. Patient does none of the effort to complete the activity. Or, the assistance of 2 or more helpers is required for the patient to complete the activity. If activity was not attempted, code reason: 7-Patient Refused. 9-Not Applicable-not attempted and the patient did not perform the activity before the current illness, exacerbation or injury. 10-Not Attempted due to Environmental Limitations-(lack of equipment, weather restraints, etc.). 88-Not Attempted due to Medical Conditions or Safety Concerns. Sit to Lying (QC): 6 Sit to Stand (QC): 6 Chair/Pqy-xr-Pzywk Xfer(QC): 6 Gait Training Distance: 800', 150' Walk 10 feet (QC): 4 Walk 50 ft with 2 Turns(QC): 4 Walk 150 ft (QC): 4 Gait Persons Needed: 1 Gait Assistive Device: FWW Patient ambulates without assist but needs somebody to be with her to direct her, she has visual impairments and poor memory and cannot remember where to go even after recently given directions and she doesn't see things on her right side. educated on patient's performance with bed mobility and transfers, ambulation, attempted a tub transfer but patient ended up declining to perform it. Stair Training Stair Training: Handrails/: 2 handrails #of Steps: 4 1 Step (curb) (QC): 4 4 Steps (QC): 4 Stairs: Pattern: Step to SBA, cues for safety Exercises NuStep Minutes: 10 NuStep Workload: 4 Treatments PT performed bed mobility and transfers, ambulation, functional strengthening, stair training, OT performed attempted tub transfer and education. also trained on stairs with patient. Assessment Current Status: Fair Progress understood assistance needed from and performed well. Patient seems somewhat unaware of her deficits. Educated that he needed to be with her when she is up due to her impairments. PT Short Term Goals Short Term Goals Time Frame: March 09, 2021 Sit to stand: 4 Chair/dcl-pd-mmtpb transfer: 4 Walk 150 feet: 4 PT Trash Collector Goals Fpc Goals PT Trash Collector Goals Time Frame: Mar 24, 2021 Roll Left & Right (QC): 6 Sit to Lying (QC): 6 Lying-Sitting on Side/Bed(QC): 6 Sit to Stand (QC): 6 Chair/Qsr-kb-Xfbpd Xfer(QC): 6 Toilet Transfer (QC): 6 Car Transfer (QC): 6 Does the Patient Walk: Yes Walk 10 feet (QC): 6 Walk 50ft with 2 Turns (QC): 6 Walk 150 ft (QC): 6 Walking 10ft on Uneven Surface: 6 1 Step (curb) (QC): 6 4 Steps (QC): 6 12 Steps (QC): 6 Picking up an Object (QC): 4 Does the Pt use WC or Scooter?: No Wheel 50 feet with 2 turns (QC: 9 Wheel 150 feet: 9 PT Plan Problem List Problem List: Activity Tolerance, Functional Strength, Safety, Balance, Gait, Transfer, Bed Mobility, ROM Treatment/Plan Treatment Plan: Continue Plan of Care Treatment Plan: Bed Mobility, Education, Functional Activity K[place], Functional Strength, Group Therapy, Gait, Safety, Therapeutic Exercise, Transfers Treatment Duration: Mar 24, 2021 Frequency: At least 5 of 7 days/Wk (IRF) Estimated Hrs Per Day: 1.5 hours per day Patient and/or Family Agrees t: Yes Safety Risks/Education Patient Education: Gait Training, Transfer Techniques, Steps, Correct Positioning, Safety Issues Teaching Recipient: Patient Teaching Methods: Demonstration, Discussion Response to Teaching: Reinforcement Needed Time/GCodes Time In: 09 Time Out: 1000 Total Billed Treatment Time: 60 Total Billed Treatment 1 visit EX 10' FA 50' co-treated with OT from [id number] JOHN VILLAGRAN PT March 09, 2021 09:56
--- NOTE | 2021-03-09 11:44 | Physical Therapy Daily Note ---
PT Daily Note-Current Subjective Patient in bed pre tx, agrees to PT, has no complaints of pain. Appearance Patient in bed post tx with nurse call, phone, tray, all needs met. Mental Status Patient Orientation: Person, Place, Situation Transfers SCALE: Activities may be completed with or without assistive devices. 5-Uhkrasfqyt-vxmzcdj completes the activity by him/herself with no assistance from a helper. 5-Set-up or Clean-up Assistance-helper sets up or cleans up; patient completes activity. [place] assists only prior to or following the activity. 4-Supervision or Touching Assistance-helper provides verbal cues and/or touching/steadying and/or contact guard assistance as patient completes activity. Assistance may be provided throughout the activity or intermittently. 3-Partial/Moderate Assistance-helper does LESS THAN HALF the effort. [place] lifts, holds or supports trunk or limbs, but provides less than half the effort. 2-Substantial/Maximal Assistance-helper does MORE THAN HALF the effort. [place] lifts or holds trunk or limbs and provides more than half the effort. 9-Duvjmakpy-kgmypw does ALL the effort. Patient does none of the effort to complete the activity. Or, the assistance of 2 or more helpers is required for the patient to complete the activity. If activity was not attempted, code reason: 7-Patient Refused. 9-Not Applicable-not attempted and the patient did not perform the activity before the current illness, exacerbation or injury. 10-Not Attempted due to Environmental Limitations-(lack of equipment, weather restraints, etc.). 88-Not Attempted due to Medical Conditions or Safety Concerns. Roll Left & Right (QC): 6 Sit to Lying (QC): 6 Lying to Sitting/Side of Bed(Q: 6 Sit to Stand (QC): 6 Chair/Oyn-xh-Kgkzs Xfer(QC): 6 Gait Training Distance: 800' Walk 10 feet (QC): 4 Walk 50 ft with 2 Turns(QC): 4 Walk 150 ft (QC): 4 Gait Persons Needed: 1 Gait Assistive Device: FWW SBA, cues for direction Treatments bed mobility and transfers, ambulation (1 rest break) Assessment Current Status: Fair Progress improving endurance PT Short Term Goals Short Term Goals Time Frame: March 09, 2021 Sit to stand: 4 Chair/brf-qv-pefxh transfer: 4 Walk 150 feet: 4 PT Residential Goals Hydro Technician Goals PT Residential Goals Time Frame: Mar 24, 2021 Roll Left & Right (QC): 6 Sit to Lying (QC): 6 Lying-Sitting on Side/Bed(QC): 6 Sit to Stand (QC): 6 Chair/Hac-ua-Jizdr Xfer(QC): 6 Toilet Transfer (QC): 6 Car Transfer (QC): 6 Does the Patient Walk: Yes Walk 10 feet (QC): 6 Walk 50ft with 2 Turns (QC): 6 Walk 150 ft (QC): 6 Walking 10ft on Uneven Surface: 6 1 Step (curb) (QC): 6 4 Steps (QC): 6 12 Steps (QC): 6 Picking up an Object (QC): 4 Does the Pt use WC or Scooter?: No Wheel 50 feet with 2 turns (QC: 9 Wheel 150 feet: 9 PT Plan Problem List Problem List: Activity Tolerance, Functional Strength, Safety, Balance, Gait, Transfer Treatment/Plan Treatment Plan: Continue Plan of Care Treatment Plan: Bed Mobility, Education, Functional Activity [place], Functional Strength, Group Therapy, Gait, Safety, Therapeutic Exercise, Transfers Treatment Duration: Mar 24, 2021 Frequency: At least 5 of 7 days/Wk (IRF) Estimated Hrs Per Day: 1.5 hours per day Patient and/or Family Agrees t: Yes Safety Risks/Education Patient Education: Gait Training, Transfer Techniques, Correct Positioning, Safety Issues Teaching Recipient: Patient Teaching Methods: Demonstration, Discussion Response to Teaching: Reinforcement Needed Time/GCodes Time In: 1115 Time Out: 1130 Total Billed Treatment Time: 15 Total Billed Treatment 1 visit GT [id number] GÓMEZ PT March 09, 2021 11:43
--- NOTE | 2021-03-09 12:42 | Progress Note ---
Subjective Date Seen by a Provider: March 09, 2021 Time Seen by a Provider: 12:39 Subjective/Events-last exam Fwup posterior circulation stroke with right sided weakness and peripheral vision loss, HTN, Hx. of A. Fib, Recurrent UTIs. Feeling good. Home tomorrow. Objective Exam Vital Signs Date Time Temp Pulse Resp B/P (MAP) Pulse Ox O2 Delivery O2 Flow Rate FiO2 03/09/21 09:06 95 Room Air 03/09/21 08:00 35.4 63 16 141/70 (93) 95 Room Air 03/08/21 21:05 95 Room Air 03/08/21 20:00 36.6 74 20 146/72 (96) 95 Capillary Refill : General Appearance: No Apparent Distress Respiratory: Lungs Clear Cardiovascular: Regular Rate, Rhythm, Systolic Murmur Gastrointestinal: normal bowel sounds, non tender, soft Extremity: Non Tender, No Calf Tenderness, No Pedal Edema Neurologic/Psychiatric: Alert Results Lab Microbiology 03/02/21 Urine Culture - Final, Complete Escherichia coli Assessment/Plan Assessment/Plan Assess & Plan/Chief Complaint 1. 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 Hypertension--stable 3. Hx. of Atrial Fibrillation--cardiology on resuming Eliquis 4. Recurrent UTIs--finished cefdinir Clinical Quality Measures Admission Status Admission Dx 1. 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 Hypertension--increase lisinopril to 20mg po BID 3. Recurrent UTIs--currently on omnicef, she had been on estrace vaginal cream as preventative with approval by Dr. Camacho but she stopped using this too because she heard it was bad for you 4.. History of Atrial Fibrillation--on fleicanide and cardiology planning to resume eliquis 5. History of Breast Cancer--on surveillance through cancer center STANLEY BARRY DO March 09, 2021 12:42
--- NOTE | 2021-03-09 13:39 | Speech Therapy Daily Note ---
Speech Daily Progress Note Subjective Date Seen by Provider: March 09, 2021 Time Seen by Provider: 00:30 Patient was resting in her bed. Her was here this morning for family training related to her needs upon her return home tomorrow. Objective Patient completed a series of q/a related to her needs upon her return home with 90% given minimal cuing. Assessment Assessment Current Status: Good Progress Treatment Plan Discontinue ST, Goals Met Speech Short Term Goals Short Term Goals Short Term Goals 1) Patient will complete safety awareness tasks related to her daily needs at 80% or greater with minimal cues. 2) Patient will complete recall of new information tasks related to her daily needs at 80% or greater with minimal cues. Speech Shelter Goals Explosive Operator Grenade Goals Patient will improve cognitive-communication skills so that she can complete daily tasks with minimal assist. Speech-Plan Patient/Family Goals Patient/Family Goals: Patient is scheduled to return to her home where she lives with her tomorrow. Treatment Plan Speech Therapy Treatment Plan: Discontinue ST, Goals Met Treatment Duration: March 10, 2021 Frequency: 4 times per week Estimated Hrs Per Day: .5 hour per day Rehab Potential: Good Barriers to Learning: Patient's recent CVA with debility, right side field of vision deficit, age Pt/Family Agrees to Plan: Yes Safety Risks/Education Teaching Recipient: Patient Teaching Methods: Demonstration, Discussion Response to Teaching: Verbalize Understanding, Return Demonstration Education Topics Provided: Continued safety upon her return home Time Speech Therapy Time In: 13:30 Speech Therapy Time Out: 14:00 Total Billed Time: 30 Billed Treatment Time 1, SLTS No QUALITY CODES: EXPRESSION OF IDEAS/WANTS: 4 UNDERSTANDING VERBAL CONTENT: 4 BRIEF INTERVIEW MENTAL STATUS: YES REPETITION OF 3 WORDS: 3 TEMPORAL ORIENTATION : YEAR: CORRECT, MONTH: CORRECT, DAY: CORRECT RECALL SOCK: YES WITH CUE, COLOR: YES WITH CUE, BED: YES WITH CUE MEMORY/RECALL ABILITY: SEASON, LOCATION OF ROOM, THAT SHE IS IN THE [facility] March 09, 2021 13:39
[2021-03-09 20:00] VITALS: BP 139/78
[2021-03-09] MEDS: MELATONIN 3 MG TABLET PO SCH (21:05)
[2021-03-10] MEDS ORDERED: ATOR40TA PO (06:36)
[2021-03-10] MEDS ORDERED: LISI20TA26 PO (06:36)
[2021-03-10] MEDS ORDERED: ASPI325T32 PO (06:36)
[2021-03-10] MEDS ORDERED: APIX5TAB PO (06:37)
--- NOTE | 2021-03-10 06:38 | D/C HH Face to Face Order ---
D/C Face to Face Orders Reconcile Patient Problems Problems Reviewed?: Yes Instructions for Patient Via [facility], Patient Instructions/FollowUp: Dr Elmore 1 week Physician to follow Patient: Catarina Discharge Diet for Home: No Restrictions Patient Problems: CVA Patient Data-Allergies,Ht & Wt Patient Allergies: Coded Allergies: No Known Drug Allergies (Verified , 04/05/18) Height (Feet): 5 Height (Inches): 8.00 Weight (Pounds): 175 Weight (Ounces): 0.0 Home Health Need/Face to Face Date of Face to Face: March 10, 2021 Clinical Findings: Generalized weakness and fatigue, Instability, Muscle weakness, Unsteady gait I have seen Pt [id number]: Yes Discharged To: Home Diagnosis/Conditions: CVA Patient is Homebound due to: CognItive deficits, Candelaria fall risk due to instabilty Homebound Status Due to the above stated illness, injury or surgical procedure (medical condition or diagnosis) and associated clinical findings, the patient is homebound because of his/her inability to leave home except with aid of a supportive device and/or person AND leaving the home requires a considerable and taxing effort or is medically contraindicated. Pt req the following assistanc: [facility] Nursing Orders Home Health Services Order: Nursing Services, Noc Technician-Evaluate & Treat, Physical Therapy-Evaluate & Treat Certify Stmt I certify that this patient is under my care and that I, a nurse practitioner or a physician; a recycling assistant working with me, had a face to face encounter that - meets the physician face to face encounter requirements with this patient as dated. JESSICA GIL DO March 10, 2021 06:38
--- NOTE | 2021-03-10 06:38 | Discharge Summary ---
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 PPM for SSS PAF Non-compliance with OAC prior to CVA HTN HLP PVD Breast cancer hx CHF UTI acute on chronic Plan: IRF protocol Monitor closely Cardiology consult PCP consult 03/02/21: UTI treatment Monitor closely Fall risk 03/03/21: Abx Pyridium PT OT Refuses to take some meds 03/04/21: Insomnia treatment Abx 03/05/21: Very difficult to manage considering her hx of non-compliance with meds which resulted in CVA and still stating she will not be taking some of the recommended meds at DC 03/06/21: Much improved Working with PT OT well 03/07/21: Monitor UTI symptoms Fall risk Very impulsive 03/08/21: Monitor closely Completed abx 03/09/21: DC tomorrow (1) CVA (cerebral vascular accident) (2) Pacemaker (3) SSS (sick sinus syndrome) (4) PAF (paroxysmal atrial fibrillation) (5) Vision loss Discharge Summary Discharge Physical Examination Allergies: Coded Allergies: No Known Drug Allergies (Verified , 04/05/18) Vitals & I&Os Vital Signs Date Time Temp Pulse Resp B/P (MAP) Pulse Ox O2 Delivery O2 Flow Rate FiO2 03/10/21 10:34 35.7 60 18 171/74 95 Room Air General Appearance: Alert, Oriented X3, Cooperative Respiratory: Clear to Auscultation Cardiovascular: Regular Rate Psych/Mental Status: Mental Status NL Hospital Course Was the Problem List Reviewed?: Yes Hospital Course: Pt had an uneventful 10 day hospital course after she was admitted for a posterior stroke with peripheral vision loss and incoordination and weakness. Pt did have a UTI and that was fully treated with Omnicef and cardiology did follow along. She will start on Eliquis this Saturday. She will start on Eliquis this Saturday. She participated in therapy overall, had no significant complaints or issues while hospitalized and was discharged in improved condition with close follow up with Dr. Elmore. Labs (last 24 hrs) Laboratory Tests 03/01/21 14:23: Lab Scanned Report Referred Lab Report 03/02/21 05:30: White Blood Count 12.4H, Red Blood Count 4.35, Hemoglobin 13.1, Hematocrit 41, Mean Corpuscular Volume 93, Mean Corpuscular Hemoglobin 30, Mean Corpuscular Hemoglobin Concent 32, Red Cell Distribution Width 14.0, Platelet Count 308, Mean Platelet Volume 9.4, Immature Granulocyte % (Auto) 0, Neutrophils (%) (Auto) 67, Lymphocytes (%) (Auto) 22, Monocytes (%) (Auto) 7, Eosinophils (%) (Auto) 3, Basophils (%) (Auto) 1, Neutrophils # (Auto) 8.3H, Lymphocytes # ( Auto) 2.8, Monocytes # (Auto) 0.9, Eosinophils # (Auto) 0.3, Basophils # (Auto) 0.1, Immature Granulocyte # (Auto) 0.1, Sodium Level 140, Potassium Level 4.0, Chloride Level 106, Carbon Dioxide Level 24, Anion Gap 10, Blood Urea Nitrogen 12, Creatinine 0.77, Estimat Glomerular Filtration Rate > 60, BUN/Creatinine Ratio 16, Glucose Level 95, Calcium Level 9.3, Corrected Calcium 9.5, Total Bilirubin 0.6, Aspartate Amino Transf (AST/SGOT) 30, Alanine Aminotransferase (ALT/SGPT) 17, Alkaline Phosphatase 83, Total Protein 6.6, Albumin 3.7 03/02/21 16:15: Urine Color YELLOW, Urine Clarity CLEAR, Urine pH 7.0, Urine Specific [place] 1.010L, Urine Protein NEGATIVE, Urine Glucose (UA) NEGATIVE, Urine Ketones NEGATIVE, Urine Nitrite POSITIVEH, Urine Bilirubin NEGATIVE, Urine Urobilinogen 0.2, Urine Leukocyte Esterase 3+H, Urine RBC (Auto) 1+H, Urine RBC 2-5H, Urine WBC 25-50H, Urine Squamous Epithelial Cells NONE, Urine Crystals NONE, Urine Bacteria MODERATEH, Urine Casts NONE, Urine Mucus NEGATIVE, Urine Culture Indicated YES 03/06/21 05:14: White Blood Count 7.4, Red Blood Count 4.11, Hemoglobin 12.4, Hematocrit 38, Mean Corpuscular Volume 93, Mean Corpuscular Hemoglobin 30, Mean Corpuscular Hemoglobin Concent 33, Red Cell Distribution Width 13.5, Platelet Count 321, Mean Platelet Volume 9.1, Immature Granulocyte % (Auto) 0, Neutrophils (%) (Auto) 60, Lymphocytes (%) (Auto) 28, Monocytes (%) (Auto) 9, Eosinophils (%) (Auto) 3, Basophils (%) (Auto) 1, Neutrophils # (Auto) 4.4, Lymphocytes # (Auto) 2.0, Monocytes # (Auto) 0.6, Eosinophils # (Auto) 0.2, Basophils # (Auto) 0.1, Immature Granulocyte # (Auto) 0.0, Sodium Level 139, Potassium Level 3.8, Chloride Level 106, Carbon Dioxide Level 26, Anion Gap 7, Blood Urea Nitrogen 20H, Creatinine 0.89, Estimat Glomerular Filtration Rate > 60, BUN/Creatinine Ratio 22, Glucose Level 91, Calcium Level 8.8, Corrected Calcium 9.2, Total Bilirubin 0.4, Aspartate Amino Transf (AST/SGOT) 31, Alanine Aminotransferase (ALT/SGPT) 25, Alkaline Phosphatase 79, Total Protein 5.9L, Albumin 3.5 Microbiology 03/02/21 Urine Culture - Final, Complete Escherichia coli Pending Labs Microbiology Date/Time Source Procedure Growth Status 03/02/21 16:15 Urine Straight Cath, In/Out Urine Culture - Final Escherichia coli Complete Laboratory Tests 03/01/21 14:23: Lab Scanned Report Referred Lab Report 03/02/21 05:30: White Blood Count 12.4, Red Blood Count 4.35, Hemoglobin 13.1, Hematocrit 41, Mean Corpuscular Volume 93, Mean Corpuscular Hemoglobin 30, Mean Corpuscular Hemoglobin Concent 32, Red Cell Distribution Width 14.0, Platelet Count 308, Mean Platelet Volume 9.4, Immature Granulocyte % (Auto) 0, Neutrophils (%) (Auto) 67, Lymphocytes (%) (Auto) 22, Monocytes (%) (Auto) 7, Eosinophils (%) (Auto) 3, Basophils (%) (Auto) 1, Neutrophils # (Auto) 8.3, Lymphocytes # (Auto) 2.8, Monocytes # (Auto) 0.9, Eosinophils # (Auto) 0.3, Basophils # (Auto) 0.1, Immature Granulocyte # (Auto) 0.1, Sodium Level 140, Potassium Level 4.0, Chloride Level 106, Carbon Dioxide Level 24, Anion Gap 10, Blood Urea Nitrogen 12, Creatinine 0.77, Estimat Glomerular Filtration Rate > 60, BUN/Creatinine Ratio 16, Glucose Level 95, Calcium Level 9.3, Corrected Calcium 9.5, Total Bilirubin 0.6, Aspartate Amino Transf (AST/SGOT) 30, Alanine Aminotransferase (ALT/SGPT) 17, Alkaline Phosphatase 83, Total Protein 6.6, Albumin 3.7 03/02/21 16:15: Urine Color YELLOW, Urine Clarity CLEAR, Urine pH 7.0, Urine Specific [place] 1.010, Urine Protein NEGATIVE, Urine Glucose (UA) NEGATIVE, Urine Ketones NEGATIVE, Urine Nitrite POSITIVE, Urine Bilirubin NEGATIVE, Urine Urobilinogen 0.2, Urine Leukocyte Esterase 3+, Urine RBC (Auto) 1+, Urine RBC 2-5, Urine WBC 25-50, Urine Squamous Epithelial Cells NONE, Urine Crystals NONE, Urine Bacteria MODERATE, Urine Casts NONE, Urine Mucus NEGATIVE, Urine Culture Indicated YES 03/06/21 05:14: White Blood Count 7.4, Red Blood Count 4.11, Hemoglobin 12.4, Hematocrit 38, Mean Corpuscular Volume 93, Mean Corpuscular Hemoglobin 30, Mean Corpuscular Hemoglobin Concent 33, Red Cell Distribution Width 13.5, Platelet Count 321, Mean Platelet Volume 9.1, Immature Granulocyte % (Auto) 0, Neutrophils (%) (Auto) 60, Lymphocytes (%) (Auto) 28, Monocytes (%) (Auto) 9, Eosinophils (%) (Auto) 3, Basophils (%) (Auto) 1, Neutrophils # (Auto) 4.4, Lymphocytes # (Auto) 2.0, Monocytes # (Auto) 0.6, Eosinophils # (Auto) 0.2, Basophils # (Auto) 0.1, Immature Granulocyte # (Auto) 0.0, Sodium Level 139, Potassium Level 3.8, Chloride Level 106, Carbon Dioxide Level 26, Anion Gap 7, Blood Urea Nitrogen 20, Creatinine 0.89, Estimat Glomerular Filtration Rate > 60, BUN/Creatinine Ratio 22, Glucose Level 91, Calcium Level 8.8, Corrected Calcium 9.2, Total Bilirubin 0.4, Aspartate Amino Transf (AST/SGOT) 31, Alanine Aminotransferase (ALT/SGPT) 25, Alkaline Phosphatase 79, Total Protein 5.9, Albumin 3.5 Discharge Home Medications: Active Scripts Active Eliquis (Apixaban) 5 Mg Tablet 5 Mg PO BID Start on 03/12/21 Aspirin EC (Aspirin) 325 Mg Tablet.dr 325 Mg PO DAILY Lisinopril 20 Mg Tablet 20 Mg PO BID Lipitor (Atorvastatin Calcium) 40 Mg Tablet 40 Mg PO HS Reported Hemorrhoidal Ointment (Phenylephrine/Shk Lv/Mo/Pet,Wh) 57 Gm Oint...g. 1 Applic RC PRN PRN Metoprolol Succinate 50 Mg Tab.er.24h 50 Mg PO DAILY LAST FILLED 08-25-2020 #90/90 DAY SUPPLY Letrozole 2.5 Mg Tablet 2.5 Mg PO DAILY Flecainide Acetate 100 Mg Tablet 100 Mg PO Q12H Diltiazem 24Hr ER (Diltiazem HCl) 120 Mg Cap.er.24h 120 Mg PO DAILY LAST FILLED 08-24-2020 #90/90 DAY SUPPLY Tylenol (Acetaminophen) 325 Mg Capsule 650 Mg PO Q4H PRN Instructions to patient/family Please see electronic discharge instructions given to patient. Diagnosis/Problems Diagnosis/Problems (1) CVA (cerebral vascular accident) Qualifiers: Qualified Codes: I63.9 - Cerebral infarction, unspecified (2) Pacemaker (3) SSS (sick sinus syndrome) (4) PAF (paroxysmal atrial fibrillation) (5) Vision loss JESSICA GIL DO March 10, 2021 06:38
[2021-03-10] MEDS: SENNA W/DOCUSATE (SENOKOT S) TABLET PO SCH (08:07)
[2021-03-10] MEDS: FLECAINIDE 100 MG (TAMBOCOR) TAB PO SCH (08:07)
[2021-03-10] MEDS: PHENAZOPYRIDINE 100 MG (PYRIDIUM) TABLET PO SCH (08:07)
[2021-03-10] MEDS: meTOproloL SUCCINATE 50 MG (TOPROL XL) TAB PO SCH (08:07)
[2021-03-10] MEDS: DOCUSATE SODIUM 100 MG (COLACE) CAP PO SCH (08:07)
[2021-03-10] MEDS: ASPIRIN E.C. 325 MG (ECOTRIN) TABLET PO SCH (08:07)
[2021-03-10] MEDS: dilTIAZem120 MG (CARDIZEM CD) CAP PO SCH (08:07)
[2021-03-10] MEDS: lisINopril 20 MG (PRINIVIL) TABLET PO SCH (08:07)
[2021-03-10] MEDS: polyethylene glycoL POWDER 17 GM (MIRALAX) PACK PO SCH (08:07)
[2021-03-10 08:09] VITALS: BP 171/74
[2021-03-10] MEDS: LETROZOLE 2.5 MG (FEMARA) TAB PO SCH (08:09)
--- NOTE | 2021-03-10 09:48 | Cardiology Progress Note ---
Subjective Date Seen by Provider: March 10, 2021 Time Seen by Provider: 09:47 Subjective/Events-last exam Patient is laying down in bed, feeling better, eating breakfast Review of Systems General: No Chills, No Night Sweats, No Fatigue, No Malaise, No Appetite, No Other HEENT: No Head Aches, No Visual Changes, No Eye Pain, No Ear Pain, No Dysphasia, No Sinus Congestion, No Post Nasal Drip, No Sore Throat, No Other Pulmonary: No Dyspnea, No Cough, No Pleuritic Chest Pain, No Other Cardiovascular: No: Chest Pain, Palpitations, Orthopnea, Paroxysmal Noc. Dyspnea, Edema, Lt Headedness, Other Objective-Cardiology Exam Last Set of Vital Signs Vital Signs 03/10/21 03/10/21 08:09 09:02 Temp 35.7 Pulse 60 Resp 18 B/P (MAP) 171/74 (106) Pulse Ox 95 O2 Delivery Room Air Capillary Refill : General: Alert, Oriented X3, Cooperative HEENT: Atraumatic, PERRLA Neck: Supple, No JVD, No Thyromegaly Lungs: Clear to Auscultation, Normal Air Movement Heart: Regular Rate, Normal S1, Normal S2, No Murmurs Abdomen: Normal Bowel Sounds, Soft, No Tenderness, No Hepatosplenomegaly, No Masses Extremities: No Clubbing, No Cyanosis, No Edema, Normal Pulses, No Tenderness/Swelling Skin: No Rashes, No Breakdown, No Significant Lesion Neuro: Normal Gait, Normal Speech, Normal Tone Psych/Mental Status: Mental Status NL A/P-Cardiology Admission Diagnosis CVA Paroxysmal Afib Sinus sick syndrome HTN HLD Mild bilateral carotid artery stenosis Assessment/Plan CVA of basilar artery, 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 Urinary incontinence, urinary tract infection, improved, managed by primary care physician Paroxysmal Afib - continue home meds, continue to monitor 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 Continue to monitor Hyperlipidemia, monitor lipids. No changes Mild bilateral carotid artery stenosis - continue to monitor Chronic insomnia - managed by PCP ELIANA VALENZUELA MD March 10, 2021 09:48
--- NOTE | 2021-03-10 09:50 | Therapy Team Discharge Summary ---
Therapy Discharge Summary Discharge Recommendations Date of Discharge Occupational Therapy Pt admitted to ARU s/p CVA. At [facility], pt was independent with all I/ADLs and functional mobility, without AD/AE. Upon initial evaluation, pt required SBA with eating, CGA oral care, CGA showering, min A upper body dressing, CGA lower body dressing, SBA footwear and CGA toileting. OT Txs focused on increasing safety and independence with ADLs and functional mobility, family education, increasing RUE coordination and functional use, and increasing R visual field awareness. Upon discharge, pt was independent with eating, supervision with oral care, SBA shower, supervision upper/lower body dressing, set up footwear and supervision toileting. Pt made functional progress towards goals, but only attained IND level with eating. OT recommends tub transfer bench. Pt to discharge from facility on this date, d/c from OT. Decreased Activ Tolerance, Decreased UE Strength, Impaired Coordination, Impaired Funct Balance, Impaired I ADL's, Impaired Self-Care Skills PT Group Home Goals Director Of Software Engineering Goals PT Director Of Software Engineering Goals Time Frame: Mar 24, 2021 Roll Left to Right (QC): 6 Sit to Lying (QC): 6 Lying-Sitting on Side/Bed(QC): 6 Sit to Stand (QC): 6 Chair/Wha-fx-Ovlas Xfer(QC): 6 Car Transfer (QC): 6 Does the Patient Walk: Yes Walk 10 feet (QC): 6 Walk 10ft-Uneven Surface(QC): 6 Walk 50ft with 2 Turns (QC): 6 Walk 150 ft (QC): 6 Does the Pt use WC or Scooter?: No Wheel 50 feet with 2 turns (QC: 9 1 Step (curb) (QC): 6 4 Steps (QC): 6 12 Steps (QC): 6 Picking up an Object (QC): 4 OT Group Home Goals Group Home Goals Time Frame: Mar 24, 2021 Eating (QC): 6 (met) Oral Hygiene (QC): 6 (not met) Shower/Bathe Self (QC): 6 (not met) Upper Body Dressing (QC): 6 (not met) Lower Body Dressing (QC): 6 (not met) On/Off Footwear (QC): 6 (not met) Toileting Hygiene (QC): 6 (not met) Toilet/Commode Transfer (QC): 6 (not met) Additional Goals: 1-Demonstrate ADL Tasks, 2-Verbalize Understanding, 3- ImproveStrength/Kalli 1=Demonstrate adherence to instructed precautions during ADL tasks. 2=Patient will verbalize/demonstrate understanding of assistive devices/modifications for ADL. 3=Patient will improve strength/tolerance for activity to enable patient to perform ADL's. Speech Group Home Goals Director Of Software Engineering Goals Patient will improve cognitive-communication skills so that she can complete daily tasks with minimal assist. OANH WINTER OT March 10, 2021 09:50
--- NOTE | 2021-03-10 10:04 | Therapy Team Discharge Summary ---
Therapy Discharge Summary Discharge Recommendations Date of Discharge Occupational Therapy Decreased Activ Tolerance, Decreased UE Strength, Impaired Coordination, Impaired Funct Balance, Impaired I ADL's, Impaired Self-Care Skills Speech-Language Pathology Patient was admitted to the ARU s/p CVA with mild cognitive deficits and right side visual field neglect. The patient received therapy to improve function in order to return to her home safer. She was able to progress and meet ST goals. She is discharging to her home today. She lives with her who will assist her in all of her daily needs. PT Alf Goals Alf Goals PT Alf Goals Time Frame: Mar 24, 2021 Roll Left to Right (QC): 6 Sit to Lying (QC): 6 Lying-Sitting on Side/Bed(QC): 6 Sit to Stand (QC): 6 Chair/Xnb-lr-Ttmrk Xfer(QC): 6 Car Transfer (QC): 6 Does the Patient Walk: Yes Walk 10 feet (QC): 6 Walk 10ft-Uneven Surface(QC): 6 Walk 50ft with 2 Turns (QC): 6 Walk 150 ft (QC): 6 Does the Pt use WC or Scooter?: No Wheel 50 feet with 2 turns (QC: 9 1 Step (curb) (QC): 6 4 Steps (QC): 6 12 Steps (QC): 6 Picking up an Object (QC): 4 OT Alf Goals Electric Tripper Machine Operator Goals Time Frame: Mar 24, 2021 Eating (QC): 6 (met) Oral Hygiene (QC): 6 (not met) Shower/Bathe Self (QC): 6 (not met) Upper Body Dressing (QC): 6 (not met) Lower Body Dressing (QC): 6 (not met) On/Off Footwear (QC): 6 (not met) Toileting Hygiene (QC): 6 (not met) Toilet/Commode Transfer (QC): 6 (not met) Additional Goals: 1-Demonstrate ADL Tasks, 2-Verbalize Understanding, 3-ImproveStrength/Kalli 1=Demonstrate adherence to instructed precautions during ADL tasks. 2=Patient will verbalize/demonstrate understanding of assistive devices/modifications for ADL. 3=Patient will improve strength/tolerance for activity to enable patient to perform ADL's. Speech Alf Goals Electric Tripper Machine Operator Goals Patient will improve cognitive-communication skills so that she can complete daily tasks with minimal assist. PETER,DULCE ST March 10, 2021 10:04
[2021-03-10 10:34] VITALS: BP 171/74
--- NOTE | 2021-03-10 14:05 | Therapy Team Discharge Summary ---
Therapy Discharge Summary Discharge Recommendations Date of Discharge March 10, 2021 at 10:30 Physical Therapy Patient came to rehab following a CVA. Upon evaluation patient performed bed mobility and supine <-> sit with SBA/CGA, sit <-> stand and transfers with CGA, car transfer CGA, ambulated 150' with a rolling walker with min assist (including 50' with at least 2 turns of 90 degrees and 10' over an uneven surface), and went up and down 4 steps using 2 handrails with min assist. Patient has been performing bed mobility and transfer training, balance and endurance training, functional strengthening, stair training, gait training, and education. Patient has made some progress but has only met her jail goals for bed mobility and transfers. Now, patient performs bed mobility and transfers with independence, car transfer SBA, ambulates over 150' with a rolling walker with SBA (including 50' with at least 2 turns of 90 degrees and 10' over an uneven surface), can go up and down 4 steps using 2 handrails with SBA, and can peanut picker an object from the floor with SBA. Patient was discharged from this facility today and will be discharged from PT at this time. Occupational Therapy Decreased Activ Tolerance, Decreased UE Strength, Impaired Coordination, Impaired Funct Balance, Impaired I ADL's, Impaired Self-Care Skills PT Alf Goals Equip Maint Eng Goals PT Alf Goals Time Frame: Mar 24, 2021 Roll Left to Right (QC): 6 Sit to Lying (QC): 6 Lying-Sitting on Side/Bed(QC): 6 Sit to Stand (QC): 6 Chair/Nbw-gm-Lbtbh Xfer(QC): 6 Car Transfer (QC): 6 Does the Patient Walk: Yes Walk 10 feet (QC): 6 Walk 10ft-Uneven Surface(QC): 6 Walk 50ft with 2 Turns (QC): 6 Walk 150 ft (QC): 6 Does the Pt use WC or Scooter?: No Wheel 50 feet with 2 turns (QC: 9 1 Step (curb) (QC): 6 4 Steps (QC): 6 12 Steps (QC): 6 Picking up an Object (QC): 4 OT Alf Goals Alf Goals Time Frame: Mar 24, 2021 Eating (QC): 6 (met) Oral Hygiene (QC): 6 (not met) Shower/Bathe Self (QC): 6 (not met) Upper Body Dressing (QC): 6 (not met) Lower Body Dressing (QC): 6 (not met) On/Off Footwear (QC): 6 (not met) Toileting Hygiene (QC): 6 (not met) Toilet/Commode Transfer (QC): 6 (not met) Additional Goals: 1-Demonstrate ADL Tasks, 2-Verbalize Understanding, 3- ImproveStrength/Kalli 1=Demonstrate adherence to instructed precautions during ADL tasks. 2=Patient will verbalize/demonstrate understanding of assistive devices/modifications for ADL. 3=Patient will improve strength/tolerance for activity to enable patient to perform ADL's. Speech Alf Goals Equip Maint Eng Goals Patient will improve cognitive-communication skills so that she can complete daily tasks with minimal assist. JOHN VILLAGRAN PT March 10, 2021 14:05
== END 2021-03-10 10:30 | disposition home health service (06) | DRG 57 ==
PROVIDERS: ADMIT Internal Medicine; ATTEND Internal Medicine
DX: I69.351 Hemiplegia and hemiparesis following cerebral infarction affecting right dominant side (principal); I50.30 Unspecified diastolic (congestive) heart failure; N39.0 Urinary tract infection, site not specified; I69.398 Other sequelae of cerebral infarction; H53.40 Unspecified visual field defects; R32 Unspecified urinary incontinence; R35.0 Frequency of micturition; I48.0 Paroxysmal atrial fibrillation; I11.0 Hypertensive heart disease with heart failure; E78.5 Hyperlipidemia, unspecified; I73.9 Peripheral vascular disease, unspecified; H91.90 Unspecified hearing loss, unspecified ear; I65.23 Occlusion and stenosis of bilateral carotid arteries; G47.00 Insomnia, unspecified; F41.9 Anxiety disorder, unspecified; Z91.14 Patient's other noncompliance with medication regimen; I49.5 Sick sinus syndrome; Z95.0 Presence of cardiac pacemaker; Z85.3 Personal history of malignant neoplasm of breast; Z79.82 Long term (current) use of aspirin; Z82.49 Family history of ischemic heart disease and other diseases of the circulatory system
CPT/HCPCS: 36415; 80053; 81000; 85025; 87077; 87088; 87186; 93005

== ENCOUNTER 2021-04-04 05:57 | Observation (INO) | payer MEDICARE, OTHER ==
[2021-04-04] VITALS (7 sets, daily range): BP systolic 154–184; BP diastolic 81–112
[~2021-04-04] VITALS: Ht 172.7 cm; Wt 70.0 kg
[~2021-04-04 05:57] MED LIST changes: -ACETAMINOPHEN 325 MG TABLET PO PRN; -ALPRAZolam 0.25 MG (XANAX) TAB PO PRN; +ATOR40TA PO; -BISACODYL 10 MG SUPP (DULCOLAX) PR PRN; -CALCIUM CARBONATE 500 MG (TUMS) TAB.CHEW PO PRN; -DOCUSATE SODIUM 100 MG (COLACE) CAP PO PRN; -FLEET ENEMA ADULT 1 EA BTL PR PRN; -LACTULOSE SYRUP 10GM/15ML (ENULOSE) 30ML UDC PO PRN; -LOPERAMIDE 2 MG (IMODIUM) TABLET PO PRN; -MELATONIN 3 MG TABLET PO PRN; -ONDANSETRON 4 MG (ZOFRAN) ORAL DISSOLVE TAB PO PRN; -diphenhydrAMINE 25 MG TAB (BENADRYL) PO PRN; -guaiFENesin/CODEINE (ROBITUSSIN AC) 10ML UDC PO PRN
[2021-04-04] MEDS ORDERED: ASPIRIN 81 MG CHEW (CHILDREN'S ASA) PO ONE (06:15)
--- NOTE | 2021-04-04 06:23 | ED Chest Pain ---
General Chief Complaint: Chest Pain Stated Complaint: SPITTING UP BLOOD Source: patient, spouse Exam Limitations: no limitations History of Present Illness Date Seen by Provider: Apr 04, 2021 Time Seen by Provider: 06:00 Initial Comments Patient arrives ER by private conveyance with chief complaint of hemoptysis this morning just prior to arrival. She says she had a small amount of red blood. She is not having any sore throat cough fever chills sick contacts body aches. She says since 2:00 in the morning she was awoken with some chest pain just medial to her left breast that is nonradiating, constant. She tried some Pepto- Bismol with no relief of her pain. She says she has a history of a pacemaker, stroke and is on Eliquis. No recent surgeries. No new neuro deficits from baseline. No nausea, vomiting. No history of EGD or significant GERD. She does not take antacids routinely. No history of hepatitis or esophageal varices. Patient has a history of hyperlipidemia, hypertension but is not a smoker nor does she have diabetes. She denies a prior history of coronary artery disease. She describes the pain as feeling like acid reflux. Patient with a history of proximal atrial fibrillation, sick sinus syndrome. Echocardiogram 3 months ago shows EF 55 to 65%. Grade 1 diastolic dysfunction. Allergies and Home Medications Allergies Coded Allergies: No Known Drug Allergies (Verified , 04/05/18) Home Medications Acetaminophen 325 Mg Capsule, 650 MG PO Q4H PRN for PAIN-MILD (1-4), (Reported) Apixaban 5 Mg Tablet, 5 MG PO BID Start on 03/12/21 Prescribed by: JESSICA GIL on 03/10/2137 Aspirin 325 Mg Tablet.dr, 325 MG PO DAILY Prescribed by: JESSICA GIL on 03/10/21 0636 Atorvastatin Calcium 40 Mg Tablet, 40 MG PO HS Prescribed by: JESSICA GIL on 03/10/21 0636 Diltiazem HCl 120 Mg Cap.er.24h, 120 MG PO DAILY, (Reported) LAST FILLED 08-24-2020 #90/90 DAY SUPPLY Flecainide Acetate 100 Mg Tablet, 100 MG PO Q12H, (Reported) Letrozole 2.5 Mg Tablet, 2.5 MG PO DAILY, (Reported) Lisinopril 20 Mg Tablet, 20 MG PO BID Prescribed by: JESSICA GIL on 03/10/21 0636 Metoprolol Succinate 50 Mg Tab.er.24h, 50 MG PO DAILY, (Reported) LAST FILLED 08-25-2020 #90/90 DAY SUPPLY Phenylephrine/Shk Lv/Mo/Pet,Wh 57 Gm Oint...g., 1 APPLIC RC PRN PRN for HEMMORRHOID DISCOMFORT, (Reported) Patient Home Medication List Home Medication List Reviewed: Yes Review of Systems Review of Systems Constitutional: No chills, No diaphoresis EENTM: No Blurred Vision, No Double Vision Respiratory: Denies Cough, Denies Shortness of Air Cardiovascular: Denies Chest Pain, Denies Edema Gastrointestinal: Denies Abdomen Distended, Denies Abdominal Pain Genitourinary: Denies Burning, Denies Discharge Musculoskeletal: No back pain, No joint pain Skin: No pruritus, No rash Psychiatric/Neurological: Denies Headache, Denies Numbness All Other Systems Reviewed Negative Unless Noted: Yes Past Onfjcpp-Nqknmy-Butwxj Hx Patient Social History Alcohol Use: Denies Use Drug of Choice: Denies Smoking Status: Never a Smoker 2nd Hand Smoke Exposure: No Recent Hopitalizations: No Immunizations Up To Date Tetanus Booster (TDap): Less than 5yrs Date of Pneumonia Vaccine: Jul 12, 2014 Date of Influenza Vaccine: Jul 20, 2019 Seasonal Allergies Seasonal Allergies: Yes Past Medical History Surgeries: Yes (BREAST LUMPECTOMY; BREAST IMPLANTS; SPOT ON KIDNEY REMOVED) Breast, Pacemaker, Renal, Tonsillectomy Respiratory: No Chronic Bronchitis Currently Using CPAP: No Currently Using BIPAP: No Cardiac: Yes (PACEMAKER) Atrial Fibrillation, Hypertension Neurological: No Stroke Female 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 [employer] History: Menopausal HIV/AIDS: No Genitourinary: Yes UTI-Chronic Gastrointestinal: Yes Chronic Diarrhea Musculoskeletal: No Endocrine: No HEENT: Yes Cataract Loss of Vision: Denies Hearing Impairment: Hard of Hearing Cancer: Yes Breast Did You Recieve Any Treatments: Yes What Type of Treatment Did You: Radiation, Surgical Intervention Psychosocial: Yes Anxiety Integumentary: No Blood Disorders: No Adverse Reaction/Blood Tranf: No (N/A) Family Medical History Colon cancer 19 MOTHER Colon cancer 19 MOTHER Hypertension 19 FATHER Neoplasm 19 FATHER Hypertension Physical Exam Vital Signs Vital Signs - First Documented Capillary Refill : Height, Weight, BMI Height: 5'8.00" Weight: 175lbs. 0.0oz. [id number]; 27.68 BMI Method:Stated General Appearance: No Apparent Distress, Anxious HEENT: PERRL/EOMI, Pharynx Normal, Moist Mucous Membranes Neck: Full Range of Motion, Normal Inspection, Supple Respiratory: Chest Non Tender, Lungs Clear, Normal Breath Sounds, No Accessory Muscle Use, No Respiratory Distress Cardiovascular: Regular Rate, Rhythm, No Edema, Normal Peripheral Pulses Gastrointestinal: Normal Bowel Sounds, Non Tender, Soft Extremity: Normal Capillary Refill, Normal Inspection, No Pedal Edema Neurologic/Psychiatric: Alert, Oriented x3, No Motor/Sensory Deficits Skin: Normal Color, Warm/Dry Progress/Results/Core Measures Results/Orders Lab Results Laboratory Tests Test 04/04/21 06:13 Range/Units White Blood Count 10.6 4.3-11.0 10^3/uL Red Blood Count 4.79 3.80-5.11 10^6/uL Hemoglobin 14.5 11.5-16.0 g/dL Hematocrit 44 35-52 % Mean Corpuscular Volume 92 80-99 fL Mean Corpuscular Hemoglobin 30 25-34 pg Mean Corpuscular Hemoglobin Concent 33 32-36 g/dL Red Cell Distribution Width 13.9 10.0-14.5 % Platelet Count 349 130-400 10^3/uL Mean Platelet Volume 9.3 9.0-12.2 fL Immature Granulocyte % (Auto) 0 % Neutrophils (%) (Auto) 53 42-75 % Lymphocytes (%) (Auto) 40 12-44 % Monocytes (%) (Auto) 5 0-12 % Eosinophils (%) (Auto) 1 0-10 % Basophils (%) (Auto) 1 0-10 % Neutrophils # (Auto) 5.6 1.8-7.8 10^3/uL Lymphocytes # (Auto) 4.2 H 1.0-4.0 10^3/uL Monocytes # (Auto) 0.5 0.0-1.0 10^3/uL Eosinophils # (Auto) 0.1 0.0-0.3 10^3/uL Basophils # (Auto) 0.1 0.0-0.1 10^3/uL Immature Granulocyte # (Auto) 0.0 0.0-0.1 10^3/uL Prothrombin Time 15.6 H 12.2-14.7 SEC INR Comment 1.2 0.8-1.4 Activated Partial Thromboplast Time 31 24-35 SEC D-Dimer 0.28 0.00-0.49 UG/ML Sodium Level 143 135-145 MMOL/L Potassium Level 3.4 L 3.6-5.0 MMOL/L Chloride Level 105 98-107 MMOL/L Carbon Dioxide Level 25 21-32 MMOL/L Anion Gap 13 5-14 MMOL/L Blood Urea Nitrogen 12 7-18 MG/DL Creatinine 0.85 0.60-1.30 MG/DL Estimat Glomerular Filtration Rate > 60 BUN/Creatinine Ratio 14 Glucose Level 121 H 70-105 MG/DL Calcium Level 9.8 8.5-10.1 MG/DL Corrected Calcium 9.6 8.5-10.1 MG/DL Magnesium Level 2.1 1.6-2.4 MG/DL Total Bilirubin 0.6 0.1-1.0 MG/DL Aspartate Amino Transf (AST/SGOT) 14 5-34 U/L Alanine Aminotransferase (ALT/SGPT) 11 0-55 U/L Alkaline Phosphatase 86 40-136 U/L Myoglobin 34.3 10.0-92.0 NG/ML Troponin I < 0.028 <0.028 NG/ML Total Protein 7.2 6.4-8.2 GM/DL Albumin 4.3 3.2-4.5 GM/DL Lipase 28 8-78 U/L My Orders Orders - LIBIA,NATASHA J Cbc With Automated Diff (04/04/21 06:13) Magnesium (04/04/21 06:13) Chest 1 View, Ap/Pa Only (04/04/21 06:13) Ekg Tracing (04/04/21 06:13) Comprehensive Metabolic Panel (04/04/21 06:13) Myoglobin Serum (04/04/21 06:13) Protime With Inr (04/04/21 06:13) Partial Thromboplastin Time (04/04/21 06:13) O2 (04/04/21 06:13) Monitor-Rhythm Ecg Trace Only (04/04/21 06:13) Lipid Panel (04/05/21 06:00) Ed Iv/Invasive Line Start (04/04/21 06:13) Lipase (04/04/21 06:13) Fibrin Degradation Products (04/04/21 06:13) Troponin I (04/04/21 06:13) Nitroglycerin 0.4 Mg Btl 25's (Nitrostat (04/04/21 06:15) Aspirin Chewable Tablet (Baby Aspirin Ch (04/04/21 06:15) Pantoprazole Injection (Protonix Injecti (04/04/21 06:30) Medications Given in ED Current Medications Medications Dose Ordered Sig/Rickey Route Start Time Stop Time Status Last Admin Dose Admin Aspirin 324 mg ONCE ONCE PO 04/04/21 06:15 04/04/21 06:18 DC 04/04/21 06:24 324 MG Nitroglycerin 0.4 mg UD PRN SL 04/04/21 06:15 04/04/21 06:25 0.4 MG Pantoprazole 40 mg ONCE ONCE IV 04/04/21 06:30 04/04/21 06:31 DC 04/04/21 06:38 40 MG Vital Signs/I&O 04/04/21 04/04/21 04/04/21 06:17 06:17 06:23 Temp 36.9 Pulse 85 Resp 20 B/P (MAP) 204/116 (145) Pulse Ox 98 98 O2 Delivery Room Air Room Air Room Air Progress Progress Note #1: Time: 06:21 Progress Note She does have some risk factors for heart disease. Also concern is given to her hemoptysis being from a GI source of hemorrhage. We will check some labs give her some pantoprazole and aspirin and nitroglycerin. Seems much less likely she would have a pulmonary embolus if she has been using Eliquis. She is not having any hypoxia or tachycardia. She is not having any wheezing to suggest a bronchospasm or crackles to suggest pneumonia nor does she have a cough fever or chills. Progress Note #2: Time: 07:03 Progress Note Nitroglycerin took her pain from 3 down to a 0. Her blood pressure went from 200/100 down to 180/100. In the 4-hour since her chest pain started and her troponin is still undetectable. A call was put into cardiology for consulta tion. Initial ECG Impression Date: Apr 04, 2021 Initial ECG Impression Time: 06:09 Initial ECG Rate: 63 Initial ECG Rhythm: Normal Sinus Initial ECG Intervals: Normal Initial ECG Impression: Normal Comment Atrial paced rhythm with no clinically relevant ST elevation or depression. Normal indices. Diagnostic Imaging Diagonstic Imaging: Xray Plain Films/CT/US/NM/MRI: chest Comments [facility], [place] NAME: OZZY GHOTRA [facility] REC#: [id number] PT STATUS: REG ER : 1945 PHYSICIAN: NATASHA REZA MD ADMIT DATE: 04/04/21/ER Draft Date of Exam:04/04/21 CHEST 1 VIEW, AP/PA ONLY INDICATION: Chest pain. TECHNIQUE: Single view chest 6:38 AM. CORRELATION STUDY: 04/05/2018 FINDINGS: Left-sided AICD. Heart size and mediastinum are generally stable. Vasculature within normal limits. The lungs are clear with no consolidating infiltrate. Calcified granuloma on the right lung base. There is no significant effusion or pneumothorax. IMPRESSION: 1. Borderline heart size without overt failure. Dictated on workstation # [id number] Dict: 04/04/21 0641 Trans: 04/04/21 0645 CV [id number] Interpreted by: BRAEDEN PEREZ DO Electronically signed by: Reviewed: Reviewed by Me Departure Communication (Admissions) Time/Spoke to Admitting Phy: 07:30 Discussed the case with Dr. Elmore and she agrees to observe the patient with a cardiac consultation. Time/Spoke to Consulting Phy: 07:15 Discussed the case with Dr. Ceja and he agrees to consult on the case. Impression Primary Impression: Chest pain Qualified Codes: R07.9 - Chest pain, unspecified Additional Impression: Acute coronary syndrome without high troponin Disposition: ADMITTED INPATIENT Condition: Stable Admissions Decision to Admit Reason: Admit from ER (General) Decision to Admit/Date: Apr 04, 2021 Time/Decision to Admit Time: 07:00 Departure-Patient Inst. Referrals: STANLEY ELMORE DO (PCP/Family) Primary Care Physician NATASHA REZA Apr 04, 2021 06:23
[2021-04-04] MEDS: NITROGLYCERIN 0.4 MG SL TABS BTL 25'S SL PRN ×2 (06:25→07:41)
[2021-04-04 06:29] LABS: BASOPHILS # (AUTO) 0.1 10^3/uL (0.0-0.1); BASOPHILS % (AUTO) 1 % (0-10); EOSINOPHILS # (AUTO) 0.1 10^3/uL (0.0-0.3); EOSINOPHILS % (AUTO) 1 % (0-10); HEMATOCRIT 44 % (35-52); HEMOGLOBIN 14.5 g/dL (11.5-16.0); LYMPHOCYTES # (AUTO) 4.2 10^3/uL (1.0-4.0); LYMPHOCYTES % (AUTO) 40 % (12-44); MEAN CORPUSCULAR HEMOGLOBIN 30 pg (25-34); MEAN CORPUSCULAR HGB CONC 33 g/dL (32-36); MEAN CORPUSCULAR VOLUME 92 fL (80-99); MEAN PLATELET VOLUME 9.3 fL (9.0-12.2); MONOCYTES # (AUTO) 0.5 10^3/uL (0.0-1.0); MONOCYTES % (AUTO) 5 % (0-12); NEUTROPHILS # (AUTO) 5.6 10^3/uL (1.8-7.8); NEUTROPHILS % (AUTO) 53 % (42-75); PLATELET COUNT 349 10^3/uL (130-400); WHITE BLOOD COUNT 10.6 10^3/uL (4.3-11.0)
[2021-04-04] MEDS ORDERED: PANTOPRAZOLE 40 MG (PROTONIX) VIAL IV ONE (06:30)
[2021-04-04 06:32] LABS: ALBUMIN 4.3 GM/DL (3.2-4.5)
[2021-04-04 06:33] LABS: CHLORIDE 105 MMOL/L (98-107); POTASSIUM 3.4 MMOL/L (3.6-5.0); SODIUM 143 MMOL/L (135-145)
[2021-04-04 06:34] LABS: CALCIUM 9.8 MG/DL (8.5-10.1)
[2021-04-04 06:35] LABS: GLUCOSE 121 MG/DL (70-105); TOTAL PROTEIN 7.2 GM/DL (6.4-8.2)
[2021-04-04 06:36] LABS: CARBON DIOXIDE 25 MMOL/L (21-32)
[2021-04-04 06:37] LABS: BILIRUBIN,TOTAL 0.6 MG/DL (0.1-1.0)
[2021-04-04 06:38] LABS: ALKALINE PHOSPHATASE 86 U/L (40-136)
[2021-04-04 06:39] LABS: CREATININE SERUM 0.85 MG/DL (0.60-1.30); GFR ESTIMATED > 60
[2021-04-04 06:40] LABS: BUN/CREATININE RATIO 14
[2021-04-04 06:41] LABS: ALANINE AMINOTRANSFERASE 11 U/L (0-55); MAGNESIUM 2.1 MG/DL (1.6-2.4); PROTHROMBIN TIME PATIENT 15.6 SEC (12.2-14.7)
[2021-04-04 06:42] LABS: INR 1.2 (0.8-1.4); LIPASE 28 U/L (8-78)
--- NOTE | 2021-04-04 06:45 | Diagnostic Imaging Report ---
INDICATION: Chest pain. TECHNIQUE: Single view chest 6:38 AM. CORRELATION STUDY: 04/05/2018 FINDINGS: Left-sided AICD. Heart size and mediastinum are generally stable. Vasculature within normal limits. The lungs are clear with no consolidating infiltrate. Calcified granuloma on the right lung base. There is no significant effusion or pneumothorax. IMPRESSION: 1. Borderline heart size without overt failure. Dictated by: Dictated on workstation # [id number]
[2021-04-04] MEDS ORDERED: LACTATED RINGERS 1,000 ML IV SCH (08:15)
[2021-04-04] MEDS ORDERED: ONDANSETRON 4 MG/2 ML (SDV) Z0FRAN IV PRN (08:15)
[2021-04-04] MEDS ORDERED: NITROGLYCERIN 0.4 MG SL TABS BTL 25'S SL PRN (08:30)
[2021-04-04] MEDS ORDERED: morphine INJ 4 MG/ML 1 ML (VIAL/SYRINGE) IV PRN (08:30)
--- NOTE | 2021-04-04 08:30 | Consultation-Cardiology ---
HPI-Cardiology Cardiology Consultation Date of Consultation 04/04/21 Date of Admission Time Seen by Provider: 08:25 Indication: Chest pain, hemoptysis HPI Patient is a 75 y/o female with history of SSS/PAF, CVA in February 2021, HTN. Presented to the ER with complaints of epigastric and left sided chest pain at approx 2am this morning. Reports one episode of blood tinged sputum. Currently complaining of chest pain, rated 1-2/10, describes it as burning sensation. Denies any dyspnea, palpitations, dizziness or lightheadedness. Was started on Eliquis in February 2021 after CVA. Home Medications & Allergies Allergies: Coded Allergies: No Known Drug Allergies (Verified , 04/05/18) Home Medication List Reviewed: Yes KQU-Kmekqm-Rrtebo Hx Patient Social History Marital Status: Employed/Student: retired Recreational Drug Use: No Drug of Choice: Denies Smoking Status: Former Smoker 2nd Hand Smoke Exposure: No Recent Hopitalizations: No Have you traveled recently?: No Alcohol Use?: No Immunizations Up To Date Tetanus Booster (TDap): Less than 5yrs Date of Pneumonia Vaccine: Jul 12, 2014 Date of Influenza Vaccine: Jul 20, 2019 Past Medical History CVA, PAF, HTN, SSS s/p PPM Family Medical History Significant Family History: Hypertension Family History: Colon cancer 19 MOTHER Colon cancer 19 MOTHER Hypertension 19 FATHER Neoplasm 19 FATHER Review of Systems-General Review of Systems Constitutional: no symptoms reported, see HPI; No chills, No diaphoresis EENTM: see HPI, no symptoms reported; No blurred vision, No double vision Respiratory: see HPI; No cough, No dyspnea on exertion; hemoptysis; No orthopnea; phlegm Cardiovascular: see HPI, chest pain; No edema, No syncope, No vascular heart diseas Gastrointestinal: abdominal pain (epigastric); No diarrhea, No dysphagia; heartburn Musculoskeletal: No back pain, No joint pain Skin: no symptoms reported, see HPI; No pruritus, No rash Psychiatric/Neurological: See HPI, Anxiety; Denies Headache, Denies Numbness All Other Systems Reviewed Negative Unless Noted: Yes Reviewed Test Results Reviewed Test Results Lab Laboratory Tests 04/04/21 06:13: White Blood Count 10.6, Red Blood Count 4.79, Hemoglobin 14.5, Hematocrit 44, Mean Corpuscular Volume 92, Mean Corpuscular Hemoglobin 30, Mean Corpuscular Hemoglobin Concent 33, Red Cell Distribution Width 13.9, Platelet Count 349, Mean Platelet Volume 9.3, Immature Granulocyte % (Auto) 0, Neutrophils (%) (Auto) 53, Lymphocytes (%) (Auto) 40, Monocytes (%) (Auto) 5, Eosinophils (%) (Auto) 1, Basophils (%) (Auto) 1, Neutrophils # (Auto) 5.6, Lymphocytes # (Auto) 4.2H, Monocytes # (Auto) 0.5, Eosinophils # (Auto) 0.1, Basophils # (Auto) 0.1, Immature Granulocyte # (Auto) 0.0, Prothrombin Time 15.6H, INR Comment 1.2, Activated Partial Thromboplast Time 31, D-Dimer 0.28, Sodium Level 143, Potassium Level 3.4L, Chloride Level 105, Carbon Dioxide Level 25, Anion Gap 13, Blood Urea Nitrogen 12, Creatinine 0.85, Estimat Glomerular Filtration Rate > 60, BUN/Creatinine Ratio 14, Glucose Level 121H, Calcium Level 9.8, Corrected Calcium 9.6, Magnesium Level 2.1, Total Bilirubin 0.6, Aspartate Amino Transf (AST/SGOT) 14, Alanine Aminotransferase (ALT/SGPT) 11, Alkaline Phosphatase 86, Myoglobin 34.3, Troponin I < 0.028, Total Protein 7.2, Albumin 4.3, Lipase 28 ECG Impression ECG Initial ECG Rhythm: Normal Sinus Physical Exam Physical Exam Vital Signs Vital Signs - First Documented Capillary Refill : Less Than 3 Seconds Height, Weight, BMI Height: 5'8.00" Weight: 175lbs. 0.0oz. [id number]; 23.47 BMI Method:Stated General Appearance: No Apparent Distress, Anxious HEENT: PERRL/EOMI, Pharynx Normal, Moist Mucous Membranes Neck: Full Range of Motion, Normal Inspection, Supple Respiratory: Chest Non Tender, Lungs Clear, Normal Breath Sounds, No Accessory Muscle Use, No Respiratory Distress Cardiovascular: Regular Rate, Rhythm, No Edema, Normal Peripheral Pulses Gastrointestinal: Normal Bowel Sounds, Non Tender, Soft Extremity: Normal Capillary Refill, Normal Inspection, No Pedal Edema Neurologic/Psychiatric: Alert, Oriented x3, No Motor/Sensory Deficits Skin: Normal Color, Warm/Dry A/P-Cardiology Admission Diagnosis Chest pain Hemoptysis PAF HTN Assessment/Plan Chest pain, nonspecific etiology. Reports epigastric and left sided chest pain awakening her at approx 2 am this morning. Started having blood tinged sputum this morning, now resolved. EKG showing SR with no acute ST changes. Initial troponin negative. Underwent recent stress test showing no ischemia or infarct. Started on telemetry, continue to monitor, repeat troponin in 6 hours. If chest pain persisted would consider cardiac catheterization Hemoptysis, c/o blood tinged sputum this morning, now resolved. I will hold Eliquis at this time. 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 Continues to have residual mild right sided weakness, continue PT/OT. Stress test and 2d Echo done December 2020 showing no ishemia or infarct with normal EF. Paroxysmal atrial fibrillation, had dual-chamber pacemaker implanted maintained on flecainide, most recent PPM interogation done in Nov 2020, continue to monitor. Patient had refused OAC in the past, was started on Eliquis in February 2021. [id number] score of 3, yearly risk of stroke without oral anticoagulation is 3.2 percent. Maintained on Eliquies Sick sinus syndrome, history of extreme bradycardia with episodes of heart rate in the 30s and near-syncope, underwent Biotronik dual-chamber pacemaker implant ELUNA, good sensing and capture activity. Continue to monitor Hypertension, blood pressure elevated, patient appears anxious, I will restart home blood pressure medications, continue to monitor Hyperlipidemia- has refused cholesterol medication in the past, Recently started on Crestor 5mg daily. Continue to monitor as outpatient. 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 Thank you for allowing us to participate in the management of Ms. Muñoz. This is Bouchra Saab PA-C, as a scribe for Dr. Zee. Patient was seen and evaluated with Bouchra, I interviewed the patient and performed physical examination, on my evaluation she reported having chest pain early in the morning resolved with nitroglycerin and then had another episode of chest pain under her left breast, at this time it is present. No acute EKG changes. Cardiac enzymes are negative with the first set. I will continue monitoring, hold Eliquis and resume diet. We'll repeat troponin and I would consider cardiac catheterization if she continues to have chest pain on her had elevation in her troponin, once cardiac causes of her chest pain are ruled out will consider referral for GI causes. Regarding her hemoptysis, Sohan is on hold for now, consider EGD. Clinical Quality Measures AMI/AHF: ASA po Prior to arrival: No BOUCHRA SAMUEL Apr 04, 2021 08:30 ELIANA ZEE MD Apr 04, 2021 08:46
[2021-04-04] MEDS ORDERED: LISI20TA26 PO (11:38)
[2021-04-04] MEDS ORDERED: APIX5TAB PO (11:38)
[2021-04-04] MEDS ORDERED: FLECAINIDE 100 MG (TAMBOCOR) TAB PO SCH ×2 (13:00→21:00)
[2021-04-04] MEDS ORDERED: LIDOCAINE 2% VISCOUS 15 ML UDC PO NR (13:15)
[2021-04-04] MEDS ORDERED: ANTACID SUSP 30 ML UDC (MYLANTA) PO NR (13:15)
[2021-04-04] MEDS ORDERED: PATIENT MAY USE OWN MEDS, ALL MC SCH (14:15)
--- NOTE | 2021-04-04 17:59 | History & Physical ---
History of Present Illness History of Present Illness Reason for visit/HPI This is a 75 yo female with recent admission for CVA and history of sick sinus syndrome and Paroxysmal atrial fibrillation. She presented to the emergency room with substernal pinpoint chest pressure that had been present for at least 6 hours. She had tried Tums with no relief at home. She did have some relief of her pain with nitroglycerin. Due to her cardiac history and presentation it was decided to admit her for observation with cardiac consult. Date of Admission Apr 04, 2021 at 07:30 Date Seen by a Provider: Apr 04, 2021 Time Seen by a Provider: 12:55 I consulted on this patient on 04/04/21 17:54 Attending Physician Evangelina Elmore DO Admitting Physician Evangelina Elmore DO Consult Allergies and Home Medications Allergies Coded Allergies: No Known Drug Allergies (Verified , 04/05/18) Home Medications Apixaban 5 Mg Tablet, 5 MG PO BID, (Reported) Last Action: Continued Diltiazem HCl 120 Mg Cap.er.24h, 120 MG PO DAILY, (Reported) LAST FILLED 08-24-2020 #90/90 DAY SUPPLY Last Action: Continued Flecainide Acetate 100 Mg Tablet, 100 MG PO Q12H, (Reported) LAST FILLED 11-14-2020 #180/90 DAY SUPPLY Last Action: Continued Letrozole 2.5 Mg Tablet, 2.5 MG PO DAILY, (Reported) LAST FILLED 11-14-2020 #90/90 DAY SUPPLY Last Action: Continued Lisinopril 20 Mg Tablet, 20 MG PO BID, (Reported) LAST FILLED 12-03-2020 #90/45 DAY SUPPLY Last Action: Continued Metoprolol Succinate 50 Mg Tab.er.24h, 50 MG PO DAILY, (Reported) LAST FILLED 08-25-2020 #90/90 DAY SUPPLY Last Action: Continued Patient Home Medication List Home Medication List Reviewed: Yes Past Dhujkbg-Tzoegd-Xtnkqr Hx Past Med/Social Hx: Reviewed Nursing Past Med/Soc Hx Patient Social History Marrital Status: Employed/Student: retired Alcohol Use: Denies Use Recreational Drug Use: No Drug of Choice: Denies Smoking Status: Former Smoker 2nd Hand Smoke Exposure: No Recent Foreign Travel: No Contact w/other who traveled: No Recent Hopitalizations: No Recent Infectious Disease Expo: No Immunizations Up To Date Tetanus Booster (TDap): Less than 5yrs Date of Pneumonia Vaccine: Jul 12, 2014 Date of Influenza Vaccine: Jul 20, 2019 Seasonal Allergies Seasonal Allergies: Yes Past Medical History Surgeries: Breast, Pacemaker, Renal, Tonsillectomy Currently Using CPAP: No Currently Using BIPAP: No Cardiac: Atrial Fibrillation, Hypertension Neurological: Stroke HIV/AIDS: No Female 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 Menopausal Genitourinary: UTI-Chronic Gastrointestinal: Chronic Diarrhea HEENT: Cataract Loss of Vision: Denies Hearing Impairment: Hard of Hearing Cancer: Breast Did You Recieve Any Treatments: Yes What Type of Treatment Did You: Radiation, Surgical Intervention Psychosocial: Anxiety History of Blood Disorders: No Adverse Reaction to Blood Eubanks: No (N/A) Family History Colon cancer 19 MOTHER Colon cancer 19 MOTHER Hypertension 19 FATHER Neoplasm 19 FATHER Hypertension Review of Systems Constitutional: No no symptoms reported, No see HPI, No chills, No diaphoresis, No dizziness, No fever, No malaise, No weakness, No weight gain, No weight loss, No other EENTM: No see HPI, No no symptoms reported, No ear discharge, No hearing loss, No ear pain, No blurred vision, No double vision, No eye pain, No tearing, No vision loss, No dental problems, No hoarseness, No mouth pain, No mouth swelling, No epistaxis, No nose congestion, No nose pain, No throat pain, No throat swelling, No other Respiratory: hemoptysis Cardiovascular: chest pain Genitourinary: frequency, incontinence Musculoskeletal: muscle weakness Skin: No no symptoms reported, No see HPI, No change in color, No change in hair/nails, No dryness, No hx of skin cancer, No lesions, No lumps, No pruritus, No rash, No other Psychiatric/Neurological: Pre-Existing Deficit, Weakness Physical Exam Vital Signs Vital Signs - First Documented Capillary Refill : Less Than 3 Seconds Height, Weight, BMI Height: 5'8.00" Weight: 175lbs. 0.0oz. [id number]; 23.47 BMI Method:Stated General Appearance: No Apparent Distress HEENT: Normal ENT Inspection Neck: Supple Respiratory: Lungs Clear Cardiovascular: Regular Rate, Rhythm, Systolic Murmur, Gallop/S4 Gastrointestinal: Normal Bowel Sounds, Non Tender, Soft Rectal: Deferred Back: No CVA Tenderness Extremity: Non Tender, No Calf Tenderness, No Pedal Edema Neurologic/Psychiatric: Alert, Oriented x3 Skin: Warm/Dry Comments Laboratory Tests 04/04/21 06:13: White Blood Count 10.6, Red Blood Count 4.79, Hemoglobin 14.5, Hematocrit 44, Mean Corpuscular Volume 92, Mean Corpuscular Hemoglobin 30, Mean Corpuscular Hemoglobin Concent 33, Red Cell Distribution Width 13.9, Platelet Count 349, Mean Platelet Volume 9.3, Immature Granulocyte % (Auto) 0, Neutrophils (%) (Auto) 53, Lymphocytes (%) (Auto) 40, Monocytes (%) (Auto) 5, Eosinophils (%) (Auto) 1, Basophils (%) (Auto) 1, Neutrophils # (Auto) 5.6, Lymphocytes # (Auto) 4.2H, Monocytes # (Auto) 0.5, Eosinophils # (Auto) 0.1, Basophils # (Auto) 0.1, Immature Granulocyte # (Auto) 0.0, Prothrombin Time 15.6H, INR Comment 1.2, Activated Partial Thromboplast Time 31, D-Dimer 0.28, Sodium Level 143, Potassium Level 3.4L, Chloride Level 105, Carbon Dioxide Level 25, Anion Gap 13, Blood Urea Nitrogen 12, Creatinine 0.85, Estimat Glomerular Filtration Rate > 60, BUN/Creatinine Ratio 14, Glucose Level 121H, Calcium Level 9.8, Corrected Calcium 9.6, Magnesium Level 2.1, Total Bilirubin 0.6, Aspartate Amino Transf (AST/SGOT) 14, Alanine Aminotransferase (ALT/SGPT) 11, Alkaline Phosphatase 86, Myoglobin 34.3, Troponin I < 0.028, Total Protein 7.2, Albumin 4.3, Lipase 28 04/04/21 13:20: Troponin I < 0.028 Assessment/Plan Assessment and Plan 1. Substernal Chest Pain--Suspect GI etiology but will repeat cardiac enzymes, monitor on telemetry and consult cardiology, will cover with protonix and give Mylanta/Viscous Lidocaine 2. Hemoptysis--per report x1, CXR negative so will monitor during stay for any evidence of hemoptysis 3. Hypertension--resume home meds 4. Sick Sinuus Syndrome/PAF--has Pacemaker, restart Fleicanide/Eliquis and Cardizem 5. Recent Basilar CVA with Right Sided Weakness--has been doing home PT Admission Diagnosis Admission Status: Observation Clinical Quality Measures AMI/AHF: ASA po Prior to arrival: EVANGELINA Patricio DO Apr 04, 2021 17:59
[2021-04-04] MEDS ORDERED: lisINopril 20 MG (PRINIVIL) TABLET PO SCH (21:00)
[2021-04-04] MEDS ORDERED: PANTOPRAZOLE 40 MG (PROTONIX) VIAL IV SCH (21:00)
[2021-04-04] MEDS ORDERED: APIXABAN 5 MG (ELIQUIS) TABLET PO SCH (21:00)
[2021-04-05 00:19] VITALS: BP 133/75
[2021-04-05 00:20] VITALS: BP 146/81
[2021-04-05 04:00] VITALS: BP 157/92
[2021-04-05 05:49] LABS: BASOPHILS # (AUTO) 0.1 10^3/uL (0.0-0.1); BASOPHILS % (AUTO) 1 % (0-10); EOSINOPHILS # (AUTO) 0.2 10^3/uL (0.0-0.3); EOSINOPHILS % (AUTO) 2 % (0-10); HEMATOCRIT 43 % (35-52); HEMOGLOBIN 13.6 g/dL (11.5-16.0); LYMPHOCYTES # (AUTO) 2.9 10^3/uL (1.0-4.0); LYMPHOCYTES % (AUTO) 40 % (12-44); MEAN CORPUSCULAR HEMOGLOBIN 30 pg (25-34); MEAN CORPUSCULAR HGB CONC 32 g/dL (32-36); MEAN CORPUSCULAR VOLUME 93 fL (80-99); MEAN PLATELET VOLUME 9.3 fL (9.0-12.2); MONOCYTES # (AUTO) 0.5 10^3/uL (0.0-1.0); MONOCYTES % (AUTO) 6 % (0-12); NEUTROPHILS # (AUTO) 3.7 10^3/uL (1.8-7.8); NEUTROPHILS % (AUTO) 51 % (42-75); PLATELET COUNT 309 10^3/uL (130-400); WHITE BLOOD COUNT 7.3 10^3/uL (4.3-11.0)
[2021-04-05 06:25] LABS: BUN/CREATININE RATIO 18; CALCIUM 9.3 MG/DL (8.5-10.1); CARBON DIOXIDE 27 MMOL/L (21-32); CHLORIDE 104 MMOL/L (98-107); CHOLESTEROL 189 MG/DL (< 200); GFR ESTIMATED > 60; GLUCOSE 90 MG/DL (70-105); HDL CHOLESTEROL 52 MG/DL (40-60); POTASSIUM 3.6 MMOL/L (3.6-5.0); SODIUM 140 MMOL/L (135-145); TRIGLYCERIDES 104 MG/DL (<150); VLDL CHOLESTEROL 21 MG/DL (5-40)
[2021-04-05 07:22] VITALS: BP 157/90
--- NOTE | 2021-04-05 07:55 | Cardiology Progress Note ---
Subjective Date Seen by Provider: Apr 05, 2021 Time Seen by Provider: 07:54 Subjective/Events-last exam Patient is feeling better today, no further episodes of chest pain, no shortness of breath Review of Systems General: No Chills, No Night Sweats, No Fatigue, No Malaise, No Appetite, No Other HEENT: No Head Aches, No Visual Changes, No Eye Pain, No Ear Pain, No Dy sphasia, No Sinus Congestion, No Post Nasal Drip, No Sore Throat, No Other Pulmonary: No Dyspnea, No Cough, No Pleuritic Chest Pain, No Other Cardiovascular: No: Chest Pain, Palpitations, Orthopnea, Paroxysmal Noc. Dyspnea, Edema, Lt Headedness, Other Objective-Cardiology Exam Last Set of Vital Signs Vital Signs 04/05/21 07:22 Temp 36.8 Pulse 64 Resp 20 B/P (MAP) 157/90 (112) Pulse Ox 98 O2 Delivery Room Air Capillary Refill : Less Than 3 Seconds I&O Intake and Output 04/05/21 00:00 Intake Total 1180 ml Balance 1180 ml Intake Oral 1180 ml # Voids 5 # Bowel Movements 5 Daily Weight Change No General: Alert, Oriented X3, Cooperative HEENT: Atraumatic, PERRLA Neck: Supple, No JVD, No Thyromegaly Lungs: Clear to Auscultation, Normal Air Movement Heart: Regular Rate, Normal S1, Normal S2, No Murmurs Abdomen: Normal Bowel Sounds, Soft, No Tenderness, No Hepatosplenomegaly, No Masses Extremities: No Clubbing, No Cyanosis, No Edema, Normal Pulses, No Tenderness/Swelling Skin: No Rashes, No Breakdown, No Significant Lesion Neuro: Normal Gait, Normal Speech, Strength at 5/5 X4 Ext, Normal Tone, Sensation Intact Psych/Mental Status: Mental Status NL, Mood NL Results Lab Laboratory Tests 04/05/21 05:20 A/P-Cardiology Admission Diagnosis Chest pain Hemoptysis PAF HTN Assessment/Plan Chest pain, nonspecific etiology. No further episodes of chest pain today, cardiac enzymes and EKG were normal, patient had a normal stress test in January 2021, I discussed with her the management plan, offered cardiac catheterization versus conservative management, patient requested conservative management, does not want cardiac catheterization. I will restart jessica Parry for discharge as an outpatient Consider referral for EGD which can be done as an outpatient Hemoptysis, c/o blood tinged sputum this morning, now resolved. Restart Eliquis CVA or basilar artery February 2021, was not on OAC at the time, started on Eliquis. Continues to have residual mild right sided weakness, continue PT/OT. Stress test and 2d Echo done December 2020 showing no ischemia or infarct with normal EF. Paroxysmal atrial fibrillation, had dual-chamber pacemaker implanted maintained on flecainide, most recent PPM interogation done in Nov 2020, continue to monitor. Patient had refused OAC in the past, was started on Eliquis in February 2021. [id number] score of 3, yearly risk of stroke without oral anticoagulation is 3.2 percent. Maintained on Eliquies Sick sinus syndrome, history of extreme bradycardia with episodes of heart rate in the 30s and near-syncope, underwent Biotronik dual-chamber pacemaker implant ELUNA, good sensing and capture activity. Continue to monitor Hypertension, blood pressure elevated, patient appears anxious, I will restart home blood pressure medications, continue to monitor Hyperlipidemia- has refused cholesterol medication in the past, Recently started on Crestor 5mg daily. Continue to monitor as outpatient. 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 Clinical Quality Measures AMI/AHF: ASA po Prior to arrival: ELIANA Deluca MD Apr 05, 2021 07:55
[2021-04-05] MEDS ORDERED: PANT40TA2 PO (08:39)
[2021-04-05] MEDS ORDERED: meTOproloL SUCCINATE 50 MG (TOPROL XL) TAB PO SCH (09:00)
[2021-04-05] MEDS ORDERED: ASPIRIN E.C. 81 MG (ECOTRIN) TAB PO SCH (09:00)
[2021-04-05] MEDS ORDERED: dilTIAZem120 MG (CARDIZEM CD) CAP PO SCH (09:00)
[2021-04-05] MEDS ORDERED: LETROZOLE 2.5 MG (FEMARA) TAB PO SCH (09:00)
--- NOTE | 2021-04-07 13:46 | Physician Query-Final Dx ---
Final Diagnosis Give Final Diagnosis Please give Final Diagnosis GELY JOHNSON Apr 07, 2021 13:46
== END 2021-04-05 09:47 | disposition home or self-care (01) ==
LOC: EDUNIT# 05:57 → ER 05:59 → 4TH 07:30
PROVIDERS: ADMIT Family Medicine; ATTEND Family Medicine
DX: R07.89 Other chest pain (principal); I24.9 Acute ischemic heart disease, unspecified; J30.9 Allergic rhinitis, unspecified; I48.91 Unspecified atrial fibrillation; I10 Essential (primary) hypertension; I48.0 Paroxysmal atrial fibrillation; I49.5 Sick sinus syndrome; I65.23 Occlusion and stenosis of bilateral carotid arteries; N39.0 Urinary tract infection, site not specified; E78.5 Hyperlipidemia, unspecified; J42 Unspecified chronic bronchitis; K52.9 Noninfective gastroenteritis and colitis, unspecified; R04.2 Hemoptysis; F41.9 Anxiety disorder, unspecified; Z80.0 Family history of malignant neoplasm of digestive organs; Z79.82 Long term (current) use of aspirin; Z85.3 Personal history of malignant neoplasm of breast; Z79.899 Other long term (current) drug therapy; Z79.01 Long term (current) use of anticoagulants; Z95.0 Presence of cardiac pacemaker; Z90.89 Acquired absence of other organs; Z86.73 Personal history of transient ischemic attack (TIA), and cerebral infarction without residual deficits; Z87.891 Personal history of nicotine dependence; Z90.5 Acquired absence of kidney
CPT/HCPCS: 71045; 80048; 80053; 80061; 83690; 83735; 83874; 84484; 85025 ×2; 85379; 85610; 85730; 93005 ×2; 93041; 99284; G0378; 36415

== ENCOUNTER 2021-06-15 01:23 | Emergency (ER) | payer MEDICARE, OTHER ==
[~2021-06-15] VITALS: Ht 172.7 cm; Wt 74.8 kg
[~2021-06-15 01:23] MED LIST changes: +PANT40TA2 PO; -SULF1TAB35 PO; +SULF1TAB38 PO
[2021-06-15 01:43] LABS: BASOPHILS # (AUTO) 0.1 10^3/uL (0.0-0.1); BASOPHILS % (AUTO) 0 % (0-10); EOSINOPHILS # (AUTO) 0.2 10^3/uL (0.0-0.3); EOSINOPHILS % (AUTO) 1 % (0-10); HEMATOCRIT 49 % (35-52); HEMOGLOBIN 16.4 g/dL (11.5-16.0); LYMPHOCYTES # (AUTO) 7.6 10^3/uL (1.0-4.0); LYMPHOCYTES % (AUTO) 44 % (12-44); MEAN CORPUSCULAR HEMOGLOBIN 31 pg (25-34); MEAN CORPUSCULAR HGB CONC 33 g/dL (32-36); MEAN CORPUSCULAR VOLUME 91 fL (80-99); MEAN PLATELET VOLUME 8.9 fL (9.0-12.2); MONOCYTES # (AUTO) 1.1 10^3/uL (0.0-1.0); MONOCYTES % (AUTO) 6 % (0-12); NEUTROPHILS # (AUTO) 8.2 10^3/uL (1.8-7.8); NEUTROPHILS % (AUTO) 48 % (42-75); PLATELET COUNT 403 10^3/uL (130-400); WHITE BLOOD COUNT 17.3 10^3/uL (4.3-11.0)
[2021-06-15] MEDS ORDERED: LABETALOL HCL 20 MG/4 ML VIAL IV ONE ×2 (01:45→02:30)
[2021-06-15 01:56] LABS: INR 1.1 (0.8-1.4)
[2021-06-15 02:11] LABS: ALANINE AMINOTRANSFERASE 22 U/L (0-55); ALBUMIN 4.2 GM/DL (3.2-4.5); ALKALINE PHOSPHATASE 77 U/L (40-136); BILIRUBIN,TOTAL 0.4 MG/DL (0.1-1.0); BUN/CREATININE RATIO 20; CALCIUM 9.9 MG/DL (8.5-10.1); CARBON DIOXIDE 22 MMOL/L (21-32); CHLORIDE 102 MMOL/L (98-107); CREATININE SERUM 1.04 MG/DL (0.60-1.30); GFR ESTIMATED 52; GLUCOSE 126 MG/DL (70-105); MAGNESIUM 2.2 MG/DL (1.6-2.4); POTASSIUM 3.6 MMOL/L (3.6-5.0); SODIUM 138 MMOL/L (135-145); TOTAL PROTEIN 7.1 GM/DL (6.4-8.2)
[2021-06-15 02:15] LABS: BILIRUBIN,URINE NEGATIVE (NEGATIVE); CLARITY,URINE SL CLOUDY; COLOR,URINE YELLOW; GLUCOSE, URINE (UA) NEGATIVE (NEGATIVE); KETONES,URINE NEGATIVE (NEGATIVE); LEUKOCYTE ESTERASE ,URINE 2+ (NEGATIVE); NITRITE,URINE NEGATIVE (NEGATIVE); PROTEIN,URINE NEGATIVE (NEGATIVE)
[2021-06-15 02:16] LABS: ATYPICAL LYMPHOCYTES 7 %; EOSINOPHILS % (MANUAL) 2 %; HYPOCHROMASIA SLIGHT; LYMPHOCYTES % (MANUAL) 42 %; METAMYELOCYTES % 1 %; MICROCYTOSIS SLIGHT; MONOCYTES % (MANUAL) 4 %; NEUTROPHILS % (MANUAL) 51 %
--- NOTE | 2021-06-15 02:25 | ED Cardiac General ---
History of Present Illness General Chief Complaint: Cardiac/General Problems Stated Complaint: BLOOD PRESSURE 180/?,FEELS LIKE HAVING STROKE Source: patient (SOMEWHAT VAGUE AND DIFFICULT HISTORIAN) History of Present Illness Date Seen by Provider: Jun 15, 2021 Time Seen by Provider: 01:30 Initial Comments PT ARRIVES VIA POV FROM HOME C/O ELEVATED BLOOD PRESSURE AND HEART RATE STATES BP WAS 180'S SYSTOLIC, AND HEART RATE > 100 PRIOR TO ARRIVAL HAS NOT MISSED ANY DOSES OF BLOOD PRESSURE MEDICATION AND HAS NOT HAD DOSES CHANGED RECENTLY PT HAS NO SPECIFIC COMPLAINTS, JUST STATES "JUST DON'T FEEL RIGHT" "FELT WEIRD" NO CHEST PAIN NO PALPITATIONS--PT WITH ATRIAL FIBRILLATION AND HAS PERMANENT PACEMAKER NO SHORTNESS OF BREATH NO HEADACHE NO DIZZINESS NO VISION CHANGES NO PARESTHESIAS OR MOTOR DEFICITS NO NAUSEA/VOMITING/DIARRHEA/ABDOMINAL PAIN NO SWELLING IN LEGS/FEET OR PAIN IN CALVES PT HAD A STROKE 03/01/21--SYMPTOMS RESOLVED, PER PT PT ADMITTED 04/04/21 FOR CHEST PAIN PT STATES HAD BEEN TO SLEEP, BUT WOKE UP TO GO TO THE BATHROOM AND WHEN SHE GOT BACK TO BED, SHE "FELT WEIRD" SO SHE CHECKED HER BP AND IT WAS ELEVATED, WAS HER HEART RATE PT HAS ONGOING PROBLEMS WITH BURNING ON URINATION, FREQUENCY AND NOCTURIA ( HAS FREQUENT/RECURRING UTI'S PER OLD CHART ) STATES SHE HAS AN APPOINTMENT TOMORROW WITH A UROLOGIST IN [place] FOR THIS PROBLEM DENIES ANY RECENT ANTIBIOTICS PT HAS RECEIVED BOTH MODERNA COVID-19 VACCINES--LAST ONE 11/2020 PCP: DR. BARRY OIL HEATER INSTALLER: DR. VALENZUELA Allergies and Home Medications Allergies Coded Allergies: No Known Drug Allergies (Verified , 04/05/18) Home Medications Apixaban 5 Mg Tablet, 5 MG PO BID, (Reported) Cefdinir 300 Mg Capsule, 300 MG PO BID Prescribed by: TAIWO JOHNSON on 06/15/21 0343 Diltiazem HCl 120 Mg Cap.er.24h, 120 MG PO DAILY, (Reported) LAST FILLED 08-24-2020 #90/90 DAY SUPPLY Flecainide Acetate 100 Mg Tablet, 100 MG PO Q12H, (Reported) LAST FILLED 11-14-2020 #180/90 DAY SUPPLY Letrozole 2.5 Mg Tablet, 2.5 MG PO DAILY, (Reported) LAST FILLED 11-14-2020 #90/90 DAY SUPPLY Lisinopril 20 Mg Tablet, 20 MG PO BID, (Reported) LAST FILLED 12-03-2020 #90/45 DAY SUPPLY Metoprolol Succinate 50 Mg Tab.er.24h, 50 MG PO DAILY, (Reported) LAST FILLED 08-25-2020 #90/90 DAY SUPPLY Pantoprazole Sodium 40 Mg Tablet.dr, 40 MG PO BID Prescribed by: STANLEY BARRY on 04/05/21 0839 Patient Home Medication List Home Medication List Reviewed: Yes Review of Systems Review of Systems Constitutional: see HPI; No dizziness, No fever, No malaise, No weakness EENTM: No Symptoms Reported Respiratory: No Symptoms Reported Cardiovascular: See HPI; Denies Chest Pain, Denies Edema, Denies Irregular Heart Rate, Denies Lightheadedness, Denies Palpitations, Denies Syncope Gastrointestinal: No Symptoms Reported Genitourinary: No Symptoms Reported Musculoskeletal: no symptoms reported Skin: no symptoms reported Psychiatric/Neurological: No Symptoms Reported; Denies Headache, Denies Numbness, Denies Paresthesia, Denies Tingling, Denies Weakness Endocrine: No Symptoms Reported Hematologic/Lymphatic: No Symptoms Reported Past Rvyyzcr-Arlcid-Dwlibq Hx Patient Social History Tobacco Use?: No Substance use?: No Alcohol Use?: No Immunizations Up To Date Tetanus Booster (TDap): Less than 5yrs First/Initial COVID19 Vaccinat: 2020 Second COVID19 Vaccination Ramon: NOV 2020 COVID19 Vaccine Pie Maker Machine: MODERNMarco A Seasonal Allergies Seasonal Allergies: Yes Past Medical History Surgery/Hospitalization HX: PACEMAKER LEFT BREAST LUMPECTOMY BILATERAL MASTECTOMIES WITH BREAST IMPLANTS "SPOT" ON KIDNEY REMOVED/ PARTIAL NEPHRECTOMY FOR BENIGN MASS TONSILLECTOMY Surgeries: Yes (BREAST LUMPECTOMY; BREAST IMPLANTS; SPOT ON KIDNEY REMOVED) Breast, Pacemaker, Renal, Tonsillectomy Respiratory: Yes Chronic Bronchitis Currently Using CPAP: No Currently Using BIPAP: No Cardiac: Yes (PACEMAKER FOR SSS/PAF; MILD CAROTID STENOSIS) Atrial Fibrillation, High Cholesterol, Hypertension Neurological: Yes (CVA 02/2021-MILD RESIDUAL RIGHT SIDE WEAKNESS) Stroke Female 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 HIV/AIDS: No Genitourinary: Yes (PARTIAL NEPHRECTOMY FOR BENIGN MASS) UTI-Chronic Gastrointestinal: Yes Gastroesophageal Reflux, Chronic Diarrhea Musculoskeletal: No Amputee Endocrine: No HEENT: Yes Cataract Loss of Vision: Denies Hearing Impairment: Hard of Hearing Cancer: Yes Breast Did You Recieve Any Treatments: Yes What Type of Treatment Did You: Radiation, Surgical Intervention LEFT BREAST LUMPECTOMY AND RADIATION Psychosocial: Yes Anxiety Integumentary: No Blood Disorders: No Adverse Reaction/Blood Tranf: No (N/A) Family Medical History Colon cancer 19 MOTHER Colon cancer 19 MOTHER Hypertension 19 FATHER Neoplasm 19 FATHER Hypertension Physical Exam Vital Signs Vital Signs - First Documented 06/15/21 01:30 Temp 36.8 Pulse 103 Resp 16 B/P (MAP) 178/134 (149) Pulse Ox 96 O2 Delivery Room Air Capillary Refill : Less Than 3 Seconds Height, Weight, BMI Height: 5'8.00" Weight: 175lbs. 0.0oz. [id number]; 23.47 BMI Method:Stated General Appearance: No Apparent Distress, WD/WN Neck: Normal Inspection Respiratory: Normal Breath Sounds, No Accessory Muscle Use, No Respiratory Distress Cardiovascular: No Edema, No JVD, No Murmur, Normal Peripheral Pulses, Irregularly Irregular, Tachycardia Gastrointestinal: Non Tender, Soft Extremity: Normal Capillary Refill, Normal Inspection, Normal Range of Motion, Non Tender, No Calf Tenderness, No Pedal Edema Neurologic/Psychiatric: Alert, Oriented x3, No Motor/Sensory Deficits, pit inspector II- XII Norm as Tested, Other (FLAT AFFECT) Skin: Normal Color, Warm/Dry Progress/Results/Core Measures Results/Orders Lab Results Laboratory Tests Test 06/15/21 01:20 06/15/21 02:08 Range/Units White Blood Count 17.3 H 4.3-11.0 10^3/uL Red Blood Count 5.37 H 3.80-5.11 10^6/uL Hemoglobin 16.4 H 11.5-16.0 g/dL Hematocrit 49 35-52 % Mean Corpuscular Volume 91 80-99 fL Mean Corpuscular Hemoglobin 31 25-34 pg Mean Corpuscular Hemoglobin Concent 33 32-36 g/dL Red Cell Distribution Width 13.8 10.0-14.5 % Platelet Count 403 H 130-400 10^3/uL Mean Platelet Volume 8.9 L 9.0-12.2 fL Immature Granulocyte % (Auto) 1 % Neutrophils (%) (Auto) 48 42-75 % Lymphocytes (%) (Auto) 44 12-44 % Monocytes (%) (Auto) 6 0-12 % Eosinophils (%) (Auto) 1 0-10 % Basophils (%) (Auto) 0 0-10 % Neutrophils # (Auto) 8.2 H 1.8-7.8 10^3/uL Lymphocytes # (Auto) 7.6 H 1.0-4.0 10^3/uL Monocytes # (Auto) 1.1 H 0.0-1.0 10^3/uL Eosinophils # (Auto) 0.2 0.0-0.3 10^3/uL Basophils # (Auto) 0.1 0.0-0.1 10^3/uL Immature Granulocyte # (Auto) 0.1 0.0-0.1 10^3/uL Neutrophils % (Manual) 51 % Lymphocytes % (Manual) 42 % Monocytes % (Manual) 4 % Eosinophils % (Manual) 2 % Metamyelocytes % 1 % Atypical Lymphocytes 7 % Hypochromasia SLIGHT Microcytosis SLIGHT Prothrombin Time 15.0 H 12.2-14.7 SEC INR Comment 1.1 0.8-1.4 Activated Partial Thromboplast Time 27 24-35 SEC Sodium Level 138 135-145 MMOL/L Potassium Level 3.6 3.6-5.0 MMOL/L Chloride Level 102 98-107 MMOL/L Carbon Dioxide Level 22 21-32 MMOL/L Anion Gap 14 5-14 MMOL/L Blood Urea Nitrogen 21 H 7-18 MG/DL Creatinine 1.04 0.60-1.30 MG/DL Estimat Glomerular Filtration Rate 52 BUN/Creatinine Ratio 20 Glucose Level 126 H 70-105 MG/DL Calcium Level 9.9 8.5-10.1 MG/DL Corrected Calcium 9.7 8.5-10.1 MG/DL Magnesium Level 2.2 1.6-2.4 MG/DL Total Bilirubin 0.4 0.1-1.0 MG/DL Aspartate Amino Transf (AST/SGOT) 16 5-34 U/L Alanine Aminotransferase (ALT/SGPT) 22 0-55 U/L Alkaline Phosphatase 77 40-136 U/L Troponin I < 0.028 <0.028 NG/ML B-Type Natriuretic Peptide 216.8 H <100.0 PG/ML Total Protein 7.1 6.4-8.2 GM/DL Albumin 4.2 3.2-4.5 GM/DL Urine Color YELLOW Urine Clarity SL CLOUDY Urine pH 7.0 5-9 Urine Specific Cent[place] 1.010 L 1.016-1.022 Urine Protein NEGATIVE NEGATIVE Urine Glucose (UA) NEGATIVE NEGATIVE Urine Ketones NEGATIVE NEGATIVE Urine Nitrite NEGATIVE NEGATIVE Urine Bilirubin NEGATIVE NEGATIVE Urine Urobilinogen 0.2 < = 1.0 MG/DL Urine Leukocyte Esterase 2+ H NEGATIVE Urine RBC (Auto) TRACE-I NEGATIVE Urine RBC 0-2 /HPF Urine WBC 5-10 H /HPF Urine Squamous Epithelial Cells 5-10 /HPF Urine Crystals NONE /LPF Urine Bacteria NEGATIVE /HPF Urine Casts NONE /LPF Urine Mucus NEGATIVE /LPF Urine Culture Indicated NO My Orders Orders - TAIWO JOHNSON DO Ed Iv/Invasive Line Start (06/15/21 01:31) Ekg Tracing (06/15/21 01:31) Monitor-Rhythm Ecg Trace Only (06/15/21 01:31) BNP (06/15/21 01:31) Cbc With Automated Diff (06/15/21 01:31) Comprehensive Metabolic Panel (06/15/21 01:31) Magnesium (06/15/21 01:31) Protime With Inr (06/15/21 01:31) Partial Thromboplastin Time (06/15/21 01:31) Troponin I (06/15/21 01:31) Chest 1 View, Ap/Pa Only (06/15/21 01:31) Labetalol Injection (Normodyne Injection (06/15/21 01:45) Manual Differential (06/15/21 01:20) Ua Culture If Indicated (06/15/21 01:59) Labetalol Injection (Normodyne Injection (06/15/21 02:30) Ceftriaxone (Rocephin) (06/15/21 02:45) Ekg Tracing (06/15/21 02:42) Ekg Tracing (06/15/21 03:40) Urine Culture (06/15/21 03:45) Medications Given in ED Current Medications Medications Dose Ordered Sig/Rickey Route Start Time Stop Time Status Last Admin Dose Admin Ceftriaxone Sodium 1000 mg/ Sterile Water 10 ml @ 200 mls/hr ONCE ONCE IV 06/15/21 02:45 06/15/21 02:47 DC 06/15/21 02:55 200 MLS/HR Labetalol HCl 10 mg ONCE ONCE IV 06/15/21 01:45 06/15/21 01:46 DC 06/15/21 01:53 10 MG Labetalol HCl 10 mg ONCE ONCE IV 06/15/21 02:30 06/15/21 02:31 DC 06/15/21 03:05 10 MG Vital Signs/I&O 06/15/21 01:30 Temp 36.8 Pulse 103 Resp 16 B/P (MAP) 178/134 (149) Pulse Ox 96 O2 Delivery Room Air Progress Progress Note : Progress Note GIVEN LABETALOL FOR HTN AND TACHYCARDIA STATES SHE IS FEELING BETTER, AND FEELS BACK TO NORMAL HR DOWN A LITTLE AND BP DOWN, AND PT IS HAVING SIGNIFICANTLY LESS DEMAND VENTRICULAR PACING BP DOWN TO 130/77, HR 65 WITH 100% DEMAND ATRIAL PACING, NO VENTRICULAR PACING Initial ECG Impression Date: Jun 15, 2021 Initial ECG Impression Time: 01:32 Initial ECG Rate: 115 Comment DEMAND A-V PACED COMPLEXES EKG : EKG Time: 02:46 Rate: 108 Rhythm: S.Tach (NO DEMAND PACING NOTED. ) Comment EKG # 3 AT 0343, RATE 70, 100% ATRIAL PACED, NORMAL QRS Diagnostic Imaging Comments CXR--NO ACUTE PROCESS, PENDING RADIOLOGIST REVIEW Reviewed: Reviewed by Me Departure Impression Primary Impression: HTN (hypertension) Additional Impressions: PACEMAKER IN PLACE History of atrial fibrillation UTI (urinary tract infection) Disposition: 01 HOME, SELF-CARE Condition: Improved Departure-Patient Inst. Decision time for Depature: 03:40 Referrals: ELIANA VALENZUELA MD, JACQUELINE S DO (PCP/Family) Primary Care Physician Patient Instructions: High Blood Pressure (DC), Palpitations (DC), Urinary Tract Infection, Adult ED Add. Discharge Instructions: CONTINUE YOUR REGULAR MEDICATIONS PRESCRIBED FOLLOW UP WITH DR. VALENZUELA IN THE NEXT FEW DAYS FOR FURTHER CARE KEEP APPOINTMENT WITH UROLOGIST FOLLOW UP WITH DR. BARRY NEEDED All discharge instructions reviewed with patient and/or family. Voiced understanding. Scripts Cefdinir (Cefdinir) 300 Mg Capsule 300 MG PO BID, #20 CAP Prov: TAIWO JOHNSON DO 06/15/21 TAIWO JOHNSON DO Jun 15, 2021 02:25
[2021-06-15 02:35] LABS: BACTERIA,URINE NEGATIVE /HPF; RBC,URINE 0-2 /HPF
[2021-06-15] MEDS ORDERED: cefTRIAXone 1,000 MG in WATER (STERILE) FOR INJECTION 10 ML IV ONE (02:45)
[2021-06-15] MEDS ORDERED: CEFD300C3 PO (03:43)
[2021-06-15 03:58] VITALS: BP 159/90
--- NOTE | 2021-06-15 06:55 | Diagnostic Imaging Report ---
Indication: Hypertension Portable chest 1:52 AM There is a dual-chamber pacemaker. Heart size and pulmonary vascularity are normal. Lungs are clear. There are no effusions or pneumothoraces. There is a small calcified granuloma in the right lower lung unchanged from prior exams. IMPRESSION: No acute abnormalities in the chest. Dictated by: Dictated on workstation # [id number]
== END 2021-06-15 03:58 | disposition home or self-care (01) ==
LOC: EDUNIT# 01:23 → ER 01:26
DX: I10 Essential (primary) hypertension (principal); I48.91 Unspecified atrial fibrillation; N39.0 Urinary tract infection, site not specified; K21.9 Gastro-esophageal reflux disease without esophagitis; Z95.0 Presence of cardiac pacemaker; Z86.73 Personal history of transient ischemic attack (TIA), and cerebral infarction without residual deficits; Z79.01 Long term (current) use of anticoagulants; Z79.899 Other long term (current) drug therapy
CPT/HCPCS: 36415; 71045; 80053; 81000; 83735; 83880; 84484; 85007; 85027; 85610; 85730; 87088; 93005; 93041

== ENCOUNTER 2021-06-20 08:31 | Outpatient (RCR) | payer MEDICARE, OTHER ==
[~2021-06-20 08:31] MED LIST changes: +CEFD300C3 PO
== END 2021-06-21 | disposition home or self-care (01) ==
PROVIDERS: ATTEND Family Medicine
DX: I63.9 Cerebral infarction, unspecified (principal); I10 Essential (primary) hypertension; I48.91 Unspecified atrial fibrillation; Z85.3 Personal history of malignant neoplasm of breast

== ENCOUNTER 2021-07-06 11:04 | Outpatient (RCR) | payer MEDICARE, OTHER ==
[~2021-07-06 11:04] MED LIST changes: -AMIO200T6 PO; +AMIO200T65 PO
[2021-07-24] MEDS ORDERED: GABA-486 (00:19)
[2021-07-24] MEDS ORDERED: NITR100C10 (00:19)
[2021-07-24] MEDS ORDERED: CEPH500T PO (01:05)
== END 2021-09-20 | disposition home or self-care (01) ==
PROVIDERS: ATTEND Family Medicine
DX: I63.9 Cerebral infarction, unspecified (principal); I10 Essential (primary) hypertension

== ENCOUNTER 2021-07-23 23:51 | Emergency (ER) | payer MEDICARE, OTHER ==
[~2021-07-23] VITALS: Ht 173 cm; Wt 75.0 kg
[~2021-07-23 23:51] MED LIST changes: +AMIO200T6 PO; -AMIO200T65 PO
[2021-07-24] MEDS ORDERED: GABA-486 (00:19)
[2021-07-24] MEDS ORDERED: NITR100C10 (00:19)
[2021-07-24] MEDS ORDERED: PHENAZOPYRIDINE 100 MG (PYRIDIUM) TABLET PO ONE (00:30)
[2021-07-24 00:40] LABS: BILIRUBIN,URINE NEGATIVE (NEGATIVE); CLARITY,URINE CLOUDY; COLOR,URINE ORANGE; GLUCOSE, URINE (UA) NEGATIVE (NEGATIVE); KETONES,URINE TRACE (NEGATIVE); LEUKOCYTE ESTERASE ,URINE 3+ (NEGATIVE); NITRITE,URINE NEGATIVE (NEGATIVE); PH,URINE 5.5 (5-9); PROTEIN,URINE 1+ (NEGATIVE)
[2021-07-24 00:48] LABS: BACTERIA,URINE MODERATE /HPF; SQUAMOUS EPITHELIAL CELL,UR 0-2 /HPF; WBC,URINE TNTC /HPF
[2021-07-24] MEDS ORDERED: CEPHALEXIN 250 MG (KEFLEX) CAP PO STA (00:58)
[2021-07-24] MEDS ORDERED: CEPH500T PO (01:05)
--- NOTE | 2021-07-24 01:05 | ED GU-Female ---
General Chief Complaint: - Reproductive Stated Complaint: BLADDER PAIN/MEDICATION NOT HELPING Nursing Triage Note: c/o burning with urination currently being treated for uti. seen at [facility] for same saturday. denies improvement with abx. Source: patient Exam Limitations: no limitations History of Present Illness Date Seen by Provider: Jul 24, 2021 Time Seen by Provider: 00:37 Initial Comments Here with report of pain with urination. She was seen a few days ago for the same and had UA done which revealed urinary tract infection. She was started on nitrofurantoin but developed diarrhea. That has subsequently stopped but has had persistence of the urinary symptoms. She has tried Tylenol for pain and that did not help. Denies fever chills. Denies nausea or vomiting. She is drinking okay and taking her meds okay. Blood pressure high on arrival but she states that is likely related to pain in the ER visit. She is denying chest pain or other concerns. She is on lisinopril twice daily for that. She also takes Eliquis after her stroke. She has tried her gabapentin to help with the pain and that has not. Denies other concerns. Timing/Duration: changing over time, other (2 to 3 days) Severity/Quality: moderate, burning Location: vaginal, urethral Radiation: none Activities at Onset: none Modifying Factors: Worsens With Urinating Associated Symptoms: No abdominal pain; dysuria; No fever/chills, No lower back pain, No nausea/vomiting; urinary frequency Allergies and Home Medications Allergies Coded Allergies: No Known Drug Allergies (Verified , 04/05/18) Patient Home Medication List Home Medication List Reviewed: Yes Apixaban (Eliquis) 5 Mg Tablet, 5 MG PO BID, (Reported) Entered as Reported by: STEFAN DOUGLAS on 04/04/21 1138 Cefdinir (Cefdinir) 300 Mg Capsule, 300 MG PO BID Prescribed by: TAIWO JOHNSON on 06/15/21 0343 Diltiazem HCl (Diltiazem 24Hr ER) 120 Mg Cap.er.24h, 120 MG PO DAILY, (Reported) Entered as Reported by: STEFAN DOUGLAS on 03/01/21 1255 Flecainide Acetate (Flecainide Acetate) 100 Mg Tablet, 100 MG PO Q12H, (Reported) Entered as Reported by: STEFAN DOUGLAS on 03/01/21 1255 Gabapentin (Gabapentin) 100 Mg Capsule, (Reported) Entered as Reported by: MICAELA ROHT on 07/24/2118 Last Action: New Order Letrozole (Letrozole) 2.5 Mg Tablet, 2.5 MG PO DAILY, (Reported) Entered as Reported by: STEFAN DOUGLAS on 03/01/21 1255 Lisinopril (Lisinopril) 20 Mg Tablet, 20 MG PO BID, (Reported) Entered as Reported by: STEFAN DOUGLAS on 04/04/21 1138 Metoprolol Succinate (Metoprolol Succinate) 50 Mg Tab.er.24h, 50 MG PO DAILY, (Reported) Entered as Reported by: STEFAN DOUGLAS on 03/01/21 1255 Nitrofurantoin Monohyd/M-Cryst (Nitrofurantoin Briscoe-Mcr 100 mg) 100 Mg Capsule, (Reported) Entered as Reported by: MICAELA ROTH on 07/24/2118 Last Action: New Order Pantoprazole Sodium (Protonix) 40 Mg Tablet.dr, 40 MG PO BID Prescribed by: STANLEY ELMORE on 04/05/21 0839 Review of Systems Review of Systems Constitutional: see HPI; No chills, No fever Respiratory: no symptoms reported Cardiovascular: no symptoms reported Gastrointestinal: diarrhea; No nausea, No vomiting Genitourinary: see HPI Musculoskeletal: No back pain; muscle weakness (Residual right leg after stroke) Psychiatric/Neurological: Denies Paresthesia; Pre-Existing Deficit Past Pcynrbr-Ebbmuj-Idvvox Hx Patient Social History Tobacco Use?: No Substance use?: No Alcohol Use?: No Immunizations Up To Date Tetanus Booster (TDap): Less than 5yrs First/Initial COVID19 Vaccinat: 2020 Second COVID19 Vaccination Ramon: NOV 2020 Seasonal Allergies Seasonal Allergies: Yes Past Medical History Surgery/Hospitalization HX: PACEMAKER LEFT BREAST LUMPECTOMY BILATERAL MASTECTOMIES WITH BREAST IMPLANTS "SPOT" ON KIDNEY REMOVED/ PARTIAL NEPHRECTOMY FOR BENIGN MASS TONSILLECTOMY Surgeries: Yes (BREAST LUMPECTOMY; BREAST IMPLANTS; SPOT ON KIDNEY REMOVED) Breast, Pacemaker, Renal, Tonsillectomy Respiratory: Yes Chronic Bronchitis Currently Using CPAP: No Currently Using BIPAP: No Cardiac: Yes (PACEMAKER FOR SSS/PAF; MILD CAROTID STENOSIS) Atrial Fibrillation, High Cholesterol, Hypertension Neurological: Yes (CVA 02/2021-MILD RESIDUAL RIGHT SIDE WEAKNESS) Stroke Female 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 HIV/AIDS: No Genitourinary: Yes (PARTIAL NEPHRECTOMY FOR BENIGN MASS) UTI-Chronic Gastrointestinal: Yes Gastroesophageal Reflux, Chronic Diarrhea Musculoskeletal: No Amputee Endocrine: No HEENT: Yes Cataract Loss of Vision: Denies Hearing Impairment: Hard of Hearing Cancer: Yes Breast Did You Recieve Any Treatments: Yes What Type of Treatment Did You: Radiation, Surgical Intervention Psychosocial: Yes Anxiety Integumentary: No Blood Disorders: No Adverse Reaction/Blood Tranf: No (N/A) Family Medical History Reviewed Nursing Family Hx Colon cancer 19 MOTHER Colon cancer 19 MOTHER Hypertension 19 FATHER Neoplasm 19 FATHER Hypertension Physical Exam Vital Signs Vital Signs - First Documented 07/24/21 00:10 Temp 36.5 Pulse 62 Resp 16 B/P (MAP) 188/108 (134) Pulse Ox 96 O2 Delivery Room Air Capillary Refill : Less Than 3 Seconds Height, Weight, BMI Height: 5'8.00" Weight: 175lbs. 0.0oz. [id number]; 25.00 BMI Method:Stated General Appearance: WD/WN, no apparent distress Cardiovascular: regular rate, rhythm, no murmur Respiratory: lungs clear, normal breath sounds Gastrointestinal: non tender, soft Back: normal inspection, no CVA tenderness, no vertebral tenderness Neurologic/Psychiatric: alert, oriented x 3 Skin: normal color, warm/dry Progress/Results/Core Measures Suspected Sepsis SIRS Temperature: Pulse: 62 Respiratory Rate: 16 Blood Pressure 188 /108 Mean: 134 Results/Orders Lab Results Laboratory Tests Test 07/24/21 00:15 Range/Units Urine Color ORANGE Urine Clarity CLOUDY Urine pH 5.5 5-9 Urine Specific [place] 1.010 L 1.016-1.022 Urine Protein 1+ H NEGATIVE Urine Glucose (UA) NEGATIVE NEGATIVE Urine Ketones TRACE H NEGATIVE Urine Nitrite NEGATIVE NEGATIVE Urine Bilirubin NEGATIVE NEGATIVE Urine Urobilinogen 0.2 < = 1.0 MG/DL Urine Leukocyte Esterase 3+ H NEGATIVE Urine RBC (Auto) 3+ H NEGATIVE Urine RBC 5-10 H /HPF Urine WBC TNTC H /HPF Urine Squamous Epithelial Cells 0-2 /HPF Urine Crystals NONE /LPF Urine Bacteria MODERATE H /HPF Urine Casts NONE /LPF Urine Mucus NEGATIVE /LPF Urine Culture Indicated YES My Orders Orders - RENETTA PÉREZ MD Ua Culture If Indicated (07/24/21 00:28) Phenazopyridine Tablet (Pyridium Tablet) (07/24/21 00:30) Urine Culture (07/24/21 00:15) Cephalexin Capsule (Keflex Capsule) (07/24/21 00:58) Medications Given in ED Current Medications Medications Dose Ordered Sig/Rickey Route Start Time Stop Time Status Last Admin Dose Admin Phenazopyridine HCl 100 mg ONCE ONCE PO 07/24/21 00:30 07/24/21 00:31 DC 07/24/21 00:35 100 MG Vital Signs/I&O 07/24/21 00:10 Temp 36.5 Pulse 62 Resp 16 B/P (MAP) 188/108 (134) Pulse Ox 96 O2 Delivery Room Air Capillary Refill : Less Than 3 Seconds Blood Pressure Mean: 134 Progress Note : Progress Note Seen and evaluated. UA ordered. Pyridium 100 mg p.o. Monitor patient. 0100: Doing much better with respect to pain. UA process and does show urinary tract infection. Keflex 500 mg p.o. We will continue this outpatient. Discharged home with return precautions. Patient verbalized understanding of instructions and agreement with plan. Departure Impression Primary Impression: UTI (urinary tract infection) Qualified Codes: N30.01 - Acute cystitis with hematuria Disposition: HOME, SELF-CARE Condition: Improved Departure-Patient Inst. Decision time for Depature: 01:03 Referrals: STANLEY ELMORE DO (PCP/Family) Primary Care Physician Patient Instructions: Urinary Tract Infection, Adult (DC) Add. Discharge Instructions: All discharge instructions reviewed with patient and/or family. Voiced understanding. You may continue Tylenol 1000 mg every 8 hours as needed for pain. Drink plenty of fluids. You may take [id number] Azo (urinary pain relief with p henazopyridine) per package directions. Follow-up with Dr. Elmore for recheck and further evaluation. Return for worse pain, fever, vomiting, weakness, breathing problems or other concerns as needed. Scripts Cephalexin (Cephalexin) 500 Mg Tablet 500 MG PO BID, #10 TAB 0 Refills Prov: RENETTA PÉREZ MD 07/24/21 Copy Copies To 1: STANLEY ELMORE TIMOTHY D MD Jul 24, 2021 01:05
[2021-07-24 01:10] VITALS: BP 186/98
== END 2021-07-24 01:12 | disposition home or self-care (01) ==
LOC: EDUNIT# 23:51 → ER 23:54
DX: N39.0 Urinary tract infection, site not specified (principal); I10 Essential (primary) hypertension; I48.91 Unspecified atrial fibrillation; I69.351 Hemiplegia and hemiparesis following cerebral infarction affecting right dominant side; K21.9 Gastro-esophageal reflux disease without esophagitis; F41.9 Anxiety disorder, unspecified; H26.9 Unspecified cataract; Z95.0 Presence of cardiac pacemaker; Z79.01 Long term (current) use of anticoagulants; Z79.899 Other long term (current) drug therapy
CPT/HCPCS: 81000; 87077; 87088; 87186; 99283

== ENCOUNTER → 2021-09-28 | Outpatient (CLI) | payer MEDICARE, OTHER ==
[~2021-09-28] MED LIST changes: -AMIO200T6 PO; +AMIO200T65 PO; +CEPH500T PO; +GABA-486; +NITR100C10
[2021-09-28 14:23] LABS: BASOPHILS # (AUTO) 0.1 10^3/uL (0.0-0.1); BASOPHILS % (AUTO) 1 % (0-10); EOSINOPHILS # (AUTO) 0.1 10^3/uL (0.0-0.3); EOSINOPHILS % (AUTO) 1 % (0-10); HEMATOCRIT 40 % (35-52); HEMOGLOBIN 12.8 g/dL (11.5-16.0); LYMPHOCYTES # (AUTO) 2.5 10^3/uL (1.0-4.0); LYMPHOCYTES % (AUTO) 31 % (12-44); MEAN CORPUSCULAR HEMOGLOBIN 30 pg (25-34); MEAN CORPUSCULAR HGB CONC 32 g/dL (32-36); MEAN CORPUSCULAR VOLUME 94 fL (80-99); MEAN PLATELET VOLUME 8.8 fL (9.0-12.2); MONOCYTES # (AUTO) 0.6 10^3/uL (0.0-1.0); MONOCYTES % (AUTO) 7 % (0-12); NEUTROPHILS % (AUTO) 60 % (42-75); PLATELET COUNT 352 10^3/uL (130-400); WHITE BLOOD COUNT 8.2 10^3/uL (4.3-11.0)
[2021-09-28 14:41] LABS: ALBUMIN 3.8 GM/DL (3.2-4.5); BILIRUBIN,TOTAL 0.4 MG/DL (0.1-1.0); CALCIUM 9.2 MG/DL (8.5-10.1); CREATININE SERUM 0.97 MG/DL (0.60-1.30); POTASSIUM 4.1 MMOL/L (3.6-5.0); TOTAL PROTEIN 6.3 GM/DL (6.4-8.2)
== END ==
LOC: ONC 14:06
PROVIDERS: ATTEND Internal Medicine Hematology & Oncology
DX: C50.412 Malignant neoplasm of upper-outer quadrant of left female breast (principal); E55.9 Vitamin D deficiency, unspecified; I48.0 Paroxysmal atrial fibrillation; I10 Essential (primary) hypertension; I63.9 Cerebral infarction, unspecified; E78.2 Mixed hyperlipidemia
CPT/HCPCS: 80053; 82306; 85025; G0463; 99213

== ENCOUNTER → 2022-03-13 | Outpatient (CLI) | payer MEDICARE ==
--- NOTE | 2022-03-13 14:56 | Diagnostic Imaging Report ---
INDICATION: Right knee pain and swelling. Time of Exam: 2:10 PM 3 views right knee demonstrates significant lateral and patellofemoral compartmental degenerative changes with joint space narrowing and marginal spurring. Medial compartments fairly well maintained. No fracture or dislocation is seen. There is a small joint effusion. IMPRESSION: Degenerative changes with small joint effusion. No acute bony abnormality is detected. Dictated by: Dictated on workstation # [id number]
== END ==
LOC: RAD 13:54
PROVIDERS: ATTEND Family Medicine
DX: M17.11 Unilateral primary osteoarthritis, right knee (principal)
CPT/HCPCS: 73562

== ENCOUNTER 2022-03-21 09:35 | Outpatient (RCR) | payer MEDICARE | END 2022-04-12 | disposition home or self-care (01) | PROVIDERS: ATTEND Nurse Practitioner Family | DX: I69.351 Hemiplegia and hemiparesis following cerebral infarction affecting right dominant side (principal); M76.31 Iliotibial band syndrome, right leg; I10 Essential (primary) hypertension ==

== ENCOUNTER 2022-05-09 07:01 | Outpatient (CLI) | payer MEDICARE ==
[~2022-05-09] VITALS: Ht 172.7 cm; Wt 72.6 kg
== END 2022-05-09 14:20 | disposition home or self-care (01) ==
LOC: PREOP 07:01
PROVIDERS: ATTEND Surgery
DX: Z01.818 Encounter for other preprocedural examination (principal)

== ENCOUNTER 2022-05-22 09:03 | Day surgery (SDC) | payer MEDICARE ==
[~2022-05-22] VITALS: Ht 172 cm; Wt 72.6 kg
[2022-05-22] MEDS ORDERED: LACTATED RINGERS 1,000 ML IV STA (09:23)
[2022-05-22] MEDS ORDERED: LACTATED RINGERS 1,000 ML IV ONE (09:28)
[2022-05-22 09:30] VITALS: BP 175/100
[2022-05-22] MEDS ORDERED: PROPOFOL INJECTION 50 ML IV ONE (10:11)
[2022-05-22] MEDS ORDERED: MIDAZOLAM 2 MG/2 ML (VERSED) VIAL ONE (10:11)
--- NOTE | 2022-05-22 10:44 | Progress Note-Post Operative ---
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
[2022-05-22 10:45] VITALS: BP 102/53
--- NOTE | 2022-05-22 10:45 | Discharge Inst-Simple/Standard ---
Discharge Inst-Standard Patient Instructions/Follow Up Plan of Care/Instructions/FU: 5 years Myke Activity as Tolerated: Yes Discharge Diet: Regular Diet (high fiber) NAIDA CHING DO May 22, 2022 10:45
[2022-05-22 10:50] VITALS: BP 108/59
[2022-05-22 10:55] VITALS: BP 110/54
[2022-05-22 11:10] VITALS: BP 137/80
--- NOTE | 2022-05-22 14:00 | Anesthesia-General Post-Op ---
MAC Patient Condition Mental Status/LOC: Same as Preop Cardiovascular: Satisfactory Nausea/Vomiting: Absent Respiratory: Satisfactory Pain: Controlled Complications: Absent Post Op Complications Complications None Follow Up Care/Instructions Patient Instructions None needed. Anesthesiology Discharge Order Discharge Order Patient is doing well, no complaints, stable vital signs, no apparent adverse anesthesia problems. No complications reported per nursing. CALVIN MARIE CRNA May 22, 2022 14:00
--- NOTE | 2022-05-22 15:26 | OPERATIVE REPORT ---
DATE OF SERVICE: 05/22/2022 PREOPERATIVE DIAGNOSIS: Family history of colon cancer. POSTOPERATIVE DIAGNOSIS: Minimal diverticulosis. PROCEDURE: Colonoscopy. SURGEON: Naida Stringer DO ANESTHESIA: Per BUNDLER. ESTIMATED BLOOD LOSS: None. COMPLICATIONS: None. INDICATIONS: The patient is a 77-year-old female with family history of colon cancer. She understands risks and benefits of procedure and wishes to proceed. Consent was signed in the chart. DESCRIPTION OF PROCEDURE: The patient was taken to endoscopy suite, placed in left lateral recumbent position. Timeout was performed. Digital rectal exam was performed. No palpable polyps, masses or ulcerations. Scope was inserted in the rectum and advanced all the way to cecum with minimal difficulty. Prep was adequate. Scope was slowly retracted back. No polyps, masses or ulcerations within the cecum, ascending, transverse, descending and sigmoid colon. The sigmoid colon had minimal diverticulosis. Once in the rectum, scope was retroflexed noting no other pathology. Scope was returned to its normal position, slowly withdrawn until completely removed. The patient tolerated the procedure well without any complications. She was taken to recovery room in stable condition. RECOMMENDATIONS: The patient will need repeat colonoscopy on as needed basis due to age. If she has any issues before that be seen at that time. Otherwise, if she elect to proceed benefits outweigh the risks at age 82. We would recommend high fiber diet due to diverticulosis. Job ID: [id number] DocumentID: [id number] Dictated Date: 05/22/2022 10:50:57 Board Layer Date: 05/22/2022 15:25:26 Dictated By: NAIDA STRINGER DO
== END 2022-05-22 11:21 | disposition home or self-care (01) ==
LOC: ENDO 09:03
PROVIDERS: ATTEND Surgery
DX: Z12.11 Encounter for screening for malignant neoplasm of colon (principal); K57.30 Diverticulosis of large intestine without perforation or abscess without bleeding; Z79.01 Long term (current) use of anticoagulants; Z85.3 Personal history of malignant neoplasm of breast
CPT/HCPCS: G0105

== ENCOUNTER → 2022-07-23 | Outpatient (CLI) | payer MEDICARE | LOC: CARD 10:00 | PROVIDERS: ATTEND Internal Medicine Cardiovascular Disease | DX: I11.9 Hypertensive heart disease without heart failure (principal); I48.91 Unspecified atrial fibrillation | CPT/HCPCS: 93306 ==

== ENCOUNTER → 2022-08-06 | Outpatient (CLI) | payer MEDICARE ==
[~2022-08-06] MED LIST changes: +CATHETER FLUSH 10 ML SYR IVP PRN; +REGADENOSON 0.4 MG/5 ML SYR (LEXISCAN) IV ONE
[2022-08-06 09:26] VITALS: BP 180/98
--- NOTE | 2022-08-06 12:36 | Cardiology Stress Test Report ---
Stress Test Report Date of Procedure/Referring: Date of Procedure: Aug 06, 2022 PCP Evangelina Elmore DO Admitting Physician Admitting Physician: Attending Physician: Valentin Zee MD Indications: a fib Baseline Heart Rate: 64 Baseline Blood Pressure: Blood Pressure Systolic: 180 Blood Pressure Diastolic: 98 Baseline Vitals Vital Signs Date Time Temp Pulse Resp B/P (MAP) Pulse Ox O2 Delivery O2 Flow Rate FiO2 08/06/22 09:26 68 180/98 (125) Baseline EKG: Baseline EKG: atrial paced rhythm Summary After explaining the procedure to the patient, she signed a consent and then brought to the stress nuclear laboratory. Patient received 0.4 mg Lexiscan for stress test, ECG, heart rate and blood pressure were monitored continuously. Resting and stress dose of radio tracer were injected, imaging was acquired and reviewed in short axis, horizontal long axis and vertical long axis views. TID: 1.18 SSS: 2 SDS: 1 EF: 57 1. Patient tolerated Lexiscan well 2. Baseline atrial paced rhythm with intermittent ventricular paced rhythm 3. No significant ischemia or infarction noted on SPECT images 4. Normal left ventricular size, ejection fraction 57% Copy Copies To 1: EVANGELINA ELMORE BASHAR J MD Aug 06, 2022 12:36
== END ==
LOC: CARD 08:30
PROVIDERS: ATTEND Internal Medicine Cardiovascular Disease
DX: I48.91 Unspecified atrial fibrillation (principal); I10 Essential (primary) hypertension
CPT/HCPCS: 78452; 93017; A9502

== ENCOUNTER 2022-10-24 10:05 | Emergency (ER) | payer MEDICARE ==
[~2022-10-24] VITALS: Ht 173 cm; Wt 72.0 kg
[~2022-10-24 10:05] MED LIST changes: -CATHETER FLUSH 10 ML SYR IVP PRN; -REGADENOSON 0.4 MG/5 ML SYR (LEXISCAN) IV ONE
[2022-10-24 10:30] LABS: BASOPHILS # (AUTO) 0.1 10^3/uL (0.0-0.1); BASOPHILS % (AUTO) 1 % (0-10); EOSINOPHILS # (AUTO) 0.1 10^3/uL (0.0-0.3); EOSINOPHILS % (AUTO) 1 % (0-10); HEMATOCRIT 43 % (35-52); HEMOGLOBIN 14.2 g/dL (11.5-16.0); LYMPHOCYTES # (AUTO) 2.5 10^3/uL (1.0-4.0); LYMPHOCYTES % (AUTO) 26 % (12-44); MEAN CORPUSCULAR HEMOGLOBIN 30 pg (25-34); MEAN CORPUSCULAR HGB CONC 33 g/dL (32-36); MEAN CORPUSCULAR VOLUME 92 fL (80-99); MEAN PLATELET VOLUME 9.2 fL (9.0-12.2); MONOCYTES # (AUTO) 0.6 10^3/uL (0.0-1.0); MONOCYTES % (AUTO) 6 % (0-12); NEUTROPHILS # (AUTO) 6.4 10^3/uL (1.8-7.8); NEUTROPHILS % (AUTO) 66 % (42-75); PLATELET COUNT 327 10^3/uL (130-400); WHITE BLOOD COUNT 9.7 10^3/uL (4.3-11.0)
--- NOTE | 2022-10-24 10:36 | ED Chest Pain ---
General Chief Complaint: Chest Pain Stated Complaint: CHEST PAINS Nursing Triage Note: Patient ambulated to room 06 with c/o pain that starts under left jaw down left arm. Patient states tylenol has not helped and pain was worse last night. Source: patient Exam Limitations: no limitations History of Present Illness Date Seen by Provider: Oct 24, 2022 Time Seen by Provider: 10:20 Initial Comments 77-year-old female presents to the emergency department today for chest pain. Its been present for the last couple of days and got worse last night. She describes it as starting in her left periclavicular region and radiates down her left side into her chest and epigastric region. She denies any fevers chills cough. It is worse with deep inspiration. Described more as a burning sensation does also appear to be worse with movement of her left arm. Notably she had a stress test back in July which I have reviewed and was negative. She has no history of stents in her heart. She does have a history of a stroke and is on Eliquis. She states she has not missed any doses. No unilateral lower extremity pain, swelling or recent long distance travels or surgery. Allergies and Home Medications Allergies Coded Allergies: No Known Drug Allergies (Verified , 04/05/18) Patient Home Medication List Home Medication List Reviewed: Yes Apixaban (Eliquis) 5 Mg Tablet, 5 MG PO BID, (Reported) Entered as Reported by: STEFAN DOUGLAS on 04/04/21 1138 Diltiazem HCl (Diltiazem 24Hr ER) 120 Mg Cap.er.24h, 120 MG PO DAILY, (Reported) Entered as Reported by: STEFAN DOUGLAS on 03/01/21 1255 Flecainide Acetate (Flecainide Acetate) 100 Mg Tablet, 100 MG PO Q12H, (Re ported) Entered as Reported by: STEFAN DOUGLAS on 03/01/21 1255 Lisinopril (Lisinopril) 20 Mg Tablet, 20 MG PO BID, (Reported) Entered as Reported by: STEFAN DOUGLAS on 04/04/21 1138 Metoprolol Succinate (Metoprolol Succinate) 50 Mg Tab.er.24h, 50 MG PO DAILY, (Reported) Entered as Reported by: STEFAN DOUGLAS on 03/01/21 1255 Review of Systems Review of Systems Constitutional: no symptoms reported EENTM: No Symptoms Reported Respiratory: No Symptoms Reported Cardiovascular: Chest Pain Gastrointestinal: No Symptoms Reported Genitourinary: No Symptoms Reported Musculoskeletal: no symptoms reported Skin: no symptoms reported Psychiatric/Neurological: No Symptoms Reported Endocrine: No Symptoms Reported Hematologic/Lymphatic: No Symptoms Reported Past Zwxrjne-Lifhvl-Sjydof Hx Patient Social History Tobacco Use?: No Substance use?: No Alcohol Use?: No Immunizations Up To Date Tetanus Booster (TDap): Unknown First/Initial COVID19 Vaccinat: 2020 Second COVID19 Vaccination Ramon: NOV 2020 Third COVID19 Vaccination Date: 2020 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[employer] [facility] Seasonal Allergies Seasonal Allergies: Yes Past Medical History Surgery/Hospitalization HX: PACEMAKER LEFT BREAST LUMPECTOMY BILATERAL MASTECTOMIES WITH BREAST IMPLANTS "SPOT" ON KIDNEY REMOVED/ PARTIAL NEPHRECTOMY FOR BENIGN MASS TONSILLECTOMY Surgeries: Yes (BREAST LUMPECTOMY; BREAST IMPLANTS; SPOT ON KIDNEY REMOVED) Breast, Pacemaker, Renal, Tonsillectomy Respiratory: Yes Chronic Bronchitis Currently Using CPAP: No Currently Using BIPAP: No Cardiac: Yes (PACEMAKER FOR SSS/PAF; MILD CAROTID STENOSIS) Atrial Fibrillation, High Cholesterol, Hypertension Neurological: Yes (CVA 02/2021-MILD RESIDUAL RIGHT SIDE WEAKNESS) Stroke Female 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 HIV/AIDS: No Genitourinary: Yes (PARTIAL NEPHRECTOMY FOR BENIGN MASS) UTI-Chronic Gastrointestinal: Yes Gastroesophageal Reflux, Chronic Diarrhea Musculoskeletal: No Amputee Endocrine: No HEENT: Yes Cataract Loss of Vision: Denies Hearing Impairment: Hard of Hearing Cancer: Yes Breast Did You Recieve Any Treatments: Yes What Type of Treatment Did You: Radiation, Surgical Intervention Psychosocial: Yes Anxiety Integumentary: No Blood Disorders: No Adverse Reaction/Blood Tranf: No (N/A) Family Medical History Reviewed Nursing Family Hx Colon cancer 19 MOTHER Colon cancer 19 MOTHER FH: colon cancer Hypertension 19 FATHER Neoplasm 19 FATHER No Pertinent Family Hx, Hypertension Physical Exam Vital Signs Vital Signs - First Documented 10/24/22 10:10 Temp 36.4 Pulse 60 Resp 18 Pulse Ox 98 O2 Delivery Room Air Capillary Refill : Less Than 3 Seconds Height, Weight, BMI Height: 5'8.00" Weight: 175lbs. 0.0oz. 79.497372ey; 24.00 BMI Method:Stated General Appearance: No Apparent Distress, WD/WN HEENT: Normal ENT Inspection, Pharynx Normal Neck: Full Range of Motion, Normal Inspection, Non Tender, Supple Respiratory: Lungs Clear, Normal Breath Sounds, No Accessory Muscle Use, No Respiratory Distress, Other (There is tenderness palpation that is reproducible to the left clavicular region of left chest wall. No crepitus or deformity) Cardiovascular: Regular Rate, Rhythm, No Murmur Gastrointestinal: Normal Bowel Sounds, No Organomegaly, Non Tender, Soft Extremity: Normal Capillary Refill, Normal Inspection, Normal Range of Motion, Non Tender, No Calf Tenderness Neurologic/Psychiatric: Alert, Oriented x3 Skin: Normal Color, Warm/Dry Progress/Results/Core Measures Results/Orders Lab Results Laboratory Tests Test 10/24/22 10:20 Range/Units White Blood Count 9.7 4.3-11.0 10^3/uL Red Blood Count 4.72 3.80-5.11 10^6/uL Hemoglobin 14.2 11.5-16.0 g/dL Hematocrit 43 35-52 % Mean Corpuscular Volume 92 80-99 fL Mean Corpuscular Hemoglobin 30 25-34 pg Mean Corpuscular Hemoglobin Concent 33 32-36 g/dL Red Cell Distribution Width 13.8 10.0-14.5 % Platelet Count 327 130-400 10^3/uL Mean Platelet Volume 9.2 9.0-12.2 fL Immature Granulocyte % (Auto) 0 % Neutrophils (%) (Auto) 66 42-75 % Lymphocytes (%) (Auto) 26 12-44 % Monocytes (%) (Auto) 6 0-12 % Eosinophils (%) (Auto) 1 0-10 % Basophils (%) (Auto) 1 0-10 % Neutrophils # (Auto) 6.4 1.8-7.8 10^3/uL Lymphocytes # (Auto) 2.5 1.0-4.0 10^3/uL Monocytes # (Auto) 0.6 0.0-1.0 10^3/uL Eosinophils # (Auto) 0.1 0.0-0.3 10^3/uL Basophils # (Auto) 0.1 0.0-0.1 10^3/uL Immature Granulocyte # (Auto) 0.0 0.0-0.1 10^3/uL Sodium Level 141 135-145 MMOL/L Potassium Level 3.6 3.6-5.0 MMOL/L Chloride Level 107 98-107 MMOL/L Carbon Dioxide Level 24 21-32 MMOL/L Anion Gap 10 5-14 MMOL/L Blood Urea Nitrogen 13 7-18 MG/DL Creatinine 0.89 0.60-1.30 MG/DL Estimat Glomerular Filtration Rate 68 BUN/Creatinine Ratio 15 Glucose Level 98 70-105 MG/DL Calcium Level 9.6 8.5-10.1 MG/DL Corrected Calcium 9.5 8.5-10.1 MG/DL Magnesium Level 2.3 1.6-2.4 MG/DL Total Bilirubin 0.6 0.1-1.0 MG/DL Aspartate Amino Transf (AST/SGOT) 16 5-34 U/L Alanine Aminotransferase (ALT/SGPT) 8 0-55 U/L Alkaline Phosphatase 75 40-136 U/L Troponin I < 0.028 <0.028 NG/ML Total Protein 7.1 6.4-8.2 GM/DL Albumin 4.1 3.2-4.5 GM/DL My Orders Orders - CALIANJEL BAUER DO Ekg Tracing (10/24/22 10:10) Cbc With Automated Diff (10/24/22 10:16) Magnesium (10/24/22 10:16) Chest 1 View, Ap/Pa Only (10/24/22 10:16) Comprehensive Metabolic Panel (10/24/22 10:16) Lipid Panel (10/25/22 06:00) Ed Iv/Invasive Line Start (10/24/22 10:16) Troponin I Scott (10/24/22 10:16) Vital Signs/I&O 10/24/22 10:10 Temp 36.4 Pulse 60 Resp 18 B/P (MAP) Pulse Ox 98 O2 Delivery Room Air Comment Atrial paced rhythm at 60 bpm. Normal intervals. Normal axis. No ST or T wave abnormalities. No ectopy. Departure Communication (Admissions) Patient is hemodynamically stable. She is clearly reproducible pain on exam. Given her risk factors we will have a cardiac work-up with CBC, CMP and lipase to evaluate liver function, pancreatic function and overall renal function, electrolytes. Troponin is negative. EKG nonischemic. Reviewed her record including most recent stress test in July which was negative. Overall I think this is likely musculoskeletal type pain given its reproducibility and lack of evidence for cardiac ischemia, pulmonary etiology. Chest x-ray is negative as well. She will be discharged with supportive care and close follow- up. Impression Primary Impression: Chest wall pain Disposition: 01 HOME, SELF-CARE Condition: Stable Departure-Patient Inst. Referrals: STANLEY BARRY DO (PCP) Primary Care Physician ELIANA VALENZUELA MD (Family) Primary Care Physician Patient Instructions: Chest Pain That Is Not Caused by the Heart (DC) Add. Discharge Instructions: Please use ibuprofen and Tylenol as needed for pains. There is no evidence that this is coming from your heart or your lungs or other emergent condition at this time. Please follow-up with your primary doctor should your symptoms persist. Return to the emergency department for any severe concerns. All discharge instructions reviewed with patient and/or family. Voiced understanding. ANJEL LEIVA DO Oct 24, 2022 10:36
--- NOTE | 2022-10-24 10:39 | Diagnostic Imaging Report ---
CLINICAL INDICATION: Patient with chest pain. The pain starts under left jaw and down left arm. EXAM: Portable chest x-ray upright view. COMPARISON: Chest x-ray dated 06/15/2021. FINDINGS: Lungs/pleura: Stable calcified granuloma overlying the right lower lung field. Lungs are otherwise clear. There is no pneumothorax. There is no pleural effusion. Mediastinum: Unremarkable. Pulmonary vasculature: Unremarkable. Heart: Heart size is upper limits of normal for portable projection. Stable cardiac pacemaker overlying the chest. Bones/extrathoracic soft tissue: There are degenerative spurs involving the thoracic spine. IMPRESSION: Stable chest x-ray exam with no interval radiographic evidence of acute cardiopulmonary process. Dictated by: Dictated on workstation # [id number]
[2022-10-24 10:59] LABS: ALBUMIN 4.1 GM/DL (3.2-4.5); BILIRUBIN,TOTAL 0.6 MG/DL (0.1-1.0); CALCIUM 9.6 MG/DL (8.5-10.1); CREATININE SERUM 0.89 MG/DL (0.60-1.30); MAGNESIUM 2.3 MG/DL (1.6-2.4); POTASSIUM 3.6 MMOL/L (3.6-5.0); TOTAL PROTEIN 7.1 GM/DL (6.4-8.2)
== END 2022-10-24 11:34 | disposition home or self-care (01) ==
LOC: EDUNIT# 10:05 → ER 10:07
DX: R07.89 Other chest pain (principal); R68.84 Jaw pain; Z86.73 Personal history of transient ischemic attack (TIA), and cerebral infarction without residual deficits; Z79.01 Long term (current) use of anticoagulants
CPT/HCPCS: 36415; 71045; 80053; 83735; 84484; 85025; 93005